=== PATIENT | male | born 1955 | race Caucasian/White ===

== ENCOUNTER 2016-11-26 12:30 | Emergency (ER) | payer OTHER ==
[~2016-11-26] VITALS: Ht 170.2 cm; Wt 91.0 kg
[~2016-11-26 12:30] MED LIST: DIAZ5 PO; ENOX40P SQ; METO50TA PO; NORC7.5T PO; TEMA15CA PO; WALKER ROLLING; Z.0.COMMODE-3:1; Z.0.CPM
[2016-11-26 12:33] VITALS: BP 134/96; PULSE 84; RESP 15; TEMP 98.2; O2SAT 98
--- NOTE | 2016-11-26 13:09 | PD ---
HPI . Pain and bleeding following EGD Chief Complaint: GI Complaint Time Seen by Provider: 12:51 Travel History International Travel<30 days: No Contact w/Intl Traveler<30days: No Traveled to known affect area: No History of Present Illness HPI Patient presents with a chief complaint of pain and bleeding each yesterday. Patient states that he was diagnosed with esophageal cancer yesterday. He states that he had blood in his mouth today on with the increased pain. He states that he call the GI doctor who instructed him to present here for treatment. He states that the bleeding is mild. He states that the pain is severe. He rates the pain 10/10. No modifying factors. PFSH Past Medical History Cancer: No Cardiovascular Problems: Yes Congestive Heart Failure: No Diminished Hearing: No Genitourinary: Yes Hypertension: Yes Musculoskeletal: Yes (left knee surgery) Neurologic: No Psychiatric: No Respiratory: Yes (SLEEP APNEA) Past Surgical History Abdominal Surgery: Yes (BILATERAL INGUINAL HERNIA REPAIR) Social History Alcohol Use: Yes ("OCCASIONALLY") Tobacco Use: No Substance Use: No Allergies-Medications (Allergen,Severity, Reaction): Coded Allergies: Scallop (Verified Allergy, Unknown, 11/26/16) Reported Meds & Prescriptions Reported Meds & Active Scripts Active Reported Prilosec (Omeprazole Magnesium) 20 Mg Tab Diazepam 10 Mg Tab 10 Mg PO HS PRN Metoprolol Tartrate 50 Mg Tab 50 Mg PO BID Review of Systems Except as stated in HPI: all other systems reviewed are Neg General / Constitutional: No: Fever, Chills Cardiovascular: No: Chest Pain or Discomfort Respiratory: No: Shortness of Breath Gastrointestinal: Positive: Abdominal Pain, Hematemesis, No: Nausea, Vomiting , Diarrhea Physical Exam Narrative GENERAL: The patient does not appear to be in any acute distress. SKIN: Warm and dry. He is pink. HEAD: Atraumatic. Normocephalic. EYES: Pupils equal and round. Extraocular movements are intact. ENT: No nasal bleeding or discharge. Mucous membranes pink and moist. NECK: Trachea midline. Neck is supple. CARDIOVASCULAR: Regular rate and rhythm. Heart sounds are normal. RESPIRATORY: No accessory muscle use. Lungs are clear. GASTROINTESTINAL: Abdomen soft. Diffuse upper abdominal tenderness. Nondistended. MUSCULOSKELETAL: No obvious deformities. No edema. NEUROLOGICAL: Awake and alert. No obvious cranial nerve deficits. Motor grossly within normal limits. Normal speech. PSYCHIATRIC: Appropriate mood and affect; insight and judgment normal. Data Data Last Documented VS Vital Signs Date Time Temp Pulse Resp B/P Pulse Ox O2 Delivery O2 Flow Rate FiO2 11/26/16 12:33 98.2 84 15 134/96 98 Orders Basic Metabolic Panel (Bmp) (11/26/16 13:02) Complete Blood Count With Diff (11/26/16 13:02) Ct Abd/Pel W Iv Contrast(Rout) (11/26/16 13:02) Iv Access Insert/Monitor (11/26/16 13:02) Morphine Inj (Morphine Inj) (11/26/16 13:15) Ondansetron Inj (Zofran Inj) (11/26/16 13:15) Sodium Chloride 0.9% Flush (Ns Flush) (11/26/16 13:15) Ct Thorax/ Chest W Iv Contrast (11/26/16 13:02) Iohexol 350 Inj (Omnipaque 350 Inj) (11/26/16 15:00) Labs Laboratory Tests Test 11/26/16 13:25 White Blood Count 8.7 TH/MM3 Red Blood Count 5.82 MIL/MM3 Hemoglobin 17.3 GM/DL Hematocrit 52.6 % Mean Corpuscular Volume 90.3 FL Mean Corpuscular Hemoglobin 29.7 PG Mean Corpuscular Hemoglobin 32.9 % Concent Red Cell Distribution Width 13.7 % Platelet Count 271 TH/MM3 Mean Platelet Volume 8.0 FL Neutrophils (%) (Auto) 63.8 % Lymphocytes (%) (Auto) 22.8 % Monocytes (%) (Auto) 10.9 % Eosinophils (%) (Auto) 1.9 % Basophils (%) (Auto) 0.6 % Neutrophils # (Auto) 5.6 TH/MM3 Lymphocytes # (Auto) 2.0 TH/MM3 Monocytes # (Auto) 0.9 TH/MM3 Eosinophils # (Auto) 0.2 TH/MM3 Basophils # (Auto) 0.1 TH/MM3 CBC Comment DIFF FINAL Differential Comment Sodium Level 136 MEQ/L Potassium Level 4.4 MEQ/L Chloride Level 103 MEQ/L Carbon Dioxide Level 23.4 MEQ/L Anion Gap 10 MEQ/L Blood Urea Nitrogen 7 MG/DL Creatinine 0.81 MG/DL Estimat Glomerular Filtration 98 ML/MIN Rate Random Glucose 82 MG/DL Calcium Level 9.4 MG/DL MDM Medical Decision Making Medical Screen Exam Complete: Yes Emergency Medical Condition: Yes Differential Diagnosis Differential diagnosis of abdominal pain includes but is not limited to gastritis, pancreatitis, hepatitis, gastroenteritis, gallbladder disease, constipation, urinary retention, UTI, peptic ulcer disease, diverticulitis or appendicitis Narrative Course This patient presents complaining with abdominal pain and hematemesis following an EGD yesterday. I have ordered a CT of the thorax, abdomen and pelvis to rule out complication related to this procedure. I have also ordered a CBC to check his blood count. His pain will be treated with morphine. He will be given Zofran for nausea associated with opiate treatment. CBC & BMP Diagram 11/26/16 13:25 CT chest: 1. Mildly distended and fluid-filled distal esophagus with soft tissue thickening at the GE junction. This may represent the patient's reported esophageal carcinoma. There are no findings to indicate metastatic disease. 2. There is an incidental 3 mm noncalcified nodule in the right middle lobe. Given the patient's history of malignancy, followup is suggested. CT abd/pelvis: 1. Extensive diverticulosis without diverticulitis. 2. No acute inflammatory process. 3. Small hiatal hernia. 4. Mild hepatic steatosis. We have not identified a catastrophe associated with his EGD done yesterday. He is hemodynamically stable. Diagnosis Primary Impression: Hematemesis Qualified Code: K92.0 - Hematemesis without nausea Additional Impression: Abdominal pain Qualified Code: R10.13 - Epigastric pain Disposition: 01 DISCHARGE HOME Condition: Stable Kayla Rehman MD Nov 26, 2016 13:09
[2016-11-26] MEDS ORDERED: METO50TA PO (13:10)
[2016-11-26] MEDS ORDERED: DIAZ10TA PO (13:13)
[2016-11-26] MEDS ORDERED: PRIL20TA2 (13:13)
[2016-11-26] MEDS ORDERED: ONDANSETRON HCL 4 MG/2 ML VIAL IVP ONE (13:15)
[2016-11-26] MEDS ORDERED: SODIUM CHLORIDE 0.9% FLUSH 10 ML FLUSH IV FLUSH PRN (13:15)
[2016-11-26] MEDS ORDERED: MORPHINE SULFATE 4 MG/ML INJ IV PUSH ONE (13:15)
[2016-11-26 13:57] LABS: AUTOMATED NEUTROPHIL # 5.6 TH/MM3 (1.8-7.7); BASOPHIL # 0.1 TH/MM3 (0-0.2); BASOPHIL % 0.6 % (0.0-2.0); EOSINOPHIL # 0.2 TH/MM3 (0-0.4); EOSINOPHIL % 1.9 % (0.0-4.0); HEMATOCRIT 52.6 % (39.0-51.0); HEMO FLAGS DIFF FINAL; LYMPH % 22.8 % (9.0-44.0); MEAN CELL VOLUME 90.3 FL (80.0-100.0); MEAN CORPUSCULAR HEMOGLOBIN 29.7 PG (27.0-34.0); MEAN CORPUSCULAR HGB CONC 32.9 % (32.0-36.0); MONO % 10.9 % (0.0-8.0); NEUT % 63.8 % (16.0-70.0); PLATELET COUNT 271 TH/MM3 (150-450); RED BLOOD COUNT 5.82 MIL/MM3 (4.50-5.90); RED CELL DISTRIBUTION WIDTH 13.7 % (11.6-17.2); WHITE BLOOD COUNT 8.7 TH/MM3 (4.0-11.0)
[2016-11-26 14:04] LABS: BICARBONATE 23.4 MEQ/L (21.0-32.0); POTASSIUM 4.4 MEQ/L (3.5-5.1)
[2016-11-26] MEDS ORDERED: IOHEXOL 350 MG/ML 10 ML VIAL (for RAD DIAG) IV ONE (15:00)
--- NOTE | 2016-11-26 15:27 | RADRPT ---
EXAM DATE/TIME: 11/26/2016 14:45 [facility] COMPARISON: No previous studies available for comparison. INDICATIONS : Abdomen pain with bleeding. IV CONTRAST: 87 cc Omnipaque 350 (iohexol) IV RADIATION DOSE: 6.14 CTDIvol (mGy) MEDICAL HISTORY : Carcinoma, esophageal. Hypertension. Cardiovascular disease SURGICAL HISTORY : Inguinal hernia repair. ENCOUNTER: Initial ACUITY: 1 day PAIN SCALE: 4/10 LOCATION: Bilateral lower chest TECHNIQUE: Volumetric scanning of the chest was performed. Using automated exposure control and adjustment of t he mA and/or kV according to patient size, radiation dose was kept as low as reasonably achievable to obtain optimal diagnostic quality images. DICOM format image data is available electronically for review and comparison. Follow-up recommendations for incidentally detected pulmonary nodules are based at a minimum on nodul e size and patient risk factors according to Fleischner Society Guidelines. FINDINGS: LUNGS: There is no consolidation or pneumothorax. There is a 3 mm noncalcified nodule in the right middle lo be. PLEURA: There is no pleural thickening or pleural effusion. MEDIASTINUM: The heart and great vessels demonstrate no acute abnormality. Ascending aorta measures 4 cm. There a re calcified lymph nodes in the left hilum and mediastinum. Moderate atherosclerotic disease of the a emily is present. There is no mediastinal or hilar lymphadenopathy. AXILLAE: Within normal limits. No lymphadenopathy. SKELETAL: There are degenerative changes of the thoracic spine. MISCELLANEOUS: Please refer to abdomen and pelvis CT report for description of the subdiaphragmatic findings. Distal esophagus is distended with fluid. There is mild soft tissue thickening of the GE junction. CONCLUSION: 1. Mildly distended and fluid-filled distal esophagus with soft tissue thickening at the GE junction. This may represent the patient's reported esophageal carcinoma. There are no findings to indicate me tastatic disease. 2. There is an incidental 3 mm noncalcified nodule in the right middle lobe. Given the patient's hist ory of malignancy, followup is suggested. Ren Hassan MD on November 26, 2016 at 15:18 Board Certified Radiologist. This report was verified electronically.
--- NOTE | 2016-11-26 15:28 | RADRPT ---
EXAM DATE/TIME: 11/26/2016 14:43 [facility] COMPARISON: No previous studies available for comparison. INDICATIONS : Abdominal pain with bleeding. IV CONTRAST: 87 cc Omnipaque 350 (iohexol) IV ORAL CONTRAST: Prescribed oral contrast ingested. RADIATION DOSE: 6.14 CTDIvol (mGy) MEDICAL HISTORY : Carcinoma, esophageal. Cardiovascular disease Hypertension. SURGICAL HISTORY : Inguinal hernia repair. ENCOUNTER: Initial ACUITY: 1 day PAIN SCALE: 3/10 LOCATION: Bilateral upper quadrant TECHNIQUE: Volumetric scanning of the abdomen and pelvis was performed. Using automated exposure control and ad justment of the mA and/or kV according to patient size, radiation dose was kept as low as reasonably achievable to obtain optimal diagnostic quality images. DICOM format image data is available electro nically for review and comparison. FINDINGS: LOWER LUNGS: The visualized lower lungs are clear. LIVER: Decreased attenuation without lesion. There is no dilation of the biliary tree. No calcified gallst ones. SPLEEN: Normal size without lesion. PANCREAS: Within normal limits. KIDNEYS: Normal in size and shape. There is no mass, stone or hydronephrosis. ADRENAL GLANDS: Within normal limits. VASCULAR: There is no aortic aneurysm. BOWEL/MESENTERY: Extensive diverticulosis without diverticulitis. Small hiatal hernia. There is no free intraperitone al air or fluid. ABDOMINAL WALL: Within normal limits. RETROPERITONEUM: There is no lymphadenopathy. BLADDER: No wall thickening or mass. REPRODUCTIVE: Within normal limits. INGUINAL: There is no lymphadenopathy or hernia on the left. A fat-containing right inguinal hernia. Bilateral inguinal hernia repairs. MUSCULOSKELETAL: Within normal limits for patient age. CONCLUSION: 1. Extensive diverticulosis without diverticulitis. 2. No acute inflammatory process. 3. Small hiatal hernia. 4. Mild hepatic steatosis. John Tyson MD on November 26, 2016 at 15:21 Board Certified Radiologist. This report was verified electronically.
[2016-11-26 15:40] VITALS: BP 144/92; PULSE 77; RESP 18; O2SAT 97
[2016-11-26] MEDS ORDERED: NORC5TAB PO (15:56)
[2016-11-26 16:14] VITALS: BP 144/94; TEMP 98.1
== END 2016-11-26 16:20 | disposition home or self-care (01) ==
LOC: NEPE 12:30
DX: K92.0 Hematemesis (principal); R10.13 Epigastric pain; I10 Essential (primary) hypertension; C15.9 Malignant neoplasm of esophagus, unspecified
CPT/HCPCS: 71260; 74177; 80048; 85025; 96374; 96375; 99285; J2270; J2405; Q9967

== ENCOUNTER 2016-12-24 08:07 | Day surgery (SDC) | payer OTHER ==
[~2016-12-24] VITALS: Ht 170.2 cm; Wt 90.9 kg
[~2016-12-24 08:07] MED LIST changes: +DIAZ10TA PO; -DIAZ5 PO; -ENOX40P SQ; +NORC5TAB PO; -NORC7.5T PO; +PRIL20TA2; +SODIUM CHLORIDE 0.9% 1000 ML IV SCH; -TEMA15CA PO; -WALKER ROLLING; -Z.0.COMMODE-3:1; -Z.0.CPM
[2016-12-24 08:23] VITALS: BP 130/101; PULSE 83; RESP 20; TEMP 98.3; O2SAT 94
[2016-12-24] MEDS ORDERED: HYDR-3583 PO (08:25)
[2016-12-24] MEDS ORDERED: VANCOMYCIN 1000 MG/NS 250 ML - implanted port/tunneled catheter IV SCH ×2 (08:30)
[2016-12-24] MEDS ORDERED: CHLORHEXIDINE GLUCONATE 2 % 1 PACK (2 CLOTHS) TOPICAL SCH (08:30)
[2016-12-24] MEDS ORDERED: POVIDONE IODINE 5% (ANTISEPSIS KIT) 4 APPLICATIONS EACH NARE SCH (08:30)
[2016-12-24] MEDS ORDERED: ceFAZolin 2 GM PREMIX 50 ML - implanted port/tunneled catheter insertion IV SCH (08:30)
[2016-12-24] MEDS ORDERED: fentaNYL CITRATE 250 MCG/5 ML AMP ONE (09:06)
[2016-12-24] MEDS ORDERED: MIDAZOLAM HCL 2 MG/2 ML VIAL ONE ×2 (09:06→09:41)
[2016-12-24] MEDS ORDERED: LIDOCAINE 1%/EPINEPHrine 1:100,000 SOLN 20 ML VIAL ONE (09:15)
[2016-12-24 10:15] VITALS: BP 126/81; PULSE 75; RESP 18; TEMP 97.5; O2SAT 94
--- NOTE | 2016-12-24 10:23 | PD.RAD ---
Post Procedure Progress Note Pre Procedure Diagnosis: (1) Esophageal cancer Post Procedure Diagnosis: (1) Esophageal cancer Procedure Date: Dec 24, 2016 Supervising Radiologist: Gilberto Pearson JR Proceduralist/Assist: Madonna Silveira, RT(R)(CV), Cortez David, RT(R) Anesthesia: Conscious Sedation Plan of Activity Patient to Unit: ROPU Patient Condition: Good See PACS Report for procedural detail/treatment Central Venous Access Device Procedure 1 Right Internal Jugular Infusaport Placement single lumen Bengali: 8 Findings: Port in good position and functions well. OK to use. Plan F/U with IR or a physician in 10-14 days for a site check. Jr. Michel,Gilberto Erwni MD Dec 24, 2016 10:23
[2016-12-24 10:30] VITALS: BP 121/78; PULSE 73; RESP 18; O2SAT 94
[2016-12-24] MEDS ORDERED: SODIUM CHLORIDE 0.9% FLUSH 10 ML FLUSH IVF PRN (10:30)
[2016-12-24 11:30] VITALS: BP 125/78; PULSE 69; RESP 17; O2SAT 95
--- NOTE | 2016-12-24 14:44 | RADRPT ---
EXAM DATE/TIME: 12/24/2016 09:06 [facility] COMPARISON: No previous studies available for comparison. INDICATIONS : Patient with abdomen pain. Cancer. MEDICAL HISTORY : 1. GERD 2. HTN 3. high cholesterol 4. kidney disease 5. BPH SURGICAL HISTORY : 1. hernia repair 2. Left knee surgery ENCOUNTER: Initial ACUITY: 4-6 months PAIN SCORE: 0/10 FLUORO TIME: 0.4 minutes IMAGE SERIES: 0 SEDATION TIME: 45 minutes ACCESS: Right internal jugular vein SEDATION: 1.) 4 mg midazolam (Versed) IV 2.) 350 mcg fentanyl (Sublimaze) IV Prophylactic antibiotics were administered with appropriate pre-procedure timing. Vancomycin within 2 hours of procedure, Ancef (or alternative) within 1 hour of procedure. DEVICE: 1. 8 [place] single lumen Smart Port PROCEDURE : 1. Continuous pulse oximetry and EKG monitoring. 2. Intravenous conscious sedation. 3. Ultrasound guidance for venous access. 4. Fluoroscopic guided implantable central venous port placement. The patient was placed supine. The neck was prepped in sterile fashion. Full sterile technique was u sed, including cap, mask, sterile gloves and gown, and a large sterile sheet. Hand hygiene and 2% ch lorhexidine Betadine was utilized per protocol for cutaneous antisepsis with appropriate dry time for site. The skin and subcutaneous tissues were infiltrated with local anesthetic solution. Under direct ultrasound guidance, central venous access was accomplished in the targeted vessel. The ultrasound images depicting access guidance were stored and saved to PACS for permanent record. A s ubcutaneous pocket was created using blunt dissection. The port was introduced to the pocket. The c atheter tubing was fed through a subcutaneous tunnel to the venotomy site. The catheter tubing was c ut to a suitable length and then was introduced through a valved Peel-Away sheath and positioned with catheter tubing tip at the cavo-atrial junction level. The pocket incision was closed with subcutic ular Vicryl suture. Steri-Strips were applied. The port was flushed and locked with heparin solutio n per protocol. Sterile dressing was applied to the site. The patient tolerated the procedure well. Conscious sedation was performed with the prescribed dosages and duration as above in the presence of an independent trained radiology nurse to assist in the monitoring of the patient. EKG and oximetry remained stable throughout the procedure. The patient tolerated the procedure well and there were no complications. The patient was sent to post anesthesia recovery in stable condition. CONCLUSION: Uncomplicated ultrasound and fluoroscopic guided implanted central venous port catheter placement as described in detail above. An 8 [place] Island[place] Power port was placed. Gilberto Pearson Jr., MD on December 24, 2016 at 14:24 Board Certified Radiologist. This report was verified electronically.
[2016-12-30] MEDS ORDERED: ONDA1TAB17 PO (11:33)
[2016-12-30] MEDS ORDERED: PROC10TA PO (11:33)
== END 2016-12-24 12:15 | disposition home or self-care (01) ==
LOC: HRIP 08:07 → HROP 08:07
PROVIDERS: ATTEND Internal Medicine Hematology & Oncology
DX: C15.9 Malignant neoplasm of esophagus, unspecified (principal); I10 Essential (primary) hypertension; K21.9 Gastro-esophageal reflux disease without esophagitis; E78.00 Pure hypercholesterolemia, unspecified; N40.0 Benign prostatic hyperplasia without lower urinary tract symptoms; N28.9 Disorder of kidney and ureter, unspecified
CPT/HCPCS: 36561; 76937; 77001; 99152; 99153; C1788; J0690; J1642; J2250; J3010; J3370; J7030; J7050

== ENCOUNTER 2017-02-07 16:46 | Inpatient (IN) | payer MEDICAID, OTHER ==
[~2017-02-07] VITALS: Ht 170.2 cm; Wt 83.2 kg
[2017-02-07] MEDS: SODIUM CHLORIDE 0.9% FLUSH 10 ML FLUSH IV FLUSH SCH (10:48)
[~2017-02-07 16:46] MED LIST changes: +HYDR-3583 PO; -NORC5TAB PO; +ONDA1TAB17 PO; +PROC10TA PO; -SODIUM CHLORIDE 0.9% 1000 ML IV SCH
[2017-02-07] MEDS ORDERED: IOHEXOL 350 MG/ML 10 ML VIAL (for RAD DIAG) IVCONTRAST ONE (16:47)
[2017-02-07 16:53] VITALS: BP 141/100; PULSE 115; RESP 15; TEMP 97.4; O2SAT 98
--- NOTE | 2017-02-07 17:02 | PD ---
Physical Exam Time Seen by Provider: 17:00 Narrative Pt with history of esophageal ca followed by Dr. Silver, recently finished chemo and radiation 02/04/2017. Having severe epigastric pain throughout the weekend. Pain medications seemed to help through the weekend, but today his pain is "the worse I've ever had." 02/15. Mild nausea without vomiting. Subjective fever and chills. Data Data Last Documented VS Vital Signs Date Time Temp Pulse Resp B/P (MAP) Pulse Ox O2 Delivery O2 Flow Rate FiO2 02/07/17 21:20 16 02/07/17 18:23 96 125/73 (90) 100 Room Air 02/07/17 16:53 97.4 Orders Orders Complete Blood Count With Diff (02/07/17 17:03) Comprehensive Metabolic Panel (02/07/17 17:03) Lipase (02/07/17 17:03) Prothrombin Time / Inr (Pt) (02/07/17 17:03) Act Partial Throm Time (Ptt) (02/07/17 17:03) Urinalysis - C+S If Indicated (02/07/17 17:03) Ct Abd/Pel W Iv Contrast(Rout) (02/07/17 17:03) Iv Access Insert/Monitor (02/07/17 17:03) Sodium Chloride 0.9% Flush (Ns Flush) (02/07/17 17:15) Electrocardiogram (02/07/17 17:03) Abdomen, Kub Only (02/07/17 17:03) Chest, Single Ap (02/07/17 17:03) Ct Pulmonary Angiogram (02/07/17 ) Hydromorphone Pf Inj (Dilaudid Pf Inj) (02/07/17 18:45) Ondansetron Inj (Zofran Inj) (02/07/17 18:45) Iohexol 350 Inj (Omnipaque 350 Inj) (02/07/17 16:47) Place In Observation (02/07/17 ) Vital Signs (Adult) Q4H (02/07/17 21:58) Activity Oob With Assistance (02/07/17 21:58) Loss Prevention Manager / Telemetry .CONTINUOUS (02/07/17 21:58) Diet Heart Healthy (02/08/17 Breakfast) Sodium Chloride 0.9% Flush (Ns Flush) (02/07/17 22:00) Sodium Chloride 0.9% Flush (Ns Flush) (02/08/17 09:00) Ondansetron Inj (Zofran Inj) (02/07/17 22:00) Basic Metabolic Panel (Bmp) (02/08/17 06:00) Complete Blood Count With Diff (02/08/17 06:00) Case Management Consult (02/07/17 21:58) Naloxone Inj (Narcan Inj) (02/07/17 22:00) Hydromorphone Pf Inj (Dilaudid Pf Inj) (02/07/17 22:00) Admit Order (Ed Use Only) (02/07/17 22:01) Consult Medical Oncology (02/07/17 ) Labs Laboratory Tests Test 02/07/17 17:27 White Blood Count 2.8 TH/MM3 Red Blood Count 3.93 MIL/MM3 Hemoglobin 11.7 GM/DL Hematocrit 33.6 % Mean Corpuscular Volume 85.5 FL Mean Corpuscular Hemoglobin 29.7 PG Mean Corpuscular Hemoglobin Concent 34.7 % Red Cell Distribution Width 15.3 % Platelet Count 165 TH/MM3 Mean Platelet Volume 8.3 FL Neutrophils (%) (Auto) 74.1 % Lymphocytes (%) (Auto) 9.5 % Monocytes (%) (Auto) 15.4 % Eosinophils (%) (Auto) 0.2 % Basophils (%) (Auto) 0.8 % Neutrophils # (Auto) 2.1 TH/MM3 Lymphocytes # (Auto) 0.3 TH/MM3 Monocytes # (Auto) 0.4 TH/MM3 Eosinophils # (Auto) 0.0 TH/MM3 Basophils # (Auto) 0.0 TH/MM3 CBC Comment DIFF FINAL Differential Comment Prothrombin Time 11.4 SEC Prothromb Time International Ratio 1.0 RATIO Activated Partial Thromboplast Time 27.1 SEC Blood Urea Nitrogen 11 MG/DL Creatinine 0.66 MG/DL Random Glucose 113 MG/DL Total Protein 7.1 GM/DL Albumin 2.9 GM/DL Calcium Level 8.8 MG/DL Alkaline Phosphatase 202 U/L Aspartate Amino Transf (AST/SGOT) 35 U/L Alanine Aminotransferase (ALT/SGPT) 29 U/L Total Bilirubin 1.2 MG/DL Sodium Level 130 MEQ/L Potassium Level 3.2 MEQ/L Chloride Level 91 MEQ/L Carbon Dioxide Level 28.2 MEQ/L Anion Gap 11 MEQ/L Estimat Glomerular Filtration Rate 124 ML/MIN Lipase 67 U/L MDM Medical Record Reviewed: Yes Supervised Visit with TANIYA: No Condition: Stable Katrina Avelar Feb 07, 2017 17:02
[2017-02-07] MEDS ORDERED: SODIUM CHLORIDE 0.9% FLUSH 10 ML FLUSH IV FLUSH PRN ×2 (17:15→22:00)
--- NOTE | 2017-02-07 17:46 | RADRPT ---
EXAM DATE/TIME: 02/07/2017 17:37 [facility] COMPARISON: No previous studies available for comparison. INDICATIONS : Chest pain. MEDICAL HISTORY : None. SURGICAL HISTORY : Infusaport. ENCOUNTER: Sequela ACUITY: 2 months PAIN SCORE: 10/10 LOCATION: middle chest. FINDINGS: A single view of the chest demonstrates the lungs to be symmetrically aerated without evidence of mas s, infiltrate or effusion. There is a right subclavian [id number]-[id number] with catheter tip in the proxima l SVC. cardiomediastinal contours are unremarkable. Osseous structures are intact. CONCLUSION: 1. No acute cardiopulmonary disease. Efrain Ivey MD on February 07, 2017 at 17:45 Board Certified Radiologist. This report was verified electronically.
--- NOTE | 2017-02-07 17:48 | RADRPT ---
EXAM DATE/TIME: 02/07/2017 17:40 [facility] COMPARISON: CT ABDOMEN & PELVIS W CONTRAST, November 26, 2016, 14:43. INDICATIONS : Abdominal pain. MEDICAL HISTORY : Carcinoma, esophageal. SURGICAL HISTORY : Inguinal hernia repair. ENCOUNTER: Subsequent ACUITY: 2 months PAIN SCORE: 10/10 LOCATION: upper quadrant abdomen. FINDINGS: Single supine view of the abdomen was performed. Air and stool are noted throughout the colon. There is A+ small bowel gas. No dilated loops of bowel are noted. No abnormal calcifications are noted. Rem ainder of the exam is unchanged. CONCLUSION: 1. Nonspecific bowel gas pattern with general paucity of small bowel gas. Efrain Ivey MD on February 07, 2017 at 17:45 Board Certified Radiologist. This report was verified electronically.
[2017-02-07 17:59] LABS: AUTOMATED NEUTROPHIL # 2.1 TH/MM3 (1.8-7.7); BASOPHIL % 0.8 % (0.0-2.0); EOSINOPHIL % 0.2 % (0.0-4.0); HEMATOCRIT 33.6 % (39.0-51.0); HEMO FLAGS DIFF FINAL; LYMPH % 9.5 % (9.0-44.0); LYMPHOCYTE # 0.3 TH/MM3 (1.0-4.8); MEAN CELL VOLUME 85.5 FL (80.0-100.0); MEAN CORPUSCULAR HEMOGLOBIN 29.7 PG (27.0-34.0); MEAN CORPUSCULAR HGB CONC 34.7 % (32.0-36.0); MONO % 15.4 % (0.0-8.0); NEUT % 74.1 % (16.0-70.0); PLATELET COUNT 165 TH/MM3 (150-450); RED BLOOD COUNT 3.93 MIL/MM3 (4.50-5.90); RED CELL DISTRIBUTION WIDTH 15.3 % (11.6-17.2); WHITE BLOOD COUNT 2.8 TH/MM3 (4.0-11.0)
[2017-02-07] MEDS ORDERED: MORP1TAB25 PO (18:22)
[2017-02-07 18:23] VITALS: BP 125/73; PULSE 96; RESP 17; O2SAT 100
[2017-02-07] MEDS ORDERED: POTA1TAB4 PO (18:23)
[2017-02-07 18:26] LABS: ANION GAP 11 MEQ/L (5-15); APTT (PATIENT) 27.1 SEC (24.3-30.1); AST (GOT) 35 U/L (15-37); BICARBONATE 28.2 MEQ/L (21.0-32.0); BLOOD UREA NITROGEN 11 MG/DL (7-18); CHLORIDE 91 MEQ/L (98-107); GLOMERULAR FILTRATION RATE 124 ML/MIN (>89); POTASSIUM 3.2 MEQ/L (3.5-5.1); PROTHROMBIN TIME - PATIENT 11.4 SEC (9.8-11.6); SODIUM (NA) 130 MEQ/L (136-145)
[2017-02-07 18:29] LABS: ALKALINE PHOSPHATASE 202 U/L (45-117); ALT (GPT) 29 U/L (12-78); TOTAL BILIRUBIN ADULT 1.2 MG/DL (0.2-1.0)
[2017-02-07] MEDS ORDERED: ONDANSETRON HCL 4 MG/2 ML VIAL IV PUSH ONE (18:45)
[2017-02-07] MEDS ORDERED: HYDROmorphone HCL PF 2 MG/ML VIAL IV PUSH ONE ×2 (18:45→23:00)
--- NOTE | 2017-02-07 20:54 | RADRPT ---
EXAM DATE/TIME: 02/07/2017 19:42 [facility] COMPARISON: CT THORAX W CONTRAST, November 26, 2016, 14:45. INDICATIONS : Substernal chest pain today. IV CONTRAST: 50 cc Omnipaque 350 (iohexol) IV ; Cumulative dose for multiple exams. RADIATION DOSE: 8.68 CTDIvol (mGy) MEDICAL HISTORY : Carcinoma, esophageal. Hypertension. Hernia, inguinal. SURGICAL HISTORY : Inguinal hernia repair. ENCOUNTER: Initial ACUITY: 1 day PAIN SCALE: 10/10 LOCATION: substernal chest TECHNIQUE: Volumetric scanning of the chest was performed using a pulmonary embolism protocol MIP images were re constructed. Using automated exposure control and adjustment of the mA and/or kV according to patien t size, radiation dose was kept as low as reasonably achievable to obtain optimal diagnostic quality images. DICOM format image data is available electronically for review and comparison. Follow-up recommendations for detected pulmonary nodules are based at a minimum on nodule size and pa tient risk factors according to Fleischner Society Guidelines. FINDINGS: PULMONARY ARTERIES: No filling defects are seen in the pulmonary arteries through the segmental level. LUNGS: There is minimal increased density at the right medial basal likely related to atelectasis or scarrin g. There is persistent minimal increased density at the anterior right midlung likely related to the fissure. There is a stable tiny 2 mm density at the posterior left upper lung abutting the fissure. A ll the findings in the lungs are stable. PLEURAE: There is no pleural thickening or pleural effusion. MEDIASTINUM: There is mild aneurysmal dilatation of the ascending aorta measuring 4.1 cm. There is dilatation of t he thoracic esophagus. There is some thickening of the distal esophagus. Hiatal hernia may also be pr esent. There is a calcified lymph node at the left tracheobronchial region. MUSCULOSKELETAL: Within normal limits for patient age. MISCELLANEOUS: The visualized upper abdominal organs demonstrate no acute abnormality. CONCLUSION: 1. No pulmonary embolus. 2. Dilatation of the thoracic esophagus with some thickening at the distal esophagus likely related t o the patient's reported esophageal carcinoma. Ren Mckeon MD on February 07, 2017 at 20:45 Board Certified Radiologist. This report was verified electronically.
--- NOTE | 2017-02-07 21:05 | RADRPT ---
EXAM DATE/TIME: 02/07/2017 19:36 [facility] COMPARISON: CT ABDOMEN & PELVIS W CONTRAST, November 26, 2016, 14:43. INDICATIONS : Epigastric pain today. IV CONTRAST: 50 cc Omnipaque 350 (iohexol) IV ; Cumulative dose for multiple exams. ORAL CONTRAST: No oral contrast ingested. RADIATION DOSE: 11.86 CTDIvol (mGy) MEDICAL HISTORY : Carcinoma, esophageal. Hypertension. Hernia, inguinal. SURGICAL HISTORY : Inguinal hernia repair. ENCOUNTER: Initial ACUITY: 1 day PAIN SCALE: 10/10 LOCATION: Epigastric abdomen TECHNIQUE: Volumetric scanning of the abdomen and pelvis was performed. Using automated exposure control and adjustment of the mA and/or kV according to patient size, radiation dose was kept as low as reasonably achievable to obtain optimal diagnostic quality images. DICOM format image data is av ailable electronically for review and comparison. FINDINGS: There is mild intrahepatic biliary ductal dilatation. The common bile duct appears mil dly prominent at 9 mm. The cause for this mild dilatation is not seen. The gallbladder is distended . Calcified stones are not seen. The spleen demonstrates calcified granulomas. The pancreas and adrenal glands are normal. Both kidn eys appear grossly normal. There is a mild hiatal hernia present. There is high density material see n in the distal stomach likely related to ingested material. There are scattered colonic diverticula seen throughout especially in the sigmoid region. There is a short segment of the sigmoid colon deep t appears nondistended and questionably thickened. This is nonspecific. The main pelvic structures appear grossly intact. The patient does have hernia mesh seen in the inguinal regions bilaterally. There is no evidence of a hernia. There is some mild suspected atelectasis at the right lung base. The bony structures are grossly int act. CONCLUSION: 1. An acute abnormality is not clearly seen. 2. Mild hiatal hernia. 3. Mild dilatation of the common bile duct and intrahepatic biliary ducts. The cause for this mild di latation is not seen. 4. Colonic diverticula without significant inflammatory change. There is a short segment of the dist al sigmoid colon that appears questionably thickened. This could be secondary to simple lack of ful l distension. An underlying abnormality cannot be excluded. This area could be further evaluated di rectly if the patient has not had recent colonoscopy. Ren Mckeon MD on February 07, 2017 at 20:40 Board Certified Radiologist. This report was verified electronically.
--- NOTE | 2017-02-07 21:50 | PD ---
HPI Chief Complaint: Pain: Acute or Chronic Time Seen by Provider: 18:17 Travel History International Travel<30 days: No Contact w/Intl Traveler<30days: No Traveled to known affect area: No History of Present Illness HPI 61-year-old male that presents to the ED for evaluation of cancer pain. Patient has a history of esophageal cancer. He gets chemotherapy and radiation in his had his last chemotherapy last Tuesday. Per patient ever since she's been developing more pain. He states that he is having difficulty swallowing solids but this is normal for him. Per patient he normally takes his morphine and hydrocodone with some relief but recently has not helped at all. Per patient's his pain is 10 out of 10. Denies any fevers chills or sweats. He follows with Dr. Ferguson and his office told to come here if his pain gets worse. He denies significant blood thinners. No urinary or bowel movement issues. Pain per patient is 10 out of 10. Does not radiate. PFSH Past Medical History Arthritis: Yes Anxiety: Yes Depression: Yes Cancer: Yes (ESOPHAGEAL CANCE) Cardiovascular Problems: Yes Chemotherapy: Yes Congestive Heart Failure: No Diabetes: No Diminished Hearing: No Endocrine: No GERD: Yes Genitourinary: Yes Hypertension: Yes Inguinal Hernia: Yes Musculoskeletal: Yes (left knee surgery) Neurologic: No Psychiatric: No Respiratory: Yes (SLEEP APNEA) Radiation Therapy: Yes Sleep Apnea: Yes Thyroid Disease: No Past Surgical History Abdominal Surgery: Yes (BILATERAL HERNIA REPAIR IN [place]) Social History Alcohol Use: Yes (occas) Tobacco Use: No Substance Use: No Allergies-Medications (Allergen,Severity, Reaction): Coded Allergies: scallops (Unverified Allergy, Unknown, 02/07/17) Reported Meds & Prescriptions Reported Meds & Active Scripts Active Reported K-Tab (Potassium Chloride) 20 Meq Tab 30 Meq PO DAILY Morphine ER (Morphine Sulfate) 30 Mg Tab 30 Mg PO Q8H PRN Prochlorperazine Maleate 10 Mg Tab 10 Mg PO Q6H PRN Ondansetron (Ondansetron HCl) 8 Mg Tab 8 Mg PO TID Hydrocodone-Acetaminophen 10-325 mg Tab 1 Tab PO Q4H PRN Prilosec (Omeprazole Magnesium) 20 Mg Tab Diazepam 10 Mg Tab 10 Mg PO BID PRN Metoprolol Tartrate 50 Mg Tab 50 Mg PO BID Review of Systems Except as stated in HPI: all other systems reviewed are Neg Physical Exam Narrative GENERAL: SKIN: Warm and dry. HEAD: Atraumatic. Normocephalic. EYES: Pupils equal and round. No scleral icterus. No injection or drainage. ENT: No nasal bleeding or discharge. Mucous membranes pink and moist. Tongue is midline. No uvula deviation. NECK: Trachea midline. No JVD. CARDIOVASCULAR: Regular rate and rhythm. No murmurs, S3, S4. RESPIRATORY: No accessory muscle use. Clear to auscultation. Breath sounds equal bilaterally. GASTROINTESTINAL: Abdomen soft, patient has reproducible epigastric pain with touch, nondistended. Hepatic and splenic margins not palpable. MUSCULOSKELETAL: Extremities without clubbing, cyanosis, or edema. No obvious deformities. Full range of motion of the upper and lower extremities bilaterally. 2+ pulses bilaterally. NEUROLOGICAL: Awake and alert. No obvious cranial nerve deficits. Motor grossly within normal limits. Five out of 5 muscle strength in the arms and legs. Normal speech. PSYCHIATRIC: Appropriate mood and affect; insight and judgment normal. Data Data Last Documented VS Vital Signs Date Time Temp Pulse Resp B/P (MAP) Pulse Ox O2 Delivery O2 Flow Rate FiO2 02/07/17 21:20 16 02/07/17 18:23 96 125/73 (90) 100 Room Air 02/07/17 16:53 97.4 Orders Orders Complete Blood Count With Diff (02/07/17 17:03) Comprehensive Metabolic Panel (02/07/17 17:03) Lipase (02/07/17 17:03) Prothrombin Time / Inr (Pt) (02/07/17 17:03) Act Partial Throm Time (Ptt) (02/07/17 17:03) Urinalysis - C+S If Indicated (02/07/17 17:03) Ct Abd/Pel W Iv Contrast(Rout) (02/07/17 17:03) Iv Access Insert/Monitor (02/07/17 17:03) Sodium Chloride 0.9% Flush (Ns Flush) (02/07/17 17:15) Electrocardiogram (02/07/17 17:03) Abdomen, Kub Only (02/07/17 17:03) Chest, Single Ap (02/07/17 17:03) Ct Pulmonary Angiogram (02/07/17 ) Hydromorphone Pf Inj (Dilaudid Pf Inj) (02/07/17 18:45) Ondansetron Inj (Zofran Inj) (02/07/17 18:45) Iohexol 350 Inj (Omnipaque 350 Inj) (02/07/17 16:47) Place In Observation (02/07/17 ) Vital Signs (Adult) Q4H (02/07/17 21:58) Activity Oob With Assistance (02/07/17 21:58) Qa Architect / Telemetry .CONTINUOUS (02/07/17 21:58) Diet Heart Healthy (02/08/17 Breakfast) Sodium Chloride 0.9% Flush (Ns Flush) (02/07/17 22:00) Sodium Chloride 0.9% Flush (Ns Flush) (02/08/17 09:00) Ondansetron Inj (Zofran Inj) (02/07/17 22:00) Basic Metabolic Panel (Bmp) (02/08/17 06:00) Complete Blood Count With Diff (02/08/17 06:00) Case Management Consult (02/07/17 21:58) Naloxone Inj (Narcan Inj) (02/07/17 22:00) Hydromorphone Pf Inj (Dilaudid Pf Inj) (02/07/17 22:00) Admit Order (Ed Use Only) (02/07/17 22:01) Consult Medical Oncology (02/07/17 ) Labs Laboratory Tests Test 02/07/17 17:27 White Blood Count 2.8 TH/MM3 Red Blood Count 3.93 MIL/MM3 Hemoglobin 11.7 GM/DL Hematocrit 33.6 % Mean Corpuscular Volume 85.5 FL Mean Corpuscular Hemoglobin 29.7 PG Mean Corpuscular Hemoglobin Concent 34.7 % Red Cell Distribution Width 15.3 % Platelet Count 165 TH/MM3 Mean Platelet Volume 8.3 FL Neutrophils (%) (Auto) 74.1 % Lymphocytes (%) (Auto) 9.5 % Monocytes (%) (Auto) 15.4 % Eosinophils (%) (Auto) 0.2 % Basophils (%) (Auto) 0.8 % Neutrophils # (Auto) 2.1 TH/MM3 Lymphocytes # (Auto) 0.3 TH/MM3 Monocytes # (Auto) 0.4 TH/MM3 Eosinophils # (Auto) 0.0 TH/MM3 Basophils # (Auto) 0.0 TH/MM3 CBC Comment DIFF FINAL Differential Comment Prothrombin Time 11.4 SEC Prothromb Time International Ratio 1.0 RATIO Activated Partial Thromboplast Time 27.1 SEC Blood Urea Nitrogen 11 MG/DL Creatinine 0.66 MG/DL Random Glucose 113 MG/DL Total Protein 7.1 GM/DL Albumin 2.9 GM/DL Calcium Level 8.8 MG/DL Alkaline Phosphatase 202 U/L Aspartate Amino Transf (AST/SGOT) 35 U/L Alanine Aminotransferase (ALT/SGPT) 29 U/L Total Bilirubin 1.2 MG/DL Sodium Level 130 MEQ/L Potassium Level 3.2 MEQ/L Chloride Level 91 MEQ/L Carbon Dioxide Level 28.2 MEQ/L Anion Gap 11 MEQ/L Estimat Glomerular Filtration Rate 124 ML/MIN Lipase 67 U/L MDM Medical Decision Making Medical Screen Exam Complete: Yes Emergency Medical Condition: Yes Medical Record Reviewed: Yes Interpretation(s) CBC & BMP Diagram 02/07/17 17:27 Total Protein 7.1, Albumin 2.9 L, Calcium Level 8.8, Alkaline Phosphatase 202 H , Aspartate Amino Transf (AST/SGOT) 35, Alanine Aminotransferase (ALT/SGPT) 29, Total Bilirubin 1.2 H Last Impressions Chest X-Ray 02/07/171702 Signed Impressions: Service Date/Time: Tuesday, February 07, 2017 17:37 - CONCLUSION: 1. No acute cardiopulmonary disease. Efrain Ivey MD Abdomen X-Ray 02/07/171702 Signed Impressions: Service Date/Time: Tuesday, February 07, 2017 17:40 - CONCLUSION: 1. Nonspecific bowel gas pattern with general paucity of small bowel gas. Efrain Ivey MD CT of the chest did not show any sign of PE. Esophageal mass. CT of the abdomen did not show any sign of acute disease. Possible inflammatory disease but per radiologist he couldn't be conclusively. Differential Diagnosis Acute on chronic pain versus esophageal cancer versus intractable pain Narrative Course 61-year-old male that presents to the ED for evaluation of cancer pain. Patient was properly examined and was found to have signs and symptoms consistent with appears to be intractable abdominal pain. Labs and imaging were done. Labs and imaging were essentially unremarkable. Patient was given Dilaudid with minimal results. Patient still complains of a lot of pain. He does appear to be somewhat dehydrated. Because of patient's symptoms I do recommend admission for intractable pain. A call was placed to Dr. 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 ADITHYA was paged and Dr Saavedra agrees with admission. Diagnosis Primary Impression: Intractable abdominal pain Admitting Information Admitting Physician Requests: Observation Condition: Stable Jaime Swenson Feb 07, 2017 21:50
[2017-02-07] MEDS ORDERED: NALOXONE HCL 0.4 MG/ML AMP IV PUSH PRN (22:00)
[2017-02-07] MEDS: HYDROmorphone HCL PF 1 MG/ML VIAL IV PUSH PRN ×2 (22:48→22:49)
[2017-02-07 23:24] VITALS: BP 114/65; PULSE 99; RESP 19; TEMP 97.8; O2SAT 96
[2017-02-08] VITALS (10 sets, daily range): BP systolic 93–153; BP diastolic 58–91; PULSE 75–94; RESP 14–20; TEMP 96.2–98.7; O2SAT 94–98
[2017-02-08] MEDS: ONDANSETRON HCL 4 MG/2 ML VIAL IVP PRN (06:30)
[2017-02-08] MEDS: HYDROmorphone HCL PF 1 MG/ML VIAL IV PUSH PRN (06:30)
[2017-02-08] MEDS ORDERED: ACETAMINOPHEN/HYDROcodone 325 MG/10 MG TAB PO PRN (07:45)
[2017-02-08 07:49] LABS: AUTOMATED NEUTROPHIL # 1.9 TH/MM3 (1.8-7.7); EOSINOPHIL % 0.8 % (0.0-4.0); HEMATOCRIT 29.9 % (39.0-51.0); HEMO FLAGS DIFF FINAL; LYMPH % 10.1 % (9.0-44.0); LYMPHOCYTE # 0.3 TH/MM3 (1.0-4.8); MEAN CELL VOLUME 85.7 FL (80.0-100.0); NEUT % 71.1 % (16.0-70.0); PLATELET COUNT 138 TH/MM3 (150-450); RED BLOOD COUNT 3.49 MIL/MM3 (4.50-5.90); RED CELL DISTRIBUTION WIDTH 15.9 % (11.6-17.2); WHITE BLOOD COUNT 2.7 TH/MM3 (4.0-11.0)
[2017-02-08] MEDS ORDERED: POTASSIUM CHLORIDE 20 MEQ PWD PACKET PO ONE (08:00)
[2017-02-08] MEDS ORDERED: HYDROmorphone HCL PF 1 MG/ML VIAL IV PUSH PRN (08:00)
[2017-02-08 08:08] LABS: BICARBONATE 27.6 MEQ/L (21.0-32.0); POTASSIUM 3.3 MEQ/L (3.5-5.1)
--- NOTE | 2017-02-08 08:14 | EKG ---
Date Performed: 02/07/2017 Time Performed: 18:54:21 PTAGE: 61 years EKG: Sinus rhythm POSSIBLE LEFT ATRIAL ENLARGEMENT BORDERLINE LEFT AXIS DEVIATION LOW QRS VOLTAGE IN EXTREMITY LEADS N ONSPECIFIC T-WAVE ABNORMALITY BORDERLINE ECG Compared to prior tracing no significant change PREVIOUS TRACING : 11/23/2013 09.35 DOCTOR: Natty Coleman Interpretating Date/Time 02/08/2017 08:11:31
--- NOTE | 2017-02-08 08:27 | MB ---
cc: MILLIE CROWLEY M.D. DATE OF CONSULTATION 02/08/[address] Loyola REASON FOR CONSULTATION Oncology consult to render opinion regarding patient with esophageal cancer admitted with intractable abdominal pain. HISTORY OF PRESENT ILLNESS The patient is a very pleasant 61-year-old male with esophageal cancer who just completed concurrent radiation with chemotherapy presented to the hospital with a complaint of increased mid epigastric pain. He has had pain in the mid epigastric area since his diagnosis and treatment. He has been taking morphine, as well as Hydrocodone. He completed the last dose of chemotherapy on February 02. He completed radiation February 04. Over the weekend, he has increased pain not controlled with the morphine or Hydrocodone. He was not able to eat or drink. He has mild nausea without emesis. He became very weak. He has dyspnea on exertion. He has decreased urine output. He has not had a bowel movement for the last three days. He denies any headache. Denies visual changes. Denies focal numbness or weakness. He also had low grade temperature of 100.4. PAST MEDICAL HISTORY 1. Esophageal cancer 2. Arthritis 3. Diverticulitis 4. Gastroesophageal reflux disease 5. Hyperlipidemia 6. Hypertension 7. Chronic kidney disease 8. Benign prostatic hypertrophy PAST SURGICAL HISTORY 1. Colonoscopy 2. Hernia repair 3. Knee surgery 4. Port placement ALLERGIES No known drug allergy. FAMILY HISTORY Noncontributory SOCIAL HISTORY He has a 30 pack-year smoking history, but quit 20 years ago. He drinks occasionally but none recently. ALLERGIES No known drug allergy. MEDICATIONS Outpatient medication: 1. MS-Contin 30 mg q8h 2. Hydrocodone q.6 h p.r.n. 3. Metoprolol 4. Magic mouthwash 5. Valium REVIEW OF SYSTEMS CONSTITUTIONAL: He has lost a few more pounds. EYES: He denies any blurry vision or double vision. ENT: As above. CARDIOVASCULAR: As above. RESPIRATORY: As above. GI: As above. : Decreased urine output. No dysuria. MUSCULOSKELETAL: Negative. HEMATOLOGY: Negative. ENDOCRINE: Negative. DERMATOLOGY: Negative. PSYCHIATRIC: He is a little anxious. NEUROLOGIC: Negative. PHYSICAL EXAMINATION VITALS: Temperature 98.3, blood pressure 93/69, O2 saturation 95% on room air. GENERAL: He is alert and x3 in no acute distress. HEENT: Atraumatic, normocephalic. Pupils equal round reactive to light. Extraocular muscles intact. Sclerae icterus. Oropharynx, dry mucosa. No lesion. No thrush. NECK: No thyromegaly. No palpable masses. LYMPHATICS: No palpable cervical, clavicular, axillary or inguinal lymph nodes. CARDIOVASCULAR: Regular S1-S2. No murmur. LUNGS: Clear to auscultation anteriorly. ABDOMEN: Soft, tender in the upper abdomen to deep palpation. No rebound or rigidity. EXTREMITIES: No cyanosis, clubbing or edema. BACK: No paravertebral 10. SKIN: No rash or petechiae. NEUROLOGIC: Exam nonfocal. LABORATORY DATA Reviewed. ASSESSMENT 1. Midepigastric pain due to radiation and chemotherapy. CT of the abdomen and pelvis did not show any acute process. There is no evidence of bowel perforation. There are short segments in the distal sigmoid colon that appears possibly thickened but clinically the patient has no diarrhea or symptom of colitis. He has been taking morphine 30 mg q.8 h with hydrocodone for breakthrough pain which is not controlling his pain. We will start him back on the MS-Contin and uses Dilaudid IV for the breakthrough pain. If he has problems swallowing the morphine, then will consider switching him over to a fentanyl patch. 2. Esophageal cancer in the distal esophagus. 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 Upper endoscopy showed a 3 cm ulcerated mass involving the lower esophageal sphincter at the GE junction and in the cardia. The mass was partially obstructing. Since treatment, he was able to swallow better. CT of the Chest again showed a thickened distal esophagus likely due to the treatment effect. He is supposed to have a PET scan done next week prior to seeing Dr. Espinal for definitive resection. There is no clear progression of disease noted at this time. He just completed radiation and chemotherapy last week. Anticipate his abdominal pain to slowly improve over the next week. 3. Dehydration due to decreased oral intake. He was started on IV fluid. 4. Constipation due to opiates as well as dehydration. We will start him on a stool softener and laxative. 5. Nutrition. He was still able to tolerate a soft mechanical diet prior to presentation. Continue IV fluid hydration for now. Hopefully he is able to start eating soon. If not, may have to consider TPN or Doff-Vladimir tube Placement. 6. Nonspecific middle lobe lung nodule. He has no pulmonary symptoms. This can be evaluated with PET scan. 7. Hypertension, stable 8. Benign prostatic hypertrophy. PLAN 1. Continue IV fluid hydration. 2. Start a bowel regimen. 3. Continue to titrate pain medication. Thank you Dr. Loyola for asking me to see this patient. MD HAYDEN Wong/PALOMO /7:57 AM /8:13 AM MTDOsmany
[2017-02-08] MEDS: PANTOPRAZOLE SOD 40 MG DELAYED RELEASE TAB PO SCH (08:28)
[2017-02-08] MEDS: DOCUSATE SODIUM 100 MG CAP PO SCH ×2 (08:28→20:43)
[2017-02-08] MEDS: POLYETHYLENE GLYCOL 17 GM PKG PO SCH (08:29)
[2017-02-08] MEDS: NS + KCL 20 MEQ INJ 1,000 ML IV SCH ×2 (08:30→18:00)
[2017-02-08] MEDS: METOPROLOL TARTRATE 50 MG TAB PO SCH ×3 (08:34→20:43)
[2017-02-08] MEDS ORDERED: POTASSIUM CHLORIDE 20 MEQ CONTROLLED RELEASE TAB PO ONE (09:00)
--- NOTE | 2017-02-08 09:48 | HHI.HP ---
HPI Service [facility] Primary Care Physician Laurel Viera MD Admission Diagnosis intractable abdominal pain, esophageal cancer Diagnoses: Chief Complaint: Epigastric pain Travel History International Travel<30 Days: No Contact w/Intl Traveler <30 Da: No Traveled to Known Affected Are: No History of Present Illness Written by Anthony Truong, acting as scribe for Dr. Loyola on 02/08/17 at 09:47. 61-year-old male with a past medical history of esophageal cancer, GERD, anxiety , HTN who presented with worsening of his epigastric cancer pain. The patient finished chemotherapy and radiation on Tuesday. Patient has felt poorly since that time. The patient complains of sharp, burning, intermittent pain in his epigastrium around the area of his tumor. He gets occasional nausea, but denies any vomiting. He has had problems swallowing since he was diagnosed with this a few months ago and reports a 60 pound weight loss. He reports decreased urine output and dark urine. He has had a dull headache for the past 3 months. He has been coughing up a lot of clear phlegm especially in the mornings with some mild shortness of breath and this is been going on for the past few months, denies any acute worsening. He had a low-grade fever over the weekend of 100.3. He states that yesterday he was feeling generally weak, dizzy and stumbled almost fell into the emergency room. He has a planned resection of the tumor on March [address] Espinal. Review of Systems Except as stated in HPI: all other systems reviewed are Neg Past Family Social History Past Medical History Esophageal cancer with intractable pain Hypertension GERD Anxiety Past Surgical History Endoscopy Bilateral hernia repair Left knee arthroscopies and replacement Port placement Reported Medications Reported Meds & Active Scripts Active Reported K-Tab (Potassium Chloride) 20 Meq Tab 30 Meq PO DAILY Morphine ER (Morphine Sulfate) 30 Mg Tab 30 Mg PO Q8H PRN Prochlorperazine Maleate 10 Mg Tab 10 Mg PO Q6H PRN Ondansetron (Ondansetron HCl) 8 Mg Tab 8 Mg PO TID Hydrocodone-Acetaminophen 10-325 mg Tab 1 Tab PO Q4H PRN Prilosec (Omeprazole Magnesium) 20 Mg Tab Diazepam 10 Mg Tab 10 Mg PO BID PRN Metoprolol Tartrate 50 Mg Tab 50 Mg PO BID Allergies: Coded Allergies: scallops (Unverified Allergy, Unknown, 02/07/17) Active Ordered Medications Current Medications Medications (Trade) Dose Ordered Sig/[place] Route Start Time Stop Time Status Last Admin (NS Flush) 2 ml UNSCH PRN IV FLUSH 02/07/17 22:00 02/08/17 06:30 (NS Flush) 2 ml BID IV FLUSH 02/08/17 09:00 02/07/17 10:48 (Zofran Inj) 4 mg Q6H PRN IVP 02/07/17 22:00 02/08/17 06:30 (Narcan Inj) 0.4 mg UNSCH PRN IV PUSH 02/07/17 22:00 (Dilaudid Pf Inj) 1 mg Q3H PRN IV PUSH 02/08/17 08:00 (Protonix) 40 mg DAILY PO 02/08/17 09:00 02/08/17 08:28 (Oramorph Sr) 30 mg Q8HR PO 02/08/17 14:00 ([place] 10-325 Mg) 1 tab Q4H PRN PO 02/08/17 07:45 02/08/17 08:29 (Lopressor) 50 mg Q12HR PO 02/08/17 09:00 Potassium Chloride/Sodium Chloride 1,000 ml @ 100 mls/hr Q10H IV 02/08/17 08:00 02/08/17 08:30 (Valium) 10 mg BID PRN PO 02/08/17 07:45 (Miralax) 17 gm DAILY PO 02/08/17 09:00 02/08/17 08:29 (Colace) 100 mg BID PO 02/08/17 09:00 02/08/17 08:28 Family History Father of a MRSA infection after back surgery Mother is alive at age 83 and healthy Social History Former tobacco use Occasional alcohol use, but none recently No drug use Physical Exam Vital Signs Vital Signs Date Time Temp Pulse Resp B/P (MAP) Pulse Ox O2 Delivery O2 Flow Rate FiO2 02/08/17 08:15 101/68 (79) 02/08/17 07:37 98.3 90 18 93/69 (77) 95 02/08/17 07:10 94 02/08/17 03:23 98.7 92 18 95/58 (70) 97 02/07/17 23:24 97.8 99 19 114/65 (81) 96 02/07/17 23:18 16 02/07/17 23:17 16 02/07/17 21:20 16 02/07/17 18:23 96 17 125/73 (90) 100 Room Air 02/07/17 16:53 97.4 115 15 141/100 (114) 98 Physical Exam GENERAL: Well-developed fair-nourished chronically ill-appearing middle-age male. In no acute distress. SKIN: Warm and dry. No lesions noted. HEENT: Normocephalic. Pupils equal and round. Mucous membranes pink and moist. CARDIOVASCULAR: Regular rate and rhythm. No murmur appreciated. RESPIRATORY: No accessory muscle use. Clear to auscultation. Breath sounds equal bilaterally. GASTROINTESTINAL: Abdomen soft, nondistended. Epigastric TTP. Bowel sounds x4. MUSCULOSKELETAL: No obvious deformities. No clubbing or cyanosis. No edema. NEUROLOGICAL: Awake and alert. No focal neurological deficits. Moves upper and lower extremities spontaneously. Normal speech. PSYCHIATRIC: Appropriate mood and affect; insight and judgment normal. Laboratory Laboratory Tests Test 02/07/17 17:27 02/08/17 06:10 White Blood Count 2.8 2.7 Red Blood Count 3.93 3.49 Hemoglobin 11.7 10.5 Hematocrit 33.6 29.9 Mean Corpuscular Volume 85.5 85.7 Mean Corpuscular Hemoglobin 29.7 30.0 Mean Corpuscular Hemoglobin Concent 34.7 35.0 Red Cell Distribution Width 15.3 15.9 Platelet Count 165 138 Mean Platelet Volume 8.3 8.0 Neutrophils (%) (Auto) 74.1 71.1 Lymphocytes (%) (Auto) 9.5 10.1 Monocytes (%) (Auto) 15.4 17.0 Eosinophils (%) (Auto) 0.2 0.8 Basophils (%) (Auto) 0.8 1.0 Neutrophils # (Auto) 2.1 1.9 Lymphocytes # (Auto) 0.3 0.3 Monocytes # (Auto) 0.4 0.5 Eosinophils # (Auto) 0.0 0.0 Basophils # (Auto) 0.0 0.0 CBC Comment DIFF FINAL DIFF FINAL Differential Comment Prothrombin Time 11.4 Prothromb Time International Ratio 1.0 Activated Partial Thromboplast Time 27.1 Blood Urea Nitrogen 11 9 Creatinine 0.66 0.51 Random Glucose 113 90 Total Protein 7.1 Albumin 2.9 Calcium Level 8.8 8.4 Alkaline Phosphatase 202 Aspartate Amino Transf (AST/SGOT) 35 Alanine Aminotransferase (ALT/SGPT) 29 Total Bilirubin 1.2 Sodium Level 130 131 Potassium Level 3.2 3.3 Chloride Level 91 93 Carbon Dioxide Level 28.2 27.6 Anion Gap 11 10 Estimat Glomerular Filtration Rate 124 166 Lipase 67 Result Diagram: 02/08/1760902/08/17609 Imaging Last Impressions Chest X-Ray 02/07/171702 Signed Impressions: Service Date/Time: Tuesday, February 07, 2017 17:37 - CONCLUSION: 1. No acute cardiopulmonary disease. Efrain Ivey MD Abdomen/Pelvis CT 02/07/171702 Signed Impressions: Service Date/Time: Tuesday, February 07, 2017 19:36 - CONCLUSION: 1. An acute abnormality is not clearly seen. 2. Mild hiatal hernia. 3. Mild dilatation of the common bile duct and intrahepatic biliary ducts. The cause for this mild dilatation is not seen. 4. Colonic diverticula without significant inflammatory change. There is a short segment of the distal sigmoid colon that appears questionably thickened. This could be secondary to simple lack of full distension. An underlying abnormality cannot be excluded. This area could be further evaluated directly if the patient has not had recent colonoscopy. Ren Mckeon MD Abdomen X-Ray 02/07/171702 Signed Impressions: Service Date/Time: Tuesday, February 07, 2017 17:40 - CONCLUSION: 1. Nonspecific bowel gas pattern with general paucity of small bowel gas. Efrain Ivey MD CT Angiography 02/07/17 0000 Signed Impressions: Service Date/Time: Tuesday, February 07, 2017 19:42 - CONCLUSION: 1. No pulmonary embolus. 2. Dilatation of the thoracic esophagus with some thickening at the distal esophagus likely related to the patient's reported esophageal carcinoma. Ren Mckeon MD Caprini VTE Risk Assessment Caprini VTE Risk Assessment: Mod/High Risk (score >= 2) Caprini Risk Assessment Model Point Value = 1 Point Value = 2 Point Value = 3 Point Value = 5 Age 41-60 Minor surgery BMI > 25 kg/m2 Swollen legs Varicose veins or History of unexplained or recurrent spontaneous Oral contraceptives or hormone replacement Sepsis (< 1 month) Serious lung disease, including pneumonia (< 1 month) Abnormal pulmonary function Acute myocardial infarction Congestive heart failure (< 1 month) History of inflammatory bowel disease Medical patient at bed rest Age 61-74 Arthroscopic surgery Major open surgery (> 45 min) Laparoscopic surgery (> 45 min) Malignancy Confined to bed (> 72 hours) Immobilizing plaster cast Central venous access Age >= 75 History of VTE Family history of VTE Factor V Leiden Prothrombin [id number] Lupus anticoagulant Anticardiolipin antibodies Elevated serum homocysteine Heparin-induced thrombocytopenia Other congenital or acquired thrombophilia Stroke (< 1 month) Elective arthroplasty Hip, pelvis, or leg fracture Acute spinal cord injury (< 1 month) Prophylaxis Regimen Total Risk Factor Score Risk Level Prophylaxis Regimen 0-1 Low Early ambulation 2 Moderate Order ONE of the following: *Sequential Compression Device (SCD) *Heparin 5000 units SQ BID 3-4 Higher Order ONE of the following medications: *Heparin 5000 units SQ TID *Enoxaparin/Lovenox 40 mg SQ daily (WT < 150 kg, CrCl > 30 mL/min) *Enoxaparin/Lovenox 30 mg SQ daily (WT < 150 kg, CrCl > 10-29 mL/min) *Enoxaparin/Lovenox 30 mg SQ BID (WT < 150 kg, CrCl > 30 mL/min) AND/OR *Sequential Compression Device (SCD) 5 or more Highest Order ONE of the following medications: *Heparin 5000 units SQ TID (Preferred with Epidurals) *Enoxaparin/Lovenox 40 mg SQ daily (WT < 150 kg, CrCl > 30 mL/min) *Enoxaparin/Lovenox 30 mg SQ daily (WT < 150 kg, CrCl > 10-29 mL/min) *Enoxaparin/Lovenox 30 mg SQ BID (WT < 150 kg, CrCl > 30 mL/min) AND *Sequential Compression Device (SCD) Assessment and Plan Assessment and Plan 61-year-old male with a past medical history of esophageal cancer, GERD, anxiety , HTN who presented with worsening of his epigastric cancer pain Esophageal cancer with intractable pain: Reviewed: Abdominal CT with no clear acute abnormalities. Thickening of the distal esophagus on chest CT thought to be related to known esophageal carcinoma. Abdominal x-ray showed nonspecific bowel gas pattern. Lipase within normal limits. Labs for signs of dehydration. -Schedule home extended release morphine 30 mg 3 times a day -Continue [place] 10/325 as needed -Add IV Dilaudid for breakthrough pain -Patient's oncologist consulted, recommended IVF, bowel regimen, and pain medication titration -Continue supportive care -Continue PPI Protein calorie malnutrition: Secondary to the above. -Consider supplemental feeding methods, Dobbhoff vs J-tube? -Consult patient's surgeon Dr. Espinal Hypokalemia: -Replace orally and check magnesium level Hypertension: BP is currently soft. Resume home metoprolol with hold parameters. DVT prophylaxis: SCDs Discussed Condition With Patient, RN Attending Statement This note was transcribed by tamia [Anthony Truong]. I, Dr. Toro Loyola personally performed the history, physical exam, and medical decision making; and confirmed the accuracy of the information in the transcribed note. Authenticated by Dr. Toro Loyola on 02/08/17 at 23:09. Anthony Truong Feb 08, 2017 09:47 Toro Loyola MD Feb 08, 2017 23:09
[2017-02-08 13:50] LABS: BACTERIA, URINE RARE /hpf; BLOOD, URINE TRACE (NEG); COMMENT (UR) CULT NOT INDICATED; CULTURE IF INDICATED CULT NOT INDICATED; GLUCOSE,URINE NEG (NEG); KETONE, URINE 80 mg/dL (NEG); MUCUS URINE FEW /lpf (OCC); NITRITE,URINE NEG (NEG); URINE COLOR YELLOW (YELLW/STRAW)
[2017-02-08] MEDS: MORPHINE SULFATE 30 MG CONTROLLED RELEASE TAB PO SCH ×2 (13:53→22:00)
[2017-02-08] MEDS ORDERED: MAGNESIUM SULFATE 1 GM PREMIX 100 ML IV ONE (14:00)
[2017-02-08] MEDS: HYDROmorphone HCL PF 2 MG/ML VIAL IV PUSH PRN ×2 (14:43→18:21)
[2017-02-08] MEDS: oxyCODONE/ACETAMINOPHEN 7.5 MG/325 MG TAB PO PRN ×2 (16:40→20:44)
[2017-02-08] MEDS: SUCRALFATE 1 GM/10 ML CUP PO SCH (20:43)
[2017-02-08] MEDS: SODIUM CHLORIDE 0.9% FLUSH 10 ML FLUSH IV FLUSH SCH (20:46)
--- NOTE | 2017-02-08 20:55 | MB ---
cc: WASHINGTON BAKER MD DATE OF CONSULTATION 02/08/2017 REASON FOR CONSULTATION Esophageal adenocarcinoma. REFERRING PHYSICIAN Dr. Anthony Truong. HISTORY OF PRESENT ILLNESS The patient is a 61-year-old male known to me with a history of esophageal adenocarcinoma. The patient just completed his chemo radiation for neoadjuvant therapy. The patient did develop increasing severe pain with oral intake over the last several days during which he cannot tolerate anything by mouth. He decided to go to the emergency department for fear if dehydration and weakness and nutritional concerns. Upon presentation, he was found to be stable and imaging showed no acute process. General surgery was consulted for assistance in management. REVIEW OF SYSTEMS 12 point of systems discussed with the patient, negative except pertinent positives mentioned above in history of present illness. PAST MEDICAL HISTORY 1. Esophageal cancer, 2. Arthritis, 3. Diverticulitis, 4. Gastroesophageal reflux disease, 5. Hyperlipidemia, 6. Hypertension, 7. Chronic kidney disease, 8. BPH. PAST SURGICAL HISTORY 1. Colonoscopy 2. Hernia repair 3. Knee surgery 4. Port placement. ALLERGIES NO KNOWN DRUG ALLERGIES. MEDICATIONS 1. MS Contin. 2. Hydrocodone 3. Metoprolol 4. Magic mouth wash. 5. Valium. SOCIAL HISTORY Patient has history of tobacco, quit 20 years ago. Denies alcohol or illicit drug use. FAMILY HISTORY Noncontributory. PHYSICAL EXAMINATION VITAL SIGNS: Temperature 98.2 degrees, blood pressure 135/84, heart rate 76. GENERAL: The patient is a well-developed, well-nourished male in no acute distress. Does not appear acute or chronically ill. HEENT: Head is normocephalic, atraumatic. Pupils round, react and accommodate to light. Sclerae anicteric. Oral cavity is clear. Airway is patent. NECK: Supple. No JVD present. LUNGS: Breath sounds present bilaterally, nonlabored breathing pattern. HEART: Regular rate and rhythm. ABDOMEN: Soft, some tenderness to palpation in the epigastric area rebound tenderness or peritonitis, normal bowel sounds. BACK: No CVA tenderness. EXTREMITIES: No clubbing, cyanosis or edema. NEUROLOGIC: Alert and oriented times three ASSESSMENT/PLAN The patient is a 61-year-old male status post neoadjuvant chemoradiation for esophageal adenocarcinoma. The patient's imaging shows no evidence of metastatic disease. The patient technically is a potential candidate for surgery for [place] esophagectomy. I do feel the patient does need symptomatic control and palliation as well nutritional support at this time. I discussed with the patient multiple options including Dobhoff tube, medical therapies as well as gastrostomy and jejunostomy tube placement. At this point in time, he would like to undergo a Dobhoff tube placement and tube feeds as well as medical assistance with palliation. If the patient has significant improvement with a Dobhoff tube, he could be weaned down back to oral diet over the next week or so, then he could avoid feeding tube placement and continue towards surgery. However, if the patient does have persistent severe symptoms or fail Dobhoff tube treatment one could consider laparoscopic jejunostomy tube placement ahead of planned esophagectomy for nutritional support for planned operation. He is in agreement with this plan. I will follow along with the patient and would recommend again Dobhoff tube placement and dietitian consultation for tube feeds. Also recommend which prescription of Carafate to help supported palliation for the patient's radiation esophagitis. Thank you very much for this consultation. MD SLICK Steiner/ /7:08 PM /8:30 PM
[2017-02-09 00:15] VITALS: BP 101/68; PULSE 70; RESP 17; TEMP 97; O2SAT 97
[2017-02-09 04:15] VITALS: BP 102/63; PULSE 75; RESP 18; TEMP 98.9; O2SAT 97
[2017-02-09] MEDS: oxyCODONE/ACETAMINOPHEN 7.5 MG/325 MG TAB PO PRN ×4 (05:21→22:57)
[2017-02-09] MEDS: MORPHINE SULFATE 30 MG CONTROLLED RELEASE TAB PO SCH ×3 (05:24→21:50)
[2017-02-09 06:06] LABS: ALKALINE PHOSPHATASE 132 U/L (45-117); ALT (GPT) 17 U/L (12-78); ANION GAP 10 MEQ/L (5-15); AST (GOT) 20 U/L (15-37); BICARBONATE 25.5 MEQ/L (21.0-32.0); BLOOD UREA NITROGEN 9 MG/DL (7-18); CHLORIDE 99 MEQ/L (98-107); GLOMERULAR FILTRATION RATE 214 ML/MIN (>89); MAGNESIUM 1.6 MG/DL (1.5-2.5); POTASSIUM 3.3 MEQ/L (3.5-5.1); SODIUM (NA) 134 MEQ/L (136-145); TOTAL BILIRUBIN ADULT 0.7 MG/DL (0.2-1.0)
[2017-02-09] MEDS: NS + KCL 20 MEQ INJ 1,000 ML IV SCH ×3 (06:26→23:59)
[2017-02-09 08:00] VITALS: BP 104/70; PULSE 65; RESP 16; TEMP 96.2; O2SAT 98
[2017-02-09] MEDS: SODIUM CHLORIDE 0.9% FLUSH 10 ML FLUSH IV FLUSH SCH ×2 (09:00→21:51)
[2017-02-09] MEDS: SUCRALFATE 1 GM/10 ML CUP PO SCH ×4 (09:26→21:51)
[2017-02-09] MEDS: POLYETHYLENE GLYCOL 17 GM PKG PO SCH (09:27)
[2017-02-09] MEDS: DOCUSATE SODIUM 100 MG CAP PO SCH ×2 (09:28→21:51)
[2017-02-09] MEDS: METOPROLOL TARTRATE 50 MG TAB PO SCH ×2 (09:28→21:51)
[2017-02-09] MEDS: PANTOPRAZOLE SOD 40 MG DELAYED RELEASE TAB PO SCH (09:39)
[2017-02-09] MEDS ORDERED: METHYLNALTREXONE BROMIDE 12 MG/0.6 ML VIAL SQ ONE (11:15)
--- NOTE | 2017-02-09 11:41 | PD.ONC.PN ---
Subjective Subjective Remarks Afebrile overnight. Patient resting in room. Still with pain in esophagus. Does not feel pain is being adequately controlled. Objective Data Date Time Temp Pulse Resp B/P (MAP) Pulse Ox O2 Delivery O2 Flow Rate FiO2 02/09/17 08:00 96.2 65 16 104/70 (81) 98 02/09/17 04:15 98.9 75 18 102/63 (76) 97 02/09/17 00:15 97.0 70 17 101/68 (79) 97 02/08/17 20:00 96.2 80 18 129/87 (101) 98 02/08/17 16:00 98.2 75 14 153/91 (111) 98 02/08/17 15:24 98.2 76 20 135/84 (101) 98 02/08/17 14:53 18 02/08/17 12:04 98.0 88 18 130/80 (97) 94 02/08/17 12:00 84 02/09/17 02/09/17 02/09/17 07:00 15:00 23:00 Intake Total 150 ml Output Total 425 ml Balance -275 ml Result Diagram: 02/08/17 0610 02/09/17 0500 Laboratory Results Laboratory Tests Test 02/08/17 13:15 02/09/17 05:00 Urine Color YELLOW Urine Turbidity CLEAR Urine pH 7.0 Urine Specific [place] GREATER THAN 1.050 Urine Protein 30 mg/dL Urine Glucose (UA) NEG mg/dL Urine Ketones 80 mg/dL Urine Occult Blood TRACE Urine Nitrite NEG Urine Bilirubin NEG Urine Urobilinogen 2.0 MG/DL Urine Leukocyte Esterase NEG Urine RBC 10 /hpf Urine WBC 6 /hpf Urine Bacteria RARE /hpf Urine Mucus FEW /lpf Microscopic Urinalysis Comment CULT NOT INDICATED Blood Urea Nitrogen 9 MG/DL Creatinine 0.41 MG/DL Random Glucose 78 MG/DL Total Protein 5.2 GM/DL Albumin 2.1 GM/DL Calcium Level 7.9 MG/DL Magnesium Level 1.6 MG/DL Alkaline Phosphatase 132 U/L Aspartate Amino Transf (AST/SGOT) 20 U/L Alanine Aminotransferase (ALT/SGPT) 17 U/L Total Bilirubin 0.7 MG/DL Sodium Level 134 MEQ/L Potassium Level 3.3 MEQ/L Chloride Level 99 MEQ/L Carbon Dioxide Level 25.5 MEQ/L Anion Gap 10 MEQ/L Estimat Glomerular Filtration Rate 214 ML/MIN Administered Medications Medications (Trade) Dose Ordered Sig/[place] Route PRN Reason Start Time Stop Time Status Last Admin Dose Admin Sodium Chloride (NS Flush) 2 ml UNSCH PRN IV FLUSH FLUSH AFTER USING IV ACCESS 02/07/17 22:00 02/08/17 06:30 Sodium Chloride (NS Flush) 2 ml BID IV FLUSH 02/08/17 09:00 02/07/17 10:48 Ondansetron HCl (Zofran Inj) 4 mg Q6H PRN IVP NAUSEA OR VOMITING 02/07/17 22:00 02/08/17 06:30 Pantoprazole Sodium (Protonix) 40 mg DAILY PO 02/08/17 09:00 02/09/17 09:39 Morphine Sulfate (Oramorph Sr) 30 mg Q8HR PO 02/08/17 14:00 02/08/17 13:53 Metoprolol Tartrate (Lopressor) 50 mg Q12HR PO 02/08/17 09:00 02/09/17 09:28 Potassium Chloride/Sodium Chloride 1,000 ml @ 100 mls/hr Q10H IV 02/08/17 08:00 02/09/17 06:26 Polyethylene Glycol (Miralax) 17 gm DAILY PO 02/08/17 09:00 02/09/17 09:27 Docusate Sodium (Colace) 100 mg BID PO 02/08/17 09:00 02/09/17 09:28 Oxycodone/ Acetaminophen (Percocet 7.5-325 Mg) 1 tab Q4H PRN PO PAIN1-8 02/08/17 13:30 02/09/17 09:32 Sucralfate (Carafate Liq) 1 gm QID PO 02/08/17 21:00 02/09/17 09:26 Objective Remarks GENERAL: Middle aged male upright in bed in [facility]. SKIN: Warm and dry. HEAD: Normocephalic. EYES: No injection or drainage. NECK: Supple, trachea midline. CARDIOVASCULAR: Regular rate and rhythm RESPIRATORY: Breath sounds equal bilaterally. No accessory muscle use. GASTROINTESTINAL: Abdomen soft, non-tender, nondistended. EXTREMITIES: No cyanosis NEUROLOGICAL: awake and alert, normal speech. Assessment/Plan Problem List: (1) Esophageal cancer ICD Codes: C15.9 - Malignant neoplasm of esophagus, unspecified Status: Acute Plan: --Esophageal cancer in the distal esophagus. 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 --Upper endoscopy showed a 3 cm ulcerated mass involving the lower esophageal sphincter at the GE junction and in the cardia. --mass was partially obstructing. --Since treatment, he was able to swallow better. --CT Chest again showed a thickened distal esophagus likely due to the treatment effect. --is supposed to have a PET scan done next week prior to seeing Dr. Espinal for definitive resection. --There is no clear progression of disease noted at this time. --just completed radiation and chemotherapy last week. --Anticipate his abdominal pain to slowly improve over the next week. (2) Intractable abdominal pain ICD Codes: R10.9 - Unspecified abdominal pain Status: Acute Plan: Currently on Oramorph 30mg PO q 8 + Dilaudid IV or Percocet PO for breakthrough pain. --Midepigastric pain due to radiation and chemotherapy. --CT of the abdomen and pelvis did not show any acute process. --no evidence of bowel perforation. (3) Constipation ICD Codes: K59.00 - Constipation, unspecified Plan: --Constipation due to opiates as well as dehydration. --on a stool softener and laxative. (4) Malnutrition ICD Codes: E46 - Unspecified protein-calorie malnutrition Plan: --was still able to tolerate a soft mechanical diet prior to presentation. --on IV fluid hydration for now. --Doff-Vladimir tube Placement. (5) Dehydration ICD Codes: E86.0 - Dehydration Plan: --on IVF Assessment 61y/o male with esophageal cancer admitted with intractable abdominal pain. h/o Esophageal cancer. Arthritis. Diverticulitis Gastroesophageal reflux disease. Hyperlipidemia. Hypertension. Chronic kidney disease. Benign prostatic hypertrophy Plan 1. discussed with patient rationale behind long-acting and short acting pain medications. 2. continue with colace/MoM. give one dose Relistor 3. continue supportive care with IVF 4. d/w surgery, will consult invasive radiology for guided dobhoff tube placement for feeding. spent approximately 20 minutes at the bedside teaching and answering questions/ discussing pain management, bowel regimen and plan of care. Attending Statement The exam, history, and the medical decision-making described in the above note were completed with the assistance of the mid-level provider. I reviewed and agree with the findings presented. I attest that I had a [id number] encounter with the patient on the same day, and personally performed and documented my assessment and findings in the medical record. Pain slightly better this am. Very anxious and has many questions. Continue IVF. Will need DHT for tube feeding. Continue to titrate pain meds. Bowel regimen for constipation. Glendy Malcolm Feb 09, 2017 11:41 Sylvester Silver MD Feb 09, 2017 16:04
[2017-02-09 12:00] VITALS: BP 138/86; PULSE 69; RESP 16; TEMP 97; O2SAT 96
--- NOTE | 2017-02-09 12:40 | HHI.PR ---
Subjective Remarks Patient states he took some solid food down just okay, but juiced really caused significant pain. Nursing denies any acute deterioration since last night otherwise. Objective Vital Signs Date Time Temp Pulse Resp B/P (MAP) Pulse Ox O2 Delivery O2 Flow Rate FiO2 02/09/17 08:00 96.2 65 16 104/70 (81) 98 02/09/17 04:15 98.9 75 18 102/63 (76) 97 02/09/17 00:15 97.0 70 17 101/68 (79) 97 02/08/17 20:00 96.2 80 18 129/87 (101) 98 02/08/17 16:00 98.2 75 14 153/91 (111) 98 02/08/17 15:24 98.2 76 20 135/84 (101) 98 02/08/17 14:53 18 I/O 02/08/17 02/08/17 02/08/17 02/09/17 02/09/17 02/09/17 07:00 15:00 23:00 07:00 15:00 23:00 Intake Total 150 ml Output Total 425 ml Balance -275 ml Intake Oral 150 ml Output Urine Total 425 ml # Voids 3 1 # Bowel Movements 0 Result Diagram: 02/08/17 0610 02/09/17 0500 Objective Remarks Sitting up in bed, no acute distress Abdomen soft, nontender, nondistended Unlabored breathing, no conversive dyspnea A/P Assessment and Plan 61-year-old male with a past medical history of esophageal cancer, GERD, anxiety , HTN who presented with worsening of his epigastric cancer pain Esophageal cancer with intractable pain: Abdominal CT with no clear acute abnormalities. Thickening of the distal esophagus on chest CT thought to be related to known esophageal carcinoma. Abdominal x-ray showed nonspecific bowel gas pattern. Lipase within normal limits. Labs for signs of dehydration. -Schedule home extended release morphine 30 mg 3 times a day -Continue [place] 10/325 as needed -IV Dilaudid for breakthrough pain -Patient's oncologist consulted, recommended IVF, bowel regimen, and pain medication titration -Continue supportive care -Continue PPI Protein calorie malnutrition: Secondary to the above. -Per surgery, proceeding with Dobbhoff tube w/ subsequent tube feeds, to proceed with by mouth diet as tolerated -Appreciate surgeon's recommendations Hypokalemia: -Replace orally and check magnesium level Hypertension: BP is currently soft. Resume home metoprolol with hold parameters. Peewee Cerna MD Feb 09, 2017 12:40
[2017-02-09] MEDS: HYDROmorphone HCL PF 2 MG/ML VIAL IV PUSH PRN ×2 (12:43→19:23)
--- NOTE | 2017-02-09 16:07 | HHI.PR ---
Subjective Subjective Notes Resting in bed Asked questions about insertion of Dobhoff Objective Vitals/I&O Vital Signs Date Time Temp Pulse Resp B/P (MAP) Pulse Ox O2 Delivery O2 Flow Rate FiO2 02/09/17 12:00 97.0 69 16 138/86 (103) 96 02/07/17 18:23 Room Air Labs Laboratory Tests Test 02/09/17 05:00 Blood Urea Nitrogen 9 Creatinine 0.41 Random Glucose 78 Total Protein 5.2 Albumin 2.1 Calcium Level 7.9 Magnesium Level 1.6 Alkaline Phosphatase 132 Aspartate Amino Transf (AST/SGOT) 20 Alanine Aminotransferase (ALT/SGPT) 17 Total Bilirubin 0.7 Sodium Level 134 Potassium Level 3.3 Chloride Level 99 Carbon Dioxide Level 25.5 Anion Gap 10 Estimat Glomerular Filtration Rate 214 Cardiovascular: Regular Lungs: Clear Abdomen: Non-distended, Non-tender Extremities: No edema A/P Assessment and Plan 61 year old male with esophagus cancer; not able to tolerate PO diet at this time -Plan for IR consult of Dobhoff tube -Start TF -Okay for PO diet as tolerated Attending Statement The exam, history, and the medical decision-making described in the above note were completed with the assistance of the mid-level provider. I reviewed and agree with the findings presented. I attest that I had a [id number] encounter with the patient on the same day, and personally performed and documented my assessment and findings in the medical record. Physical Exam: Abdomen soft, non-tender, no rebound tenderness or guarding will need enteric nutrition via feeding tube of Jennifer Torres Feb 09, 2017 16:07 Goldy Espinal MD Feb 25, 2017 16:16
[2017-02-09] MEDS ORDERED: IOHEXOL 350 MG/ML 50 ML BTL (for RAD DIAG) NG ONE (16:20)
--- NOTE | 2017-02-09 16:27 | PD.RAD ---
Post Procedure Progress Note Pre Procedure Diagnosis: (1) Esophageal cancer (2) Malnutrition (3) Dehydration Post Procedure Diagnosis: (1) Dehydration (2) Malnutrition (3) Esophageal cancer Procedure Date: Feb 09, 2017 Supervising Radiologist: Farhan Logan Proceduralist/Assist: Ac Nicholas, RT(R), Cortez David, RT(R) Anesthesia: Local ((Lidocaine jelly in right nares)) Plan of Activity Patient to Unit: Nursing Unit Patient Condition: Good See PACS Report for procedural detail/treatment Feeding Tube Dobhoff Placement Jordanian: 8 Findings: Unable to pass weighted tip of Dobhoff through GE junction/esophageal cancer. 4fr hockey stick catheter and glide wire manipulated into gastric fundus. Stomach insufflated with air and catheter/wire manipulated into gastric antrum. Weighted tip of Dobhoff excised and the modified catheter advanced over the wire and into the gastric antrum. Position confirmed fluoroscopically with positive contrast. Farhan Logan MD Feb 09, 2017 16:27
[2017-02-09 20:00] VITALS: BP 109/69; PULSE 89; RESP 19; TEMP 96.9; O2SAT 98
[2017-02-10] VITALS: BP 109/65; PULSE 70; RESP 16; TEMP 97.5; O2SAT 98
[2017-02-10] MEDS: oxyCODONE/ACETAMINOPHEN 7.5 MG/325 MG TAB PO PRN ×5 (03:51→21:41)
[2017-02-10 04:00] VITALS: BP 110/73; PULSE 72; RESP 17; TEMP 98.7; O2SAT 96
[2017-02-10] MEDS: MORPHINE SULFATE 30 MG CONTROLLED RELEASE TAB PO SCH ×3 (05:06→21:41)
[2017-02-10] MEDS: NS + KCL 20 MEQ INJ 1,000 ML IV SCH ×2 (08:09→17:41)
[2017-02-10] MEDS: DOCUSATE SODIUM 100 MG CAP PO SCH ×2 (08:09→21:00)
[2017-02-10] MEDS: SUCRALFATE 1 GM/10 ML CUP PO SCH ×4 (08:09→21:41)
[2017-02-10] MEDS: POLYETHYLENE GLYCOL 17 GM PKG PO SCH (08:09)
[2017-02-10] MEDS: METOPROLOL TARTRATE 50 MG TAB PO SCH ×2 (08:09→21:41)
[2017-02-10] MEDS: PANTOPRAZOLE SOD 40 MG DELAYED RELEASE TAB PO SCH (08:09)
[2017-02-10] MEDS: SODIUM CHLORIDE 0.9% FLUSH 10 ML FLUSH IV FLUSH SCH ×2 (08:11→21:00)
[2017-02-10] MEDS ORDERED: LACTULOSE SYRUP 20 GM/30 ML CUP PO ONE (08:30)
[2017-02-10 08:39] VITALS: BP 122/85; PULSE 66; RESP 19; TEMP 97.8; O2SAT 96
--- NOTE | 2017-02-10 09:14 | PD.ONC.PN ---
Subjective Subjective Remarks Afebrile overnight. Patient reporting improved pain control today. still has not had bowel movement. tolerated dobhoff tube placement yesterday. Objective Data Date Time Temp Pulse Resp B/P (MAP) Pulse Ox O2 Delivery O2 Flow Rate FiO2 02/10/17 08:39 97.8 66 19 122/85 (97) 96 02/10/17 04:00 98.7 72 17 110/73 (85) 96 02/10/17 00:00 97.5 70 16 109/65 (80) 98 02/09/17 20:00 96.9 89 19 109/69 (82) 98 02/09/17 12:00 97.0 69 16 138/86 (103) 96 02/10/17 02/10/17 02/10/17 07:00 15:00 23:00 Intake Total 100 ml Output Total 300 ml Balance -200 ml Result Diagram: 02/08/17 0610 02/09/17 0500 Administered Medications Medications (Trade) Dose Ordered Sig/[place] Route PRN Reason Start Time Stop Time Status Last Admin Dose Admin Sodium Chloride (NS Flush) 2 ml UNSCH PRN IV FLUSH FLUSH AFTER USING IV ACCESS 02/07/17 22:00 02/08/17 06:30 Sodium Chloride (NS Flush) 2 ml BID IV FLUSH 02/08/17 09:00 02/10/17 08:11 Ondansetron HCl (Zofran Inj) 4 mg Q6H PRN IVP NAUSEA OR VOMITING 02/07/17 22:00 02/08/17 06:30 Pantoprazole Sodium (Protonix) 40 mg DAILY PO 02/08/17 09:00 02/10/17 08:09 Morphine Sulfate (Oramorph Sr) 30 mg Q8HR PO 02/08/17 14:00 02/10/17 05:06 Metoprolol Tartrate (Lopressor) 50 mg Q12HR PO 02/08/17 09:00 02/10/17 08:09 Potassium Chloride/Sodium Chloride 1,000 ml @ 100 mls/hr Q10H IV 02/08/17 08:00 02/10/17 08:09 Polyethylene Glycol (Miralax) 17 gm DAILY PO 02/08/17 09:00 02/10/17 08:09 Docusate Sodium (Colace) 100 mg BID PO 02/08/17 09:00 02/10/17 08:09 Oxycodone/ Acetaminophen (Percocet 7.5-325 Mg) 1 tab Q4H PRN PO PAIN1-8 02/08/17 13:30 02/10/17 08:10 Sucralfate (Carafate Liq) 1 gm QID PO 02/08/17 21:00 02/10/17 08:09 Hydromorphone HCl (Dilaudid Pf Inj) 1.5 mg Q4HR PRN IV PUSH PAIN SCALE 9 TO 10 02/09/17 11:15 02/09/17 19:23 Objective Remarks GENERAL: Middle aged male sitting up in bed in [facility]. SKIN: Warm and dry. HEAD: Normocephalic. EYES: No injection or drainage. NECK: Supple, trachea midline. CARDIOVASCULAR: Regular rate and rhythm RESPIRATORY: Breath sounds equal bilaterally. No accessory muscle use. GASTROINTESTINAL: Abdomen soft, non-tender, nondistended. EXTREMITIES: No cyanosis NEUROLOGICAL: awake and alert, normal speech. Assessment/Plan Problem List: (1) Esophageal cancer ICD Codes: C15.9 - Malignant neoplasm of esophagus, unspecified Status: Acute Plan: --Esophageal cancer in the distal esophagus. 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 --Upper endoscopy showed a 3 cm ulcerated mass involving the lower esophageal sphincter at the GE junction and in the cardia. --mass was partially obstructing. --Since treatment, he was able to swallow better. --CT Chest again showed a thickened distal esophagus likely due to the treatment effect. --is supposed to have a PET scan done next week prior to seeing Dr. Espinal for definitive resection. --There is no clear progression of disease noted at this time. --just completed radiation and chemotherapy last week. --Anticipate his abdominal pain to slowly improve over the next week. (2) Intractable abdominal pain ICD Codes: R10.9 - Unspecified abdominal pain Status: Acute Plan: Currently on Oramorph 30mg PO q 8 + Dilaudid IV or Percocet PO for breakthrough pain. --Midepigastric pain due to radiation and chemotherapy. --CT of the abdomen and pelvis did not show any acute process. --no evidence of bowel perforation. (3) Constipation ICD Codes: K59.00 - Constipation, unspecified Plan: --Constipation due to opiates as well as dehydration. --on a stool softener and laxative. (4) Malnutrition ICD Codes: E46 - Unspecified protein-calorie malnutrition Plan: --was still able to tolerate a soft mechanical diet prior to presentation. --on IV fluid hydration for now. --Doff-Vladimir tube Placement. (5) Dehydration ICD Codes: E86.0 - Dehydration Plan: --on IVF Assessment 61y/o male with esophageal cancer admitted with intractable abdominal pain. h/o Esophageal cancer. Arthritis. Diverticulitis Gastroesophageal reflux disease. Hyperlipidemia. Hypertension. Chronic kidney disease. Benign prostatic hypertrophy Plan 1. continue oramorph + Percocet/dilaudid for breakthrough 2. start tube feeds via Dobhoff today per scrap metal collector recommendations 3. give Lactulose for continued constipation. Attending Statement The exam, history, and the medical decision-making described in the above note were completed with the assistance of the mid-level provider. I reviewed and agree with the findings presented. I attest that I had a [id number] encounter with the patient on the same day, and personally performed and documented my assessment and findings in the medical record. Pain better controlled. Titrate pain meds. Had DHT placed. Start TF. Add lactulose for constipation. Glendy Malcolm Feb 10, 2017 09:14 Sylvester Silver MD Feb 10, 2017 16:13
[2017-02-10 12:00] VITALS: BP 124/77; PULSE 66; RESP 19; TEMP 96.8; O2SAT 97
--- NOTE | 2017-02-10 12:16 | RADRPT ---
EXAM DATE/TIME: 02/09/2017 15:09 [place] COMPARISON: CT ABDOMEN & PELVIS W CONTRAST, February 07, 2017, 19:36. INDICATIONS : Patient presents with esophageal cancer in need of dobhoff placement. MEDICAL HISTORY : Esophogeal cancer Hypertension GERD Anxiety SURGICAL HISTORY : Endoscopy Bilateral hernia repair Left knee arthroscopy and replacement Port placement ENCOUNTER: Initial ACUITY: 3 months PAIN SCORE: 8/10 LOCATION: RUQ FLUORO TIME: 10.3 minutes IMAGE SERIES: 3 minutes CONTRAST: 10 cc Omnipaque (iohexol) 350 DEVICE(S): 1.) 8 FR. Dobbhoff PROCEDURE : 1. Fluoroscopically guided enteric feeding tube placement. The risks, benefits and alternatives to the procedure were explained and verbal and written consent w as obtained. With fluoroscopic guidance a weighted enteric feeding tube was passed through the nasal cavity down the esophagus to the region of the GE junction. Attempting to push the weighted tip of t he Dobbhoff through the GE junction was very uncomfortable for the patient. Contrast injection throug h the tube showed a weighted tip to be in inferior to the tract of the GE junction, possibly in an ul ceration of the known gastric mass. As such, a second a 4 Grenadian Berenstein catheter and glide wire w as advanced through the same right nares and fluoroscopically guided down into the distal esophagus. A wire was passed through the GE junction into the gastric lumen. I initially used this as a guide to try to bounce the Dobbhoff through the junction of the gastric lumen but this too was unsuccessful. The Dobbhoff was then modified as the weighted tip was excised. The modified catheter was then advanc ed over the wire and easily passed into the gastric lumen. Air was insufflated into the gastric lumen to facilitate repositioning of the catheter tip to the gastric antrum CONCLUSION: 1. Unable to pass the weighted tip of the Dobbhoff feeding tube through the GE junction. 2. Therefore, access to the stomach was obtained with a 4 Grenadian Berenstein catheter and wire. A dean fied Dobbhoff with the weighted tip excised was then passed over the wire and into the gastric lumen with the tip in the region of the gastric antrum. Tube is in adequate position and can be used immedi ately. Farhan Logan MD on February 10, 2017 at 12:09 Board Certified Radiologist. This report was verified electronically.
[2017-02-10] MEDS: HYDROmorphone HCL PF 2 MG/ML VIAL IV PUSH PRN (15:10)
[2017-02-10] MEDS ORDERED: HYDROmorphone HCL PF 2 MG/ML VIAL IV ONE (15:15)
--- NOTE | 2017-02-10 15:38 | HHI.PR ---
Subjective Subjective Notes Resting in bed Mother at bedside Dobhoff placed yesterday Objective Vitals/I&O Vital Signs Date Time Temp Pulse Resp B/P (MAP) Pulse Ox O2 Delivery O2 Flow Rate FiO2 02/10/17 12:00 96.8 66 19 124/77 (93) 97 02/07/17 18:23 Room Air Cardiovascular: Regular Lungs: Clear Abdomen: Non-distended, Non-tender Extremities: No edema Narrative Exam Dobhoff in place A/P Assessment and Plan 61 year old male with esophagus cancer; not able to tolerate PO diet at this time -Dobhoff placed yesterday in IR -Start TF today -Dietary consult -Okay for PO diet as tolerated Jennifer Barreto Feb 10, 2017 15:38
--- NOTE | 2017-02-10 16:04 | HHI.PR ---
Subjective Remarks Reports that he is still having burning epigastric pain and not wanting to try any food. He wants to continue with the dihoff tube feeds. He wants to have more pain medication for breakthrough pain. He reports no bowel movements. Reports some mild nausea no vomiting Objective Vitals Vital Signs Date Time Temp Pulse Resp B/P (MAP) Pulse Ox O2 Delivery O2 Flow Rate FiO2 02/10/17 12:00 96.8 66 19 124/77 (93) 97 02/10/17 08:39 97.8 66 19 122/85 (97) 96 02/10/17 04:00 98.7 72 17 110/73 (85) 96 02/10/17 00:00 97.5 70 16 109/65 (80) 98 02/09/17 20:00 96.9 89 19 109/69 (82) 98 I/O 02/09/17 02/09/17 02/09/17 02/10/17 02/10/17 02/10/17 07:00 15:00 23:00 07:00 15:00 23:00 Intake Total 150 ml 460 ml 100 ml Output Total 425 ml 300 ml 500 ml Balance -275 ml 460 ml -200 ml -500 ml Intake Oral 150 ml 460 ml 100 ml Output Urine Total 425 ml 300 ml 500 ml # Voids 1 4 Result Diagram: 02/08/17 0610 02/09/17 0500 Objective Remarks GENERAL: This is a well-nourished, well-developed patient, in no apparent distress with dibhoff tube. CARDIOVASCULAR: Regular rate and rhythm RESPIRATORY: Clear to auscultation. Breath sounds equal bilaterally. No wheezes , rales, or rhonchi. GASTROINTESTINAL: Abdomen soft, mild epigastric tenderness nondistended, nondistended. Normal active bowel sounds MUSCULOSKELETAL: Extremities without clubbing, cyanosis, or edema. NEURO: Alert & Oriented x4 to person, place, time, situation. Moves all ext x4 A/P Assessment and Plan 61-year-old male with a past medical history of esophageal cancer, GERD, anxiety , HTN who presented with worsening of his epigastric cancer pain Esophageal cancer likely etiology of intractable pain: IV fluid hydration along with starting tube feeds; due to the pain he is not willing to try any other oral intake at this time -Schedule home extended release morphine 30 mg 3 times a day -Continue [place] 10/325 as needed -Increase IV Dilaudid for breakthrough pain -Patient's oncologist consulted, recommended IVF, bowel regimen, and pain medication titration -Continue supportive care -Continue PPI Gen. surgery reports if pain intake does not improve may need a J-tube placed with surgical intervention. Protein calorie malnutrition, severe: Secondary to the above. -Per surgery, continue tube feeds with Dobbhoff tube , to proceed with by mouth diet as tolerated, at this time patient is unwilling to try oral intake Hypokalemia: Replete Hypertension, essential continue Lopressor DVT prophylaxis- bilateral SCDs Jenn Leiva MD Feb 10, 2017 16:04
[2017-02-10 16:38] VITALS: BP 107/72; PULSE 65; RESP 19; TEMP 97.5; O2SAT 96
[2017-02-10] MEDS: ENOXAPARIN SODIUM 40 MG/0.4 ML SYRINGE SQ SCH (17:41)
[2017-02-10 20:00] VITALS: BP 123/80; PULSE 72; RESP 18; TEMP 99.4; O2SAT 94
[2017-02-11] VITALS: BP 100/68; PULSE 77; RESP 20; TEMP 97.6; O2SAT 96
[2017-02-11] MEDS: HYDROmorphone HCL PF 2 MG/ML VIAL IV PUSH PRN ×5 (01:29→22:32)
[2017-02-11] MEDS: NS + KCL 20 MEQ INJ 1,000 ML IV SCH ×2 (03:30→17:57)
[2017-02-11 04:00] VITALS: BP 118/75; PULSE 76; RESP 20; TEMP 98.9; O2SAT 97
[2017-02-11] MEDS: oxyCODONE/ACETAMINOPHEN 7.5 MG/325 MG TAB PO PRN ×4 (05:36→23:53)
[2017-02-11] MEDS: MORPHINE SULFATE 30 MG CONTROLLED RELEASE TAB PO SCH ×3 (05:36→22:32)
[2017-02-11] MEDS: METOPROLOL TARTRATE 50 MG TAB PO SCH ×2 (08:15→22:33)
[2017-02-11] MEDS: SUCRALFATE 1 GM/10 ML CUP PO SCH ×4 (08:15→22:32)
[2017-02-11] MEDS: PANTOPRAZOLE SOD 40 MG DELAYED RELEASE TAB PO SCH (08:15)
[2017-02-11] MEDS: POLYETHYLENE GLYCOL 17 GM PKG PO SCH (08:16)
[2017-02-11] MEDS: DOCUSATE SODIUM 100 MG CAP PO SCH ×2 (08:16→22:33)
[2017-02-11] MEDS: SODIUM CHLORIDE 0.9% FLUSH 10 ML FLUSH IV FLUSH SCH ×2 (08:16→22:32)
[2017-02-11 08:45] VITALS: BP 121/75; PULSE 91; RESP 19; TEMP 98.6; O2SAT 96
--- NOTE | 2017-02-11 09:45 | PD.ONC.PN ---
Subjective Subjective Remarks Afebrile overnight. Patient resting in bed. Reports continued breakthrough pain requiring IV dilaudid. tolerating tube feeds. Objective Data Date Time Temp Pulse Resp B/P (MAP) Pulse Ox O2 Delivery O2 Flow Rate FiO2 02/11/17 08:45 98.6 91 19 121/75 (90) 96 02/11/17 04:00 98.9 76 20 118/75 (89) 97 02/11/17 00:00 97.6 77 20 100/68 (79) 96 02/10/17 20:00 99.4 72 18 123/80 (94) 94 02/10/17 16:38 97.5 65 19 107/72 (84) 96 02/10/17 12:00 96.8 66 19 124/77 (93) 97 02/11/17 02/11/17 02/11/17 07:00 15:00 23:00 Intake Total 240 ml Balance 240 ml Result Diagram: 02/08/17 0610 02/09/17 0500 Administered Medications Medications (Trade) Dose Ordered Sig/[place] Route PRN Reason Start Time Stop Time Status Last Admin Dose Admin Sodium Chloride (NS Flush) 2 ml UNSCH PRN IV FLUSH FLUSH AFTER USING IV ACCESS 02/07/17 22:00 02/08/17 06:30 Sodium Chloride (NS Flush) 2 ml BID IV FLUSH 02/08/17 09:00 02/11/17 08:16 Ondansetron HCl (Zofran Inj) 4 mg Q6H PRN IVP NAUSEA OR VOMITING 02/07/17 22:00 02/08/17 06:30 Pantoprazole Sodium (Protonix) 40 mg DAILY PO 02/08/17 09:00 02/11/17 08:15 Morphine Sulfate (Oramorph Sr) 30 mg Q8HR PO 02/08/17 14:00 02/11/17 05:36 Metoprolol Tartrate (Lopressor) 50 mg Q12HR PO 02/08/17 09:00 02/11/17 08:15 Potassium Chloride/Sodium Chloride 1,000 ml @ 100 mls/hr Q10H IV 02/08/17 08:00 02/11/17 03:30 Polyethylene Glycol (Miralax) 17 gm DAILY PO 02/08/17 09:00 02/11/17 08:16 Docusate Sodium (Colace) 100 mg BID PO 02/08/17 09:00 02/11/17 08:16 Oxycodone/ Acetaminophen (Percocet 7.5-325 Mg) 1 tab Q4H PRN PO PAIN1-8 02/08/17 13:30 02/11/17 05:36 Sucralfate (Carafate Liq) 1 gm QID PO 02/08/17 21:00 02/11/17 08:15 Hydromorphone HCl (Dilaudid Pf Inj) 1.5 mg Q4HR PRN IV PUSH PAIN SCALE 9 TO 10 02/09/17 11:15 02/11/17 08:17 Enoxaparin Sodium (Lovenox Inj) 40 mg Q24H SQ 02/10/17 17:00 02/10/17 17:41 Objective Remarks GENERAL: Middle aged male upright in bed in [facility]. SKIN: Warm and dry. HEAD: Normocephalic. Dobhoff tube in place, receiving tube feeds EYES: No injection or drainage. NECK: Supple, trachea midline. CARDIOVASCULAR: Regular rate and rhythm RESPIRATORY: Breath sounds equal bilaterally. No accessory muscle use. GASTROINTESTINAL: Abdomen soft, non-tender, nondistended. EXTREMITIES: No cyanosis NEUROLOGICAL: awake and alert, normal speech. moving all extremities. Assessment/Plan Problem List: (1) Esophageal cancer ICD Codes: C15.9 - Malignant neoplasm of esophagus, unspecified Status: Acute Plan: --Esophageal cancer in the distal esophagus. 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 --Upper endoscopy showed a 3 cm ulcerated mass involving the lower esophageal sphincter at the GE junction and in the cardia. --mass was partially obstructing. --Since treatment, he was able to swallow better. --CT Chest again showed a thickened distal esophagus likely due to the treatment effect. --is supposed to have a PET scan done next week prior to seeing Dr. Espinal for definitive resection. --There is no clear progression of disease noted at this time. --just completed radiation and chemotherapy last week. --Anticipate his abdominal pain to slowly improve over the next week. (2) Intractable abdominal pain ICD Codes: R10.9 - Unspecified abdominal pain Status: Acute Plan: Currently on Oramorph 30mg PO q 8 + Dilaudid IV or Percocet PO for breakthrough pain. --Midepigastric pain due to radiation and chemotherapy. --CT of the abdomen and pelvis did not show any acute process. --no evidence of bowel perforation. (3) Constipation ICD Codes: K59.00 - Constipation, unspecified Plan: --Constipation due to opiates as well as dehydration. --on a stool softener and laxative. (4) Malnutrition ICD Codes: E46 - Unspecified protein-calorie malnutrition Plan: --was still able to tolerate a soft mechanical diet prior to presentation. --on IV fluid hydration for now. --Doff-Vladimir tube Placement. (5) Dehydration ICD Codes: E86.0 - Dehydration Plan: --on IVF Assessment 61y/o male with esophageal cancer admitted with intractable abdominal pain. h/o Esophageal cancer. Arthritis. Diverticulitis Gastroesophageal reflux disease. Hyperlipidemia. Hypertension. Chronic kidney disease. Benign prostatic hypertrophy Plan 1. continue oramorph + Percocet/dilaudid for breakthrough 2. continue tube feeds Discharge Disposition: patient still requiring IV dilaudid for breakthrough pain. anticipate discharge in the next 2-4 days when pain is properly controlled with PO pain meds and patient able to tolerate some food PO. Pain should continue to improve the further out we get from completion of XRT/Chemotherapy (was completed last week) Attending Statement The exam, history, and the medical decision-making described in the above note were completed with the assistance of the mid-level provider. I reviewed and agree with the findings presented. I attest that I had a [id number] encounter with the patient on the same day, and personally performed and documented my assessment and findings in the medical record. Still require IV pain meds but pain better controlled. +BM. Tolerating tube feeding. Continue supportive care. Anticipate his pain to continue to improve over the next few days. Glendy Malcolm Feb 11, 2017 09:45 Sylvester Silver MD Feb 11, 2017 15:23
[2017-02-11 12:43] VITALS: BP 106/69; PULSE 75; RESP 19; TEMP 97.8; O2SAT 97
[2017-02-11 15:00] LABS: HEMATOCRIT 29.3 % (39.0-51.0); MEAN CELL VOLUME 87.2 FL (80.0-100.0); MEAN CORPUSCULAR HEMOGLOBIN 29.4 PG (27.0-34.0); MEAN CORPUSCULAR HGB CONC 33.7 % (32.0-36.0); PLATELET COUNT 126 TH/MM3 (150-450); RED BLOOD COUNT 3.36 MIL/MM3 (4.50-5.90); RED CELL DISTRIBUTION WIDTH 16.4 % (11.6-17.2); WHITE BLOOD COUNT 2.3 TH/MM3 (4.0-11.0)
[2017-02-11 15:10] LABS: HEMO FLAGS AUTO DIFF
--- NOTE | 2017-02-11 15:38 | HHI.PR ---
Subjective Subjective Notes Resting in bed Tolerating TF Objective Vitals/I&O Vital Signs Date Time Temp Pulse Resp B/P (MAP) Pulse Ox O2 Delivery O2 Flow Rate FiO2 02/11/17 12:43 97.8 75 19 106/69 (81) 97 02/07/17 18:23 Room Air Labs Laboratory Tests Test 02/11/17 14:00 White Blood Count 2.3 Red Blood Count 3.36 Hemoglobin 9.9 Hematocrit 29.3 Mean Corpuscular Volume 87.2 Mean Corpuscular Hemoglobin 29.4 Mean Corpuscular Hemoglobin Concent 33.7 Red Cell Distribution Width 16.4 Platelet Count 126 Mean Platelet Volume 7.9 CBC Comment AUTO DIFF Cardiovascular: Regular Lungs: Clear Abdomen: Non-distended, Non-tender Extremities: No edema Narrative Exam Dobhoff in place A/P Assessment and Plan 61 year old male with esophagus cancer; not able to tolerate PO diet at this time -Dobhoff in place -Tolerating TF at goal -Okay for sips as tolerated -Pain control -Will continue TF and make sure he is able to tolerate that -General Surgery will see peripherally over the weekend Jennifer Barreto Feb 11, 2017 15:38
[2017-02-11 15:46] LABS: BANDS 5 % (0-6); NEUTROPHIL # MANUAL DIFF 1.4 TH/MM3 (1.8-7.7); POLYS (SEG NEUTROPHILS) 57 % (16-70); WBC DIFF SAMPLE 100
[2017-02-11 15:47] LABS: PLATELET ESTIMATE SMEAR LOW (NORMAL); PLATELET MORPHOLOGY NORMAL (NORMAL); SCAN/DIFF FINAL DIFF MANUAL
[2017-02-11] MEDS: ENOXAPARIN SODIUM 40 MG/0.4 ML SYRINGE SQ SCH (15:49)
--- NOTE | 2017-02-11 15:56 | HHI.PR ---
Subjective Remarks Still with a lot of pain. Still does not want to try any oral solid or liquid. Objective Vitals Vital Signs Date Time Temp Pulse Resp B/P (MAP) Pulse Ox O2 Delivery O2 Flow Rate FiO2 02/11/17 12:43 97.8 75 19 106/69 (81) 97 02/11/17 08:45 98.6 91 19 121/75 (90) 96 02/11/17 04:00 98.9 76 20 118/75 (89) 97 02/11/17 00:00 97.6 77 20 100/68 (79) 96 02/10/17 20:00 99.4 72 18 123/80 (94) 94 02/10/17 16:38 97.5 65 19 107/72 (84) 96 I/O 02/10/17 02/10/17 02/10/17 02/11/17 02/11/17 02/11/17 07:00 15:00 23:00 07:00 15:00 23:00 Intake Total 100 ml 1000 ml 2241 ml 240 ml Output Total 300 ml 500 ml Balance -200 ml 500 ml 2241 ml 240 ml Intake Oral 100 ml 1200 ml 240 ml IV Total 1000 ml 1000 ml Tube Feeding 41 ml Output Urine Total 300 ml 500 ml # Voids 2 1 # Bowel Movements 3 Result Diagram: 02/11/17 1400 02/09/17 0500 Objective Remarks GENERAL: This is a well-nourished, well-developed patient, in no apparent distress with dibhoff tube. CARDIOVASCULAR: Regular rate and rhythm RESPIRATORY: Clear to auscultation. Breath sounds equal bilaterally. No wheezes , rales, or rhonchi. GASTROINTESTINAL: Abdomen soft, mild epigastric tenderness nondistended, nondistended. Normal active bowel sounds MUSCULOSKELETAL: Extremities without clubbing, cyanosis, or edema. NEURO: Alert & Oriented x4 to person, place, time, situation. Moves all ext x4 A/P Assessment and Plan 61-year-old male with a past medical history of esophageal cancer, GERD, anxiety , HTN who presented with worsening of his epigastric cancer pain Esophageal cancer likely etiology of intractable pain: IV fluid hydration along with starting tube feeds; due to the pain he is not willing to try any other oral intake at this time -Schedule home extended release morphine 30 mg 3 times a day -Continue [place] 10/325 as needed -Continue IV Dilaudid for breakthrough pain -Patient's oncologist consulted, recommended IVF, bowel regimen, and pain medication titration -Continue supportive care -Continue PPI Gen. surgery reports if pain intake does not improve may need a J-tube placed with surgical intervention, will defer to Dr. Espinal. Protein calorie malnutrition, severe: Secondary to the above. -Per surgery, continue tube feeds with Dobbhoff tube, to proceed with by mouth diet as tolerated, at this time patient is unwilling to try oral intake. Hypokalemia: Replete Hypertension, essential continue Lopressor DVT prophylaxis- bilateral SCDs Lovenox Discharge Planning Home when able to tolerate by mouth and cleared by surgery Jenn Macario MD Feb 11, 2017 15:55
[2017-02-11 16:24] VITALS: BP 98/64; PULSE 83; RESP 19; TEMP 97.7; O2SAT 97
[2017-02-11 20:00] VITALS: BP 105/65; PULSE 93; RESP 17; TEMP 100.9; O2SAT 96
[2017-02-11] MEDS: DIAZEPAM 10 MG TAB PO PRN (22:32)
[2017-02-12] VITALS: BP 102/69; PULSE 88; RESP 16; TEMP 100.8; O2SAT 95
[2017-02-12] MEDS: NS + KCL 20 MEQ INJ 1,000 ML IV SCH ×3 (02:00→20:19)
[2017-02-12] MEDS: HYDROmorphone HCL PF 2 MG/ML VIAL IV PUSH PRN (03:45)
[2017-02-12 04:00] VITALS: BP 92/57; PULSE 95; RESP 20; TEMP 100.1; O2SAT 94
[2017-02-12] MEDS: MORPHINE SULFATE 30 MG CONTROLLED RELEASE TAB PO SCH ×3 (05:38→21:16)
[2017-02-12 05:55] LABS: HEMATOCRIT 28.1 % (39.0-51.0); MEAN CELL VOLUME 86.8 FL (80.0-100.0); MEAN CORPUSCULAR HEMOGLOBIN 29.7 PG (27.0-34.0); MEAN CORPUSCULAR HGB CONC 34.2 % (32.0-36.0); PLATELET COUNT 117 TH/MM3 (150-450); RED BLOOD COUNT 3.23 MIL/MM3 (4.50-5.90); RED CELL DISTRIBUTION WIDTH 16.7 % (11.6-17.2); WHITE BLOOD COUNT 3.1 TH/MM3 (4.0-11.0)
[2017-02-12 06:09] LABS: BICARBONATE 25.3 MEQ/L (21.0-32.0); CALCIUM-PROTEIN CORRECTED 8.4 MG/DL (8.5-10.1); POTASSIUM 3.7 MEQ/L (3.5-5.1); TOTAL BILIRUBIN ADULT 0.4 MG/DL (0.2-1.0)
[2017-02-12 06:34] LABS: HEMO FLAGS AUTO DIFF
[2017-02-12 08:00] VITALS: BP 116/72; PULSE 85; RESP 20; TEMP 98.3; O2SAT 95
--- NOTE | 2017-02-12 08:52 | PD.ONC.PN ---
Subjective Subjective Remarks Tmax 100.9 overnight Coughing up sputum Reports he had a hard time last night in terms of his pain control Objective Data Date Time Temp Pulse Resp B/P (MAP) Pulse Ox O2 Delivery O2 Flow Rate FiO2 02/12/17 06:50 16 02/12/17 05:24 16 02/12/17 04:00 100.1 95 20 92/57 (69) 94 02/12/17 00:53 16 02/12/17 00:00 100.8 88 16 102/69 (80) 95 02/11/17 20:00 100.9 93 17 105/65 (78) 96 02/11/17 16:24 97.7 83 19 98/64 (75) 97 02/11/17 12:43 97.8 75 19 106/69 (81) 97 Result Diagram: 02/12/17 0345 02/12/17 0345 Laboratory Results Laboratory Tests Test 02/11/17 14:00 02/12/17 03:45 White Blood Count 2.3 TH/MM3 3.1 TH/MM3 Red Blood Count 3.36 MIL/MM3 3.23 MIL/MM3 Hemoglobin 9.9 GM/DL 9.6 GM/DL Hematocrit 29.3 % 28.1 % Mean Corpuscular Volume 87.2 FL 86.8 FL Mean Corpuscular Hemoglobin 29.4 PG 29.7 PG Mean Corpuscular Hemoglobin Concent 33.7 % 34.2 % Red Cell Distribution Width 16.4 % 16.7 % Platelet Count 126 TH/MM3 117 TH/MM3 Mean Platelet Volume 7.9 FL 8.5 FL CBC Comment AUTO DIFF AUTO DIFF Differential Total Cells Counted 100 Neutrophils % (Manual) 57 % Band Neutrophils % 5 % Lymphocytes % 23 % Monocytes % 15 % Neutrophils # (Manual) 1.4 TH/MM3 Differential Comment FINAL DIFF MANUAL Platelet Estimate LOW Platelet Morphology Comment NORMAL Blood Urea Nitrogen 4 MG/DL Creatinine 0.43 MG/DL Random Glucose 103 MG/DL Total Protein 5.3 GM/DL Albumin 2.2 GM/DL Calcium Level 7.4 MG/DL Alkaline Phosphatase 318 U/L Aspartate Amino Transf (AST/SGOT) 35 U/L Alanine Aminotransferase (ALT/SGPT) 29 U/L Total Bilirubin 0.4 MG/DL Sodium Level 134 MEQ/L Potassium Level 3.7 MEQ/L Chloride Level 101 MEQ/L Carbon Dioxide Level 25.3 MEQ/L Anion Gap 8 MEQ/L Estimat Glomerular Filtration Rate 203 ML/MIN Protein Corrected Calcium 8.4 MG/DL Administered Medications Medications (Trade) Dose Ordered Sig/[place] Route PRN Reason Start Time Stop Time Status Last Admin Dose Admin Sodium Chloride (NS Flush) 2 ml UNSCH PRN IV FLUSH FLUSH AFTER USING IV ACCESS 02/07/17 22:00 02/08/17 06:30 Sodium Chloride (NS Flush) 2 ml BID IV FLUSH 02/08/17 09:00 02/11/17 22:32 Ondansetron HCl (Zofran Inj) 4 mg Q6H PRN IVP NAUSEA OR VOMITING 02/07/17 22:00 02/08/17 06:30 Pantoprazole Sodium (Protonix) 40 mg DAILY PO 02/08/17 09:00 02/11/17 08:15 Morphine Sulfate (Oramorph Sr) 30 mg Q8HR PO 02/08/17 14:00 02/12/17 05:38 Metoprolol Tartrate (Lopressor) 50 mg Q12HR PO 02/08/17 09:00 02/11/17 22:33 Potassium Chloride/Sodium Chloride 1,000 ml @ 100 mls/hr Q10H IV 02/08/17 08:00 02/12/17 02:00 Diazepam (Valium) 10 mg BID PRN PO ANXIETY 02/08/17 07:45 02/11/17 22:32 Polyethylene Glycol (Miralax) 17 gm DAILY PO 02/08/17 09:00 02/11/17 08:16 Docusate Sodium (Colace) 100 mg BID PO 02/08/17 09:00 02/11/17 22:33 Oxycodone/ Acetaminophen (Percocet 7.5-325 Mg) 1 tab Q4H PRN PO PAIN1-8 02/08/17 13:30 02/11/17 23:53 Sucralfate (Carafate Liq) 1 gm QID PO 02/08/17 21:00 02/11/17 22:32 Hydromorphone HCl (Dilaudid Pf Inj) 1.5 mg Q4HR PRN IV PUSH PAIN SCALE 9 TO 10 02/09/17 11:15 02/12/17 03:45 Enoxaparin Sodium (Lovenox Inj) 40 mg Q24H SQ 02/10/17 17:00 02/11/17 15:49 Objective Remarks GENERAL: Middle aged male upright in bed in nad. SKIN: Warm and dry. HEAD: Normocephalic. Dobhoff tube in place, receiving tube feeds EYES: No injection or drainage. NECK: Supple, trachea midline. CARDIOVASCULAR: Regular rate and rhythm RESPIRATORY: Crackles heard bilaterally at lung bases but more pronounced on the right. GASTROINTESTINAL: Abdomen soft, non-tender, nondistended. EXTREMITIES: No cyanosis NEUROLOGICAL: Awake and alert, normal speech. moving all extremities. Assessment/Plan Problem List: (1) Esophageal cancer ICD Codes: C15.9 - Malignant neoplasm of esophagus, unspecified Status: Acute Plan: --Esophageal cancer in the distal esophagus. 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 --Upper endoscopy showed a 3 cm ulcerated mass involving the lower esophageal sphincter at the GE junction and in the cardia. --mass was partially obstructing. --Since treatment, he was able to swallow better. --CT Chest again showed a thickened distal esophagus likely due to the treatment effect. --is supposed to have a PET scan done next week prior to seeing Dr. Espinal for definitive resection. --There is no clear progression of disease noted at this time. --just completed radiation and chemotherapy last week. --Anticipate his abdominal pain to slowly improve over the next week. (2) Intractable abdominal pain ICD Codes: R10.9 - Unspecified abdominal pain Status: Acute Plan: Currently on Oramorph 30mg PO q 8 + Dilaudid IV or Percocet PO for breakthrough pain. --Midepigastric pain due to radiation and chemotherapy. --CT of the abdomen and pelvis did not show any acute process. --no evidence of bowel perforation. (3) Constipation ICD Codes: K59.00 - Constipation, unspecified Plan: --Constipation due to opiates as well as dehydration. --on a stool softener and laxative. (4) Malnutrition ICD Codes: E46 - Unspecified protein-calorie malnutrition Plan: --was still able to tolerate a soft mechanical diet prior to presentation. --on IV fluid hydration for now. --Doff-Vladimir tube Placement. (5) Dehydration ICD Codes: E86.0 - Dehydration Plan: --on IVF Assessment 61y/o male with esophageal cancer admitted with intractable abdominal pain. h/o Esophageal cancer. Arthritis. Diverticulitis Gastroesophageal reflux disease. Hyperlipidemia. Hypertension. Chronic kidney disease. Benign prostatic hypertrophy Plan 1. Will get blood cultures and chest x-ray as the patient has been running fevers overnight. 2. Start cefepime. 3. Continue current pain regimen. Discharge Disposition: patient still requiring IV dilaudid for breakthrough pain. anticipate discharge in the next 2-4 days when pain is properly controlled with PO pain meds and patient able to tolerate some food PO. Pain should continue to improve the further out we get from completion of XRT/Chemotherapy (was completed last week) Attending Statement The exam, history, and the medical decision-making described in the above note were completed with the assistance of the mid-level provider. I reviewed and agree with the findings presented. I attest that I had a [id number] encounter with the patient on the same day, and personally performed and documented my assessment and findings in the medical record. Pt seen and examined, VS, labs and medications reviewed. The patient reports being in close to "unbearable" pain which is focused in he epigastric area and upper ABD. He has had low grade temps of up to 100.9F over the course of the past 24hrs. He is on tube feeds via a Dobbhoff tube. He remains on ATC pain medications, he is requesting his pain meds exactly when they are due. S/p completion of concurrent chemoRT (Carbo/taxol) for his underlying diagnosis of distal esophageal adenocarcinoma. Plan: Continue pain control with combination of IV and oral opioids. He is on both long acting and immediate release formulations. Continue TFs for nutrition. Started on empiric cefepime for low grade temps. Araceli Martins Feb 12, 2017 08:52 Mj Montero MD Feb 12, 2017 20:07
[2017-02-12] MEDS: METOPROLOL TARTRATE 50 MG TAB PO SCH ×2 (09:00→20:18)
[2017-02-12] MEDS: SODIUM CHLORIDE 0.9% FLUSH 10 ML FLUSH IV FLUSH SCH ×2 (09:00→20:18)
[2017-02-12] MEDS: DOCUSATE SODIUM 100 MG CAP PO SCH ×2 (09:03→20:18)
[2017-02-12] MEDS: SUCRALFATE 1 GM/10 ML CUP PO SCH ×4 (09:03→20:18)
[2017-02-12] MEDS: oxyCODONE/ACETAMINOPHEN 7.5 MG/325 MG TAB PO PRN ×4 (09:03→21:17)
[2017-02-12] MEDS: PANTOPRAZOLE SOD 40 MG DELAYED RELEASE TAB PO SCH (09:03)
[2017-02-12] MEDS: POLYETHYLENE GLYCOL 17 GM PKG PO SCH (09:03)
[2017-02-12 09:30] LABS: BANDS 25 % (0-6); PLATELET ESTIMATE SMEAR LOW (NORMAL); PLATELET MORPHOLOGY NORMAL (NORMAL); POLYS (SEG NEUTROPHILS) 41 % (16-70); SCAN/DIFF FINAL DIFF MANUAL; WBC DIFF SAMPLE 100
[2017-02-12] MEDS ORDERED: CEFEPIME INJ 2,000 MG in SODIUM CHLORIDE 0.9% INJ 100 ML IV SCH (10:00)
--- NOTE | 2017-02-12 10:11 | RADRPT ---
EXAM DATE/TIME: 02/12/2017 09:29 [facility] COMPARISON: ABDOMEN KUB ONLY, February 07, 2017, 17:40. INDICATIONS : Fever. Cough. Short of breath. MEDICAL HISTORY : Former smoker. SURGICAL HISTORY : Infusaport. ENCOUNTER: Subsequent ACUITY: 3 days PAIN SCORE: 0/10 LOCATION: Bilateral chest FINDINGS: The [id number] in excellent position. The lungs are clear. The cardiac and mediastinal contours are within normal limits. The bony structures are intact. There is a feeding tube which traverses the esophagus the distal tip is not visualized. CONCLUSION: 1. No acute cardiopulmonary findings. 2. [id number] in good position. Teto Hardy MD on February 12, 2017 at 10:09 Board Certified Radiologist. This report was verified electronically.
[2017-02-12 12:00] VITALS: BP 103/67; PULSE 90; RESP 20; TEMP 100.5; O2SAT 95
[2017-02-12] MEDS: CEFEPIME INJ 2,000 MG in SODIUM CHLORIDE 0.9% INJ 100 ML IV SCH ×2 (13:21→20:18)
--- NOTE | 2017-02-12 14:30 | HHI.PR ---
Subjective Remarks She reported feeling feverish with some chills, he had a bowel movement today which was solid, no abdominal pain no chest pain or short of breath Objective Vitals Vital Signs Date Time Temp Pulse Resp B/P (MAP) Pulse Ox O2 Delivery O2 Flow Rate FiO2 02/12/17 12:00 100.5 90 20 103/67 (79) 95 02/12/17 08:00 98.3 85 20 116/72 (87) 95 02/12/17 06:50 16 02/12/17 05:24 16 02/12/17 04:00 100.1 95 20 92/57 (69) 94 02/12/17 00:53 16 02/12/17 00:00 100.8 88 16 102/69 (80) 95 02/11/17 20:00 100.9 93 17 105/65 (78) 96 02/11/17 16:24 97.7 83 19 98/64 (75) 97 I/O 02/11/17 02/11/17 02/11/17 02/12/17 02/12/17 02/12/17 06:59 14:59 22:59 06:59 14:59 22:59 Intake Total 240 ml 2150 ml 1000 ml Output Total 450 ml 700 ml Balance 240 ml 1700 ml 300 ml Intake Oral 240 ml 730 ml IV Total 700 ml 1000 ml Other 720 ml Output Urine Total 450 ml 700 ml # Voids 1 3 # Bowel Movements 1 Result Diagram: 02/12/17 0345 02/12/17 0345 Objective Remarks GENERAL: This is a well-nourished, well-developed patient, in no apparent distress. SKIN: No rashes, warm and dry HEAD: Atraumatic. Normocephalic. EYES: Pupils equal round and reactive. Extraocular motions intact. No scleral icterus. ENT: Nose without bleeding, or drainage, Airway patent. NECK: Trachea midline. Supple CARDIOVASCULAR: Regular rate and rhythm without murmurs, gallops, or rubs. RESPIRATORY: Fair air entry bilaterally. No wheezes, rales, or rhonchi. GASTROINTESTINAL: Abdomen soft, non-tender, nondistended. Positive bowel sounds MUSCULOSKELETAL: Extremities without clubbing, cyanosis, or edema. Pedal pulses appreciated NEUROLOGICAL: Awake and alert. Moves all extremity. Normal speech.no focal neurological deficit A/P Assessment and Plan 02/12: Temperature of 100.9 last night with decreased blood pressure need to repeat any of patient started on cefepime, chest x-ray normal, blood culture pending, will recheck urinalysis and consult ID a/p: 61-year-old male with a past medical history of esophageal cancer, GERD, anxiety , HTN who presented with worsening of his epigastric cancer pain Esophageal cancer likely etiology of intractable pain: IV fluid hydration along with starting tube feeds; due to the pain he is not willing to try any other oral intake at this time -Schedule home extended release morphine 30 mg 3 times a day -Continue Galliano 10/325 as needed -Continue IV Dilaudid for breakthrough pain -Patient's oncologist consulted, recommended IVF, bowel regimen, and pain medication titration -Continue supportive care -Continue PPI Gen. surgery reports if pain intake does not improve may need a J-tube placed with surgical intervention, will defer to Dr. Espinal. Protein calorie malnutrition, severe: Secondary to the above. -Per surgery, continue tube feeds with Dobbhoff tube, to proceed with by mouth diet as tolerated, at this time patient is unwilling to try oral intake. Hypokalemia: Replete Hypertension, essential continue Lopressor DVT prophylaxis- bilateral SCDs Tiffany Adams MD Feb 12, 2017 14:30
[2017-02-12 16:00] VITALS: BP 112/68; PULSE 92; RESP 20; TEMP 100.1; O2SAT 95
[2017-02-12] MEDS: ENOXAPARIN SODIUM 40 MG/0.4 ML SYRINGE SQ SCH (17:13)
[2017-02-12 17:14] LABS: BLOOD, URINE NEG (NEG); COMMENT (UR) CULT NOT INDICATED; CULTURE IF INDICATED CULT NOT INDICATED; GLUCOSE,URINE NEG (NEG); KETONE, URINE NEG (NEG); MUCUS URINE FEW /lpf (OCC); NITRITE,URINE NEG (NEG); PH, URINE 7.5 (5.0-8.5); URINE COLOR YELLOW (YELLW/STRAW)
[2017-02-12 20:00] VITALS: BP 120/80; PULSE 89; RESP 18; TEMP 97.7; O2SAT 94
[2017-02-13] VITALS: BP 103/68; PULSE 84; RESP 18; TEMP 99; O2SAT 96
[2017-02-13] MEDS: HYDROmorphone HCL PF 2 MG/ML VIAL IV PUSH PRN (02:05)
[2017-02-13] MEDS: oxyCODONE/ACETAMINOPHEN 7.5 MG/325 MG TAB PO PRN ×6 (03:10→23:42)
[2017-02-13 04:00] VITALS: BP 107/67; PULSE 84; RESP 18; TEMP 99.3; O2SAT 95
[2017-02-13] MEDS: CEFEPIME INJ 2,000 MG in SODIUM CHLORIDE 0.9% INJ 100 ML IV SCH ×3 (05:09→19:32)
[2017-02-13] MEDS: MORPHINE SULFATE 30 MG CONTROLLED RELEASE TAB PO SCH ×3 (05:21→22:02)
[2017-02-13 08:00] VITALS: BP 105/71; PULSE 85; RESP 18; TEMP 98.7; O2SAT 96
[2017-02-13] MEDS: METOPROLOL TARTRATE 50 MG TAB PO SCH ×2 (09:00→19:32)
[2017-02-13] MEDS: SODIUM CHLORIDE 0.9% FLUSH 10 ML FLUSH IV FLUSH SCH ×2 (09:00→19:35)
--- NOTE | 2017-02-13 09:20 | PD.ONC.PN ---
Subjective Subjective Remarks Tmax 99.3 overnight "I cautiously say that my pain is definitely improving" His pain remains focused on the upper epigastric area He reports he is no longer coughing up sputum today. Objective Data Date Time Temp Pulse Resp B/P (MAP) Pulse Ox O2 Delivery O2 Flow Rate FiO2 02/13/17 08:00 98.7 85 18 105/71 (82) 96 02/13/17 04:00 99.3 84 18 107/67 (80) 95 02/13/17 00:00 99.0 84 18 103/68 (80) 96 02/12/17 20:00 97.7 89 18 120/80 (93) 94 02/12/17 16:00 100.1 92 20 112/68 (83) 95 02/12/17 12:00 100.5 90 20 103/67 (79) 95 02/13/17 02/13/17 02/13/17 07:00 15:00 23:00 Intake Total 960 ml Balance 960 ml Result Diagram: 02/12/17 0345 02/12/17 0345 Laboratory Results Laboratory Tests Test 02/12/17 16:30 Urine Color YELLOW Urine Turbidity CLEAR Urine pH 7.5 Urine Specific [place] 1.019 Urine Protein TRACE mg/dL Urine Glucose (UA) NEG mg/dL Urine Ketones NEG mg/dL Urine Occult Blood NEG Urine Nitrite NEG Urine Bilirubin NEG Urine Urobilinogen 2.0 MG/DL Urine Leukocyte Esterase NEG Urine RBC 1 /hpf Urine WBC 1 /hpf Urine Mucus FEW /lpf Microscopic Urinalysis Comment CULT NOT INDICATED Culture Results Microbiology Date/Time Source Procedure Growth Status 02/12/17 10:15 Blood Other Aerobic Blood Culture Pending Received 02/12/17 10:15 Blood Other Anaerobic Blood Culture Pending Received 02/12/17 09:30 Blood Other Aerobic Blood Culture Pending Received 02/12/17 09:30 Blood Other Anaerobic Blood Culture Pending Received Administered Medications Medications (Trade) Dose Ordered Sig/[place] Route PRN Reason Start Time Stop Time Status Last Admin Dose Admin Sodium Chloride (NS Flush) 2 ml UNSCH PRN IV FLUSH FLUSH AFTER USING IV ACCESS 02/07/17 22:00 02/08/17 06:30 Sodium Chloride (NS Flush) 2 ml BID IV FLUSH 02/08/17 09:00 02/12/17 09:00 Ondansetron HCl (Zofran Inj) 4 mg Q6H PRN IVP NAUSEA OR VOMITING 02/07/17 22:00 02/08/17 06:30 Pantoprazole Sodium (Protonix) 40 mg DAILY PO 02/08/17 09:00 02/12/17 09:03 Morphine Sulfate (Oramorph Sr) 30 mg Q8HR PO 02/08/17 14:00 02/13/17 05:21 Metoprolol Tartrate (Lopressor) 50 mg Q12HR PO 02/08/17 09:00 02/12/17 20:18 Potassium Chloride/Sodium Chloride 1,000 ml @ 100 mls/hr Q10H IV 02/08/17 08:00 02/12/17 20:19 Diazepam (Valium) 10 mg BID PRN PO ANXIETY 02/08/17 07:45 02/11/17 22:32 Polyethylene Glycol (Miralax) 17 gm DAILY PO 02/08/17 09:00 02/12/17 09:03 Docusate Sodium (Colace) 100 mg BID PO 02/08/17 09:00 02/12/17 20:18 Oxycodone/ Acetaminophen (Percocet 7.5-325 Mg) 1 tab Q4H PRN PO PAIN1-8 02/08/17 13:30 02/13/17 07:00 Sucralfate (Carafate Liq) 1 gm QID PO 02/08/17 21:00 02/12/17 20:18 Hydromorphone HCl (Dilaudid Pf Inj) 1.5 mg Q4HR PRN IV PUSH PAIN SCALE 9 TO 10 02/09/17 11:15 02/13/17 02:05 Enoxaparin Sodium (Lovenox Inj) 40 mg Q24H SQ 02/10/17 17:00 02/12/17 17:13 Cefepime HCl 2000 mg/Sodium Chloride 100 ml @ 200 mls/hr Q8H IV 02/12/17 13:00 02/13/17 05:09 Objective Remarks GENERAL: Middle aged male sitting up in bed in no acute distress SKIN: Warm and dry. HEAD: Normocephalic. Dobhoff tube in place, receiving tube feeds. Beginning to have some alopecia EYES: No injection or drainage. NECK: Supple, trachea midline. CARDIOVASCULAR: Regular rate and rhythm RESPIRATORY: Clear posteriorly. Diminished at bases bilaterally. GASTROINTESTINAL: Abdomen soft, tender to upper epigastric area mostly to the left side. Nondistended EXTREMITIES: No cyanosis NEUROLOGICAL: Awake and alert, normal speech. moving all extremities. Assessment/Plan Problem List: (1) Esophageal cancer ICD Codes: C15.9 - Malignant neoplasm of esophagus, unspecified Status: Acute Plan: --Esophageal cancer in the distal esophagus. 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 --Upper endoscopy showed a 3 cm ulcerated mass involving the lower esophageal sphincter at the GE junction and in the cardia. --mass was partially obstructing. --Since treatment, he was able to swallow better. --CT Chest again showed a thickened distal esophagus likely due to the treatment effect. --is supposed to have a PET scan done next week prior to seeing Dr. Espinal for definitive resection. --There is no clear progression of disease noted at this time. --just completed radiation and chemotherapy last week. --Anticipate his abdominal pain to slowly improve over the next week. (2) Intractable abdominal pain ICD Codes: R10.9 - Unspecified abdominal pain Status: Acute Plan: Currently on Oramorph 30mg PO q 8 + Dilaudid IV or Percocet PO for breakthrough pain. --Midepigastric pain due to radiation and chemotherapy. --CT of the abdomen and pelvis did not show any acute process. --no evidence of bowel perforation. (3) Constipation ICD Codes: K59.00 - Constipation, unspecified Plan: --Constipation due to opiates as well as dehydration. --on a stool softener and laxative. (4) Malnutrition ICD Codes: E46 - Unspecified protein-calorie malnutrition Plan: --was still able to tolerate a soft mechanical diet prior to presentation. --on IV fluid hydration for now. --Doff-Vladimir tube Placement. (5) Dehydration ICD Codes: E86.0 - Dehydration Plan: --on IVF Assessment 61y/o male with esophageal cancer admitted with intractable abdominal pain. h/o Esophageal cancer. Arthritis. Diverticulitis Gastroesophageal reflux disease. Hyperlipidemia. Hypertension. Chronic kidney disease. Benign prostatic hypertrophy Plan 1. Continue cefepime 2. Await blood culture results 3. The patient reports his pain is beginning to be more controlled. We will wait another day before decreasing the IV Dilaudid. If his pain worsens we may ask GI to do another endoscopy. 4. Supportive care Araceli Martins Feb 13, 2017 09:20
[2017-02-13] MEDS: PANTOPRAZOLE SOD 40 MG DELAYED RELEASE TAB PO SCH (09:50)
[2017-02-13] MEDS: DOCUSATE SODIUM 100 MG CAP PO SCH ×2 (09:50→19:32)
[2017-02-13] MEDS: SUCRALFATE 1 GM/10 ML CUP PO SCH ×4 (09:50→19:32)
[2017-02-13] MEDS: POLYETHYLENE GLYCOL 17 GM PKG PO SCH (09:50)
[2017-02-13] MEDS: NS + KCL 20 MEQ INJ 1,000 ML IV SCH ×2 (09:51→19:35)
[2017-02-13] MEDS: DIAZEPAM 10 MG TAB PO PRN ×2 (10:00→23:41)
[2017-02-13 12:00] VITALS: BP 111/71; PULSE 80; RESP 18; TEMP 98.4; O2SAT 96
--- NOTE | 2017-02-13 12:05 | PD.ID.CON ---
History of Present Illness Service ID Consult Requested By Reason for Consult Evaluation and Mment of fever in pt with Esophageal cancer. Primary Care Physician Laurel Viera MD Diagnoses: History of Present Illness is a 61 y/o CM with medical history significant for esophageal cancer , GERD, anxiety, HTN who presented with worsening of his epigastric cancer pain. 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 Patient has felt poorly since that time. The patient complains of sharp, burning, intermittent pain in his epigastrium around the area of his tumor. He gets occasional nausea, but denies any vomiting. He has had problems swallowing since he was diagnosed with this a few months ago and reports a 60 pound weight loss. He reports decreased urine output and dark urine. He has been coughing up a lot of clear phlegm especially in the mornings with some mild shortness of breath and this is been going on for the past few months, denies any acute worsening. He had a low-grade fever over the weekend of 100.3. He states that he was feeling generally weak, dizzy and stumbled almost fell into the emergency room. He has a planned resection of the tumor on March [address] Espinal. He continues to have abdominal pain and discomfort related to his cancer. He had fevers workup was initiated and Cefepime IV started. ID consulted for evaluation and Mment of fever in patient with esophageal cancer. Review of Systems Constitutional: COMPLAINS OF: Fever, Chills, DENIES: Diaphoretic episodes, Fatigue, Weight gain, Weight loss, Dizziness, Change in appetite, Night Sweats Endocrine: DENIES: Heat/cold intolerance, Polydipsia, Polyuria, Polyphagia Eyes: DENIES: Blurred vision, Diplopia, Eye inflammation, Eye pain, Vision loss , Photosensitivity, Double Vision Ears, nose, mouth, throat: DENIES: Tinnitus, Hearing loss, Vertigo, Nasal discharge, Oral lesions, Throat pain, Hoarseness, Ear Pain, Running Nose, Epistaxis, Sinus Pain, Toothache, Odynophagia Respiratory: DENIES: Apneas, Cough, Snoring, Wheezing, Hemoptysis, Sputum production, Shortness of breath Cardiovascular: DENIES: Chest pain, Palpitations, Syncope, Dyspnea on Exertion , PND, Lower Extremity Edema, Orthopnea, Claudication Gastrointestinal: COMPLAINS OF: Abdominal pain, Nausea, Difficulty Swallowing, DENIES: Black stools, Bloody stools, Constipation, Diarrhea, Vomiting, Anorexia Genitourinary: DENIES: Sexual dysfunction, Urinary frequency, Urinary incontinence, Urgency, Hematuria, Dysuria, Nocturia, Penile Discharge, Testicular Pain, Testicular Swelling Musculoskeletal: DENIES: Joint pain, Muscle aches, Stiffness, Joint Swelling, Back pain, Neck pain Integumentary: DENIES: Abnormal pigmentation, Nail changes, Pruritus, Rash Hematologic/lymphatic: DENIES: Bruising, Lymphadenopathy Immunologic/allergic: DENIES: Eczema, Urticaria Neurologic: DENIES: Abnormal gait, Headache, Localized weakness, Paresthesias, Seizures, Speech Problems, Tremor, Poor Balance Psychiatric: DENIES: Anxiety, Confusion, Mood changes, Depression, Hallucinations, Agitation, Suicidal Ideation, Homicidal Ideation, Delusions Except as stated in HPI: all other systems reviewed are Neg Past Family Social History Allergies: Coded Allergies: scallops (Unverified Allergy, Unknown, 02/07/17) Past Medical History Esophageal cancer with intractable pain Hypertension GERD Anxiety Past Surgical History Endoscopy Bilateral hernia repair Left knee arthroscopies and replacement Port placement Reported Medications I attest I obtained, reviewed or updated the home meds and current meds (name, dose, freq, route of administration of meds). Reported Meds & Active Scripts Active Reported K-Tab (Potassium Chloride) 20 Meq Tab 30 Meq PO DAILY Morphine ER (Morphine Sulfate) 30 Mg Tab 30 Mg PO Q8H PRN Prochlorperazine Maleate 10 Mg Tab 10 Mg PO Q6H PRN Ondansetron (Ondansetron HCl) 8 Mg Tab 8 Mg PO TID Hydrocodone-Acetaminophen 10-325 mg Tab 1 Tab PO Q4H PRN Prilosec (Omeprazole Magnesium) 20 Mg Tab Diazepam 10 Mg Tab 10 Mg PO BID PRN Metoprolol Tartrate 50 Mg Tab 50 Mg PO BID Active Ordered Medications Current Medications Medications (Trade) Dose Ordered Sig/[place] Route Start Time Stop Time Status Last Admin (NS Flush) 2 ml UNSCH PRN IV FLUSH 02/07/17 22:00 02/08/17 06:30 (NS Flush) 2 ml BID IV FLUSH 02/08/17 09:00 02/12/17 09:00 (Zofran Inj) 4 mg Q6H PRN IVP 02/07/17 22:00 10/3/17 06:30 (Narcan Inj) 0.4 mg UNSCH PRN IV PUSH 02/07/17 22:00 (Protonix) 40 mg DAILY PO 02/08/17 09:00 02/13/17 09:50 (Oramorph Sr) 30 mg Q8HR PO 02/08/17 14:00 02/13/17 14:01 (Lopressor) 50 mg Q12HR PO 02/08/17 09:00 02/12/17 20:18 Potassium Chloride/Sodium Chloride 1,000 ml @ 100 mls/hr Q10H IV 02/08/17 08:00 02/13/17 09:51 (Valium) 10 mg BID PRN PO 02/08/17 07:45 02/13/17 10:00 (Miralax) 17 gm DAILY PO 02/08/17 09:00 02/13/17 09:50 (Colace) 100 mg BID PO 02/08/17 09:00 02/13/17 09:50 (Percocet 7.5-325 Mg) 1 tab Q4H PRN PO 02/08/17 13:30 02/13/17 14:55 (Carafate Liq) 1 gm QID PO 02/08/17 21:00 02/13/17 13:03 (Dilaudid Pf Inj) 1.5 mg Q4HR PRN IV PUSH 02/09/17 11:15 02/13/17 02:05 (Lovenox Inj) 40 mg Q24H SQ 02/10/17 17:00 02/12/17 17:13 Cefepime HCl 2000 mg/Sodium Chloride 100 ml @ 200 mls/hr Q8H IV 02/12/17 13:00 02/13/17 13:04 (Magic Mouthwash Adult Liq) 10 ml QID SWISH-SWAL 02/13/17 13:00 02/13/17 13:03 Family History Father of a MRSA infection after back surgery Mother is alive at age 83 and healthy Social History Former tobacco use Occasional alcohol use, but none recently No drug use Physical Exam Vital Signs Vital Signs Date Time Temp Pulse Resp B/P (MAP) Pulse Ox O2 Delivery O2 Flow Rate FiO2 02/13/17 08:00 98.7 85 18 105/71 (82) 96 02/13/17 04:00 99.3 84 18 107/67 (80) 95 02/13/17 00:00 99.0 84 18 103/68 (80) 96 02/12/17 20:00 97.7 89 18 120/80 (93) 94 02/12/17 16:00 100.1 92 20 112/68 (83) 95 Physical Exam GENERAL: This is a well-nourished, well-developed patient, in no apparent distress. SKIN: No rashes, ecchymoses or lesions. Cool and dry. HEAD: Atraumatic. Normocephalic. No temporal or scalp tenderness. EYES: Pupils equal round and reactive. Extraocular motions intact. No scleral icterus. No injection or drainage. ENT: Nose without bleeding, purulent drainage or septal hematoma. Throat without erythema, tonsillar hypertrophy or exudate. Uvula midline. Airway patent. NECK: Trachea midline. Supple, nontender, no meningeal signs. CARDIOVASCULAR: Regular rate and rhythm without murmurs, gallops, or rubs. RESPIRATORY: Clear to auscultation. Breath sounds equal bilaterally. No wheezes , rales, or rhonchi. GASTROINTESTINAL: Abdomen soft, tender, distended. No guarding or rigidity. MUSCULOSKELETAL: Extremities without clubbing, cyanosis, or edema. NEUROLOGICAL: Awake and alert. Non focal exam Psych cooperative, pleasant IV line sites with no e.o infection. Laboratory Laboratory Tests Test 02/12/17 16:30 Urine Color YELLOW Urine Turbidity CLEAR Urine pH 7.5 Urine Specific [place] 1.019 Urine Protein TRACE Urine Glucose (UA) NEG Urine Ketones NEG Urine Occult Blood NEG Urine Nitrite NEG Urine Bilirubin NEG Urine Urobilinogen 2.0 Urine Leukocyte Esterase NEG Urine RBC 1 Urine WBC 1 Urine Mucus FEW Microscopic Urinalysis Comment CULT NOT INDICATED Date/Time Source Procedure Growth Status 02/12/17 10:15 Blood Other Aerobic Blood Culture - Preliminary NO GROWTH IN 1 DAY Resulted 02/12/17 10:15 Blood Other Anaerobic Blood Culture - Preliminary NO GROWTH IN 1 DAY Resulted Result Diagram: 02/12/17 0345 02/12/17 0345 Imaging Last Impressions Chest X-Ray 02/12/17 0000 Signed Impressions: Service Date/Time: Sunday, February 12, 2017 09:29 - CONCLUSION: 1. No acute cardiopulmonary findings. 2. [id number] in good position. Teto Hardy MD Abdomen Fluoroscopy 02/09/17 Signed Impressions: Service Date/Time: Thursday, February 09, 2017 15:09 - CONCLUSION: 1. Unable to pass the weighted tip of the Dobbhoff feeding tube through the GE junction. 2. Therefore, access to the stomach was obtained with a 4 [place] Berenstein catheter and wire. A modified Dobbhoff with the weighted tip excised was then passed over the wire and into the gastric lumen with the tip in the region of the gastric antrum. Tube is in adequate position and can be used immediately. Farhan Logan MD Abdomen/Pelvis CT 02/07/171702 Signed Impressions: Service Date/Time: Tuesday, February 07, 2017 19:36 - CONCLUSION: 1. An acute abnormality is not clearly seen. 2. Mild hiatal hernia. 3. Mild dilatation of the common bile duct and intrahepatic biliary ducts. The cause for this mild dilatation is not seen. 4. Colonic diverticula without significant inflammatory change. There is a short segment of the distal sigmoid colon that appears questionably thickened. This could be secondary to simple lack of full distension. An underlying abnormality cannot be excluded. This area could be further evaluated directly if the patient has not had recent colonoscopy. Ren Mckeon MD Abdomen X-Ray 02/07/171702 Signed Impressions: Service Date/Time: Tuesday, February 07, 2017 17:40 - CONCLUSION: 1. Nonspecific bowel gas pattern with general paucity of small bowel gas. Efrain Ivey MD CT Angiography 02/07/17 Signed Impressions: Service Date/Time: Tuesday, February 07, 2017 19:42 - CONCLUSION: 1. No pulmonary embolus. 2. Dilatation of the thoracic esophagus with some thickening at the distal esophagus likely related to the patient's reported esophageal carcinoma. Ren Mckeon MD Assessment and Plan Assessment and Plan Fever likely related to Mucositis post chemotherapy Possible radiation esophagitis related mucositis. Possible microaspiration Esophageal cancer with distorted anatomy Portacath in place. s/p Chemo and radiation surgery Definite surgery tentative planned for Mar 09 per patient. Recs Continue Cefepime IV Follow cultures Follow clinically. sheila RN, pt. Sofia Maria MD Feb 13, 2017 12:05
[2017-02-13] MEDS: NYSTAT/DIPHENHY/LIDO MOUTHWASH (Adult) 120ML SWISH-SWAL SCH ×3 (13:03→19:35)
--- NOTE | 2017-02-13 13:08 | HHI.PR ---
Subjective Remarks Patient resting in bed comfortably, family at the bedside, On-and-off epigastric pain, still on tube feed No nausea vomiting, passing stool and flatus Objective Vitals Vital Signs Date Time Temp Pulse Resp B/P (MAP) Pulse Ox O2 Delivery O2 Flow Rate FiO2 02/13/17 08:00 98.7 85 18 105/71 (82) 96 02/13/17 04:00 99.3 84 18 107/67 (80) 95 02/13/17 00:00 99.0 84 18 103/68 (80) 96 02/12/17 20:00 97.7 89 18 120/80 (93) 94 02/12/17 16:00 100.1 92 20 112/68 (83) 95 I/O 02/12/17 02/12/17 02/12/17 02/13/17 02/13/17 02/13/17 07:00 15:00 23:00 07:00 15:00 23:00 Intake Total 1100 ml 750 ml 960 ml 1000 ml Output Total 700 ml 0 ml Balance 400 ml 750 ml 960 ml 1000 ml Intake Oral 120 ml 240 ml IV Total 1100 ml 1000 ml Tube Feeding 630 ml 720 ml Output Urine Total 700 ml 0 ml # Voids 1 # Bowel Movements 1 1 Result Diagram: 02/12/17 0345 02/12/17 0345 Objective Remarks GENERAL: This is a well-nourished, well-developed patient, in no apparent distress. SKIN: No rashes, warm and dry HEAD: Atraumatic. Normocephalic. EYES: Pupils equal round and reactive. Extraocular motions intact. No scleral icterus. ENT: Nose without bleeding, or drainage, Airway patent. NECK: Trachea midline. Supple CARDIOVASCULAR: Regular rate and rhythm without murmurs, gallops, or rubs. RESPIRATORY: Fair air entry bilaterally. No wheezes, rales, or rhonchi. GASTROINTESTINAL: Abdomen soft, non-tender, nondistended. Positive bowel sounds MUSCULOSKELETAL: Extremities without clubbing, cyanosis, or edema. Pedal pulses appreciated NEUROLOGICAL: Awake and alert. Moves all extremity. Normal speech.no focal neurological deficit A/P Assessment and Plan 02/12: Temperature of 100.9 last night with decreased blood pressure need to repeat any of patient started on cefepime, chest x-ray normal, blood culture pending, will recheck urinalysis and consult ID 02/13: Continue current care, cefepime continue following with ID and oncology and surgery a/p: 61-year-old male with a past medical history of esophageal cancer, GERD, anxiety , HTN who presented with worsening of his epigastric cancer pain Esophageal cancer likely etiology of intractable pain: IV fluid hydration along with starting tube feeds; due to the pain he is not willing to try any other oral intake at this time -Schedule home extended release morphine 30 mg 3 times a day -Continue [place] 10/325 as needed -Continue IV Dilaudid for breakthrough pain -Patient's oncologist consulted, recommended IVF, bowel regimen, and pain medication titration -Continue supportive care -Continue PPI Gen. surgery reports if pain intake does not improve may need a J-tube placed with surgical intervention, will defer to Dr. Espinal. Protein calorie malnutrition, severe: Secondary to the above. -Per surgery, continue tube feeds with Dobbhoff tube, to proceed with by mouth diet as tolerated, at this time patient is unwilling to try oral intake. Hypokalemia: Replete Hypertension, essential continue Lopressor DVT prophylaxis- bilateral SCDs Tiffany Adams MD Feb 13, 2017 13:08
[2017-02-13 16:00] VITALS: BP 110/73; PULSE 88; RESP 16; TEMP 97.9; O2SAT 96
[2017-02-13] MEDS: ENOXAPARIN SODIUM 40 MG/0.4 ML SYRINGE SQ SCH (17:54)
[2017-02-13] MEDS: ONDANSETRON HCL 4 MG/2 ML VIAL IVP PRN (19:42)
[2017-02-13 20:00] VITALS: BP 118/72; PULSE 93; RESP 19; TEMP 98.9; O2SAT 98
[2017-02-14] VITALS (7 sets, daily range): BP systolic 101–127; BP diastolic 61–79; PULSE 80–88; RESP 18–19; TEMP 96.8–101.5; O2SAT 95–98
[2017-02-14] MEDS: CEFEPIME INJ 2,000 MG in SODIUM CHLORIDE 0.9% INJ 100 ML IV SCH ×3 (04:26→20:51)
[2017-02-14] MEDS: oxyCODONE/ACETAMINOPHEN 7.5 MG/325 MG TAB PO PRN ×2 (04:26→08:44)
[2017-02-14] MEDS: NS + KCL 20 MEQ INJ 1,000 ML IV SCH (04:27)
[2017-02-14] MEDS: MORPHINE SULFATE 30 MG CONTROLLED RELEASE TAB PO SCH ×3 (05:50→20:50)
[2017-02-14] MEDS: SODIUM CHLORIDE 0.9% FLUSH 10 ML FLUSH IV FLUSH SCH ×2 (07:31→20:51)
[2017-02-14] MEDS: SUCRALFATE 1 GM/10 ML CUP PO SCH ×4 (07:44→20:50)
[2017-02-14] MEDS: NYSTAT/DIPHENHY/LIDO MOUTHWASH (Adult) 120ML SWISH-SWAL SCH (08:43)
[2017-02-14] MEDS: POLYETHYLENE GLYCOL 17 GM PKG PO SCH (08:43)
[2017-02-14] MEDS: METOPROLOL TARTRATE 50 MG TAB PO SCH ×2 (08:43→20:50)
[2017-02-14] MEDS: PANTOPRAZOLE SOD 40 MG DELAYED RELEASE TAB PO SCH (08:43)
[2017-02-14] MEDS: DOCUSATE SODIUM 100 MG CAP PO SCH ×2 (08:43→20:50)
[2017-02-14] MEDS ORDERED: oxyCODONE/ACETAMINOPHEN 10 MG/325 MG TAB PO PRN (10:30)
[2017-02-14] MEDS ORDERED: MORPHINE SULFATE 30 MG TAB PO PRN (10:30)
[2017-02-14] MEDS: CALCIUM CARBONATE 1.25 GM (CA 500 MG) TAB PO SCH (11:24)
--- NOTE | 2017-02-14 11:52 | PD.ONC.PN ---
Subjective Subjective Remarks Tmax 101.5 this AM. Patient still unable to eat. States pain in throat/chest improves with percocet but sometimes only to a pain level of 6 or 8. When he receives the dilaudid, his pain improves, but the effect only lasts about an hour. Objective Data Date Time Temp Pulse Resp B/P (MAP) Pulse Ox O2 Delivery O2 Flow Rate FiO2 02/14/17 08:00 99.3 83 19 113/67 (82) 97 02/14/17 04:00 101.5 84 19 127/79 (95) 96 02/14/17 00:00 99.4 88 18 112/62 (79) 96 02/13/17 20:00 98.9 93 19 118/72 (87) 98 02/13/17 16:00 97.9 88 16 110/73 (85) 96 02/13/17 12:00 98.4 80 18 111/71 (84) 96 02/14/17 02/14/17 02/14/17 07:00 15:00 23:00 Intake Total 960 ml Output Total 600 ml Balance 960 ml -600 ml Result Diagram: 02/12/17 0345 02/12/17 0345 Culture Results Microbiology Date/Time Source Procedure Growth Status 02/12/17 10:15 Blood Other Aerobic Blood Culture - Preliminary NO GROWTH IN 2 DAYS Resulted 02/12/17 10:15 Blood Other Anaerobic Blood Culture - Preliminary NO GROWTH IN 2 DAYS Resulted 02/12/17 09:30 Blood Other Aerobic Blood Culture - Preliminary NO GROWTH IN 2 DAYS Resulted 02/12/17 09:30 Blood Other Anaerobic Blood Culture - Preliminary NO GROWTH IN 2 DAYS Resulted Administered Medications Medications (Trade) Dose Ordered Sig/[place] Route PRN Reason Start Time Stop Time Status Last Admin Dose Admin Sodium Chloride (NS Flush) 2 ml UNSCH PRN IV FLUSH FLUSH AFTER USING IV ACCESS 02/07/17 22:00 02/08/17 06:30 Sodium Chloride (NS Flush) 2 ml BID IV FLUSH 02/08/17 09:00 02/12/17 09:00 Ondansetron HCl (Zofran Inj) 4 mg Q6H PRN IVP NAUSEA OR VOMITING 02/07/17 22:00 02/13/17 19:42 Pantoprazole Sodium (Protonix) 40 mg DAILY PO 02/08/17 09:00 02/14/17 08:43 Morphine Sulfate (Oramorph Sr) 30 mg Q8HR PO 02/08/17 14:00 02/14/17 05:50 Metoprolol Tartrate (Lopressor) 50 mg Q12HR PO 02/08/17 09:00 02/14/17 08:43 Potassium Chloride/Sodium Chloride 1,000 ml @ 100 mls/hr Q10H IV 02/08/17 08:00 02/14/17 04:27 Diazepam (Valium) 10 mg BID PRN PO ANXIETY 02/08/17 07:45 02/13/17 23:41 Polyethylene Glycol (Miralax) 17 gm DAILY PO 02/08/17 09:00 02/14/17 08:43 Docusate Sodium (Colace) 100 mg BID PO 02/08/17 09:00 02/14/17 08:43 Sucralfate (Carafate Liq) 1 gm QID PO 02/08/17 21:00 02/14/17 07:44 Hydromorphone HCl (Dilaudid Pf Inj) 1.5 mg Q4HR PRN IV PUSH PAIN SCALE 9 TO 10 02/09/17 11:15 02/13/17 02:05 Enoxaparin Sodium (Lovenox Inj) 40 mg Q24H SQ 02/10/17 17:00 02/13/17 17:54 Cefepime HCl 2000 mg/Sodium Chloride 100 ml @ 200 mls/hr Q8H IV 02/12/17 13:00 02/14/17 04:26 Multi-Ingredient Mouthwash/Gargle (Magic Mouthwash Adult Liq) 10 ml QID SWISH-SWAL 02/13/17 13:00 02/14/17 08:43 Calcium Carbonate (Oscal) 500 mg DAILY PO 02/14/17 11:00 02/14/17 11:24 Objective Remarks GENERAL: Middle aged male sitting up in bed in [facility]. SKIN: Warm and dry. HEAD: Normocephalic. NGT in place, receiving tube feeds EYES: No injection or drainage. NECK: Supple, trachea midline. CARDIOVASCULAR: Regular rate and rhythm RESPIRATORY: Breath sounds equal bilaterally. No accessory muscle use. GASTROINTESTINAL: Abdomen soft, non-tender, nondistended. EXTREMITIES: No cyanosis NEUROLOGICAL: awake and alert, normal speech. moving all extremities. Assessment/Plan Problem List: (1) Esophageal cancer ICD Codes: C15.9 - Malignant neoplasm of esophagus, unspecified Status: Acute Plan: --Esophageal cancer in the distal esophagus. 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 --CT Chest again showed a thickened distal esophagus likely due to the treatment effect. --is supposed to have a PET scan done next week prior to seeing Dr. Espinal for definitive resection. --There is no clear progression of disease noted at this time. --just completed radiation and chemotherapy last week. --Anticipate his abdominal pain to slowly improve over the next week. (2) Intractable abdominal pain ICD Codes: R10.9 - Unspecified abdominal pain Status: Acute Plan: Currently on Oramorph 30mg PO q 8 + Dilaudid IV or Percocet for breakthrough pain. --Midepigastric pain due to radiation and chemotherapy. --CT of the abdomen and pelvis did not show any acute process. --no evidence of bowel perforation. (3) Constipation ICD Codes: K59.00 - Constipation, unspecified Plan: --Constipation due to opiates as well as dehydration. --on a stool softener and laxative. (4) Malnutrition ICD Codes: E46 - Unspecified protein-calorie malnutrition Plan: --was still able to tolerate a soft mechanical diet prior to presentation. --on tube feeds --Doff-Vladimir tube Placement. Assessment 61y/o male with esophageal cancer admitted with intractable abdominal pain. h/o Esophageal cancer. Arthritis. Diverticulitis Gastroesophageal reflux disease. Hyperlipidemia. Hypertension. Chronic kidney disease. Benign prostatic hypertrophy Plan 1. continue Oramorph 2. change Percocet to MSIR, UPDATE: at 2:15PM I checked on patient again after receiving trial 30mg PO MSIR. He states the Percocet is much more effective. will switch back to Percocet at increased dose of 10/325 q 4 hours. 3. continue IV dilaudid for severe pain only. 4. d/c IVF. continue TF via Dobhoff Attending Statement The exam, history, and the medical decision-making described in the above note were completed with the assistance of the mid-level provider. I reviewed and agree with the findings presented. I attest that I had a [id number] encounter with the patient on the same day, and personally performed and documented my assessment and findings in the medical record. NICK pain about 7/ 10 but better. Tolerating tube feeding. Had fever but no new symptoms. ID following. Continue supportive care. Glendy Malcolm Feb 14, 2017 11:51 Sylvester Silver MD Feb 14, 2017 14:36
[2017-02-14] MEDS ORDERED: NYSTAT/DIPHENHY/LIDO MOUTHWASH (Adult) 120ML SWISH-SWAL PRN (12:00)
--- NOTE | 2017-02-14 12:21 | HHI.PR ---
Subjective Remarks Patient denied nausea or vomiting or abdominal pain Still having the vorr hub tube Objective Vitals Vital Signs Date Time Temp Pulse Resp B/P (MAP) Pulse Ox O2 Delivery O2 Flow Rate FiO2 02/14/17 08:00 99.3 83 19 113/67 (82) 97 02/14/17 04:00 101.5 84 19 127/79 (95) 96 02/14/17 00:00 99.4 88 18 112/62 (79) 96 02/13/17 20:00 98.9 93 19 118/72 (87) 98 02/13/17 16:00 97.9 88 16 110/73 (85) 96 I/O 02/13/17 02/13/17 02/13/17 02/14/17 02/14/17 02/14/17 07:00 15:00 23:00 07:00 15:00 23:00 Intake Total 960 ml 1100 ml 1200 ml 960 ml Output Total 450 ml 600 ml Balance 960 ml 1100 ml 750 ml 960 ml -600 ml Intake Oral 240 ml 1200 ml 240 ml IV Total 1100 ml Tube Feeding 720 ml 720 ml Output Urine Total 450 ml 600 ml # Voids 5 # Bowel Movements 1 Result Diagram: 02/12/17 0345 02/12/17 0345 Objective Remarks GENERAL: This is a well-nourished, well-developed patient, in no apparent distress. SKIN: No rashes, warm and dry HEAD: Atraumatic. Normocephalic. EYES: Pupils equal round and reactive. Extraocular motions intact. No scleral icterus. ENT: Nose without bleeding, or drainage, Airway patent. NECK: Trachea midline. Supple CARDIOVASCULAR: Regular rate and rhythm without murmurs, gallops, or rubs. RESPIRATORY: Fair air entry bilaterally. No wheezes, rales, or rhonchi. GASTROINTESTINAL: Abdomen soft, non-tender, nondistended. Positive bowel sounds MUSCULOSKELETAL: Extremities without clubbing, cyanosis, or edema. Pedal pulses appreciated NEUROLOGICAL: Awake and alert. Moves all extremity. Normal speech.no focal neurological deficit A/P Assessment and Plan 02/12: Temperature of 100.9 last night with decreased blood pressure need to repeat any of patient started on cefepime, chest x-ray normal, blood culture pending, will recheck urinalysis and consult ID 10/8: Continue current care, cefepime continue following with ID and oncology and surgery 02/14: Hypocalcemia, replace with calcium carbonate, continue current care continue cefepime follow surgery a/p: 61-year-old male with a past medical history of esophageal cancer, GERD, anxiety , HTN who presented with worsening of his epigastric cancer pain Esophageal cancer likely etiology of intractable pain: IV fluid hydration along with starting tube feeds; due to the pain he is not willing to try any other oral intake at this time -Schedule home extended release morphine 30 mg 3 times a day -Continue [place] 10/325 as needed -Continue IV Dilaudid for breakthrough pain -Patient's oncologist consulted, recommended IVF, bowel regimen, and pain medication titration -Continue supportive care -Continue PPI Gen. surgery reports if pain intake does not improve may need a J-tube placed with surgical intervention, will defer to Dr. Espinal. Protein calorie malnutrition, severe: Secondary to the above. -Per surgery, continue tube feeds with Dobbhoff tube, to proceed with by mouth diet as tolerated, at this time patient is unwilling to try oral intake. Hypokalemia: Replete Hypertension, essential continue Lopressor DVT prophylaxis- bilateral SCDs Tiffany Adams MD Feb 14, 2017 12:20
[2017-02-14] MEDS: MORPHINE SULFATE 15 MG TAB PO PRN ×2 (12:25→13:31)
[2017-02-14 14:30] LABS: HEMATOCRIT 25.1 % (39.0-51.0); MEAN CELL VOLUME 87.1 FL (80.0-100.0); MEAN CORPUSCULAR HEMOGLOBIN 29.5 PG (27.0-34.0); MEAN CORPUSCULAR HGB CONC 33.8 % (32.0-36.0); PLATELET COUNT 103 TH/MM3 (150-450); RED BLOOD COUNT 2.88 MIL/MM3 (4.50-5.90); RED CELL DISTRIBUTION WIDTH 17.5 % (11.6-17.2); WHITE BLOOD COUNT 3.4 TH/MM3 (4.0-11.0)
[2017-02-14 14:35] LABS: HEMO FLAGS AUTO DIFF
[2017-02-14 15:03] LABS: BICARBONATE 26.3 MEQ/L (21.0-32.0); POTASSIUM 4.1 MEQ/L (3.5-5.1)
[2017-02-14 15:19] LABS: CALCIUM-PROTEIN CORRECTED 8.3 MG/DL (8.5-10.1)
[2017-02-14 15:46] LABS: BANDS 7 % (0-6); BASOPHILS 1 % (0-2); EOSINOPHILS 1 % (0-4); NEUTROPHIL # MANUAL DIFF 2.4 TH/MM3 (1.8-7.7); PLASMA CELLS 1 % (0-0); POLYS (SEG NEUTROPHILS) 63 % (16-70); WBC DIFF SAMPLE 100
[2017-02-14 15:48] LABS: PLATELET ESTIMATE SMEAR LOW (NORMAL); PLATELET MORPHOLOGY NORMAL (NORMAL); SCAN/DIFF FINAL DIFF MANUAL
[2017-02-14] MEDS: oxyCODONE/ACETAMINOPHEN 10 MG/325 MG TAB PO PRN ×2 (17:23→23:00)
[2017-02-14] MEDS: ENOXAPARIN SODIUM 40 MG/0.4 ML SYRINGE SQ SCH (17:23)
--- NOTE | 2017-02-14 18:04 | RADRPT ---
EXAM DATE/TIME: 02/14/2017 17:43 [place] COMPARISON: CHEST SINGLE AP, February 12, 2017, 9:29. INDICATIONS : Dobhoff placement. MEDICAL HISTORY : None. SURGICAL HISTORY : Infusaport. ENCOUNTER: Subsequent ACUITY: 1 day PAIN SCORE: 0/10 LOCATION: abdomen FINDINGS: Nasoenteric catheter tip appears to be just within the proximal stomach. Visualized portions of the a bdomen is grossly unremarkable minimal left basilar airspace disease likely atelectasis. CONCLUSION: 1. Nasoenteric catheter tip appears to be just within the proximal stomach. Efrain Ivey MD on February 14, 2017 at 18:01 Board Certified Radiologist. This report was verified electronically.
[2017-02-15] VITALS: BP 129/77; PULSE 84; RESP 17; TEMP 98.6; O2SAT 96
[2017-02-15] MEDS: oxyCODONE/ACETAMINOPHEN 10 MG/325 MG TAB PO PRN ×5 (03:03→20:58)
[2017-02-15 04:00] VITALS: BP 115/73; PULSE 76; RESP 17; TEMP 97.1; O2SAT 95
[2017-02-15] MEDS: CEFEPIME INJ 2,000 MG in SODIUM CHLORIDE 0.9% INJ 100 ML IV SCH (05:04)
[2017-02-15] MEDS: MORPHINE SULFATE 30 MG CONTROLLED RELEASE TAB PO SCH ×3 (05:07→20:59)
[2017-02-15 07:26] VITALS: BP 129/78; PULSE 78; RESP 18; TEMP 97.1; O2SAT 97
[2017-02-15] MEDS: CALCIUM CARBONATE 1.25 GM (CA 500 MG) TAB PO SCH (07:31)
[2017-02-15] MEDS: POLYETHYLENE GLYCOL 17 GM PKG PO SCH (07:31)
[2017-02-15] MEDS: SUCRALFATE 1 GM/10 ML CUP PO SCH ×4 (07:31→20:58)
[2017-02-15] MEDS: PANTOPRAZOLE SOD 40 MG DELAYED RELEASE TAB PO SCH (07:31)
[2017-02-15] MEDS: SODIUM CHLORIDE 0.9% FLUSH 10 ML FLUSH IV FLUSH SCH ×2 (07:31→20:59)
[2017-02-15] MEDS: METOPROLOL TARTRATE 50 MG TAB PO SCH ×2 (07:31→20:58)
[2017-02-15] MEDS: DOCUSATE SODIUM 100 MG CAP PO SCH ×2 (07:31→20:58)
--- NOTE | 2017-02-15 07:43 | PD.ONC.PN ---
Subjective Subjective Remarks Afebrile overnight. Continues to have pain in esophagus/chest. controlled on current pain regimen. Dobhoff tube became dislodged yesterday. going down to specials for repositioning today. Objective Data Date Time Temp Pulse Resp B/P (MAP) Pulse Ox O2 Delivery O2 Flow Rate FiO2 02/15/17 07:26 97.1 78 18 129/78 (95) 97 02/15/17 04:00 97.1 76 17 115/73 (87) 95 02/15/17 00:00 98.6 84 17 129/77 (94) 96 02/14/17 21:01 85 19 120/77 (91) 98 02/14/17 20:00 96.8 02/14/17 16:00 98.5 80 19 119/76 (90) 95 02/14/17 12:00 98.1 81 19 101/61 (74) 97 02/14/17 08:00 99.3 83 19 113/67 (82) 97 02/15/17 02/15/17 02/15/17 07:00 15:00 23:00 Intake Total 250 ml Balance 250 ml Result Diagram: 02/14/17 1310 02/14/17 1310 Laboratory Results Laboratory Tests Test 02/14/17 13:10 White Blood Count 3.4 TH/MM3 Red Blood Count 2.88 MIL/MM3 Hemoglobin 8.5 GM/DL Hematocrit 25.1 % Mean Corpuscular Volume 87.1 FL Mean Corpuscular Hemoglobin 29.5 PG Mean Corpuscular Hemoglobin Concent 33.8 % Red Cell Distribution Width 17.5 % Platelet Count 103 TH/MM3 Mean Platelet Volume 8.0 FL CBC Comment AUTO DIFF Differential Total Cells Counted 100 Neutrophils % (Manual) 63 % Band Neutrophils % 7 % Lymphocytes % 18 % Monocytes % 9 % Eosinophils % 1 % Basophils % 1 % Neutrophils # (Manual) 2.4 TH/MM3 Differential Comment FINAL DIFF MANUAL Atypical Lymphocytes % Plasma Cells 1 % Platelet Estimate LOW Platelet Morphology Comment NORMAL Blood Urea Nitrogen 8 MG/DL Creatinine 0.39 MG/DL Random Glucose 99 MG/DL Total Protein 5.0 GM/DL Calcium Level 7.2 MG/DL Sodium Level 134 MEQ/L Potassium Level 4.1 MEQ/L Chloride Level 101 MEQ/L Carbon Dioxide Level 26.3 MEQ/L Anion Gap 7 MEQ/L Estimat Glomerular Filtration Rate 227 ML/MIN Protein Corrected Calcium 8.3 MG/DL Culture Results Microbiology Date/Time Source Procedure Growth Status 02/12/17 10:15 Blood Other Aerobic Blood Culture - Preliminary NO GROWTH IN 2 DAYS Resulted 02/12/17 10:15 Blood Other Anaerobic Blood Culture - Preliminary NO GROWTH IN 2 DAYS Resulted 02/12/17 09:30 Blood Other Aerobic Blood Culture - Preliminary NO GROWTH IN 2 DAYS Resulted 02/12/17 09:30 Blood Other Anaerobic Blood Culture - Preliminary NO GROWTH IN 2 DAYS Resulted Administered Medications Medications (Trade) Dose Ordered Sig/[place] Route PRN Reason Start Time Stop Time Status Last Admin Dose Admin Sodium Chloride (NS Flush) 2 ml UNSCH PRN IV FLUSH FLUSH AFTER USING IV ACCESS 02/07/17 22:00 02/08/17 06:30 Sodium Chloride (NS Flush) 2 ml BID IV FLUSH 02/08/17 09:00 02/15/17 07:31 Ondansetron HCl (Zofran Inj) 4 mg Q6H PRN IVP NAUSEA OR VOMITING 02/07/17 22:00 02/13/17 19:42 Pantoprazole Sodium (Protonix) 40 mg DAILY PO 02/08/17 09:00 02/15/17 07:31 Morphine Sulfate (Oramorph Sr) 30 mg Q8HR PO 02/08/17 14:00 02/15/17 05:07 Metoprolol Tartrate (Lopressor) 50 mg Q12HR PO 02/08/17 09:00 02/15/17 07:31 Polyethylene Glycol (Miralax) 17 gm DAILY PO 02/08/17 09:00 02/14/17 08:43 Docusate Sodium (Colace) 100 mg BID PO 02/08/17 09:00 02/15/17 07:31 Sucralfate (Carafate Liq) 1 gm QID PO 02/08/17 21:00 02/15/17 07:31 Hydromorphone HCl (Dilaudid Pf Inj) 1.5 mg Q4HR PRN IV PUSH PAIN SCALE 9 TO 10 02/09/17 11:15 02/13/17 02:05 Enoxaparin Sodium (Lovenox Inj) 40 mg Q24H SQ 02/10/17 17:00 02/14/17 17:23 Cefepime HCl 2000 mg/Sodium Chloride 100 ml @ 200 mls/hr Q8H IV 02/12/17 13:00 02/15/17 05:04 Calcium Carbonate (Oscal) 500 mg DAILY PO 02/14/17 11:00 02/15/17 07:31 Oxycodone/ Acetaminophen (Percocet 10-325 Mg) 1 tab Q4H PRN PO PAIN SCALE 1-8 02/14/17 14:15 02/15/17 07:31 Objective Remarks GENERAL: Middle aged male upright in bed SKIN: Warm and dry. HEAD: Normocephalic. Dobhoff tube, clamped. EYES: No injection or drainage. NECK: Supple, trachea midline. CARDIOVASCULAR: Regular rate and rhythm RESPIRATORY: Breath sounds equal bilaterally. No accessory muscle use. GASTROINTESTINAL: Abdomen soft, non-tender, nondistended. EXTREMITIES: No cyanosis NEUROLOGICAL: awake and alert, normal speech. moving all extremities. Assessment/Plan Problem List: (1) Esophageal cancer ICD Codes: C15.9 - Malignant neoplasm of esophagus, unspecified Status: Acute Plan: --Esophageal cancer in the distal esophagus. 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 --CT Chest again showed a thickened distal esophagus likely due to the treatment effect. --is supposed to have a PET scan done next week prior to seeing Dr. Espinal for definitive resection. --There is no clear progression of disease noted at this time. --just completed radiation and chemotherapy last week. --Anticipate his abdominal pain to slowly improve over the next week. (2) Intractable abdominal pain ICD Codes: R10.9 - Unspecified abdominal pain Status: Acute Plan: Currently on Oramorph 30mg PO q 8 + Dilaudid IV or Percocet for breakthrough pain. --Midepigastric pain due to radiation and chemotherapy. --CT of the abdomen and pelvis did not show any acute process. --no evidence of bowel perforation. (3) Constipation ICD Codes: K59.00 - Constipation, unspecified Plan: --Constipation due to opiates as well as dehydration. --on a stool softener and laxative. (4) Malnutrition ICD Codes: E46 - Unspecified protein-calorie malnutrition Plan: --was still able to tolerate a soft mechanical diet prior to presentation. --on tube feeds --Doff-Vladimir tube Placement. Assessment 61y/o male with esophageal cancer admitted with intractable abdominal pain. h/o Esophageal cancer. Arthritis. Diverticulitis Gastroesophageal reflux disease. Hyperlipidemia. Hypertension. Chronic kidney disease. Benign prostatic hypertrophy Plan 1. continue Oramorph with Percocet for breakthrough. 2. resume IVF until tube feeds resumed. 3. patient can be discharged from oncology perspective once Dobhoff tube is repositioned (going to specials today), tolerating Tube feeds, and ID has cleared patient for discharge. will consult CM to set up home tube feeds via Dobhoff tube. Attending Statement The exam, history, and the medical decision-making described in the above note were completed with the assistance of the mid-level provider. I reviewed and agree with the findings presented. I attest that I had a [id number] encounter with the patient on the same day, and personally performed and documented my assessment and findings in the medical record. Pain is better controlled. Not on IV pain meds anymore. Still require tube feeding. Await reposition of DHT. Can be d/c from oncology standpoint once clear by ID. He can f/u with for resection of esophageal cancer. Glendy Malcolm Feb 15, 2017 07:43 Sylvester Silver MD Feb 15, 2017 13:23
[2017-02-15] MEDS ORDERED: SODIUM CHLOR 0.9% 1000 ML INJ 1,000 ML IV SCH (07:45)
[2017-02-15 07:53] LABS: AUTOMATED NEUTROPHIL # 2.2 TH/MM3 (1.8-7.7); BASOPHIL % 0.6 % (0.0-2.0); EOSINOPHIL % 0.4 % (0.0-4.0); HEMATOCRIT 26.6 % (39.0-51.0); LYMPH % 28.1 % (9.0-44.0); LYMPHOCYTE # 1.2 TH/MM3 (1.0-4.8); MEAN CELL VOLUME 86.6 FL (80.0-100.0); MEAN CORPUSCULAR HEMOGLOBIN 29.8 PG (27.0-34.0); MEAN CORPUSCULAR HGB CONC 34.3 % (32.0-36.0); MONO % 19.4 % (0.0-8.0); NEUT % 51.5 % (16.0-70.0); PLATELET COUNT 123 TH/MM3 (150-450); RED BLOOD COUNT 3.07 MIL/MM3 (4.50-5.90); RED CELL DISTRIBUTION WIDTH 17.5 % (11.6-17.2); WHITE BLOOD COUNT 4.2 TH/MM3 (4.0-11.0)
[2017-02-15 07:57] LABS: HEMO FLAGS AUTO DIFF
[2017-02-15 08:19] LABS: ALT (GPT) 17 U/L (12-78); ANION GAP 7 MEQ/L (5-15); AST (GOT) 21 U/L (15-37); BICARBONATE 27.5 MEQ/L (21.0-32.0); BLOOD UREA NITROGEN 7 MG/DL (7-18); CHLORIDE 98 MEQ/L (98-107); GLOMERULAR FILTRATION RATE 192 ML/MIN (>89); POTASSIUM 4.1 MEQ/L (3.5-5.1); SODIUM (NA) 132 MEQ/L (136-145)
[2017-02-15 08:37] LABS: BANDS 15 % (0-6); EOSINOPHILS 1 % (0-4); NEUTROPHIL # MANUAL DIFF 3.4 TH/MM3 (1.8-7.7); OVALOCYTES 1+ (NORMAL); PLATELET ESTIMATE SMEAR LOW (NORMAL); PLATELET MORPHOLOGY NORMAL (NORMAL); POLYS (SEG NEUTROPHILS) 65 % (16-70); WBC DIFF SAMPLE 100
[2017-02-15 08:38] LABS: ALKALINE PHOSPHATASE 174 U/L (45-117); SCAN/DIFF FINAL DIFF MANUAL; TOTAL BILIRUBIN ADULT 0.4 MG/DL (0.2-1.0)
--- NOTE | 2017-02-15 10:04 | HHI.IDPN ---
Subjective Subjective Remarks is a 61 y/o CM with medical history significant for esophageal cancer , GERD, anxiety, HTN who presented with worsening of his epigastric cancer pain. The patient finished chemotherapy and radiation approx 10 days [employer]. Patient has felt poorly since that time. The patient complains of sharp, burning, intermittent pain in his epigastrium around the area of his tumor. He gets occasional nausea, but denies any vomiting. He has had problems swallowing since he was diagnosed with this a few months ago and reports a 60 pound weight loss. He reports decreased urine output and dark urine. He has been coughing up a lot of clear phlegm especially in the mornings with some mild shortness of breath and this is been going on for the past few months, denies any acute worsening. He had a low-grade fever over the weekend of 100.3. He states that he was feeling generally weak, dizzy and stumbled almost fell into the emergency room. He has a planned resection of the tumor on March [address] Espinal. He continues to have abdominal pain and discomfort related to his cancer. He had fevers workup was initiated and Cefepime IV started. ID consulted for evaluation and Mment of fever in patient with esophageal cancer. Overnight events reviewed. No fevers No rash No diarrhea Antibiotics I attest I obtained, reviewed or updated home meds and current meds(name, dose, freq and route of meds) Cefepime IV Lines Line sites with no e.o infection Past Medical History reviewed Allergies: Coded Allergies: scallops (Unverified Allergy, Unknown, 02/07/17) Objective . Vital Signs Date Time Temp Pulse Resp B/P (MAP) Pulse Ox O2 Delivery O2 Flow Rate FiO2 02/15/17 07:26 97.1 78 18 129/78 (95) 97 02/15/17 04:00 97.1 76 17 115/73 (87) 95 02/15/17 00:00 98.6 84 17 129/77 (94) 96 02/14/17 21:01 85 19 120/77 (91) 98 02/14/17 20:00 96.8 02/14/17 16:00 98.5 80 19 119/76 (90) 95 02/14/17 12:00 98.1 81 19 101/61 (74) 97 . Laboratory Tests Test 02/14/17 13:10 02/15/17 07:35 White Blood Count 3.4 TH/MM3 4.2 TH/MM3 Red Blood Count 2.88 MIL/MM3 3.07 MIL/MM3 Hemoglobin 8.5 GM/DL 9.1 GM/DL Hematocrit 25.1 % 26.6 % Mean Corpuscular Volume 87.1 FL 86.6 FL Mean Corpuscular Hemoglobin 29.5 PG 29.8 PG Mean Corpuscular Hemoglobin Concent 33.8 % 34.3 % Red Cell Distribution Width 17.5 % 17.5 % Platelet Count 103 TH/MM3 123 TH/MM3 Mean Platelet Volume 8.0 FL 7.8 FL CBC Comment AUTO DIFF AUTO DIFF Differential Total Cells Counted 100 100 Neutrophils % (Manual) 63 % 65 % Band Neutrophils % 7 % 15 % Lymphocytes % 18 % 11 % Monocytes % 9 % 8 % Eosinophils % 1 % 1 % Basophils % 1 % Neutrophils # (Manual) 2.4 TH/MM3 3.4 TH/MM3 Differential Comment FINAL DIFF MANUAL FINAL DIFF MANUAL Atypical Lymphocytes % Plasma Cells 1 % Platelet Estimate LOW LOW Platelet Morphology Comment NORMAL NORMAL Neutrophils (%) (Auto) 51.5 % Lymphocytes (%) (Auto) 28.1 % Monocytes (%) (Auto) 19.4 % Eosinophils (%) (Auto) 0.4 % Basophils (%) (Auto) 0.6 % Neutrophils # (Auto) 2.2 TH/MM3 Lymphocytes # (Auto) 1.2 TH/MM3 Monocytes # (Auto) 0.8 TH/MM3 Eosinophils # (Auto) 0.0 TH/MM3 Basophils # (Auto) 0.0 TH/MM3 Ovalocytes 1+ Laboratory Tests Test 02/14/17 13:10 02/15/17 07:35 Blood Urea Nitrogen 8 MG/DL 7 MG/DL Creatinine 0.39 MG/DL 0.45 MG/DL Random Glucose 99 MG/DL 94 MG/DL Total Protein 5.0 GM/DL 5.5 GM/DL Calcium Level 7.2 MG/DL 8.2 MG/DL Sodium Level 134 MEQ/L 132 MEQ/L Potassium Level 4.1 MEQ/L 4.1 MEQ/L Chloride Level 101 MEQ/L 98 MEQ/L Carbon Dioxide Level 26.3 MEQ/L 27.5 MEQ/L Anion Gap 7 MEQ/L 7 MEQ/L Estimat Glomerular Filtration Rate 227 ML/MIN 192 ML/MIN Protein Corrected Calcium 8.3 MG/DL Albumin 2.2 GM/DL Alkaline Phosphatase 174 U/L Aspartate Amino Transf (AST/SGOT) 21 U/L Alanine Aminotransferase (ALT/SGPT) 17 U/L Total Bilirubin 0.4 MG/DL Microbiology Date/Time Source Procedure Growth Status 02/12/17 10:15 Blood Other Aerobic Blood Culture - Preliminary NO GROWTH IN 2 DAYS Resulted 02/12/17 10:15 Blood Other Anaerobic Blood Culture - Preliminary NO GROWTH IN 2 DAYS Resulted Imaging Last Impressions Abdomen X-Ray 02/14/17 0000 Signed Impressions: Service Date/Time: Tuesday, February 14, 2017 17:43 - CONCLUSION: 1. Nasoenteric catheter tip appears to be just within the proximal stomach. Efrain Ivey MD Chest X-Ray 02/12/17 0000 Signed Impressions: Service Date/Time: Sunday, February 12, 2017 09:29 - CONCLUSION: 1. No acute cardiopulmonary findings. 2. [id number] in good position. Teto Hardy MD Abdomen Fluoroscopy 02/09/17 0000 Signed Impressions: Service Date/Time: Thursday, February 09, 2017 15:09 - CONCLUSION: 1. Unable to pass the weighted tip of the Dobbhoff feeding tube through the GE junction. 2. Therefore, access to the stomach was obtained with a 4 [place] Berenstein catheter and wire. A modified Dobbhoff with the weighted tip excised was then passed over the wire and into the gastric lumen with the tip in the region of the gastric antrum. Tube is in adequate position and can be used immediately. Farhan Logan MD Abdomen/Pelvis CT 02/07/17 1703 Signed Impressions: Service Date/Time: Tuesday, February 07, 2017 19:36 - CONCLUSION: 1. An acute abnormality is not clearly seen. 2. Mild hiatal hernia. 3. Mild dilatation of the common bile duct and intrahepatic biliary ducts. The cause for this mild dilatation is not seen. 4. Colonic diverticula without significant inflammatory change. There is a short segment of the distal sigmoid colon that appears questionably thickened. This could be secondary to simple lack of full distension. An underlying abnormality cannot be excluded. This area could be further evaluated directly if the patient has not had recent colonoscopy. Ren Mckeon MD CT Angiography 02/07/17 0000 Signed Impressions: Service Date/Time: Tuesday, February 07, 2017 19:42 - CONCLUSION: 1. No pulmonary embolus. 2. Dilatation of the thoracic esophagus with some thickening at the distal esophagus likely related to the patient's reported esophageal carcinoma. Ren Mckeon MD Physical Exam GENERAL: This is a well-nourished, well-developed patient, in no apparent distress. SKIN: No rashes, ecchymoses or lesions. Cool and dry. HEAD: Atraumatic. Normocephalic. No temporal or scalp tenderness. EYES: Pupils equal round and reactive. Extraocular motions intact. No scleral icterus. No injection or drainage. ENT: Nose without bleeding, purulent drainage or septal hematoma. Throat without erythema, tonsillar hypertrophy or exudate. Uvula midline. Airway patent. NECK: Trachea midline. Supple, nontender, no meningeal signs. CARDIOVASCULAR: Regular rate and rhythm without murmurs, gallops, or rubs. RESPIRATORY: Clear to auscultation. Breath sounds equal bilaterally. No wheezes , rales, or rhonchi. GASTROINTESTINAL: Abdomen soft, tender, distended. No guarding or rigidity. MUSCULOSKELETAL: Extremities without clubbing, cyanosis, or edema. NEUROLOGICAL: Awake and alert. Non focal exam Psych cooperative, pleasant IV line sites with no e.o infection. Assessment & Plan Remarks Fever likely related to Mucositis post chemotherapy Possible radiation esophagitis related mucositis. Possible microaspiration Esophageal cancer with distorted anatomy Portacath in place. s/p Chemo and radiation surgery Definite surgery tentative planned for Mar 09 per patient. Recs DC Cefepime IV Start oral levaquin for 4 more days. Follow cultures Follow clinically. Ok to discharge from ID standpoint. sheila RN, pt, ANA Raygoza. Will sign off please call back if any change in clinical condition or questions. Sofia Maria MD Feb 15, 2017 10:04
[2017-02-15] MEDS ORDERED: MORP1TAB25 PO (10:55)
[2017-02-15] MEDS ORDERED: SUCR1S PO (10:55)
[2017-02-15] MEDS ORDERED: LEVA500T20 PO (10:55)
[2017-02-15] MEDS ORDERED: OXYC1TAB36 PO (10:55)
[2017-02-15] MEDS ORDERED: LORazepam 2 MG/ML VIAL ONE (11:31)
[2017-02-15 12:00] VITALS: BP 113/74; PULSE 75; RESP 18; TEMP 95.8; O2SAT 97
[2017-02-15] MEDS: LEVOFLOXACIN 500 MG TAB PO SCH (12:44)
[2017-02-15] MEDS ORDERED: IOHEXOL 350 MG/ML 50 ML BTL (for RAD DIAG) NG ONE (13:18)
--- NOTE | 2017-02-15 13:28 | HHI.PR ---
Subjective Subjective Notes Resting in bed TF restarted Objective Vitals/I&O Vital Signs Date Time Temp Pulse Resp B/P (MAP) Pulse Ox O2 Delivery O2 Flow Rate FiO2 02/15/17 12:00 95.8 75 18 113/74 (87) 97 Labs Laboratory Tests Test 02/15/17 07:35 White Blood Count 4.2 Red Blood Count 3.07 Hemoglobin 9.1 Hematocrit 26.6 Mean Corpuscular Volume 86.6 Mean Corpuscular Hemoglobin 29.8 Mean Corpuscular Hemoglobin Concent 34.3 Red Cell Distribution Width 17.5 Platelet Count 123 Mean Platelet Volume 7.8 Neutrophils (%) (Auto) 51.5 Lymphocytes (%) (Auto) 28.1 Monocytes (%) (Auto) 19.4 Eosinophils (%) (Auto) 0.4 Basophils (%) (Auto) 0.6 Neutrophils # (Auto) 2.2 Lymphocytes # (Auto) 1.2 Monocytes # (Auto) 0.8 Eosinophils # (Auto) 0.0 Basophils # (Auto) 0.0 CBC Comment AUTO DIFF Differential Total Cells Counted 100 Neutrophils % (Manual) 65 Band Neutrophils % 15 Lymphocytes % 11 Monocytes % 8 Eosinophils % 1 Neutrophils # (Manual) 3.4 Differential Comment FINAL DIFF MANUAL Platelet Estimate LOW Platelet Morphology Comment NORMAL Ovalocytes 1+ Blood Urea Nitrogen 7 Creatinine 0.45 Random Glucose 94 Total Protein 5.5 Albumin 2.2 Calcium Level 8.2 Alkaline Phosphatase 174 Aspartate Amino Transf (AST/SGOT) 21 Alanine Aminotransferase (ALT/SGPT) 17 Total Bilirubin 0.4 Sodium Level 132 Potassium Level 4.1 Chloride Level 98 Carbon Dioxide Level 27.5 Anion Gap 7 Estimat Glomerular Filtration Rate 192 Date/Time Source Procedure Growth Status 02/12/17 10:15 Blood Other Aerobic Blood Culture - Preliminary NO GROWTH IN 3 DAYS Resulted 02/12/17 10:15 Blood Other Anaerobic Blood Culture - Preliminary NO GROWTH IN 3 DAYS Resulted Cardiovascular: Regular Lungs: Clear Abdomen: Non-distended, Non-tender Extremities: No edema Narrative Exam Dobhoff in place A/P Assessment and Plan 61 year old male with esophagus cancer; not able to tolerate PO diet at this time -Dobhoff repositioned ---TF restarted and tolerated ---advance to a goal of 60 cc/hr -Okay for sips as tolerated -Pain control -DC IVF -CM consult for TF at home -General Surgery recommends DC tomorrow so we can make sure patient tolerates TF now that Dobhoff is repositioned Jennifer Barreto Feb 15, 2017 13:28
[2017-02-15] MEDS ORDERED: DIAZEPAM 2 MG TAB PO ONE (14:00)
--- NOTE | 2017-02-15 14:23 | HHI.PR ---
Subjective Remarks pt doesn't feel he is ready to go h ome today going for feeding tube repositioning today Objective Vitals Vital Signs Date Time Temp Pulse Resp B/P (MAP) Pulse Ox O2 Delivery O2 Flow Rate FiO2 02/15/17 12:00 95.8 75 18 113/74 (87) 97 02/15/17 07:26 97.1 78 18 129/78 (95) 97 02/15/17 04:00 97.1 76 17 115/73 (87) 95 02/15/17 00:00 98.6 84 17 129/77 (94) 96 02/14/17 21:01 85 19 120/77 (91) 98 02/14/17 20:00 96.8 02/14/17 16:00 98.5 80 19 119/76 (90) 95 I/O 02/14/17 02/14/17 02/14/17 02/15/17 02/15/17 02/15/17 07:00 15:00 23:00 07:00 15:00 23:00 Intake Total 960 ml 859 ml 720 ml 250 ml Output Total 600 ml 420 ml Balance 960 ml 259 ml 300 ml 250 ml Intake Oral 240 ml 720 ml 250 ml IV Total 859 ml Tube Feeding 720 ml Output Urine Total 600 ml 420 ml # Voids 3 1 # Bowel Movements 3 1 Result Diagram: 02/15/1773402/15/17734 Objective Remarks GENERAL: This is a well-nourished, well-developed patient, in no apparent distress. SKIN: No rashes, warm and dry HEAD: Atraumatic. Normocephalic. EYES: Pupils equal round and reactive. Extraocular motions intact. No scleral icterus. ENT: Nose without bleeding, or drainage, Airway patent. NECK: Trachea midline. Supple CARDIOVASCULAR: Regular rate and rhythm without murmurs, gallops, or rubs. RESPIRATORY: Fair air entry bilaterally. No wheezes, rales, or rhonchi. GASTROINTESTINAL: Abdomen soft, non-tender, nondistended. Positive bowel sounds MUSCULOSKELETAL: Extremities without clubbing, cyanosis, or edema. Pedal pulses appreciated NEUROLOGICAL: Awake and alert. Moves all extremity. Normal speech.no focal neurological deficit A/P Assessment and Plan 02/12: Temperature of 100.9 last night with decreased blood pressure need to repeat any of patient started on cefepime, chest x-ray normal, blood culture pending, will recheck urinalysis and consult ID 02/13: Continue current care, cefepime continue following with ID and oncology and surgery 02/14: Hypocalcemia, replace with calcium carbonate, continue current care continue cefepime follow surgery 02/15: cleared by oncology and sx for dc today after repositioning the feeding tube a/p: 61-year-old male with a past medical history of esophageal cancer, GERD, anxiety , HTN who presented with worsening of his epigastric cancer pain Esophageal cancer likely etiology of intractable pain: IV fluid hydration along with starting tube feeds; due to the pain he is not willing to try any other oral intake at this time -Schedule home extended release morphine 30 mg 3 times a day -Continue [place] 10/325 as needed -Continue IV Dilaudid for breakthrough pain -Patient's oncologist consulted, recommended IVF, bowel regimen, and pain medication titration -Continue supportive care -Continue PPI Gen. surgery reports if pain intake does not improve may need a J-tube placed with surgical intervention, will defer to Dr. Espinal. Protein calorie malnutrition, severe: Secondary to the above. -Per surgery, continue tube feeds with Dobbhoff tube, to proceed with by mouth diet as tolerated, at this time patient is unwilling to try oral intake. Hypokalemia: Replete Hypertension, essential continue Lopressor DVT prophylaxis- bilateral SCDs Tiffany Adams MD Feb 15, 2017 14:23
--- NOTE | 2017-02-15 14:34 | RADRPT ---
EXAM DATE/TIME: 02/15/2017 11:36 [facility] COMPARISON: FLUORO GUIDED NG TUBE PLACEMENT, February 09, 2017, 15:09. INDICATIONS : Patient presents with esophageal cancer in need of dobhoff tube evaluation with possible exchange. MEDICAL HISTORY : Esophageal cancer with intractable pain Hypertension GERD Anxiety SURGICAL HISTORY : Endoscopy Bilateral hernia repair Left knee arthroscopies and replacement Port placement ENCOUNTER: Subsequent ACUITY: 1 week PAIN SCORE: 0/10 LOCATION: N/A FLUORO TIME: 10.7 minutes IMAGE SERIES: 0 CONTRAST: 18 cc Omnipaque (iohexol) 350 MEDICATION(S): 1.) 2 mg lorazepam (Ativan) IV DEVICE(S): 1.) 8FR 106CM DOBHOFF PROCEDURE : 1. Fluoroscopically guided enteric feeding tube placement. The risks, benefits and alternatives to the procedure were explained and verbal and written consent w as obtained. With fluoroscopic guidance a weighted enteric feeding tube was passed through the nasal cavity into the stomach. The stomach was partially insufflated with air and the tube was navigated through the pyloric channel into the duodenum. Injection of positive contrast demonstrates good posi tion of catheter at the level of the pyloric channel. This could not be advanced into the duodenum. CONCLUSION: Uncomplicated Dobbhoff tube placement as above. Sarwat Pascal MD on February 15, 2017 at 14:32 Board Certified Radiologist. This report was verified electronically.
[2017-02-15 16:00] VITALS: BP 114/70; PULSE 79; RESP 18; TEMP 97; O2SAT 94
[2017-02-15] MEDS: ENOXAPARIN SODIUM 40 MG/0.4 ML SYRINGE SQ SCH (16:35)
--- NOTE | 2017-02-15 17:31 | ECHRPT ---
Indication: surgical clearance CONCLUSIONS The left ventricular systolic function is normal with an estimated ejection fraction in the range of 60-65%. Trace mitral valve regurgitation. BP: 113 / 74 HR: 75 Rhythm: Sinus MEASUREMENTS (Male / Female) Normal Values Technical Quality: 2D ECHO LV Diastolic Diameter PLAX 5.1 cm 4.2 - 5.9 / 3.9 - 5.3 cm LV Systolic Diameter PLAX 2.9 cm IVS Diastolic Thickness 1.1 cm 0.6 - 1.0 / 0.6 - 0.9 cm LVPW Diastolic Thickness 1.1 cm 0.6 - 1.0 / 0.6 - 0.9 cm LV Relative Wall Thickness 0.4 RV Internal Dim ED PLAX 2.5 cm LVOT Diameter 2.0 cm LA Systolic Diameter LX 3.0 cm 3.0 - 4.0 / 2.7 - 3.8 cm LV Ejection Fraction MOD 4C 70.2 % LV Cardiac Index MOD 4C 3447.0 cm/minm LV Ejection Fraction 4C AL 71.9 % LV Cardiac Index 4C AL 3544.9 cm/minm M-MODE Aortic Root Diameter MM 3.0 cm AV Cusp Separation MM 2.3 cm DOPPLER AV Peak Velocity 182.0 cm/s AV Peak Gradient 13.2 mmHg AI Peak Velocity 163.0 cm/s AI Peak Gradient 10.6 mmHg AI Pressure Half Time 124.0 ms LVOT Peak Velocity 136.0 cm/s LVOT Peak Gradient 7.4 mmHg AV Area Cont Eq pk 2.3 cm MV Area PHT 3.7 cm Mitral E Point Velocity 96.7 cm/s Mitral A Point Velocity 99.2 cm/s Mitral E to A Ratio 1.0 LV E' Lateral Velocity 11.2 cm/s Mitral E to LV E' Lateral Ratio 8.6 LV E' Septal Velocity 6.9 cm/s Mitral E to LV E' Septal Ratio 14.0 FINDINGS LEFT VENTRICLE Normal left ventricular size. Wall thickness is measured at the upper limits of normal. The left ventricular systolic function is normal with an estimated ejection fraction in the range of 60-65%. No regional wall motion abnormalities are present. RIGHT VENTRICLE Normal right ventricular size and systolic function. LEFT ATRIUM The left atrial size is normal. RIGHT ATRIUM The right atrial size is normal. ATRIAL SEPTUM The interatrial septum not well visualized. AORTA The aortic root and proximal ascending aorta are normal in size on limited imaging. MITRAL VALVE Structurally normal mitral valve. No mitral valve stenosis. Trace mitral valve regurgitation. AORTIC VALVE Trileaflet aortic valve. No aortic valve stenosis or regurgitation. TRICUSPID VALVE Structurally normal tricuspid valve. No tricuspid valve stenosis or regurgitation. PULMONARY VALVE The pulmonary valve is not well visualized. VESSELS The inferior vena cava is normal in size. PERICARDIUM No pericardial effusion. Terrell Gonzalez DO (Electronically Signed) Final Date:15 February 2017 17:30
--- NOTE | 2017-02-15 18:54 | HHI.DS ---
Discharge Summary Admission Date Feb 09, 2017 at 12:39 Discharge Date: Feb 17, 2017 Admitting Diagnosis intractable abdominal pain, esophageal cancer (1) Abdominal pain ICD Code: R10.9 - Unspecified abdominal pain Status: Acute (2) Hematemesis ICD Code: K92.0 - Hematemesis Status: Acute (3) HTN (hypertension) ICD Code: I10 - HTN (hypertension) Status: Acute (4) Intractable abdominal pain ICD Code: R10.9 - Unspecified abdominal pain Status: Acute (5) Constipation ICD Code: K59.00 - Constipation, unspecified (6) Malnutrition ICD Code: E46 - Unspecified protein-calorie malnutrition (7) Esophageal cancer ICD Code: C15.9 - Malignant neoplasm of esophagus, unspecified Status: Acute Procedures see below Brief History - From Admission Written by Anthony Truong, acting as scribe for Dr. Loyola on 02/08/17 at 09:47. 61-year-old male with a past medical history of esophageal cancer, GERD, anxiety , HTN who presented with worsening of his epigastric cancer pain. The patient finished chemotherapy and radiation on Tuesday. Patient has felt poorly since that time. The patient complains of sharp, burning, intermittent pain in his epigastrium around the area of his tumor. He gets occasional nausea, but denies any vomiting. He has had problems swallowing since he was diagnosed with this a few months ago and reports a 60 pound weight loss. He reports decreased urine output and dark urine. He has had a dull headache for the past 3 months. He has been coughing up a lot of clear phlegm especially in the mornings with some mild shortness of breath and this is been going on for the past few months, denies any acute worsening. He had a low-grade fever over the weekend of 100.3. He states that yesterday he was feeling generally weak, dizzy and stumbled almost fell into the emergency room. He has a planned resection of the tumor on March [address] Espinal. CBC/BMP: 02/15/17 0735 02/15/17 0735 Significant Findings Laboratory Tests Test 02/14/17 13:10 02/15/17 07:35 White Blood Count 3.4 TH/MM3 (4.0-11.0) Red Blood Count 2.88 MIL/MM3 (4.50-5.90) 3.07 MIL/MM3 (4.50-5.90) Hemoglobin 8.5 GM/DL (13.0-17.0) 9.1 GM/DL (13.0-17.0) Hematocrit 25.1 % (39.0-51.0) 26.6 % (39.0-51.0) Red Cell Distribution Width 17.5 % (11.6-17.2) 17.5 % (11.6-17.2) Platelet Count 103 TH/MM3 (150-450) 123 TH/MM3 (150-450) Band Neutrophils % 7 % (0-6) 15 % (0-6) Monocytes % 9 % (0-8) Plasma Cells 1 % (0-0) Platelet Estimate LOW (NORMAL) LOW (NORMAL) Creatinine 0.39 MG/DL (0.60-1.30) 0.45 MG/DL (0.60-1.30) Total Protein 5.0 GM/DL (6.4-8.2) 5.5 GM/DL (6.4-8.2) Calcium Level 7.2 MG/DL (8.5-10.1) 8.2 MG/DL (8.5-10.1) Sodium Level 134 MEQ/L (136-145) 132 MEQ/L (136-145) Protein Corrected Calcium 8.3 MG/DL (8.5-10.1) Monocytes (%) (Auto) 19.4 % (0.0-8.0) Ovalocytes 1+ (NORMAL) Albumin 2.2 GM/DL (3.4-5.0) Alkaline Phosphatase 174 U/L (45-117) PE at Discharge GENERAL: This is a well-nourished, well-developed patient, in no apparent distress. SKIN: No rashes, warm and dry HEAD: Atraumatic. Normocephalic. EYES: Pupils equal round and reactive. Extraocular motions intact. No scleral icterus. ENT: Nose without bleeding, or drainage, Airway patent. NECK: Trachea midline. Supple CARDIOVASCULAR: Regular rate and rhythm without murmurs, gallops, or rubs. RESPIRATORY: Fair air entry bilaterally. No wheezes, rales, or rhonchi. GASTROINTESTINAL: Abdomen soft, non-tender, nondistended. Positive bowel sounds MUSCULOSKELETAL: Extremities without clubbing, cyanosis, or edema. Pedal pulses appreciated NEUROLOGICAL: Awake and alert. Moves all extremity. Normal speech.no focal neurological deficit Hospital Course 61-year-old male with a past medical history of esophageal cancer, GERD, anxiety , HTN who presented with worsening of his epigastric cancer pain Esophageal cancer likely etiology of intractable pain: IV fluid hydration along with starting tube feeds; due to the pain he is not willing to try any other oral intake at this time -Schedule home extended release morphine 30 mg 3 times a day -Continue [place] 10/325 as needed -Continue IV Dilaudid for breakthrough pain -Patient's oncologist consulted, recommended IVF, bowel regimen, and pain medication titration -Continue supportive care -Continue PPI Gen. surgery Dr. Espinal and dr whyte followed , cleared for dc to continue ff as outpt g=for further mangmnt Protein calorie malnutrition, severe: Secondary to the above. -Per surgery, continue tube feeds with Dobbhoff tube, to proceed with by mouth diet as tolerated, at this time patient is unwilling to try oral intake. on 02/12: Temperature of 100.9 last night with decreased blood pressure need to repeat any of patient started on cefepime, chest x-ray normal, blood culture pending, will recheck urinalysis and consult ID on 02/17 : HHC set up and feeding tube set up has been done , had lengthy d/w pt , nurse , CM Pt Condition on Discharge: Stable Discharge Disposition: Disch w/ Home Health Serv Discharge Time: > 30 minutes Discharge Instructions DIET: Follow Instructions for: On Tube Feeding Activities you can perform: Weight Bearing as Kd Follow up Referrals: Surgical - 02/24/17 with Goldy Espinal MD New Medications: Levofloxacin (Levaquin) 500 Mg Tablet 500 MG PO Q24H for infx, #4 TAB Morphine ER (Morphine ER) 30 Mg Tab 30 MG PO Q8HR for Pain Management, #60 TAB Oxycodone-Acetaminophen (Oxycodone-Acetaminophen) 10-325 mg Tab 1 TAB PO Q4H PRN for PAIN SCALE 1-8, #25 TAB Sucralfate Liq (Sucralfate Liq) 1 Gram/10 Ml Karla 1 GM PO QID for gi, #90 TAB Continued Medications: Diazepam (Diazepam) 10 Mg Tab 10 MG PO BID PRN for ANXIETY, TAB 0 Refills Hydrocodone-Acetaminophen (Hydrocodone-Acetaminophen) 10-325 mg Tab 1 TAB PO Q4H PRN for PAIN, TAB 0 Refills Metoprolol Tartrate (Metoprolol Tartrate) 50 Mg Tab 50 MG PO BID, #60 TAB 0 Refills Omeprazole Magnesium (Prilosec) 20 Mg Tab Ondansetron (Ondansetron) 8 Mg Tab 8 MG PO TID for Nausea/Vomiting, TAB 0 Refills Tiffany Erickson MD Feb 15, 2017 18:54
[2017-02-15 20:00] VITALS: BP 122/66; PULSE 92; RESP 17; TEMP 97.5; O2SAT 99
[2017-02-16] VITALS: BP 125/72; PULSE 90; RESP 18; TEMP 97.1; O2SAT 99
[2017-02-16] MEDS: oxyCODONE/ACETAMINOPHEN 10 MG/325 MG TAB PO PRN ×5 (01:43→20:19)
[2017-02-16] MEDS: MORPHINE SULFATE 30 MG CONTROLLED RELEASE TAB PO SCH ×3 (05:54→21:02)
[2017-02-16 05:58] VITALS: BP 95/58; PULSE 85; RESP 16; TEMP 97.5; O2SAT 97
[2017-02-16 07:50] VITALS: BP 108/71; PULSE 80; RESP 20; TEMP 99.5; O2SAT 97
[2017-02-16] MEDS: DOCUSATE SODIUM 100 MG CAP PO SCH ×2 (08:39→20:18)
[2017-02-16] MEDS: CALCIUM CARBONATE 1.25 GM (CA 500 MG) TAB PO SCH (08:39)
[2017-02-16] MEDS: SUCRALFATE 1 GM/10 ML CUP PO SCH ×4 (08:39→20:19)
[2017-02-16] MEDS: PANTOPRAZOLE SOD 40 MG DELAYED RELEASE TAB PO SCH (08:40)
[2017-02-16] MEDS: POLYETHYLENE GLYCOL 17 GM PKG PO SCH (08:41)
[2017-02-16] MEDS: SODIUM CHLORIDE 0.9% FLUSH 10 ML FLUSH IV FLUSH SCH ×2 (08:44→20:19)
[2017-02-16] MEDS: METOPROLOL TARTRATE 50 MG TAB PO SCH ×2 (09:00→20:18)
[2017-02-16] MEDS: LEVOFLOXACIN 500 MG TAB PO SCH (10:03)
[2017-02-16 11:50] VITALS: BP 99/69; PULSE 75; RESP 20; TEMP 97.8; O2SAT 97
--- NOTE | 2017-02-16 11:51 | HHI.PR ---
Subjective Remarks Feeding tube dislodged will go for repositioning probably discharge when this is done otherwise no acute event Objective Vitals Vital Signs Date Time Temp Pulse Resp B/P (MAP) Pulse Ox O2 Delivery O2 Flow Rate FiO2 02/16/17 08:46 16 02/16/17 08:46 16 02/16/17 07:50 99.5 80 20 108/71 (83) 97 02/16/17 05:58 97.5 85 16 95/58 (70) 97 02/16/17 00:00 97.1 90 18 125/72 (89) 99 02/15/17 20:00 97.5 92 17 122/66 (84) 99 02/15/17 16:00 97.0 79 18 114/70 (85) 94 02/15/17 12:00 95.8 75 18 113/74 (87) 97 I/O 02/15/17 02/15/17 02/15/17 02/16/17 02/16/17 02/16/17 07:00 15:00 23:00 07:00 15:00 23:00 Intake Total 250 ml 480 ml Balance 250 ml 480 ml Intake Oral 250 ml 480 ml # Voids 1 3 # Bowel Movements 1 3 Result Diagram: 02/15/1735 02/15/17734 Objective Remarks GENERAL: This is a well-nourished, well-developed patient, in no apparent distress. SKIN: No rashes, warm and dry HEAD: Atraumatic. Normocephalic. EYES: Pupils equal round and reactive. Extraocular motions intact. No scleral icterus. ENT: Nose without bleeding, or drainage, Airway patent. NECK: Trachea midline. Supple CARDIOVASCULAR: Regular rate and rhythm without murmurs, gallops, or rubs. RESPIRATORY: Fair air entry bilaterally. No wheezes, rales, or rhonchi. GASTROINTESTINAL: Abdomen soft, non-tender, nondistended. Positive bowel sounds MUSCULOSKELETAL: Extremities without clubbing, cyanosis, or edema. Pedal pulses appreciated NEUROLOGICAL: Awake and alert. Moves all extremity. Normal speech.no focal neurological deficit A/P Problem List: (1) Abdominal pain ICD Code: R10.9 - Unspecified abdominal pain Status: Acute (2) Hematemesis ICD Code: K92.0 - Hematemesis Status: Acute (3) HTN (hypertension) ICD Code: I10 - HTN (hypertension) Status: Acute (4) Intractable abdominal pain ICD Code: R10.9 - Unspecified abdominal pain Status: Acute (5) Constipation ICD Code: K59.00 - Constipation, unspecified (6) Malnutrition ICD Code: E46 - Unspecified protein-calorie malnutrition (7) Esophageal cancer ICD Code: C15.9 - Malignant neoplasm of esophagus, unspecified Status: Acute Assessment and Plan 02/12: Temperature of 100.9 last night with decreased blood pressure need to repeat any of patient started on cefepime, chest x-ray normal, blood culture pending, will recheck urinalysis and consult ID 02/13: Continue current care, cefepime continue following with ID and oncology and surgery 02/14: Hypocalcemia, replace with calcium carbonate, continue current care continue cefepime follow surgery 02/15: cleared by oncology and sx for dc today after repositioning the feeding tube 02/16: Repositioned feeding tube, discharge when arrangement is done a/p: 61-year-old male with a past medical history of esophageal cancer, GERD, anxiety , HTN who presented with worsening of his epigastric cancer pain Esophageal cancer likely etiology of intractable pain: IV fluid hydration along with starting tube feeds; due to the pain he is not willing to try any other oral intake at this time -Schedule home extended release morphine 30 mg 3 times a day -Continue [place] 10/325 as needed -Continue IV Dilaudid for breakthrough pain -Patient's oncologist consulted, recommended IVF, bowel regimen, and pain medication titration -Continue supportive care -Continue PPI Gen. surgery reports if pain intake does not improve may need a J-tube placed with surgical intervention, will defer to Dr. Espinal. Protein calorie malnutrition, severe: Secondary to the above. -Per surgery, continue tube feeds with Dobbhoff tube, to proceed with by mouth diet as tolerated, at this time patient is unwilling to try oral intake. Hypokalemia: Replete Hypertension, essential continue Lopressor DVT prophylaxis- bilateral SCDs Tiffany Adams MD Feb 16, 2017 11:51
[2017-02-16] MEDS: LORazepam 1 MG TAB PO PRN ×2 (13:03→21:02)
[2017-02-16] MEDS ORDERED: METOCLOPRAMIDE HCL 10 MG/2 ML VIAL ONE (14:04)
--- NOTE | 2017-02-16 14:21 | PD.ONC.PN ---
Subjective Subjective Remarks Afebrile Pt going downstairs to have dobhoff replaced Pain overall improved Objective Data Date Time Temp Pulse Resp B/P (MAP) Pulse Ox O2 Delivery O2 Flow Rate FiO2 02/16/17 11:50 97.8 75 20 99/69 (79) 97 02/16/17 08:46 16 02/16/17 08:46 16 02/16/17 07:50 99.5 80 20 108/71 (83) 97 02/16/17 05:58 97.5 85 16 95/58 (70) 97 02/16/17 00:00 97.1 90 18 125/72 (89) 99 02/15/17 20:00 97.5 92 17 122/66 (84) 99 02/15/17 16:00 97.0 79 18 114/70 (85) 94 Result Diagram: 02/15/1735 02/15/17734 Administered Medications Medications (Trade) Dose Ordered Sig/[place] Route PRN Reason Start Time Stop Time Status Last Admin Dose Admin Sodium Chloride (NS Flush) 2 ml UNSCH PRN IV FLUSH FLUSH AFTER USING IV ACCESS 02/07/17 22:00 02/08/17 06:30 Sodium Chloride (NS Flush) 2 ml BID IV FLUSH 02/08/17 09:00 02/15/17 20:59 Ondansetron HCl (Zofran Inj) 4 mg Q6H PRN IVP NAUSEA OR VOMITING 02/07/17 22:00 02/13/17 19:42 Pantoprazole Sodium (Protonix) 40 mg DAILY PO 02/08/17 09:00 02/16/17 08:40 Morphine Sulfate (Oramorph Sr) 30 mg Q8HR PO 02/08/17 14:00 02/16/17 05:54 Metoprolol Tartrate (Lopressor) 50 mg Q12HR PO 02/08/17 09:00 02/15/17 20:58 Polyethylene Glycol (Miralax) 17 gm DAILY PO 02/08/17 09:00 02/14/17 08:43 Docusate Sodium (Colace) 100 mg BID PO 02/08/17 09:00 02/16/17 08:39 Sucralfate (Carafate Liq) 1 gm QID PO 02/08/17 21:00 02/16/17 08:39 Hydromorphone HCl (Dilaudid Pf Inj) 1.5 mg Q4HR PRN IV PUSH PAIN SCALE 9 TO 10 02/09/17 11:15 02/13/17 02:05 Enoxaparin Sodium (Lovenox Inj) 40 mg Q24H SQ 02/10/17 17:00 02/15/17 16:35 Calcium Carbonate (Oscal) 500 mg DAILY PO 02/14/17 11:00 02/16/17 08:39 Oxycodone/ Acetaminophen (Percocet 10-325 Mg) 1 tab Q4H PRN PO PAIN SCALE 1-8 02/14/17 14:15 02/16/17 10:03 Levofloxacin (Levaquin) 500 mg Q24H PO 02/15/17 11:00 02/16/17 10:03 Lorazepam (Ativan) 1 mg Q8H PRN PO ANXIETY 02/16/17 13:00 02/16/17 13:03 Objective Remarks GENERAL: Middle aged male sitting up in bed in no acute distress SKIN: Warm and dry. HEAD: Normocephalic. EYES: No injection or drainage. NECK: Supple, trachea midline. CARDIOVASCULAR: Regular rate and rhythm RESPIRATORY: Breath sounds equal bilaterally. No accessory muscle use. GASTROINTESTINAL: Abdomen soft, non-tender, nondistended. EXTREMITIES: No cyanosis NEUROLOGICAL: Awake and alert, normal speech. Moving all extremities. Assessment/Plan Problem List: (1) Esophageal cancer ICD Codes: C15.9 - Malignant neoplasm of esophagus, unspecified Status: Acute Plan: --Esophageal cancer in the distal esophagus. 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 --CT Chest again showed a thickened distal esophagus likely due to the treatment effect. --is supposed to have a PET scan done next week prior to seeing Dr. Espinal for definitive resection. --There is no clear progression of disease noted at this time. --just completed radiation and chemotherapy last week. --Anticipate his abdominal pain to slowly improve over the next week. (2) Intractable abdominal pain ICD Codes: R10.9 - Unspecified abdominal pain Status: Acute Plan: Currently on Oramorph 30mg PO q 8 + Dilaudid IV or Percocet for breakthrough pain. --Midepigastric pain due to radiation and chemotherapy. --CT of the abdomen and pelvis did not show any acute process. --no evidence of bowel perforation. (3) Constipation ICD Codes: K59.00 - Constipation, unspecified Plan: --Constipation due to opiates as well as dehydration. --on a stool softener and laxative. (4) Malnutrition ICD Codes: E46 - Unspecified protein-calorie malnutrition Plan: --was still able to tolerate a soft mechanical diet prior to presentation. --on tube feeds --Doff-Vladimir tube Placement. Assessment 61y/o male with esophageal cancer admitted with intractable abdominal pain. h/o Esophageal cancer. Arthritis. Diverticulitis Gastroesophageal reflux disease. Hyperlipidemia. Hypertension. Chronic kidney disease. Benign prostatic hypertrophy Plan 1. Patient is going downstairs for Dobbhoff tube replacement again today. 2. Okay for discharge from oncology standpoint once Dobbhoff tube replaced and tube feeds are set up for discharge case management working on this. 3. Continue Oramorph with Percocet for breakthrough pain. Attending Statement The exam, history, and the medical decision-making described in the above note were completed with the assistance of the mid-level provider. I reviewed and agree with the findings presented. I attest that I had a [id number] encounter with the patient on the same day, and personally performed and documented my assessment and findings in the medical record. DHT fell out last night. Still not able to PO. Will have radiology replace the DHT. Can be d/c after that and f/u with surgery. Araceli Martins Feb 16, 2017 14:21 Sylvester Silver MD Feb 16, 2017 16:04
[2017-02-16] MEDS ORDERED: HYDROmorphone HCL PF 2 MG/ML VIAL ONE (14:32)
--- NOTE | 2017-02-16 14:56 | HHI.PR ---
Subjective Subjective Notes Resting in bed Getting ready to go down to IR for replacement of Dobhoff Objective Vitals/I&O Vital Signs Date Time Temp Pulse Resp B/P (MAP) Pulse Ox O2 Delivery O2 Flow Rate FiO2 02/16/17 11:50 97.8 75 20 99/69 (79) 97 Labs Date/Time Source Procedure Growth Status 02/12/17 10:15 Blood Other Aerobic Blood Culture - Preliminary NO GROWTH IN 4 DAYS Resulted 02/12/17 10:15 Blood Other Anaerobic Blood Culture - Preliminary NO GROWTH IN 4 DAYS Resulted Cardiovascular: Regular Lungs: Clear Abdomen: Non-distended, Non-tender Extremities: No edema Narrative Exam Dobhoff out A/P Assessment and Plan 61 year old male with esophagus cancer; not able to tolerate PO diet at this time -Replace Dobhoff in IR this Am -Restart TF once replaced -Okay for sips as tolerated -Pain control -CM consult for TF at home Jennifer Barreto Feb 16, 2017 14:56
[2017-02-16] MEDS ORDERED: IODIXANOL 320 MG/ML 50 ML VIAL (for RAD SPEC) NG ONE (15:02)
[2017-02-16 15:50] VITALS: BP 111/74; PULSE 94; RESP 20; TEMP 97.1; O2SAT 95
[2017-02-16] MEDS: ENOXAPARIN SODIUM 40 MG/0.4 ML SYRINGE SQ SCH (16:01)
--- NOTE | 2017-02-16 16:41 | RADRPT ---
EXAM DATE/TIME: 02/16/2017 14:22 [facility] COMPARISON: FLUORO GUIDED NG TUBE PLACEMENT, February 15, 2017, 11:36. INDICATIONS : Patient presents with esophageal cancer in need of dobhoff tube. MEDICAL HISTORY : Esophageal cancer with intractable pain Hypertension GERD Anxiety SURGICAL HISTORY : Endoscopy Bilateral hernia repair Left knee arthroscopies and replacement Port placement ENCOUNTER: Initial ACUITY: 1 week PAIN SCORE: 7/10 LOCATION: Abdomen FLUORO TIME: 9.04 minutes IMAGE SERIES: 0 CONTRAST: 20 cc Visipaque (iodixanol) MEDICATION(S): 1.) 2 mg hydromorphone (Dilaudid) IV 2.) 10 mg Reglan IV DEVICE(S): 1.) 18 Fr NG tube PROCEDURE : 1. Fluoroscopically guided enteric feeding tube placement. The risks, benefits and alternatives to the procedure were explained and verbal and written consent w as obtained. With fluoroscopic guidance a weighted enteric feeding tube was passed through the nasal cavity into the stomach. 4 [place] angiographic catheter and Glidewire were advanced beyond the mass at the GE junction and subsequently into the duodenum. Position was confirmed with contrast. Catheter was exchanged over Glidewire for an 8 [place] Dobbhoff catheter with the weights removed. Injection o f positive contrast demonstrates good position of catheter within the duodenum. CONCLUSION: 1. Technically challenging but uncomplicated Dobbhoff tube placement as above. Efrain Ivey MD on February 16, 2017 at 16:37 Board Certified Radiologist. This report was verified electronically.
[2017-02-16 20:00] VITALS: BP 116/75; PULSE 91; RESP 17; TEMP 97.2; O2SAT 96
[2017-02-17] VITALS: BP 102/62; PULSE 83; RESP 17; TEMP 98.1; O2SAT 92
[2017-02-17] MEDS: oxyCODONE/ACETAMINOPHEN 10 MG/325 MG TAB PO PRN ×5 (00:12→17:48)
[2017-02-17 04:00] VITALS: BP 102/65; PULSE 79; RESP 16; TEMP 98; O2SAT 95
[2017-02-17] MEDS: MORPHINE SULFATE 30 MG CONTROLLED RELEASE TAB PO SCH ×2 (05:02→13:22)
[2017-02-17 08:19] VITALS: BP 102/68; PULSE 76; RESP 18; TEMP 96.4; O2SAT 96
[2017-02-17] MEDS: POLYETHYLENE GLYCOL 17 GM PKG PO SCH (09:00)
[2017-02-17] MEDS: METOPROLOL TARTRATE 50 MG TAB PO SCH (09:00)
[2017-02-17] MEDS: DOCUSATE SODIUM 100 MG CAP PO SCH (10:03)
[2017-02-17] MEDS: PANTOPRAZOLE SOD 40 MG DELAYED RELEASE TAB PO SCH (10:03)
[2017-02-17] MEDS: LEVOFLOXACIN 500 MG TAB PO SCH (10:04)
[2017-02-17] MEDS: CALCIUM CARBONATE 1.25 GM (CA 500 MG) TAB PO SCH (10:04)
[2017-02-17] MEDS: SUCRALFATE 1 GM/10 ML CUP PO SCH ×3 (10:05→17:48)
[2017-02-17] MEDS: SODIUM CHLORIDE 0.9% FLUSH 10 ML FLUSH IV FLUSH SCH (10:06)
--- NOTE | 2017-02-17 12:01 | HHI.PR ---
Subjective Remarks pt slightly anxious about getting discharged d/w CM, nurse and pt in length working on securing HHC tube pump at home prior to dc Objective Vitals Vital Signs Date Time Temp Pulse Resp B/P (MAP) Pulse Ox O2 Delivery O2 Flow Rate FiO2 02/17/17 08:19 96.4 76 18 102/68 (79) 96 02/17/17 04:00 98.0 79 16 102/65 (77) 95 02/17/17 00:00 98.1 83 17 102/62 (75) 92 02/16/17 20:00 97.2 91 17 116/75 (89) 96 02/16/17 15:50 97.1 94 20 111/74 (86) 95 I/O 02/16/17 02/16/17 02/16/17 02/17/17 02/17/17 02/17/17 07:00 15:00 23:00 07:00 15:00 23:00 Intake Total 0 ml Output Total 400 ml Balance 0 ml -400 ml Intake Oral 0 ml Output Urine Total 400 ml # Voids 3 # Bowel Movements 2 Result Diagram: 02/15/1735 02/15/1735 Objective Remarks GENERAL: This is a well-nourished, well-developed patient, in no apparent distress. SKIN: No rashes, warm and dry HEAD: Atraumatic. Normocephalic. EYES: Pupils equal round and reactive. Extraocular motions intact. No scleral icterus. ENT: Nose without bleeding, or drainage, Airway patent. NECK: Trachea midline. Supple CARDIOVASCULAR: Regular rate and rhythm without murmurs, gallops, or rubs. RESPIRATORY: Fair air entry bilaterally. No wheezes, rales, or rhonchi. GASTROINTESTINAL: Abdomen soft, non-tender, nondistended. Positive bowel sounds MUSCULOSKELETAL: Extremities without clubbing, cyanosis, or edema. Pedal pulses appreciated NEUROLOGICAL: Awake and alert. Moves all extremity. Normal speech.no focal neurological deficit A/P Problem List: (1) Abdominal pain ICD Code: R10.9 - Unspecified abdominal pain Status: Acute (2) Hematemesis ICD Code: K92.0 - Hematemesis Status: Acute (3) HTN (hypertension) ICD Code: I10 - HTN (hypertension) Status: Acute (4) Intractable abdominal pain ICD Code: R10.9 - Unspecified abdominal pain Status: Acute (5) Constipation ICD Code: K59.00 - Constipation, unspecified (6) Malnutrition ICD Code: E46 - Unspecified protein-calorie malnutrition (7) Esophageal cancer ICD Code: C15.9 - Malignant neoplasm of esophagus, unspecified Status: Acute Assessment and Plan 02/17: plan for dc home with [facility] today a/p: 61-year-old male with a past medical history of esophageal cancer, GERD, anxiety , HTN who presented with worsening of his epigastric cancer pain Esophageal cancer likely etiology of intractable pain: IV fluid hydration along with starting tube feeds; due to the pain he is not willing to try any other oral intake at this time -Schedule home extended release morphine 30 mg 3 times a day -Continue [place] 10/325 as needed -Continue IV Dilaudid for breakthrough pain -Patient's oncologist consulted, recommended IVF, bowel regimen, and pain medication titration -Continue supportive care -Continue PPI Gen. surgery reports if pain intake does not improve may need a J-tube placed with surgical intervention, will defer to Dr. Espinal. Protein calorie malnutrition, severe: Secondary to the above. -Per surgery, continue tube feeds with Dobbhoff tube, to proceed with by mouth diet as tolerated, at this time patient is unwilling to try oral intake. Hypokalemia: Replete Hypertension, essential continue Lopressor DVT prophylaxis- bilateral SCDs Tiffany Adams MD Feb 17, 2017 12:01
[2017-02-17 13:37] VITALS: BP 159/71; PULSE 84; RESP 16; TEMP 96.9; O2SAT 99
--- NOTE | 2017-02-17 13:48 | HHI.PR ---
Subjective Subjective Notes Tolerated TF Going home today Objective Vitals/I&O Vital Signs Date Time Temp Pulse Resp B/P (MAP) Pulse Ox O2 Delivery O2 Flow Rate FiO2 02/17/17 13:37 96.9 84 16 159/71 (100) 99 Labs Date/Time Source Procedure Growth Status 02/12/17 10:15 Blood Other Aerobic Blood Culture - Final NO GROWTH IN 5 DAYS Complete 02/12/17 10:15 Blood Other Anaerobic Blood Culture - Final NO GROWTH IN 5 DAYS Complete Cardiovascular: Regular Lungs: Clear Abdomen: Non-distended, Non-tender Extremities: No edema Narrative Exam Dobhoff clamped to get ready to go home A/P Assessment and Plan 61 year old male with esophagus cancer; not able to tolerate PO diet at this time -Tolerating TF via Dobhoff -Okay for sips as tolerated -Pain control -TF + pump arranged for amanda -DC today; Follow up in the office next Jennifer Barreto Feb 17, 2017 13:48
[2017-02-17] MEDS: LORazepam 1 MG TAB PO PRN (14:53)
[2017-02-17 16:00] VITALS: BP 107/67; PULSE 87; RESP 18; TEMP 98.6; O2SAT 98
[2017-02-17] MEDS: ENOXAPARIN SODIUM 40 MG/0.4 ML SYRINGE SQ SCH (17:00)
--- NOTE | 2017-02-17 17:11 | HHI.FF ---
Face to Face Verification Diagnosis: (1) Intractable abdominal pain (2) Malnutrition (3) Esophageal cancer (4) Hematemesis Home Health Nursing Order: Medical education Nursing assessment with vital signs Instructions: VP [employer] Crate Tier Order: To Evaluate: Support services I have seen patient Teto Bingham on 02/17/17. My clinical findings support the need for the requested home health care services because: Deconditioned w/ increased weakness I certify that my clinical findings support that this patient is homebound because: Unsafe to leave home unassisted Tiffany Erickson MD Feb 17, 2017 17:11
--- NOTE | 2017-02-17 17:33 | PD.ONC.PN ---
Subjective Subjective Remarks DHT was replaced. Abdominal pain improved. Ready to go home. Objective Data Date Time Temp Pulse Resp B/P (MAP) Pulse Ox O2 Delivery O2 Flow Rate FiO2 02/17/17 13:37 96.9 84 16 159/71 (100) 99 02/17/17 08:19 96.4 76 18 102/68 (79) 96 02/17/17 04:00 98.0 79 16 102/65 (77) 95 02/17/17 00:00 98.1 83 17 102/62 (75) 92 02/16/17 20:00 97.2 91 17 116/75 (89) 96 02/17/17 02/17/17 02/17/17 07:00 15:00 23:00 Intake Total 240 ml Output Total 400 ml Balance -400 ml 240 ml Result Diagram: 02/15/1735 02/15/1735 Administered Medications Medications (Trade) Dose Ordered Sig/[place] Route PRN Reason Start Time Stop Time Status Last Admin Dose Admin Sodium Chloride (NS Flush) 2 ml UNSCH PRN IV FLUSH FLUSH AFTER USING IV ACCESS 02/07/17 22:00 02/08/17 06:30 Sodium Chloride (NS Flush) 2 ml BID IV FLUSH 02/08/17 09:00 02/17/17 10:06 Ondansetron HCl (Zofran Inj) 4 mg Q6H PRN IVP NAUSEA OR VOMITING 02/07/17 22:00 02/13/17 19:42 Pantoprazole Sodium (Protonix) 40 mg DAILY PO 02/08/17 09:00 02/17/17 10:03 Morphine Sulfate (Oramorph Sr) 30 mg Q8HR PO 02/08/17 14:00 02/17/17 13:22 Metoprolol Tartrate (Lopressor) 50 mg Q12HR PO 02/08/17 09:00 02/16/17 20:18 Polyethylene Glycol (Miralax) 17 gm DAILY PO 02/08/17 09:00 02/14/17 08:43 Docusate Sodium (Colace) 100 mg BID PO 02/08/17 09:00 02/17/17 10:03 Sucralfate (Carafate Liq) 1 gm QID PO 02/08/17 21:00 02/17/17 13:00 Hydromorphone HCl (Dilaudid Pf Inj) 1.5 mg Q4HR PRN IV PUSH PAIN SCALE 9 TO 10 02/09/17 11:15 02/13/17 02:05 Enoxaparin Sodium (Lovenox Inj) 40 mg Q24H SQ 02/10/17 17:00 02/15/17 16:35 Calcium Carbonate (Oscal) 500 mg DAILY PO 02/14/17 11:00 02/17/17 10:04 Oxycodone/ Acetaminophen (Percocet 10-325 Mg) 1 tab Q4H PRN PO PAIN SCALE 1-8 02/14/17 14:15 02/17/17 13:22 Levofloxacin (Levaquin) 500 mg Q24H PO 02/15/17 11:00 02/17/17 10:04 Lorazepam (Ativan) 1 mg Q8H PRN PO ANXIETY 02/16/17 13:00 02/17/17 14:53 Objective Remarks GENERAL: Well-nourished, well-developed patient. SKIN: Warm and dry. HEAD: Normocephalic. DHT noted. EYES: No scleral icterus. No injection or drainage. NECK: Supple, trachea midline. No JVD or lymphadenopathy. LYMPHATIC: No adenopathy. CARDIOVASCULAR: Regular rate and rhythm without murmurs. RESPIRATORY: Breath sounds equal bilaterally. No accessory muscle use. GASTROINTESTINAL: Abdomen soft, less-tender, nondistended. +BS EXTREMITIES: No cyanosis, or edema. MUSCULOSKELETAL: Adequate muscle tone. NEUROLOGICAL: No obvious focal deficit. Awake, alert, and oriented x3. PSYCHIATRIC: Appropriate mood and affect; insight and judgment normal. Assessment/Plan Problem List: (1) Esophageal cancer ICD Codes: C15.9 - Malignant neoplasm of esophagus, unspecified Status: Acute Plan: --Esophageal cancer in the distal esophagus. 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 --CT Chest again showed a thickened distal esophagus likely due to the treatment effect. --is supposed to have a PET scan done next week prior to seeing Dr. Espinal for definitive resection. --There is no clear progression of disease noted at this time. --just completed radiation and chemotherapy last week. --Anticipate his abdominal pain to slowly improve (2) Intractable abdominal pain ICD Codes: R10.9 - Unspecified abdominal pain Status: Acute Plan: Currently on Oramorph 30mg PO q 8 + Dilaudid IV or Percocet for breakthrough pain. Pain slowly improving. --Midepigastric pain due to radiation and chemotherapy. --CT of the abdomen and pelvis did not show any acute process. --no evidence of bowel perforation. (3) Constipation ICD Codes: K59.00 - Constipation, unspecified Plan: --Constipation due to opiates as well as dehydration. --on a stool softener and laxative. (4) Malnutrition ICD Codes: E46 - Unspecified protein-calorie malnutrition Plan: --was still able to tolerate a soft mechanical diet prior to presentation. --now on tube feeds --Doff-Vladimir tube replaced. Tube feeding restarted and tolerating well. Assessment 61y/o male with esophageal cancer admitted with intractable abdominal pain. h/o Esophageal cancer. Arthritis. Diverticulitis Gastroesophageal reflux disease. Hyperlipidemia. Hypertension. Chronic kidney disease. Benign prostatic hypertrophy Plan 1. Can be discharge from oncology standpoint with DHT feeding. 2. Followup with surgery. 3. Continue Oramorph with Percocet for breakthrough pain. Sylvester Silver MD Feb 17, 2017 17:33
== END 2017-02-17 18:17 | disposition home health service (06) | DRG 947 ==
LOC: NEPE 16:46 → NEDA 22:03 → NEPGCP 22:41 → HOCB 02-08 17:22 → OBSVTOIN 02-09 12:39 → HOCA 02-17 14:36
PROVIDERS: ADMIT Family Medicine; ATTEND Family Medicine
PROC: 0DH67UZ Insertion of Feeding Device into Stomach, Via Natural or Artificial Opening (ICD-10-PCS; principal; 2017-02-09)
DX: G89.3 Neoplasm related pain (acute) (chronic) (principal); E43 Unspecified severe protein-calorie malnutrition; C15.5 Malignant neoplasm of lower third of esophagus; K57.32 Diverticulitis of large intestine without perforation or abscess without bleeding; I12.9 Hypertensive chronic kidney disease with stage 1 through stage 4 chronic kidney disease, or unspecified chronic kidney disease; K92.81 Gastrointestinal mucositis (ulcerative); E86.0 Dehydration; F32.9 Major depressive disorder, single episode, unspecified; R13.10 Dysphagia, unspecified; K21.0 Gastro-esophageal reflux disease with esophagitis; F41.9 Anxiety disorder, unspecified; M19.90 Unspecified osteoarthritis, unspecified site; G47.30 Sleep apnea, unspecified; N18.9 Chronic kidney disease, unspecified; K40.90 Unilateral inguinal hernia, without obstruction or gangrene, not specified as recurrent; K44.9 Diaphragmatic hernia without obstruction or gangrene; Z87.891 Personal history of nicotine dependence; E87.6 Hypokalemia; E78.5 Hyperlipidemia, unspecified; N40.0 Benign prostatic hyperplasia without lower urinary tract symptoms; K59.03 Drug induced constipation; T40.605A Adverse effect of unspecified narcotics, initial encounter; R91.1 Solitary pulmonary nodule; Y84.2 Radiological procedure and radiotherapy as the cause of abnormal reaction of the patient, or of later complication, without mention of misadventure at the time of the procedure; K20.8 Other esophagitis
CPT/HCPCS: 43752; 44500; 71010; 71275; 74000; 74177; 80048; 80053; 81001; 83690; 83735; 84155; 85007; 85025; 85027; 85610; 85730; 87040; 93005; 93306; 96365; 96375; 96376; C1769; C1887; G0378; J0692; J1170; J1650; J2060; J2212; J2405; J2765; J3475; J3480; J7030; Q9967

== ENCOUNTER 2017-03-08 17:20 | Inpatient (IN) | payer MEDICAID, OTHER ==
[~2017-03-08] VITALS: Ht 170.2 cm; Wt 72.8 kg
[~2017-03-08 17:20] MED LIST changes: +FLEE10EN RECTAL; +LEVA500T33 PO; +MORP1TAB25 PO; -ONDA1TAB17 PO; +ONDA8TAB7 PO; +OXYC1TAB36 PO; +POTA1TAB4 PO; -PRIL20TA2; +PRIL20TA2 PO; +SUCR1S PO
[2017-03-08 17:21] VITALS: BP 135/86; PULSE 109; RESP 20; TEMP 98.2; O2SAT 96
--- NOTE | 2017-03-08 17:48 | PD ---
Physical Exam Date Seen by Provider: Mar 08, 2017 Time Seen by Provider: 17:44 Narrative 61-year-old white male with a history of esophageal cancer who is scheduled for surgery by Dr. Ramos tomorrow presents for evaluation of abdominal pain. He states that his surgeon advised him to come to the ER today and that Dr. Mcneil is carton stapler for him. He would like him to be notified when the patient is here. Patient states the pain is normally a 6/10 but is now at 10/10. He is taking his routine medications at home without relief. No fever or chills. No nausea vomiting. No diarrhea. Vital signs reviewed. Pt waiting for bed placement. Data Data Last Documented VS Vital Signs Date Time Temp Pulse Resp B/P (MAP) Pulse Ox O2 Delivery O2 Flow Rate FiO2 03/08/17 17:21 98.2 109 20 135/86 (102) 96 Room Air [facility] Medical Record Reviewed: No Supervised Visit with TANIYA: Isaiah Chung Mar 08, 2017 17:48
[2017-03-08] MEDS ORDERED: HYDROmorphone HCL PF 1 MG/ML VIAL IV PUSH ONE (19:00)
[2017-03-08] MEDS ORDERED: SODIUM CHLOR 0.9% 1000 ML INJ 1,000 ML IV SCH (19:00)
[2017-03-08] MEDS ORDERED: ONDANSETRON HCL 4 MG/2 ML VIAL IV PUSH ONE (19:00)
--- NOTE | 2017-03-08 19:00 | PD ---
HPI Chief Complaint: Pain: Acute or Chronic Time Seen by Provider: 18:37 Travel History International Travel<30 days: No Contact w/Intl Traveler<30days: No Traveled to known affect area: No History of Present Illness HPI 61-year-old male complains of epigastric abdominal pain. Patient has history of early differentiated adenocarcinoma of the distal esophagus. Patient completed chemotherapy and radiation therapy. Patient was scheduled to have a mass removal tomorrow morning. Patient has been taking morphine and Percocet at home without much relief of the pain. Patient was advised to come in [facility] to be admitted for surgery tomorrow. Patient denies any fever chills. Patient denies any nausea vomiting diarrhea. PFSH Past Medical History Arthritis: Yes Asthma: No Blood Disorders: No Anxiety: Yes Depression: Yes Heart Rhythm Problems: No Cancer: Yes (ESOPHAGEAL CA) Cardiovascular Problems: Yes High Cholesterol: No Chemotherapy: Yes (HX) Chest Pain: Yes Congestive Heart Failure: No COPD: No Diabetes: No Diminished Hearing: No Endocrine: No GERD: Yes Genitourinary: Yes Hypertension: Yes Inguinal Hernia: Yes Musculoskeletal: Yes (left knee surgery) Neurologic: No Psychiatric: Yes Reproductive: No Respiratory: Yes (SLEEP APNEA) Radiation Therapy: Yes (HX) Sleep Apnea: Yes Thyroid Disease: No Past Surgical History Abdominal Surgery: Yes (BILATERAL HERNIA REPAIR IN GROIN, G TUBE PRIOR) Joint Replacement: Yes (L TOTAL KNEE) Social History Alcohol Use: Yes (occas) Tobacco Use: No Substance Use: No Allergies-Medications (Allergen,Severity, Reaction): Coded Allergies: scallops (Unverified Allergy, Unknown, 03/08/17) Reported Meds & Prescriptions Reported Meds & Active Scripts Active Sucralfate Liq (Sucralfate) 1 Gram/10 Ml Karla 1 Gm PO QID Oxycodone-Acetaminophen 10-325 mg Tab 1 Tab PO Q4H PRN Reported Morphine ER (Morphine Sulfate) 30 Mg Tab 30 Mg PO Q8H PRN Prilosec (Omeprazole Magnesium) 20 Mg Tab 20 Mg PO DAILY Diazepam 10 Mg Tab 10 Mg PO BID PRN Review of Systems General / Constitutional: No: Fever Eyes: No: Visual changes HENT: No: Headaches Cardiovascular: No: Chest Pain or Discomfort Respiratory: No: Shortness of Breath Gastrointestinal: Positive: Abdominal Pain Genitourinary: No: Dysuria Musculoskeletal: No: Pain Skin: No Rash Neurologic: No: Weakness Psychiatric: No: Depression Endocrine: No: Polydipsia Hematologic/Lymphatic: No: Easy Bruising Physical Exam Narrative GENERAL: Well-nourished, well-developed patient. SKIN: Focused skin assessment warm/dry. HEAD: Normocephalic. EYES: No scleral icterus. No injection or drainage. NECK: Supple, trachea midline. No JVD or lymphadenopathy. CARDIOVASCULAR: Regular rate and rhythm without murmurs, gallops, or rubs. RESPIRATORY: Breath sounds equal bilaterally. No accessory muscle use. GASTROINTESTINAL: Abdomen soft, nondistended. Mild to moderate tenderness on palpation epigastric area. No rebound tenderness. No mass. MUSCULOSKELETAL: No cyanosis, or edema. BACK: Nontender without obvious deformity. No CVA tenderness. Neurologic exam normal. Data Data Last Documented VS Vital Signs Date Time Temp Pulse Resp B/P (MAP) Pulse Ox O2 Delivery O2 Flow Rate FiO2 03/08/17 17:21 98.2 109 20 135/86 (102) 96 Room Air Orders Orders Electrocardiogram (03/08/17 18:51) Complete Blood Count With Diff (03/08/17 18:51) Comprehensive Metabolic Panel (03/08/17 18:51) Prothrombin Time / Inr (Pt) (03/08/17 18:51) Act Partial Throm Time (Ptt) (03/08/17 18:51) Lipase (03/08/17 18:51) Urinalysis - C+S If Indicated (03/08/17 18:51) Chest, Single Ap (03/08/17 18:51) Iv Access Insert/Monitor (03/08/17 18:51) Ecg Monitoring (03/08/17 18:51) Oximetry (03/08/17 18:51) Sodium Chlor 0.9% 1000 Ml Inj (Ns 1000 M (03/08/17 19:00) Hydromorphone Pf Inj (Dilaudid Pf Inj) (03/08/17 19:00) Ondansetron Inj (Zofran Inj) (03/08/17 19:00) MDM Medical Decision Making Medical Screen Exam Complete: Yes Emergency Medical Condition: Yes Medical Record Reviewed: Yes Differential Diagnosis Differential diagnosis including injectable pain, history esophageal cancer. Narrative Course 61-year-old male with intractable recanted abdominal pain. History esophageal cancer. Patient's pending surgery tomorrow morning. Patient was advised to come the ED to be admitted for tomorrow surgery and pain management. Diagnosis Primary Impression: Intractable abdominal pain Additional Impression: History of esophageal cancer Admitting Information Admitting Physician Requests: Admit Ramakrishna Melara MD Mar 08, 2017 19:00
[2017-03-08 19:10] VITALS: BP 108/76; PULSE 84; RESP 16; O2SAT 98
[2017-03-08] MEDS ORDERED: SENNOSIDES 8.6 MG TAB PO PRN (19:15)
[2017-03-08] MEDS ORDERED: NALOXONE HCL 0.4 MG/ML AMP IV PUSH PRN ×2 (19:15)
[2017-03-08] MEDS ORDERED: MORPHINE SULFATE 4 MG/ML INJ IV PUSH PRN (19:15)
[2017-03-08] MEDS ORDERED: MAGNESIUM HYDROXIDE SUSP 30 ML CUP PO PRN (19:15)
[2017-03-08] MEDS ORDERED: BISACODYL 10 MG SUPP RECTAL PRN (19:15)
[2017-03-08] MEDS ORDERED: ONDANSETRON HCL 4 MG/2 ML VIAL IVP PRN (19:15)
[2017-03-08] MEDS ORDERED: LACTULOSE SYRUP 20 GM/30 ML CUP PO PRN (19:15)
[2017-03-08] MEDS ORDERED: SODIUM CHLORIDE 0.9% FLUSH 10 ML FLUSH IV FLUSH PRN (19:15)
--- NOTE | 2017-03-08 19:15 | RADRPT ---
EXAM DATE/TIME: 03/08/2017 19:10 [facility] COMPARISON: CHEST SINGLE AP, February 12, 2017, 9:29. INDICATIONS : Short of breath. MEDICAL HISTORY : None. SURGICAL HISTORY : Infusaport. ENCOUNTER: Initial ACUITY: 1 day PAIN SCORE: 0/10 LOCATION: Bilateral chest FINDINGS: A single view of the chest demonstrates the lungs to be symmetrically aerated without evidence of mas s, infiltrate or effusion. The cardiomediastinal contours are unremarkable. Osseous structures are intact. Right-sided implantable port catheter remains in place. There is mild atelectasis or scarring again noted at the lung bases. CONCLUSION: Mild scarring and/or atelectasis lung bases with no acute cardiopulmonary disease. Gregory Martin MD on March 08, 2017 at 19:13 Board Certified Radiologist. This report was verified electronically.
[2017-03-08 19:16] LABS: AUTOMATED NEUTROPHIL # 2.1 TH/MM3 (1.8-7.7); BASOPHIL % 0.7 % (0.0-2.0); EOSINOPHIL # 0.1 TH/MM3 (0-0.4); EOSINOPHIL % 1.7 % (0.0-4.0); HEMATOCRIT 33.3 % (39.0-51.0); HEMO FLAGS DIFF FINAL; LYMPH % 32.6 % (9.0-44.0); LYMPHOCYTE # 1.6 TH/MM3 (1.0-4.8); MEAN CELL VOLUME 88.7 FL (80.0-100.0); MEAN CORPUSCULAR HEMOGLOBIN 29.9 PG (27.0-34.0); MEAN CORPUSCULAR HGB CONC 33.7 % (32.0-36.0); MONO % 22.3 % (0.0-8.0); NEUT % 42.7 % (16.0-70.0); PLATELET COUNT 246 TH/MM3 (150-450); RED BLOOD COUNT 3.75 MIL/MM3 (4.50-5.90); RED CELL DISTRIBUTION WIDTH 17.8 % (11.6-17.2)
[2017-03-08 19:23] LABS: ALT (GPT) 21 U/L (12-78); ANION GAP 8 MEQ/L (5-15); AST (GOT) 29 U/L (15-37); BICARBONATE 27.1 MEQ/L (21.0-32.0); BLOOD UREA NITROGEN 4 MG/DL (7-18); CHLORIDE 100 MEQ/L (98-107); GLOMERULAR FILTRATION RATE 170 ML/MIN (>89); SODIUM (NA) 135 MEQ/L (136-145)
[2017-03-08 19:26] LABS: ALKALINE PHOSPHATASE 127 U/L (45-117); TOTAL BILIRUBIN ADULT 0.5 MG/DL (0.2-1.0)
[2017-03-08 19:28] LABS: APTT (PATIENT) 29.1 SEC (24.3-30.1); PROTHROMBIN TIME - PATIENT 11.4 SEC (9.8-11.6)
[2017-03-08] MEDS: LIDOCAINE VISCOUS 2% SOLN 15 ML UDC SWISH-SWAL PRN (19:54)
[2017-03-08] MEDS ORDERED: D5-1/2 NS + KCL 20 MEQ INJ 1,000 ML IV SCH (20:00)
--- NOTE | 2017-03-08 20:19 | HHI.HP ---
HPI Service [facility] Primary Care Physician Laurel Viera MD Admission Diagnosis intract pain, esophageal cancer requiring operative intervention Diagnoses: Travel History International Travel<30 Days: No Contact w/Intl Traveler <30 Da: No Traveled to Known Affected Are: No History of Present Illness 61-year-old male with GERD, anxiety, HTN, distal esophageal cancer having completed chemotherapy 3 weeks ago, with recent admission earlier this month for dysphasia, who presents with a one-day history of worsening intractable epigastric abdominal pain, which he describes as sharp, constant, nonradiating typical of his esophageal cancer pain but worsened. He denies any fevers or chills. Denies any nausea or vomiting. He reports poor appetite continues, generalized fatigue continues. Patient was planned for esophagectomy this week by Dr. Espinal. Review of Systems Except as stated in HPI: all other systems reviewed are Neg Past Family Social History Past Medical History Arthritis Cancer with distal esophageal poorly differentiated adenocarcinoma. Diverticulitis GERD Hyperlipidemia Hypertension BPH Anxiety Past Surgical History Hernia repair Left knee arthroplasty. Endoscopies biopsy. Reported Medications Reported Meds & Active Scripts Active Sucralfate Liq (Sucralfate) 1 Gram/10 Ml Karla 1 Gm PO QID Oxycodone-Acetaminophen 10-325 mg Tab 1 Tab PO Q4H PRN Reported Morphine ER (Morphine Sulfate) 30 Mg Tab 30 Mg PO Q8H PRN Prilosec (Omeprazole Magnesium) 20 Mg Tab 20 Mg PO DAILY Diazepam 10 Mg Tab 10 Mg PO BID PRN Allergies: Coded Allergies: scallops (Unverified Allergy, Unknown, 03/08/17) Family History Family history reviewed with the patient and found to be currently noncontributory Social History Patient quit smoking many years ago. No alcohol. Denies illicit drugs. Physical Exam Vital Signs Vital Signs Date Time Temp Pulse Resp B/P (MAP) Pulse Ox O2 Delivery O2 Flow Rate FiO2 03/08/17 19:10 84 16 108/76 (87) 98 Room Air 03/08/17 17:21 98.2 109 20 135/86 (102) 96 Room Air Physical Exam GENERAL: This is a well-nourished, well-developed patient, appears in pain alert and oriented 3. SKIN: No rashes, ecchymoses or lesions. Cool and dry. HEAD: Atraumatic. Normocephalic. No temporal or scalp tenderness. EYES: Pupils equal round and reactive. Extraocular motions intact. No scleral icterus. No injection or drainage. ENT: Nose without bleeding, purulent drainage or septal hematoma. Throat without erythema, tonsillar hypertrophy or exudate. Uvula midline. Airway patent. NECK: Trachea midline. No JVD or lymphadenopathy. Supple, nontender, no meningeal signs. CARDIOVASCULAR: Regular rate and rhythm without murmurs, gallops, or rubs. RESPIRATORY: Clear to auscultation. Breath sounds equal bilaterally. No wheezes , rales, or rhonchi. GASTROINTESTINAL: Abdomen soft, non-tender, nondistended. No hepato-splenomegaly , or palpable masses. No guarding. MUSCULOSKELETAL: Extremities without clubbing, cyanosis, or edema. No joint tenderness, effusion, or edema noted. No calf tenderness. Negative Homans sign bilaterally. NEUROLOGICAL: Awake and alert. Cranial nerves II through XII intact. Motor and sensory grossly within normal limits. Five out of 5 muscle strength in all muscle groups. Normal speech. Laboratory Laboratory Tests Test 03/08/17 18:30 White Blood Count 5.0 Red Blood Count 3.75 Hemoglobin 11.2 Hematocrit 33.3 Mean Corpuscular Volume 88.7 Mean Corpuscular Hemoglobin 29.9 Mean Corpuscular Hemoglobin Concent 33.7 Red Cell Distribution Width 17.8 Platelet Count 246 Mean Platelet Volume 7.8 Neutrophils (%) (Auto) 42.7 Lymphocytes (%) (Auto) 32.6 Monocytes (%) (Auto) 22.3 Eosinophils (%) (Auto) 1.7 Basophils (%) (Auto) 0.7 Neutrophils # (Auto) 2.1 Lymphocytes # (Auto) 1.6 Monocytes # (Auto) 1.1 Eosinophils # (Auto) 0.1 Basophils # (Auto) 0.0 CBC Comment DIFF FINAL Differential Comment Prothrombin Time 11.4 Prothromb Time International Ratio 1.0 Activated Partial Thromboplast Time 29.1 Blood Urea Nitrogen 4 Creatinine 0.50 Random Glucose 88 Total Protein 6.9 Albumin 3.2 Calcium Level 8.8 Alkaline Phosphatase 127 Aspartate Amino Transf (AST/SGOT) 29 Alanine Aminotransferase (ALT/SGPT) 21 Total Bilirubin 0.5 Sodium Level 135 Potassium Level 3.0 Chloride Level 100 Carbon Dioxide Level 27.1 Anion Gap 8 Estimat Glomerular Filtration Rate 170 Lipase 57 Result Diagram: 03/08/17182903/08/171829 Caprini VTE Risk Assessment Caprini VTE Risk Assessment: Mod/High Risk (score >= 2) Caprini Risk Assessment Model Point Value = 1 Point Value = 2 Point Value = 3 Point Value = 5 Age 41-60 Minor surgery BMI > 25 kg/m2 Swollen legs Varicose veins or History of unexplained or recurrent spontaneous Oral contraceptives or hormone replacement Sepsis (< 1 month) Serious lung disease, including pneumonia (< 1 month) Abnormal pulmonary function Acute myocardial infarction Congestive heart failure (< 1 month) History of inflammatory bowel disease Medical patient at bed rest Age 61-74 Arthroscopic surgery Major open surgery (> 45 min) Laparoscopic surgery (> 45 min) Malignancy Confined to bed (> 72 hours) Immobilizing plaster cast Central venous access Age >= 75 History of VTE Family history of VTE Factor V Leiden Prothrombin [id number] Lupus anticoagulant Anticardiolipin antibodies Elevated serum homocysteine Heparin-induced thrombocytopenia Other congenital or acquired thrombophilia Stroke (< 1 month) Elective arthroplasty Hip, pelvis, or leg fracture Acute spinal cord injury (< 1 month) Prophylaxis Regimen Total Risk Factor Score Risk Level Prophylaxis Regimen 0-1 Low Early ambulation 2 Moderate Order ONE of the following: *Sequential Compression Device (SCD) *Heparin 5000 units SQ BID 3-4 Higher Order ONE of the following medications: *Heparin 5000 units SQ TID *Enoxaparin/Lovenox 40 mg SQ daily (WT < 150 kg, CrCl > 30 mL/min) *Enoxaparin/Lovenox 30 mg SQ daily (WT < 150 kg, CrCl > 10-29 mL/min) *Enoxaparin/Lovenox 30 mg SQ BID (WT < 150 kg, CrCl > 30 mL/min) AND/OR *Sequential Compression Device (SCD) 5 or more Highest Order ONE of the following medications: *Heparin 5000 units SQ TID (Preferred with Epidurals) *Enoxaparin/Lovenox 40 mg SQ daily (WT < 150 kg, CrCl > 30 mL/min) *Enoxaparin/Lovenox 30 mg SQ daily (WT < 150 kg, CrCl > 10-29 mL/min) *Enoxaparin/Lovenox 30 mg SQ BID (WT < 150 kg, CrCl > 30 mL/min) AND *Sequential Compression Device (SCD) Assessment and Plan Assessment and Plan //Intractable pain secondary to esophageal cancer -Uncontrolled on home morphine and Percocet. -We'll schedule morphine here, oxycodone when necessary, and lidocaine every 4 hours swish and swallow. Came to monitor //Esophageal cancer -Completed chemotherapy 3 weeks ago -Consult general surgery for resection/esophagectomy. //Hypokalemia. Potassium 3.0. Replaced. Check magnesium //Protein calorie malnutrition. Patient was previously managed with off off tube which fell out. Plan per general surgery. Appreciate assistance. Patient will be placed on D5 fluids. /Chronic hyponatremia. Sodium 135. Stable. Continue to monitor./ //GERD. Chronic. Continue PPI //Hypertension. Patient was previously on metoprolol which was discontinued. Blood pressure acceptable. Continue to monitor. Prophylaxis. SCDs. Anticoagulation as per surgical service Discussed Condition With Patient, nurse, ED physician. Physician Certification 2 Midnight Certification Type: Admission for Inpatient Services Order for Inpatient Services The services are ordered in accordance with Medicare regulations or non- Medicare payer requirements, as applicable. In the case of services not specified as inpatient-only, they are appropriately provided as inpatient services in accordance with the 2-midnight benchmark. Estimated LOS (days): 4 days is the estimated time the patient will need to remain in the hospital, assuming treatment plan goals are met and no additional complications. Post-Hospital Plan: Not yet determined Toro Loyola MD Mar 08, 2017 20:19
[2017-03-08 20:51] VITALS: BP 115/75; PULSE 82; RESP 20; TEMP 98.7; O2SAT 96
[2017-03-08] MEDS ORDERED: SODIUM CHLORIDE 0.9% FLUSH 10 ML FLUSH IV FLUSH SCH (21:00)
[2017-03-08] MEDS ORDERED: D5-NS + KCL 40 MEQ INJ 1,000 ML IV SCH (21:00)
[2017-03-08 21:13] LABS: MAGNESIUM 1.5 MG/DL (1.5-2.5)
[2017-03-08] MEDS: MORPHINE SULFATE 4 MG/ML INJ IV PUSH PRN (22:00)
[2017-03-09] VITALS: BP 92/61; PULSE 61; RESP 20; TEMP 98; O2SAT 83
[2017-03-09] MEDS: MORPHINE SULFATE 4 MG/ML INJ IV PUSH PRN ×2 (01:37→05:12)
[2017-03-09] MEDS: POTASSIUM CHLOR 10 MEQ PREMIX 100 ML IV SCH ×2 (01:38→03:10)
[2017-03-09] MEDS: LIDOCAINE VISCOUS 2% SOLN 15 ML UDC SWISH-SWAL PRN (01:38)
[2017-03-09 04:00] VITALS: BP 112/61; PULSE 80; RESP 20; TEMP 97.9; O2SAT 95
[2017-03-09 05:38] LABS: AUTOMATED NEUTROPHIL # 1.6 TH/MM3 (1.8-7.7); BASOPHIL % 0.7 % (0.0-2.0); EOSINOPHIL # 0.1 TH/MM3 (0-0.4); EOSINOPHIL % 1.6 % (0.0-4.0); HEMATOCRIT 28.4 % (39.0-51.0); HEMO FLAGS DIFF FINAL; LYMPH % 27.2 % (9.0-44.0); LYMPHOCYTE # 0.9 TH/MM3 (1.0-4.8); MEAN CELL VOLUME 87.9 FL (80.0-100.0); MEAN CORPUSCULAR HGB CONC 34.1 % (32.0-36.0); MONO % 24.4 % (0.0-8.0); NEUT % 46.1 % (16.0-70.0); PLATELET COUNT 185 TH/MM3 (150-450); RED BLOOD COUNT 3.23 MIL/MM3 (4.50-5.90); RED CELL DISTRIBUTION WIDTH 17.3 % (11.6-17.2); WHITE BLOOD COUNT 3.5 TH/MM3 (4.0-11.0)
[2017-03-09 06:17] LABS: ALKALINE PHOSPHATASE 107 U/L (45-117); ALT (GPT) 18 U/L (12-78); ANION GAP 8 MEQ/L (5-15); AST (GOT) 22 U/L (15-37); BICARBONATE 28.2 MEQ/L (21.0-32.0); BLOOD UREA NITROGEN 4 MG/DL (7-18); CHLORIDE 103 MEQ/L (98-107); GLOMERULAR FILTRATION RATE 187 ML/MIN (>89); POTASSIUM 3.2 MEQ/L (3.5-5.1); SODIUM (NA) 139 MEQ/L (136-145); TOTAL BILIRUBIN ADULT 0.4 MG/DL (0.2-1.0)
[2017-03-09] MEDS ORDERED: BUPIVACAINE/EPINEPHRINE 0.5% 50 ML VIAL ONE (06:26)
[2017-03-09] MEDS ORDERED: INSULIN HUMAN REGULAR 1,000 UNITS/10 ML VIAL SQ PRN (07:15)
[2017-03-09] MEDS ORDERED: LACTATED RINGER'S 1000 ML IV PRN (07:15)
[2017-03-09] MEDS ORDERED: METOPROLOL TARTRATE 25 MG TAB PO PRN (07:15)
[2017-03-09] MEDS ORDERED: SODIUM CHLORID 0.9% 500 ML IV PRN (07:15)
[2017-03-09] MEDS ORDERED: POVIDONE IODINE 5% (ANTISEPSIS KIT) 4 APPLICATIONS EACH NARE PRN (07:15)
[2017-03-09] MEDS ORDERED: CHLORHEXIDINE GLUCONATE 2 % 1 PACK (2 CLOTHS) TOPICAL PRN (07:15)
[2017-03-09] MEDS ORDERED: ACETAMINOPHEN 1000 MG/100 ML 100 ML IV ONE (07:20)
[2017-03-09] MEDS ORDERED: RESP: ALBUTEROL 2.5 MG/3 ML NEB (PRN) ONE (07:34)
[2017-03-09] MEDS ORDERED: BUPIVACAINE HCL PF 0.5% 30 ML VIAL ONE (07:50)
[2017-03-09] MEDS: ceFAZolin 2 GM PREMIX 50 ML IV SCH ×2 (08:23→12:10)
[2017-03-09] MEDS ORDERED: ONABOTULINUMTOXINA INJ 100 UNITS/VIAL ONE ×2 (08:45→12:00)
--- NOTE | 2017-03-09 09:42 | HHI.PR ---
Subjective Remarks Went for surgery , the patient was seen in PACU. He appears in some distress says she has pain. No n/v/d/c. Feels very tired. No fever or chills. Some sob, sating well. Objective Vitals Vital Signs Date Time Temp Pulse Resp B/P (MAP) Pulse Ox O2 Delivery O2 Flow Rate FiO2 03/09/17 04:00 97.9 80 20 112/61 (78) 95 03/09/17 00:00 98.0 61 20 92/61 (71) 83 03/08/17 20:51 98.7 82 20 115/75 (88) 96 03/08/17 19:10 84 16 108/76 (87) 98 Room Air 03/08/17 17:21 98.2 109 20 135/86 (102) 96 Room Air I/O 03/08/17 03/08/17 03/08/17 03/09/17 03/09/17 03/09/17 07:00 15:00 23:00 07:00 15:00 23:00 Intake Total 800 ml Output Total 300 ml 625 ml Balance 500 ml -625 ml Intake IV Total 800 ml Output Urine Total 300 ml 625 ml Result Diagram: 03/09/17 0510 03/09/17 0510 Imaging Last Impressions Chest X-Ray 03/08/17 185 Signed Impressions: Service Date/Time: Wednesday, March 08, 2017 19:10 - CONCLUSION: Mild scarring and/or atelectasis lung bases with no acute cardiopulmonary disease. Gregory Martin MD Objective Remarks GENERAL: This is a well-nourished, well-developed patient, appears in pain, alert and oriented 3. SKIN: No rashes, ecchymoses or lesions. Cool and dry. CARDIOVASCULAR: Regular rate and rhythm without murmurs, gallops, or rubs. RESPIRATORY: Right chest tube in place with some drainage, dressing c/d/i. Decreased breath sounds equal bilaterally. No wheezes, rales, or rhonchi. GASTROINTESTINAL: Abdomen soft, tender at the surgical sites, nondistended. Midabdomen with dressing c/d/i. J tube in place dressing C/D/I. Right chest tube in place with some drainage, dressing c/d/i. MUSCULOSKELETAL: Extremities without clubbing, cyanosis, or edema. No joint tenderness, effusion, or edema noted. No calf tenderness. Negative Homans sign bilaterally. NEUROLOGICAL: Awake and alert. Cranial nerves II through XII intact. Motor and sensory grossly within normal limits. Normal speech. A/P Assessment and Plan Intractable pain secondary to esophageal cancer Uncontrolled on home morphine and Percocet. Schedule morphine here, oxycodone when necessary, and lidocaine every 4 hours swish and swallow. Continue to monitor Esophageal cancer Completed chemotherapy 3 weeks ago Consult general surgery, patient has surgery by Dr Espinal 03/09/17 . Patient with J tube in place , also has right chest tube in place with some drainage, dressing c/d/i. Transfer patient to surgical ICU per surgeon discussed with rn care transition Dr Mcclure, will evaluate patient Hypokalemia. Potassium 3.0 on admission. Replaced. Check magnesium. Monitor and replace as need. Severe Protein calorie malnutrition. Patient was previously managed with off off tube which fell out. Plan per general surgery. Appreciate assistance. Patient placed on D5 fluids. Chronic hyponatremia. Sodium 135. Stable. Continue to monitor. GERD. Chronic. Continue PPI Hypertension. Patient was previously on metoprolol which was discontinued. Blood pressure acceptable. Continue to monitor. Prophylaxis. SCDs. Anticoagulation as per surgical service CM consulted for DC plan. Discussed Condition With Patient, nurse, Dr Mcclure Transfer to surgical ICU for close monitoring Raisa Reyes MD Mar 09, 2017 09:42
[2017-03-09] MEDS ORDERED: ONDANSETRON HCL 4 MG/2 ML VIAL IV PUSH ONE (12:00)
[2017-03-09] MEDS ORDERED: ePHEDrine/NS 25 MG/5 ML SYR IV ONE (12:00)
[2017-03-09] MEDS ORDERED: LIDOCAINE HCL 1% PF 5 ML AMPULE OTHER ONE (12:00)
[2017-03-09] MEDS ORDERED: ceFAZolin INJ 1,000 MG VIAL IV ONE (12:00)
[2017-03-09] MEDS ORDERED: DEXAMETHASONE SOD PHOS 4 MG/ML VIAL IV ONE (12:00)
[2017-03-09] MEDS ORDERED: ROCURONIUM INJ 50 MG/5 ML SYRINGE IV PUSH ONE (12:00)
[2017-03-09] MEDS ORDERED: PHENYLEPH/NS 1000 MCG/10 ML SYR IV ONE (12:00)
[2017-03-09] MEDS ORDERED: METOPROLOL TARTRATE 5 MG/5 ML VIAL IV PUSH ONE (12:00)
[2017-03-09] MEDS ORDERED: LACTATED RINGER'S 1000 ML INJ 1,000 ML IV ONE (12:00)
[2017-03-09] MEDS ORDERED: NORMOSOL R INJ 2,000 ML IV ONE (12:00)
[2017-03-09] MEDS ORDERED: ESMOLOL HCL 100 MG/10 ML VIAL IV ONE (12:00)
[2017-03-09] MEDS ORDERED: MIDAZOLAM HCL 2 MG/2 ML VIAL IV ONE (12:00)
[2017-03-09] MEDS ORDERED: GLYCOPYRROLATE 1 MG/5 ML SYRINGE IV PUSH ONE (12:00)
[2017-03-09] MEDS ORDERED: PHENYLEPHRINE HCL 10 MG/ML VIAL IV ONE (12:00)
[2017-03-09] MEDS ORDERED: VECURONIUM BROMIDE 20 MG VIAL IV ONE (12:00)
[2017-03-09] MEDS ORDERED: NEOSTIGMINE 3 MG/3 ML SYR IV ONE (12:00)
[2017-03-09] MEDS ORDERED: PROPOFOL 200 MG/20 ML AMP IV ONE (12:00)
[2017-03-09] MEDS ORDERED: FLUCONAZOLE 400 MG PREMIX BAG 200 ML ONE (12:03)
[2017-03-09] MEDS ORDERED: POTASSIUM CHLORIDE 10 MEQ CONTROLLED RELEASE TAB PO ONE (14:15)
[2017-03-09] MEDS ORDERED: SODIUM CHLORIDE 0.9% FLUSH 10 ML FLUSH IV FLUSH PRN (14:30)
[2017-03-09] MEDS ORDERED: BENZOCAINE 20% ORAL SPR 60 ML CAN MT PRN (14:30)
[2017-03-09] MEDS: PCA - TOTAL MG MORPHINE DELIVERED PER SHIFT SCH ×2 (14:30→22:00)
[2017-03-09] MEDS ORDERED: Post-op Orders (for Pharmacy) MISC XX ONE (14:30)
[2017-03-09] MEDS ORDERED: ONDANSETRON HCL 4 MG/2 ML VIAL IV PUSH PRN (14:30)
[2017-03-09] MEDS ORDERED: diphenhydrAMINE HCL 50 MG/ML VIAL IV PUSH PRN (14:30)
[2017-03-09] MEDS ORDERED: NALOXONE HCL 0.4 MG/ML AMP IV PUSH PRN ×2 (14:30)
[2017-03-09] MEDS ORDERED: DO NOT ADM ANY ANTICOAGULANT DRUGS PRN (14:45)
[2017-03-09] MEDS: D5-NS + KCL 20 MEQ INJ 1,000 ML IV SCH ×2 (14:48→21:51)
[2017-03-09] MEDS ORDERED: *MEPERIDINE 25 MG INJ VIAL PERIprocedural Use ONLY ONE (15:17)
[2017-03-09 15:24] LABS: HEMATOCRIT 35.2 % (39.0-51.0); MEAN CELL VOLUME 88.1 FL (80.0-100.0); MEAN CORPUSCULAR HEMOGLOBIN 29.9 PG (27.0-34.0); PLATELET COUNT 218 TH/MM3 (150-450); RED BLOOD COUNT 3.99 MIL/MM3 (4.50-5.90); RED CELL DISTRIBUTION WIDTH 17.9 % (11.6-17.2); REVIEW FLAG FINAL; WHITE BLOOD COUNT 10.5 TH/MM3 (4.0-11.0)
--- NOTE | 2017-03-09 15:43 | EKG ---
Date Performed: 03/08/2017 Time Performed: 19:25:51 PTAGE: 61 years EKG: Sinus rhythm MARKED LEFT AXIS DEVIATION ABNORMAL ECG PREVIOUS TRACING : 02/07/2017 18.54 Compared to prior tracing no significant change DOCTOR: Lucero Ramos Interpretating Date/Time 03/09/2017 15:41:13
--- NOTE | 2017-03-09 15:43 | RADRPT ---
EXAM DATE/TIME: 03/09/2017 14:49 [facility] COMPARISON: CHEST SINGLE AP, March 08, 2017, 19:10. INDICATIONS : Post esophagectomy. MEDICAL HISTORY : None. SURGICAL HISTORY : [id number]. ENCOUNTER: Initial ACUITY: 1 day PAIN SCORE: 10/10 LOCATION: Bilateral chest FINDINGS: A nasogastric tube has its tip below the diaphragm. There is free intraperitoneal air beneath the hem idiaphragm. A right-sided chest tube is noted with its tip in the apex. Right internal jugular Infu se-a-Port has its tip in the superior vena cava. The heart is stable. Minimal left basilar atelecta sis is noted. CONCLUSION: 1. Free intraperitoneal air beneath the hemidiaphragm. 2. Minimal left basilar atelectasis. 3. Multiple tubes and lines appear to be in good positions. Luisito Norris MD on March 09, 2017 at 15:35 Board Certified Radiologist. This report was verified electronically.
[2017-03-09 15:44] LABS: MAGNESIUM 1.3 MG/DL (1.5-2.5); POTASSIUM 3.4 MEQ/L (3.5-5.1)
[2017-03-09] MEDS: ACETAMINOPHEN 1000 MG/100 ML 100 ML IV SCH ×2 (16:00→21:49)
--- NOTE | 2017-03-09 16:07 | PD.CONS ---
[facility] Service Critical Care Medicine Consult Requested By General Surgery Reason for Consult Critical Care Management Primary Care Physician Laurel Viera MD History of Present Illness 61 y/o man s/p distal esophagectomy for adenocarcinoma, [place]-Sharad approach. 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 Diverticulitis GERD Hyperlipidemia Hypertension BPH Anxiety Past Surgical History Hernia repair Left knee arthroplasty. Endoscopies biopsy. Reported Medications Reported Meds & Active Scripts Active Sucralfate Liq (Sucralfate) 1 Gram/10 Ml Karla 1 Gm PO QID Oxycodone-Acetaminophen 10-325 mg Tab 1 Tab PO Q4H PRN Reported Morphine ER (Morphine Sulfate) 30 Mg Tab 30 Mg PO Q8H PRN Prilosec (Omeprazole Magnesium) 20 Mg Tab 20 Mg PO DAILY Diazepam 10 Mg Tab 10 Mg PO BID PRN Allergies: Coded Allergies: scallops (Unverified Allergy, Unknown, 03/08/17) Family History Family history reviewed with the patient and found to be currently noncontributory Social History Patient quit smoking many years ago. No alcohol. Denies illicit drugs. Physical Exam Vital Signs Vital Signs Date Time Temp Pulse Resp B/P (MAP) Pulse Ox O2 Delivery O2 Flow Rate FiO2 03/09/17 14:45 97.6 109 20 146/93 (110) 96 Nasal Cannula 2 03/09/17 04:00 97.9 80 20 112/61 (78) 95 03/09/17 00:00 98.0 61 20 92/61 (71) 83 03/08/17 20:51 98.7 82 20 115/75 (88) 96 03/08/17 19:10 84 16 108/76 (87) 98 Room Air 03/08/17 17:21 98.2 109 20 135/86 (102) 96 Room Air Physical Exam Gen: Lightly sedated. Head: Normal. Neck: Supple, airway widely patent. Lungs: Clear, no adventitious sounds. Heart: NL S1S2, RRR, No JVD. Abdomen: Soft, nondistended. Dressing midline and right chest wall. Extremities: Warm, well perfused. Neuro: Lethargic s/p anesthetic. Moves 4 limbs to stimulation. Laboratory Laboratory Tests Test 03/08/17 18:30 03/09/17 05:10 03/09/17 15:17 White Blood Count 5.0 3.5 10.5 Red Blood Count 3.75 3.23 3.99 Hemoglobin 11.2 9.7 12.0 Hematocrit 33.3 28.4 35.2 Mean Corpuscular Volume 88.7 87.9 88.1 Mean Corpuscular Hemoglobin 29.9 30.0 29.9 Mean Corpuscular Hemoglobin Concent 33.7 34.1 34.0 Red Cell Distribution Width 17.8 17.3 17.9 Platelet Count 246 185 218 Mean Platelet Volume 7.8 7.3 6.9 Neutrophils (%) (Auto) 42.7 46.1 Lymphocytes (%) (Auto) 32.6 27.2 Monocytes (%) (Auto) 22.3 24.4 Eosinophils (%) (Auto) 1.7 1.6 Basophils (%) (Auto) 0.7 0.7 Neutrophils # (Auto) 2.1 1.6 Lymphocytes # (Auto) 1.6 0.9 Monocytes # (Auto) 1.1 0.8 Eosinophils # (Auto) 0.1 0.1 Basophils # (Auto) 0.0 0.0 CBC Comment DIFF FINAL DIFF FINAL Differential Comment Prothrombin Time 11.4 Prothromb Time International Ratio 1.0 Activated Partial Thromboplast Time 29.1 Blood Urea Nitrogen 4 4 4 Creatinine 0.50 0.46 0.46 Random Glucose 88 95 210 Total Protein 6.9 5.6 Albumin 3.2 2.5 Calcium Level 8.8 8.3 7.6 Magnesium Level 1.5 1.3 Alkaline Phosphatase 127 107 Aspartate Amino Transf (AST/SGOT) 29 22 Alanine Aminotransferase (ALT/SGPT) 21 18 Total Bilirubin 0.5 0.4 Sodium Level 135 139 139 Potassium Level 3.0 3.2 3.4 Chloride Level 100 103 105 Carbon Dioxide Level 27.1 28.2 21.0 Anion Gap 8 8 13 Estimat Glomerular Filtration Rate 170 187 187 Lipase 57 Phosphorus Level 3.2 Result Diagram: 03/09/17 1517 03/09/17 1517 Assessment and Plan Assessment and Plan Assessment: 1. S/P distal esophagectomy. 2. 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 3. Diverticulitis 4. GERD 5. Hyperlipidemia 6. Hypertension 7. BPH 8. Anxiety Plan: 1. IS q2h. 2. Maintenance iv. 3. Pepcid. 4. Lovenox DVT px when OK with Surgery. 5. CUSTOMER SERVICE REPRESENTATIVE for analgesia. 6. Bronchodilators. Overall impression: Stable respiratory and hemodynamic function s/p distal esophagectomy. Kayden Sinclair MD Mar 09, 2017 16:07
[2017-03-09] MEDS: MORPHINE SULFATE 30 MG/30 ML PCA IV SCH (16:13)
[2017-03-09 16:45] VITALS: BP 154/85; PULSE 120; RESP 21; RESP 23; TEMP 97.3; O2SAT 92
[2017-03-09] MEDS: PANTOPRAZOLE SODIUM 40 MG VIAL IV PUSH SCH (18:45)
[2017-03-09 20:00] VITALS: BP 113/87; PULSE 109; RESP 14; TEMP 98.7; O2SAT 98
[2017-03-09] MEDS: SODIUM CHLORIDE 0.9% FLUSH 10 ML FLUSH IV FLUSH SCH (21:00)
[2017-03-09] MEDS: CLINDAMYCIN INJ 600 MG in SODIUM CHLORIDE 0.9% INJ 50 ML IV SCH (21:49)
[2017-03-09 22:00] VITALS: PULSE 101
[2017-03-09 23:04] LABS: BLOOD GAS BASE EXCESS 1.7 mmol/L (-2-2); BLOOD GAS CARBOXYHEMOGLOBIN 1.5 % (0-4); BLOOD GAS HCO3 25 mmol/L (22-26); BLOOD GAS METHEMOGLOBIN 0.8 % (0-2); BLOOD GAS O2 HGB SATURATION 95 % (90-100); BLOOD GAS OXYGEN CONTENT 15.7 Vol % (12.0-20.0); BLOOD GAS PCO2 35 mmHg (38-42); BLOOD GAS PO2 78 mmHg (61-120); BLOOD GAS TOTAL HGB 11.8 G/DL (12.0-16.0); CRITICAL VALUE NO; LITER FLOW 2 L/M; OXYGEN DEVICE NASAL CANNULA; TEMP CORR TO 98.6
[2017-03-09 23:05] LABS: DRAW SITE RT RADIAL; NUMBER OF ARTERIAL PUNCTURES 1; STAT NO; ULNAR PULSE PRESENT
[2017-03-10] VITALS (15 sets, daily range): BP systolic 87–134; BP diastolic 61–88; PULSE 84–112; RESP 10–29; TEMP 97.7–99; O2SAT 90–98
[2017-03-10] MEDS: RESP: ALBUTEROL 2.5 MG/IPRATROPIUM 0.5 MG NEB (SCH) NEB ×4 (04:04→20:42)
[2017-03-10] MEDS: ACETAMINOPHEN 1000 MG/100 ML 100 ML IV SCH ×4 (04:23→21:16)
[2017-03-10] MEDS: CLINDAMYCIN INJ 600 MG in SODIUM CHLORIDE 0.9% INJ 50 ML IV SCH ×2 (04:24→11:46)
[2017-03-10 04:57] LABS: AUTOMATED NEUTROPHIL # 12.7 TH/MM3 (1.8-7.7); BASOPHIL % 0.3 % (0.0-2.0); HEMO FLAGS DIFF FINAL; LYMPHOCYTE # 1.1 TH/MM3 (1.0-4.8); MEAN CORPUSCULAR HEMOGLOBIN 30.1 PG (27.0-34.0); MEAN CORPUSCULAR HGB CONC 33.8 % (32.0-36.0); MONO % 10.6 % (0.0-8.0); NEUT % 82.1 % (16.0-70.0); PLATELET COUNT 230 TH/MM3 (150-450); RED BLOOD COUNT 3.93 MIL/MM3 (4.50-5.90); RED CELL DISTRIBUTION WIDTH 17.8 % (11.6-17.2); WHITE BLOOD COUNT 15.4 TH/MM3 (4.0-11.0)
[2017-03-10 05:20] LABS: BICARBONATE 26.4 MEQ/L (21.0-32.0); POTASSIUM 3.8 MEQ/L (3.5-5.1)
[2017-03-10] MEDS: MORPHINE SULFATE 30 MG/30 ML PCA IV SCH ×2 (05:22→11:38)
[2017-03-10] MEDS: PCA - TOTAL MG MORPHINE DELIVERED PER SHIFT SCH ×3 (06:00→22:00)
[2017-03-10] MEDS: D5-NS + KCL 20 MEQ INJ 1,000 ML IV SCH ×2 (06:44→13:24)
--- NOTE | 2017-03-10 07:20 | MB ---
cc: MILLIE CROWLEY M.D. DATE OF CONSULTATION 03/09/[address] Loyola REASON FOR CONSULTATION Oncology consulted to render opinion regarding patient with esophageal cancer admitted with abdominal pain. HISTORY OF PRESENT ILLNESS The patient is a 61-year-old male recently diagnosed with esophageal cancer. He was treated with neoadjuvant concurrent radiation chemotherapy. He presented with a complaint of increased mid epigastric pain. He describes a sharp constant pain. He has seen Dr. Espinal and was scheduled to have esophagectomy this week. He was brought to the operating room and underwent esophagectomy this morning. When I saw the patient, he is still drowsy. He is not able to provide a detailed history. He is complaining of pain at the surgical site. History was obtained from his medical chart. PAST MEDICAL HISTORY 1. Esophageal cancer 2. Osteoarthritis 3. Diverticulitis 4. Gastroesophageal reflux disease 5. Hypertension 6. Hyperlipidemia 7. Chronic kidney disease 8. Benign prostatic hypertrophy PAST SURGICAL HISTORY 1. Colonoscopy 2. Hernia repair 3. Knee surgery 4. Port placement FAMILY HISTORY Noncontributory SOCIAL HISTORY 30 pack year smoking history, quit 20 years ago. He had has quit drinking alcohol. ALLERGIES NO KNOWN DRUG ALLERGIES. CURRENT MEDICATIONS 1. Lovenox 2. Clindamycin 3. Protonix 4. DuoNebs 5. Acetaminophen 6. Morphine PC pump REVIEW OF SYSTEMS CONSTITUTIONAL: He has lost some weight recently. EYES: Negative. ENT: Negative. CARDIOVASCULAR: Denies any chest pressure or palpitations. RESPIRATORY: Denies shortness of breath or cough. GI: As above. : Negative. PHYSICAL EXAMINATION VITAL SIGNS: Temperature 97.3, blood pressure 154/85, O2 saturation 92% on room air. GENERAL: He is drowsy and arousable. HEENT: Alopecia, NG tube in place. Oropharynx, dry mucosa. NECK: No thyromegaly. LYMPHATICS: No palpable clavicular, axillary or inguinal lymph nodes. CARDIOVASCULAR: Regular S1-S2. No murmur. LUNGS: Clear to auscultation anteriorly. ABDOMEN: Decreased bowel sounds. Dressing dry. EXTREMITIES: No lower extremity edema or calf tenderness. SCD's in place. CHEST: Exam showed a chest tube in the right chest. LABORATORY DATA Reviewed ASSESSMENT 1. Esophageal cancer. 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 Upper endoscopy showed a 3 cm ulcerated mass involving the lower esophageal sphincter at the GE junction and in the cardia. The mass was partially obstructing when he first presented. He was treated with radiation with concurrent chemotherapy which he completed several weeks ago. He just underwent esophagectomy with a J-tube placement this afternoon. Final pathology is still pending. 2. Mid epigastric pain due to his esophageal cancer. He is now status post surgery as above. 3. Nonspecific lung nodule, will need to be monitored. 4. Hypertension, stable. 5. Benign prostatic hypertrophy PLAN 1. Continue supportive care. 2. Await final pathology and may need adjuvant therapy depending on the final pathology. 3. DVT prophylaxis with Lovenox. Thank you, Dr. Loyola, for asking me to see this patient. MD HAYDEN Wong/PALOMO /7:18 PM /7:15 AM CAREY
[2017-03-10] MEDS: SODIUM CHLORIDE 0.9% FLUSH 10 ML FLUSH IV FLUSH SCH ×2 (09:00→21:00)
--- NOTE | 2017-03-10 12:38 | MP ---
cc: WASHINGTON BAKER DATE OF SURGERY 03/09/2017 PREOPERATIVE DIAGNOSIS Distal esophageal adenocarcinoma. POSTOPERATIVE DIAGNOSIS Distal esophageal adenocarcinoma. PROCEDURE 1. Robotic-assisted [place] Sharad esophagectomy. 2. Injection of Botox to pylorus (chemical pyloroplasty) 3. Jejunostomy tube placement. 4. Omental pedicle flap for a gastric conduit. ATTENDING SURGEON Washington Baker MD BERRY PICKER MACHINE OPERATOR Chino Callaway MD ANESTHESIA General BLOOD LOSS 300 cc COMPLICATIONS None FINDINGS Intraoperative evaluation with negative proximal and distal margin on [place] Sharad esophagogastrectomy specimen. INDICATIONS FOR PROCEDURE The patient is a 61-year-old male who was recently diagnosed with a distal esophageal adenocarcinoma. Staging scans revealed that this was a stage II-III without any evidence of distant metastasis. The patient was recommended to undergo neoadjuvant chemoradiation per NCCN guidelines. The patient did a complicated course including malnutrition and esophagitis (radiation esophagitis requiring multiple additions, nutrition support and pain management. The patient was admitted to [facility] with recurrent pain and esophagitis. Staging CT PET scan did reveal no evidence of metastatic disease and the patient was medically fit for esophagectomy. The risks, benefits, alternatives were discussed with the patient and his daughter at a previous appointment and they agreed to undergo the procedure. PROCEDURE After informed consent was obtained, the patient was an inpatient at [facility], was brought to the operating room and placed in the supine position and placed under general anesthesia. The patient had a double lumen tube placed. The patient had a regional tap block performed on the abdomen. At this point in time, a time-out was performed. The patient's abdomen was shaved, prepped and draped in a sterile fashion. We entered the abdomen with an upper midline incision from his xiphoid area to the umbilicus with a 10 blade scalpel. Bovie electrocautery dissected into the subcutaneous tissue and opened the fascia through the entire length of the incision. We placed an [place] extra-large wound retractor followed by a Bookwalter retractor to gain better exposure. At this point in time, there was no evidence of metastatic disease. We continued with the dissection. We opened the lesser sac of the gastrocolic ligament. We took down the short gastrics all way to the left bonny using the Enseal device taking great care to preserve the blood flow through our right gastroepiploic artery. He had an excellent pulse and good perfusion through this artery throughout the case. We then extended this proximally and mobilized the hepatic flexure of the colon and kocherized the duodenum. We did perform omentectomy due to the patient's large omentum and due to patient's blood supply for the omentum. This was again done with the Bovie electrocautery, as well as the Enseal, and this was taken from the splenic flexure and passed off for permanent processing. At this point in time, we identify the left gastric artery at its origin. We dissected around this with a right-angle retractor. We placed the vascular load on the echelon GI stapler across this vessel and there was continued pulse and perfusion of our liver and our hepatic artery. We divided this white load on the [place] stapler. We then continued our dissection further past the bonny and into the mediastinum. We dissected all the way approximately between 6 and 8 cm up into the mediastinum and opened the right chest by dividing the parietal pleura. We also injected 100 units of Botox into the pylorus creating effectively a chemical pyloroplasty. At this point in time, we place a Kevin drain at a ring type loop around the esophagus and we went past the specimen up into the right chest. We did take our stomach and create somewhat of a conduit by dividing the incisura up to the fundus creating a wide floppy conduit approximately [address] to the fundus. This was done with a green load on the [place] stapler. The lip at the very tip of the conduit attached to our specimen to facilitate migration into the chest. At this point in time, we then turned our attention towards jejunostomy tube placement. We identified the ligament of Treitz and approximately 40 cm distal to this, we found a loop of jejunum. We placed a 14-Cypriot jejunostomy tube through a separate incision in the left lateral side of the patient and placed this into the antimesenteric portion of the jejunum. We placed a pursestring 3-0 silk suture around the J tube as it entered the bowel wall and also placed four 3-0 silk Jose sutures up against the abdominal wall. We inserted 2 cc of fluid in the balloon to allow for any occlusion. This was placed as this tube was capped. This was sutured in place to the skin in an anatomic position and we ensured this went distal to the distal jejunum. At this point in time, we turned our attention to closure. We irrigated out the abdomen with one liter of sterile saline. All suctioning was clear. We did have a very tiny capsular tear approximately 3 or 4 mm on the spleen and we did place FloSeal and Surgicel on this for complete hemostasis. There was approximately 20 cc lost from this area and this was easily secured. We closed the midline with a single stitch which was a #1 looped PDS suture. We closed the skin with skin yung. A sterile dressing was applied. At this point in time, the patient was turned to the left decubitus position after we had taken down the sterile drapes. We placed Ioban over the right chest and broke the bed to gain better exposure. After prepping the patient, we then placed sterile drapes. We then placed the patient on single lung ventilation through the left lung only trapping right lung. This gave us excellent oxygenation at 99% of lung ventilation. We entered the chest proximally at the sixth rib at the posterior axillary line with a scalpel and a hemostat spreading down above the inferior rib. We directly placed a robot 10/12 port into the patients under direct visualization. We insufflated the chest to low pressure and had good collapse of our lung and good visualization. We placed a 10/12 robot port in approximately the third space in the right chest near the axillary posterior line. We placed 2 x 8 ports in the seventh to eighth and ninth and tenth rib spaces approximately one-fifth length apart to facilitate robot arm movement. As these were all placed under direct visualization, local anesthetic was used at all these sites. We then docked the [employer] SI robot system without difficulty. We were able to continued our dissection. We used a suction jewel stripper device in arm three to facilitate lung retraction and to suction and irrigate as needed. We used the fenestrated Bipolar, as well as Bovie electrocautery in the vessel sealer to continue our dissection. I dissected the mediastinum and was able to grasp our Kevin and use this to facilitate an ablation of the esophagus. We clearly got above the area of radiation into normal esophagus well below the azygos vein. We dissected all the way to the thoracic inlet and dividing the azygos vein was unnecessary as this was a very distal tumor and we had several centimeters of normal-appearing esophagus below this. We divided the esophagus with a green load on the robotic stapler and then we were able to pass an Rasta 25 mm anvil transorally into this proximal esophageal blind pouch through a separate esophagotomy incision right at the middle of the staple line. We then cut this suture and again secured the anvil in a normal position in the proximal esophagus. The specimen was removed and electrocautery was used to remove the specimen from our conduit. This left us with a gastrotomy in our conduit which was used for the 25 EEA stapler. We did, of note, de-dock the arm two at the seventh and eighth rib space and make this into a small backs type thoracotomy proximally 5 cm along with a small Finochietto retractor. I did not traumatize or cut any ribs to do this. We were able to bring our specimen and our conduit out through this incision and our margins were negative on intraoperative consultation by pathology. We did place the EEA stapler, did this gastrotomy back into the chest under visualization with the robotic camera and performed an EEA end esophagus to side gastric conduit anastomosis. We had two good doughnuts and the proximal esophageal was sent to have a permanent margin and specimen performed. This laid tension-free without twisting in the chest. We placed an NG tube through this anastomosis into the conduit, placed this to suction. We closed the gastrotomy with the two green loads on the robotic stapler. We did irrigate out the chest and had excellent hemostasis. There were no signs of any complications. There was no electro Bovie injury and again no signs of any leak or ischemia in our conduit or the proximal esophagus. The anastomosis laid just approximately 1 cm below the azygous vein. We turned out attention towards closure. We ensured the lung was not entrapped and slowly reinsufflated this and watched the upper and lower and middle lobes expands well. We did placed a 28 size Cypriot chest tube through the third port space at the 10-11 rib space and sutured this in place with a silk suture. This was in a posterolateral position. We then thoroughly de-docked the robot and closed all our port sites with 0-PDS and 0 Vicryl sutures followed by 4-0 Monocryl and Steri-Strips at the skin. The NG tube with a bridle was in position. At this point in time, the patient was turned back into a supine position, discontinued from the anesthesia, taken to the PACU in a stable condition. The patient tolerated the procedure well. No apparent complications. The sponge, instrument and needle counts were correct. I was present and scrubbed for the entire procedure or at the robotic console for all portions of this procedure. Dr. Callaway was present and scrubbed for all critical portions of this procedure and his expertise was needed as a second surgeon at the bedside in assisting me as well as assisting me at the bedside while I was on the consult. MD SLICK Steiner/PALOMO /3:59 PM /12:33 PM MTDD
[2017-03-10] MEDS: ENOXAPARIN SODIUM 40 MG/0.4 ML SYRINGE SQ SCH (13:24)
[2017-03-10] MEDS ORDERED: KETOROLAC TROMETHAMINE 30 MG/ML (IVP) VIAL IV PUSH ONE (14:30)
--- NOTE | 2017-03-10 15:12 | HHI.PR ---
Subjective Subjective Notes Up to chair Family at bedside Only complaint is some moderate back pain Objective Vitals/I&O Vital Signs Date Time Temp Pulse Resp B/P (MAP) Pulse Ox O2 Delivery O2 Flow Rate FiO2 03/10/17 14:00 101 03/10/17 14:00 13 03/10/17 12:00 98.3 119/86 (97) 96 03/10/17 10:03 Nasal Cannula 2.00 Labs Laboratory Tests Test 03/09/17 15:17 03/09/17 22:53 03/10/17 04:35 White Blood Count 10.5 15.4 Red Blood Count 3.99 3.93 Hemoglobin 12.0 11.8 Hematocrit 35.2 35.0 Mean Corpuscular Volume 88.1 89.0 Mean Corpuscular Hemoglobin 29.9 30.1 Mean Corpuscular Hemoglobin Concent 34.0 33.8 Red Cell Distribution Width 17.9 17.8 Platelet Count 218 230 Mean Platelet Volume 6.9 7.7 Blood Urea Nitrogen 4 5 Creatinine 0.46 0.59 Random Glucose 210 174 Calcium Level 7.6 7.9 Phosphorus Level 3.2 Magnesium Level 1.3 Sodium Level 139 137 Potassium Level 3.4 3.8 Chloride Level 105 103 Carbon Dioxide Level 21.0 26.4 Anion Gap 13 8 Estimat Glomerular Filtration Rate 187 141 Blood Gas Puncture Site RT RADIAL Blood Gas Patient Temperature 98.6 Blood Gas HCO3 25 Blood Gas Base Excess 1.7 Blood Gas Oxygen Saturation 95 Arterial Blood pH 7.47 Arterial Blood Partial Pressure CO2 35 Arterial Blood Partial Pressure O2 78 Arterial Blood Oxygen Content 15.7 Arterial Blood Carboxyhemoglobin 1.5 Arterial Blood Methemoglobin 0.8 Blood Gas Hemoglobin 11.8 Oxygen Delivery Device NASAL CANNULA Blood Gas Liter Flow 2 Neutrophils (%) (Auto) 82.1 Lymphocytes (%) (Auto) 7.0 Monocytes (%) (Auto) 10.6 Eosinophils (%) (Auto) 0.0 Basophils (%) (Auto) 0.3 Neutrophils # (Auto) 12.7 Lymphocytes # (Auto) 1.1 Monocytes # (Auto) 1.6 Eosinophils # (Auto) 0.0 Basophils # (Auto) 0.0 CBC Comment DIFF FINAL Differential Comment Cardiovascular: Regular Lungs: Clear Abdomen: Other (midline incision c/d/i; J tube in place without complications; post op tenderness; non distended ) Extremities: No edema Narrative Exam RIGHT CT in place to suction A/P Assessment and Plan 61 year old male POD1 robot assisted lap [place] Sharad esophagectomy -NPO; okay for a ice chips sparingly -IVF -CT to wall suction -Pain control; will give one time dose of Toradol -Labs reviewed---stable -PT/OT -Maintain [place] Attending Statement The exam, history, and the medical decision-making described in the above note were completed with the assistance of the mid-level provider. I reviewed and agree with the findings presented. I attest that I had a [id number] encounter with the patient on the same day, and personally performed and documented my assessment and findings in the medical record. chest and abdominal exam stable OOB pain controlled overall doing well Jennifer Barreto Mar 10, 2017 15:12 Goldy Espinal MD Mar 11, 2017 10:49
[2017-03-10] MEDS: PANTOPRAZOLE SODIUM 40 MG VIAL IV PUSH SCH (16:06)
--- NOTE | 2017-03-10 16:48 | PD.ONC.PN ---
Subjective Subjective Remarks POD #1. +abdominal pain at surgical site. Drowsy. No CP/SOB. Objective Data Date Time Temp Pulse Resp B/P (MAP) Pulse Ox O2 Delivery O2 Flow Rate FiO2 03/10/17 14:00 101 03/10/17 14:00 13 03/10/17 12:00 98.3 109 18 119/86 (97) 96 03/10/17 12:00 109 03/10/17 11:47 23 03/10/17 11:38 15 03/10/17 10:57 22 03/10/17 10:03 96 Nasal Cannula 2.00 03/10/17 10:00 93 03/10/17 08:00 90 03/10/17 08:00 97.8 89 20 134/88 (103) 98 03/10/17 07:00 96 Nasal Cannula 2.00 03/10/17 06:00 96 03/10/17 06:00 15 03/10/17 05:22 26 03/10/17 04:00 92 03/10/17 04:00 99.0 95 29 129/82 (98) 96 03/10/17 02:00 84 03/10/17 00:26 98 03/10/17 00:00 92 03/10/17 00:00 97.8 92 25 115/79 (91) 98 03/09/17 22:00 101 03/09/17 22:00 22 03/09/17 20:00 109 03/09/17 20:00 98.7 109 14 113/87 (96) 98 03/09/17 19:00 97 Nasal Cannula 2.00 03/09/17 16:45 97.3 120 23 154/85 (108) 92 03/09/17 16:45 97.3 120 21 154/85 (108) 92 03/10/17 03/10/17 03/10/17 07:00 15:00 23:00 Intake Total 0 ml Output Total 1375 ml 725 ml Balance -1375 ml -725 ml Result Diagram: 03/10/17 0435 03/10/17 0435 Laboratory Results Laboratory Tests Test 03/09/17 22:53 03/10/17 04:35 Blood Gas Puncture Site RT RADIAL Blood Gas Patient Temperature 98.6 Blood Gas HCO3 25 mmol/L Blood Gas Base Excess 1.7 mmol/L Blood Gas Oxygen Saturation 95 % Arterial Blood pH 7.47 Arterial Blood Partial Pressure CO2 35 mmHg Arterial Blood Partial Pressure O2 78 mmHg Arterial Blood Oxygen Content 15.7 Vol % Arterial Blood Carboxyhemoglobin 1.5 % Arterial Blood Methemoglobin 0.8 % Blood Gas Hemoglobin 11.8 G/DL Oxygen Delivery Device NASAL CANNULA Blood Gas Liter Flow 2 L/M White Blood Count 15.4 TH/MM3 Red Blood Count 3.93 MIL/MM3 Hemoglobin 11.8 GM/DL Hematocrit 35.0 % Mean Corpuscular Volume 89.0 FL Mean Corpuscular Hemoglobin 30.1 PG Mean Corpuscular Hemoglobin Concent 33.8 % Red Cell Distribution Width 17.8 % Platelet Count 230 TH/MM3 Mean Platelet Volume 7.7 FL Neutrophils (%) (Auto) 82.1 % Lymphocytes (%) (Auto) 7.0 % Monocytes (%) (Auto) 10.6 % Eosinophils (%) (Auto) 0.0 % Basophils (%) (Auto) 0.3 % Neutrophils # (Auto) 12.7 TH/MM3 Lymphocytes # (Auto) 1.1 TH/MM3 Monocytes # (Auto) 1.6 TH/MM3 Eosinophils # (Auto) 0.0 TH/MM3 Basophils # (Auto) 0.0 TH/MM3 CBC Comment DIFF FINAL Differential Comment Blood Urea Nitrogen 5 MG/DL Creatinine 0.59 MG/DL Random Glucose 174 MG/DL Calcium Level 7.9 MG/DL Sodium Level 137 MEQ/L Potassium Level 3.8 MEQ/L Chloride Level 103 MEQ/L Carbon Dioxide Level 26.4 MEQ/L Anion Gap 8 MEQ/L Estimat Glomerular Filtration Rate 141 ML/MIN Administered Medications Medications (Trade) Dose Ordered Sig/[place] Route PRN Reason Start Time Stop Time Status Last Admin Dose Admin Oxycodone HCl (Roxicodone) 10 mg Q4H PRN PO PAIN SCALE 6 TO 10 03/08/17 19:15 03/09/17 03:10 Morphine Sulfate (Morphine Inj) 4 mg Q3H PRN IV PUSH Pain 6-10;if unable to take PO 03/08/17 19:15 03/09/17 05:12 Lidocaine HCl (Xylocaine 2% Viscous) 15 ml Q4H PRN SWISH-SWAL SORE THROAT 03/08/17 19:30 03/09/17 01:38 Cefazolin Sodium/ Dextrose 50 ml @ 100 mls/hr HEAD HOLDER IV 11/1/17 07:15 03/12/17 07:14 03/09/17 12:10 Potassium Chloride/Dextrose/ Sod Cl 1,000 ml @ 125 mls/hr Q8H IV 03/09/17 14:20 03/10/17 13:24 Pantoprazole Sodium (Protonix Inj) 40 mg Q24H IV PUSH 03/09/17 17:00 03/10/17 16:06 Acetaminophen 100 ml @ 400 mls/hr Q6H IV 03/09/17 16:00 03/11/17 10:14 03/10/17 16:06 Enoxaparin Sodium (Lovenox Inj) 40 mg Q24H SQ 03/10/17 14:00 03/10/17 13:24 Morphine Sulfate (Morphine 1 Mg/ ml CHIEF MINISTER) 30 mg UNSCH IV 03/09/17 14:30 03/10/17 11:38 CHIEF MINISTER Dosage Infused (Pha) 1 Q8HR .XX 03/09/17 14:30 03/10/17 14:00 Albuterol/ Ipratropium (Duoneb Neb) 1 ampule Q6HR NEB NEB 03/09/17 17:00 03/10/17 10:02 Objective Remarks GENERAL: Well-nourished, well-developed patient. Lethargic. SKIN: Warm and dry. HEAD: Normocephalic. Alopecia. NGT noted. EYES: No scleral icterus. No injection or drainage. NECK: Supple, trachea midline. No JVD or lymphadenopathy. LYMPHATIC: No adenopathy. CARDIOVASCULAR: Regular rate and rhythm without murmurs. RESPIRATORY: Breath sounds equal bilaterally. No accessory muscle use. GASTROINTESTINAL: Abdomen soft, tender, nondistended. Decreased BS. EXTREMITIES: No cyanosis, or edema. SCD MUSCULOSKELETAL: Adequate muscle tone. NEUROLOGICAL: No obvious focal deficit. Awake, alert, and oriented x3. PSYCHIATRIC: Appropriate mood and affect; insight and judgment normal. Assessment/Plan Assessment 1. Esophageal cancer. 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 Upper endoscopy showed a 3 cm ulcerated mass involving the lower esophageal sphincter at the GE junction and in the cardia. The mass was partially obstructing when he first presented. He was treated with radiation with concurrent chemotherapy which he completed several weeks ago. PET/CT showed no distant metastasis. He just underwent esophagectomy with a J-tube placement 03/09/2017. Final pathology is still pending. 2. Mid epigastric pain due to his esophageal cancer. He is now status post surgery as above. 3. Nonspecific lung nodule, will need to be monitored. 4. Hypertension, stable. 5. Benign prostatic hypertrophy Plan PLAN 1. Continue supportive care. 2. Await final pathology and may need adjuvant therapy depending on the final pathology. 3. DVT prophylaxis with Lovenox. Sylvester Silver MD Mar 10, 2017 16:48
--- NOTE | 2017-03-10 17:14 | HHI.CCPN ---
Subjective Remarks/Hospital Course 61 y/o man s/p distal esophagectomy for adenocarcinoma, Leroy-Sharad approach. 03/10: Well hydrated, well perfused. Pain control acceptable but patient appears to be confused on analgesics. Objective Vital Signs Date Time Temp Pulse Resp B/P (MAP) Pulse Ox O2 Delivery O2 Flow Rate FiO2 03/10/17 14:00 101 03/10/17 14:00 13 03/10/17 12:00 98.3 119/86 (97) 96 03/10/17 10:03 Nasal Cannula 2.00 Intake and Output 03/10/17 03/10/17 03/11/17 08:00 16:00 00:00 Intake Total 0 ml Output Total 1375 ml 725 ml Balance -1375 ml -725 ml Result Diagram: 03/10/17 0435 03/10/17 0435 Other Results Laboratory Tests Test 03/09/17 22:53 Blood Gas Puncture Site RT RADIAL Blood Gas Patient Temperature 98.6 Blood Gas HCO3 25 mmol/L (22-26) Blood Gas Base Excess 1.7 mmol/L (-2-2) Blood Gas Oxygen Saturation 95 % (90-100) Arterial Blood pH 7.47 (7.380-7.420) Arterial Blood Partial Pressure CO2 35 mmHg (38-42) Arterial Blood Partial Pressure O2 78 mmHg (61-120) Arterial Blood Oxygen Content 15.7 Vol % (12.0-20.0) Arterial Blood Carboxyhemoglobin 1.5 % (0-4) Arterial Blood Methemoglobin 0.8 % (0-2) Blood Gas Hemoglobin 11.8 G/DL (12.0-16.0) Oxygen Delivery Device NASAL CANNULA Blood Gas Liter Flow 2 L/M Objective Remarks Gen: Lightly sedated. Head: Normal. Neck: Supple, airway widely patent. Lungs: Clear, no adventitious sounds. Heart: NL S1S2, RRR, No JVD. Abdomen: Soft, nondistended. Dressing midline and right chest wall. Extremities: Warm, well perfused. Neuro: Lethargic s/p anesthetic. Moves 4 limbs to stimulation. A/P Assessment and Plan Assessment: 1. S/P distal esophagectomy. 2. 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 3. Diverticulitis 4. GERD 5. Hyperlipidemia 6. Hypertension 7. BPH 8. Anxiety Plan: 1. IS q2h. 2. Maintenance iv. 3. Pepcid. 4. Lovenox DVT px when OK with Surgery. 5. DRYING RACK CHANGER for analgesia. 6. Bronchodilators. Overall impression: Stable respiratory and hemodynamic function s/p distal esophagectomy. Kayden Sinclair MD Mar 10, 2017 17:14
[2017-03-11] VITALS (11 sets, daily range): BP systolic 92–141; BP diastolic 62–98; PULSE 86–125; RESP 11–28; TEMP 97.5–99.3; O2SAT 93–100
[2017-03-11] MEDS: D5-NS + KCL 20 MEQ INJ 1,000 ML IV SCH ×4 (00:20→20:02)
[2017-03-11] MEDS: ACETAMINOPHEN 1000 MG/100 ML 100 ML IV SCH ×2 (04:04→09:36)
[2017-03-11] MEDS: RESP: ALBUTEROL 2.5 MG/IPRATROPIUM 0.5 MG NEB (SCH) NEB ×3 (04:21→16:20)
[2017-03-11 04:37] LABS: AUTOMATED NEUTROPHIL # 8.2 TH/MM3 (1.8-7.7); BASOPHIL % 0.4 % (0.0-2.0); EOSINOPHIL % 0.1 % (0.0-4.0); HEMATOCRIT 29.3 % (39.0-51.0); HEMO FLAGS DIFF FINAL; LYMPH % 6.5 % (9.0-44.0); LYMPHOCYTE # 0.7 TH/MM3 (1.0-4.8); MEAN CELL VOLUME 89.1 FL (80.0-100.0); MEAN CORPUSCULAR HEMOGLOBIN 29.5 PG (27.0-34.0); MONO % 13.6 % (0.0-8.0); NEUT % 79.4 % (16.0-70.0); PLATELET COUNT 188 TH/MM3 (150-450); RED BLOOD COUNT 3.29 MIL/MM3 (4.50-5.90); RED CELL DISTRIBUTION WIDTH 18.5 % (11.6-17.2); WHITE BLOOD COUNT 10.3 TH/MM3 (4.0-11.0)
[2017-03-11 04:56] LABS: BICARBONATE 26.1 MEQ/L (21.0-32.0); POTASSIUM 3.8 MEQ/L (3.5-5.1)
[2017-03-11] MEDS: PCA - TOTAL MG MORPHINE DELIVERED PER SHIFT SCH ×3 (06:00→22:00)
--- NOTE | 2017-03-11 07:19 | HHI.CCPN ---
Subjective Remarks/Hospital Course 61 y/o man s/p distal esophagectomy for adenocarcinoma, Leroy-Sharad approach. 03/10: Well hydrated, well perfused. Pain control acceptable but patient appears to be confused on analgesics. 03/11: Warm, well perfused. Less confusion today. Objective Vital Signs Date Time Temp Pulse Resp B/P (MAP) Pulse Ox O2 Delivery O2 Flow Rate FiO2 03/11/17 06:00 113 03/11/17 06:00 17 03/11/17 04:00 97.5 113/79 (90) 100 03/10/17 20:44 Nasal Cannula 2.00 Intake and Output 03/11/17 03/11/17 03/12/17 08:00 16:00 00:00 Intake Total 1519 ml Output Total 745 ml Balance 774 ml Result Diagram: 03/11/1741303/11/17413 Objective Remarks Gen: DRIVING SCHOOL INSTRUCTOR pump. Sleepy at times. Head: Normal. Neck: Supple, airway widely patent. Lungs: Clear, no adventitious sounds. Excursions limited by pain. Heart: NL S1S2, RRR, No JVD. Abdomen: Soft, nondistended. Dressing midline and right lateral chest wall. Extremities: Warm, well perfused. Neuro: Lethargic, cooperative. Moves 4 limbs to stimulation. VALORIE. Tracks. A/P Assessment and Plan Assessment: 1. S/P distal esophagectomy. 2. 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 3. Diverticulitis 4. GERD 5. Hyperlipidemia 6. Hypertension 7. BPH 8. Anxiety Plan: 1. IS q2h. 2. Maintenance iv. 3. Pepcid. 4. Lovenox DVT px when OK with Surgery. 5. DRIVING SCHOOL INSTRUCTOR for analgesia. 6. Bronchodilators. 7. NG to LIS. Overall impression: Stable respiratory and hemodynamic function s/p distal esophagectomy. Mobilize. Kayden Sinclair MD Mar 11, 2017 07:19
--- NOTE | 2017-03-11 07:45 | PD.ONC.PN ---
Subjective Subjective Remarks Feeling better. Pain controlled. No CP/SOB. No bleeding reported. Objective Data Date Time Temp Pulse Resp B/P (MAP) Pulse Ox O2 Delivery O2 Flow Rate FiO2 03/11/17 06:00 113 03/11/17 06:00 17 03/11/17 04:00 97.5 86 13 113/79 (90) 100 03/11/17 04:00 86 03/11/17 02:00 88 03/11/17 00:00 97.9 99 11 92/62 (72) 93 03/11/17 00:00 99 03/10/17 22:00 112 03/10/17 20:44 90 Nasal Cannula 2.00 03/10/17 20:00 97.7 94 10 105/70 (82) 97 03/10/17 20:00 94 03/10/17 20:00 97 Nasal Cannula 2.00 03/10/17 18:00 98.2 101 28 87/61 (70) 96 03/10/17 18:00 98 03/10/17 17:49 18 03/10/17 17:49 18 03/10/17 16:00 101 03/10/17 14:00 101 03/10/17 14:00 13 03/10/17 12:00 98.3 109 18 119/86 (97) 96 03/10/17 12:00 109 03/10/17 11:47 23 03/10/17 11:38 15 03/10/17 10:03 96 Nasal Cannula 2.00 03/10/17 10:00 93 03/10/17 08:00 90 03/10/17 08:00 97.8 89 20 134/88 (103) 98 03/11/17 03/11/17 03/11/17 07:00 15:00 23:00 Intake Total 1519 ml Output Total 745 ml Balance 774 ml Result Diagram: 03/11/17 0414 03/11/17413 Laboratory Results Laboratory Tests Test 03/11/17 04:14 White Blood Count 10.3 TH/MM3 Red Blood Count 3.29 MIL/MM3 Hemoglobin 9.7 GM/DL Hematocrit 29.3 % Mean Corpuscular Volume 89.1 FL Mean Corpuscular Hemoglobin 29.5 PG Mean Corpuscular Hemoglobin Concent 33.0 % Red Cell Distribution Width 18.5 % Platelet Count 188 TH/MM3 Mean Platelet Volume 7.7 FL Neutrophils (%) (Auto) 79.4 % Lymphocytes (%) (Auto) 6.5 % Monocytes (%) (Auto) 13.6 % Eosinophils (%) (Auto) 0.1 % Basophils (%) (Auto) 0.4 % Neutrophils # (Auto) 8.2 TH/MM3 Lymphocytes # (Auto) 0.7 TH/MM3 Monocytes # (Auto) 1.4 TH/MM3 Eosinophils # (Auto) 0.0 TH/MM3 Basophils # (Auto) 0.0 TH/MM3 CBC Comment DIFF FINAL Differential Comment Blood Urea Nitrogen 6 MG/DL Creatinine 0.40 MG/DL Random Glucose 111 MG/DL Calcium Level 7.7 MG/DL Sodium Level 141 MEQ/L Potassium Level 3.8 MEQ/L Chloride Level 107 MEQ/L Carbon Dioxide Level 26.1 MEQ/L Anion Gap 8 MEQ/L Estimat Glomerular Filtration Rate 220 ML/MIN Administered Medications Medications (Trade) Dose Ordered Sig/[place] Route PRN Reason Start Time Stop Time Status Last Admin Dose Admin Oxycodone HCl (Roxicodone) 10 mg Q4H PRN PO PAIN SCALE 6 TO 10 03/08/17 19:15 03/09/17 03:10 Morphine Sulfate (Morphine Inj) 4 mg Q3H PRN IV PUSH Pain 6-10;if unable to take PO 03/08/17 19:15 03/09/17 05:12 Lidocaine HCl (Xylocaine 2% Viscous) 15 ml Q4H PRN SWISH-SWAL SORE THROAT 03/08/17 19:30 03/09/17 01:38 Cefazolin Sodium/ Dextrose 50 ml @ 100 mls/hr DATA ENTRY ASSOCIATE IV 03/09/17 07:15 03/12/17 07:14 03/09/17 12:10 Potassium Chloride/Dextrose/ Sod Cl 1,000 ml @ 125 mls/hr Q8H IV 03/09/17 14:20 03/11/17 00:20 Pantoprazole Sodium (Protonix Inj) 40 mg Q24H IV PUSH 03/09/17 17:00 03/10/17 16:06 Acetaminophen 100 ml @ 400 mls/hr Q6H IV 03/09/17 16:00 03/11/17 10:14 03/11/17 04:04 Enoxaparin Sodium (Lovenox Inj) 40 mg Q24H SQ 03/10/17 14:00 03/10/17 13:24 Morphine Sulfate (Morphine 1 Mg/ ml FINANCIAL CONTROLLER) 30 mg UNSCH IV 03/09/17 14:30 03/10/17 11:38 FINANCIAL CONTROLLER Dosage Infused (Pha) 1 Q8HR .XX 03/09/17 14:30 03/11/17 06:00 Albuterol/ Ipratropium (Duoneb Neb) 1 ampule Q6HR NEB NEB 03/09/17 17:00 03/11/17 04:21 Objective Remarks GENERAL: Well--developed patient. Weak. SKIN: Warm and dry. HEAD: Normocephalic. NGT. EYES: No scleral icterus. No injection or drainage. NECK: Supple, trachea midline. No JVD or lymphadenopathy. LYMPHATIC: No adenopathy. CARDIOVASCULAR: Regular rate and rhythm without murmurs. CT in place RESPIRATORY: Breath sounds equal bilaterally anteriorly. No accessory muscle use. GASTROINTESTINAL: Abdomen soft, tender, nondistended. Decreased BS, dressing dry EXTREMITIES: No cyanosis, or edema. SCD MUSCULOSKELETAL: Adequate muscle tone. NEUROLOGICAL: No obvious focal deficit. Awake, alert, and oriented x3. Assessment/Plan Assessment 1. Esophageal cancer. 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 Upper endoscopy showed a 3 cm ulcerated mass involving the lower esophageal sphincter at the GE junction and in the cardia. The mass was partially obstructing when he first presented. He was treated with radiation with concurrent chemotherapy which he completed several weeks ago. PET/CT showed no distant metastasis. He just underwent esophagectomy with a J-tube placement 03/09/2017. Final pathology is still pending. 2. Mid epigastric pain due to his esophageal cancer. He is now status post surgery as above. 3. Nonspecific lung nodule, will need to be monitored. 4. Anemia due to operative blood loss. Hgb stable. Plan PLAN 1. Continue supportive care. 2. Await final pathology. 3. DVT prophylaxis with Lovenox. Sylvester Silver MD Mar 11, 2017 07:45
[2017-03-11] MEDS: MORPHINE SULFATE 30 MG/30 ML PCA IV SCH (08:28)
[2017-03-11] MEDS: SODIUM CHLORIDE 0.9% FLUSH 10 ML FLUSH IV FLUSH SCH ×2 (09:00→20:02)
--- NOTE | 2017-03-11 13:29 | HHI.PR ---
Subjective Subjective Notes Up to chair Mother at bedside No acute events overnight Objective Vitals/I&O Vital Signs Date Time Temp Pulse Resp B/P (MAP) Pulse Ox O2 Delivery O2 Flow Rate FiO2 03/11/17 12:00 100 03/11/17 12:00 98.1 28 121/84 (96) 99 03/11/17 09:23 Nasal Cannula 2.00 Labs Laboratory Tests Test 03/11/17 04:14 White Blood Count 10.3 Red Blood Count 3.29 Hemoglobin 9.7 Hematocrit 29.3 Mean Corpuscular Volume 89.1 Mean Corpuscular Hemoglobin 29.5 Mean Corpuscular Hemoglobin Concent 33.0 Red Cell Distribution Width 18.5 Platelet Count 188 Mean Platelet Volume 7.7 Neutrophils (%) (Auto) 79.4 Lymphocytes (%) (Auto) 6.5 Monocytes (%) (Auto) 13.6 Eosinophils (%) (Auto) 0.1 Basophils (%) (Auto) 0.4 Neutrophils # (Auto) 8.2 Lymphocytes # (Auto) 0.7 Monocytes # (Auto) 1.4 Eosinophils # (Auto) 0.0 Basophils # (Auto) 0.0 CBC Comment DIFF FINAL Differential Comment Blood Urea Nitrogen 6 Creatinine 0.40 Random Glucose 111 Calcium Level 7.7 Sodium Level 141 Potassium Level 3.8 Chloride Level 107 Carbon Dioxide Level 26.1 Anion Gap 8 Estimat Glomerular Filtration Rate 220 Cardiovascular: Regular Lungs: Clear Abdomen: Other (midline incision c/d/i; J tube in place) Extremities: Other (mild generalized edema in BLE ) Narrative Exam RIGHT CT in place to suction A/P Assessment and Plan 61 year old male POD2 robot assisted lap Leroy Sharad esophagectomy -NPO; okay for a ice chips sparingly -Continue IVF -CT to wall suction -Pain control---seems better controlled today -Labs reviewed---stable; will repeat tomorrow -PT/OT -Maintain Morfin -Transfer to 7N today Attending Statement The exam, history, and the medical decision-making described in the above note were completed with the assistance of the mid-level provider. I reviewed and agree with the findings presented. I attest that I had a [id number] encounter with the patient on the same day, and personally performed and documented my assessment and findings in the medical record. OOB, pain better today ok to transfer to floor POONAM morfin tomorrow start TF at 10cc/h Tuesday, go up 10cc/day check upper GI esophagram on Tuesday Jennifer Barreto Mar 11, 2017 13:29 Goldy Espinal MD Mar 11, 2017 14:59
[2017-03-11] MEDS: ENOXAPARIN SODIUM 40 MG/0.4 ML SYRINGE SQ SCH (13:56)
[2017-03-11] MEDS ORDERED: ACETAMINOPHEN 325MG/HYDROcodone 7.5MG/15ML UDC PO PRN (15:45)
[2017-03-11] MEDS: PANTOPRAZOLE SODIUM 40 MG VIAL IV PUSH SCH (19:16)
[2017-03-11] MEDS: HYDROmorphone HCL PF 1 MG/ML VIAL IV PUSH PRN (20:02)
[2017-03-11] MEDS: MORPHINE SULFATE 4 MG/ML INJ IV PUSH PRN (21:20)
[2017-03-12] VITALS (8 sets, daily range): BP systolic 111–151; BP diastolic 73–93; PULSE 101–120; RESP 17–20; TEMP 96.6–98.6; O2SAT 92–98
[2017-03-12] MEDS: HYDROmorphone HCL PF 1 MG/ML VIAL IV PUSH PRN ×5 (00:31→20:15)
[2017-03-12] MEDS: MORPHINE SULFATE 4 MG/ML INJ IV PUSH PRN ×6 (03:49→21:41)
[2017-03-12] MEDS: PCA - TOTAL MG MORPHINE DELIVERED PER SHIFT SCH ×3 (05:16→22:00)
[2017-03-12] MEDS: RESP: ALBUTEROL 2.5 MG/IPRATROPIUM 0.5 MG NEB (SCH) NEB ×4 (05:36→21:41)
[2017-03-12 07:32] LABS: AUTOMATED NEUTROPHIL # 4.4 TH/MM3 (1.8-7.7); BASOPHIL % 0.1 % (0.0-2.0); HEMATOCRIT 24.3 % (39.0-51.0); LYMPH % 6.5 % (9.0-44.0); LYMPHOCYTE # 0.3 TH/MM3 (1.0-4.8); MEAN CELL VOLUME 87.6 FL (80.0-100.0); MEAN CORPUSCULAR HGB CONC 34.2 % (32.0-36.0); MONO % 4.8 % (0.0-8.0); NEUT % 88.6 % (16.0-70.0); PLATELET COUNT 128 TH/MM3 (150-450); RED BLOOD COUNT 2.77 MIL/MM3 (4.50-5.90); RED CELL DISTRIBUTION WIDTH 15.6 % (11.6-17.2)
[2017-03-12 07:42] LABS: BICARBONATE 23.8 MEQ/L (21.0-32.0); POTASSIUM 4.2 MEQ/L (3.5-5.1)
[2017-03-12 07:45] LABS: HEMO FLAGS AUTO DIFF
[2017-03-12] MEDS: SODIUM CHLORIDE 0.9% FLUSH 10 ML FLUSH IV FLUSH SCH ×2 (08:20→20:18)
[2017-03-12] MEDS: D5-NS + KCL 20 MEQ INJ 1,000 ML IV SCH ×2 (08:29→20:14)
[2017-03-12 09:43] LABS: BANDS 18 % (0-6); MYELOCYTES 1 % (0-0); NEUTROPHIL # MANUAL DIFF 4.7 TH/MM3 (1.8-7.7); OVALOCYTES 1+ (NORMAL); PLATELET ESTIMATE SMEAR LOW (NORMAL); PLATELET MORPHOLOGY NORMAL (NORMAL); POLYS (SEG NEUTROPHILS) 75 % (16-70); SCAN/DIFF FINAL DIFF MANUAL; WBC DIFF SAMPLE 100
[2017-03-12] MEDS ORDERED: INFLUENZA VIRUS VACCINE (QUADRIVALENT) 0.5 ML SYR IM ONE (10:00)
[2017-03-12] MEDS ORDERED: PNEUMOCOCCAL POLYVALENT INJ 25 MCG/0.5 ML SYR IM ONE (10:00)
--- NOTE | 2017-03-12 12:07 | HHI.PR ---
Subjective Remarks Patient reports is feeling okay today. Still having pain but pain medication is helping. Objective Vitals Vital Signs Date Time Temp Pulse Resp B/P (MAP) Pulse Ox O2 Delivery O2 Flow Rate FiO2 03/12/17 10:09 93 21 03/12/17 08:00 96.6 102 18 137/87 (104) 98 03/12/17 06:35 20 03/12/17 05:39 98 Nasal Cannula 4.00 03/12/17 04:00 96.6 119 20 151/93 (112) 98 03/12/17 03:59 20 03/12/17 00:00 98.6 107 17 138/91 (107) 96 03/11/17 20:00 99.3 125 18 137/93 (108) 99 03/11/17 16:00 98.2 111 19 141/86 (104) 97 03/11/17 16:00 113 03/11/17 14:00 86 03/11/17 14:00 19 I/O 03/11/17 03/11/17 03/11/17 03/12/17 03/12/17 03/12/17 07:00 15:00 23:00 07:00 15:00 23:00 Intake Total 1519 ml 0 ml 82 ml Output Total 745 ml 400 ml 1475 ml 310 ml Balance 774 ml -400 ml -1393 ml -310 ml Intake Oral 0 ml 0 ml IV Total 1519 ml Tube Feeding 82 ml Output Urine Total 675 ml 400 ml 1475 ml Stool Total 0 ml Gastric Drainage Total 50 ml 200 ml Chest Tube Drainage Total 20 ml 110 ml # Bowel Movements 0 0 Result Diagram: 03/12/17 0603/12/17 0600 Objective Remarks GENERAL: Chronically ill-appearing male CARDIOVASCULAR: Normal rate and regular rhythm without murmurs, gallops, or rubs. RESPIRATORY: Good respiratory efforts. Breath sounds equal and clear to auscultation bilaterally. GASTROINTESTINAL: Abdomen soft, midline dressing intact. Chest tube in place. MUSCULOSKELETAL: Extremities without cyanosis, or edema. NEURO: Alert & Oriented x4 to person, place, time, situation. Moves all ext x4 PSYCH: Appropriate mood and affect. A/P Assessment and Plan 61-year-old male with esophageal poorly differentiated adenocarcinoma admitted with intractable pain. Patient underwent robot-assisted esophagectomy by general surgery. Esophageal cancer, status post esophagectomy. Completed chemotherapy 3 weeks ago - General surgery following. - Chest tube to wall suction. - Continue pain control - Okay for ice chips per general surgery. Intractable pain secondary to esophageal cancer Pain is better controlled. Continue Hycet and Dilaudid as needed. Continue to monitor Severe Protein calorie malnutrition. Continue feeding tube. Plan per general surgery. Appreciate assistance. GERD. Chronic. Continue PPI Hypertension. Patient was previously on metoprolol which was discontinued. Blood pressure acceptable. Continue to monitor. Prophylaxis. SCDs. Anticoagulation when okay by surgery Tasha Jacobs MD Mar 12, 2017 12:07
--- NOTE | 2017-03-12 14:21 | HHI.PR ---
Subjective Subjective Notes DAILY PROGRESS NOTE FOR SURGICAL ATTENDING, DR. ISAIAH NAPOLES at bedside Patient still having some pain but better No other complaints Objective Vitals/I&O Vital Signs Date Time Temp Pulse Resp B/P (MAP) Pulse Ox O2 Delivery O2 Flow Rate FiO2 03/12/17 12:00 97.4 101 18 111/73 (86) 92 03/12/17 10:09 21 Labs Laboratory Tests Test 03/12/17 06:00 White Blood Count 5.0 Red Blood Count 2.77 Hemoglobin 8.3 Hematocrit 24.3 Mean Corpuscular Volume 87.6 Mean Corpuscular Hemoglobin 30.0 Mean Corpuscular Hemoglobin Concent 34.2 Red Cell Distribution Width 15.6 Platelet Count 128 Mean Platelet Volume 7.4 Neutrophils (%) (Auto) 88.6 Lymphocytes (%) (Auto) 6.5 Monocytes (%) (Auto) 4.8 Eosinophils (%) (Auto) 0.0 Basophils (%) (Auto) 0.1 Neutrophils # (Auto) 4.4 Lymphocytes # (Auto) 0.3 Monocytes # (Auto) 0.2 Eosinophils # (Auto) 0.0 Basophils # (Auto) 0.0 CBC Comment AUTO DIFF Differential Total Cells Counted 100 Neutrophils % (Manual) 75 Band Neutrophils % 18 Lymphocytes % 4 Monocytes % 2 Neutrophils # (Manual) 4.7 Myelocytes 1 Differential Comment FINAL DIFF MANUAL Platelet Estimate LOW Platelet Morphology Comment NORMAL Ovalocytes 1+ Blood Urea Nitrogen 12 Creatinine 0.20 Random Glucose 206 Calcium Level 7.7 Sodium Level 135 Potassium Level 4.2 Chloride Level 103 Carbon Dioxide Level 23.8 Anion Gap 8 Estimat Glomerular Filtration Rate 490 Radiology Last Impressions Chest X-Ray 03/09/17 0000 Signed Impressions: Service Date/Time: Tuesday, March 09, 2017 14:49 - CONCLUSION: 1. Free intraperitoneal air beneath the hemidiaphragm. 2. Minimal left basilar atelectasis. 3. Multiple tubes and lines appear to be in good positions. Luisito Norris MD Cardiovascular: Regular Lungs: Other (using incentive spirometer) Abdomen: Non-distended, Other (feeding tube at 10 cc an hour), Post-op tenderness Extremities: Perfused, SCD's on A/P Problem List: (1) Encounter for postoperative follow-up after surgery for malignant neoplasm ICD Codes: Z08 - Encounter for follow-up examination after completed treatment for malignant neoplasm (2) History of esophagectomy ICD Codes: Z90.49 - Acquired absence of other specified parts of digestive tract (3) History of esophageal cancer ICD Codes: Z85.01 - Personal history of malignant neoplasm of esophagus Status: Chronic (4) Post-op pain ICD Codes: G89.18 - Other acute postprocedural pain Assessment and Plan 61 year old male POD2 robot assisted lap Leroy Sharad esophagectomy -NPO; okay for a ice chips sparingly -Continue IVF -CT to wall suction -Pain control---seems better controlled today -PT/OT -Maintain [place] Spoke with and nurse at bedside Patient appears to be in good spirits Tolerating tube feeds at 10 cc an hour the plan is to increase to 20 cc tomorrow Attending Statement NOTE FOR SURGICAL ATTENDING, DR. ISAIAH NAPOLES I attest that I had a [id number] encounter with the patient on the same day, and personally performed and documented my assessment and findings in the medical record. The following services were provided during this hospital visit: Chart data review, vital sign assessments/reviewing monitor data Review of consultations notes if present. Medication orders/review and/or management Ordering and/or reviewing lab tests Ordering and/or interpreting/reviewing x-rays and/or diagnostic studies Care of the patient and discussion of the patient with the care team Documentation time To help prompt me to consider important information that might be impacting today's encounter and assessment, information from prior notes written by myself or my colleagues may have been "brought forward/copy and pasted" into today's note. Isaiah Napoles MD Mar 12, 2017 14:21
[2017-03-12] MEDS: ENOXAPARIN SODIUM 40 MG/0.4 ML SYRINGE SQ SCH (14:28)
[2017-03-12] MEDS: PANTOPRAZOLE SODIUM 40 MG VIAL IV PUSH SCH (18:12)
[2017-03-13] VITALS (9 sets, daily range): BP systolic 113–133; BP diastolic 73–87; PULSE 101–110; RESP 18–19; TEMP 96.2–99.3; O2SAT 90–96
[2017-03-13] MEDS: MORPHINE SULFATE 4 MG/ML INJ IV PUSH PRN ×2 (03:26→08:44)
[2017-03-13] MEDS: RESP: ALBUTEROL 2.5 MG/IPRATROPIUM 0.5 MG NEB (SCH) NEB ×3 (05:01→16:23)
[2017-03-13] MEDS: PCA - TOTAL MG MORPHINE DELIVERED PER SHIFT SCH ×3 (05:37→21:23)
[2017-03-13] MEDS: D5-NS + KCL 20 MEQ INJ 1,000 ML IV SCH ×2 (05:38→17:40)
[2017-03-13] MEDS: HYDROmorphone HCL PF 1 MG/ML VIAL IV PUSH PRN ×3 (05:51→10:03)
[2017-03-13 06:25] LABS: HEMATOCRIT 31.4 % (39.0-51.0); MEAN CORPUSCULAR HEMOGLOBIN 30.3 PG (27.0-34.0); PLATELET COUNT 212 TH/MM3 (150-450); RED BLOOD COUNT 3.53 MIL/MM3 (4.50-5.90); RED CELL DISTRIBUTION WIDTH 17.4 % (11.6-17.2); REVIEW FLAG FINAL; WHITE BLOOD COUNT 8.8 TH/MM3 (4.0-11.0)
[2017-03-13 06:50] LABS: BICARBONATE 24.7 MEQ/L (21.0-32.0); POTASSIUM 3.5 MEQ/L (3.5-5.1)
[2017-03-13] MEDS: SODIUM CHLORIDE 0.9% FLUSH 10 ML FLUSH IV FLUSH SCH ×2 (09:00→21:23)
--- NOTE | 2017-03-13 10:29 | HHI.PR ---
Subjective Subjective Notes reports poor pain control, needs more pain meds, wants cardiac cath technologist back Objective Vitals/I&O Vital Signs Date Time Temp Pulse Resp B/P (MAP) Pulse Ox O2 Delivery O2 Flow Rate FiO2 03/13/17 09:36 95 21 03/13/17 08:00 97.6 102 19 115/77 (90) 03/12/17 10:09 Labs Laboratory Tests Test 03/13/17 05:55 White Blood Count 8.8 Red Blood Count 3.53 Hemoglobin 10.7 Hematocrit 31.4 Mean Corpuscular Volume 89.0 Mean Corpuscular Hemoglobin 30.3 Mean Corpuscular Hemoglobin Concent 34.0 Red Cell Distribution Width 17.4 Platelet Count 212 Mean Platelet Volume 7.7 Blood Urea Nitrogen 4 Creatinine 0.49 Random Glucose 120 Calcium Level 8.1 Sodium Level 138 Potassium Level 3.5 Chloride Level 104 Carbon Dioxide Level 24.7 Anion Gap 9 Estimat Glomerular Filtration Rate 174 Radiology Last Impressions Chest X-Ray 03/09/17 0000 Signed Impressions: Service Date/Time: Thursday, March 09, 2017 14:49 - CONCLUSION: 1. Free intraperitoneal air beneath the hemidiaphragm. 2. Minimal left basilar atelectasis. 3. Multiple tubes and lines appear to be in good positions. Luisito Norris MD Cardiovascular: Regular Lungs: Clear Abdomen: Non-distended Narrative Exam wound clean, yung intact A/P Problem List: (1) Encounter for postoperative follow-up after surgery for malignant neoplasm ICD Codes: Z08 - Encounter for follow-up examination after completed treatment for malignant neoplasm (2) History of esophagectomy ICD Codes: Z90.49 - Acquired absence of other specified parts of digestive tract (3) History of esophageal cancer ICD Codes: Z85.01 - Personal history of malignant neoplasm of esophagus Status: Chronic (4) Post-op pain ICD Codes: G89.18 - Other acute postprocedural pain Assessment and Plan s/p esophagectomy increase pain meds increase TF Ayden Marcum MD Mar 13, 2017 10:29
[2017-03-13] MEDS ORDERED: HYDROmorphone HCL PF 1 MG/ML VIAL IV PUSH PRN (10:45)
[2017-03-13] MEDS ORDERED: MORPHINE SULFATE 4 MG/ML INJ IV PUSH PRN (10:45)
[2017-03-13] MEDS: ENOXAPARIN SODIUM 40 MG/0.4 ML SYRINGE SQ SCH (12:23)
--- NOTE | 2017-03-13 13:59 | HHI.PR ---
Subjective Remarks She reports uncontrolled pain. Appears to be very uncomfortable despite every hour morphine and has been receiving Dilaudid also. Heart rate low 100s. Objective Vitals Vital Signs Date Time Temp Pulse Resp B/P (MAP) Pulse Ox O2 Delivery O2 Flow Rate FiO2 03/13/17 12:00 97.8 101 19 113/73 (86) 93 03/13/17 09:36 95 21 03/13/17 08:00 97.6 102 19 115/77 (90) 94 03/13/17 05:04 96 21 03/13/17 00:52 97.7 110 18 117/79 (92) 95 03/12/17 21:42 21 03/12/17 20:00 97.5 111 18 117/82 (94) 92 03/12/17 16:00 98.1 120 18 125/78 (94) 92 I/O 03/12/17 03/12/17 03/12/17 03/13/17 03/13/17 03/13/17 07:00 15:00 23:00 07:00 15:00 23:00 Intake Total 82 ml 1215 ml 369 ml Output Total 1475 ml 310 ml 1390 ml 660 ml Balance -1393 ml -310 ml -175 ml -291 ml Intake Oral 0 ml 60 ml IV Total 1000 ml 369 ml Tube Feeding 82 ml 155 ml Output Urine Total 1475 ml 1150 ml 500 ml Gastric Drainage Total 200 ml 200 ml 150 ml Chest Tube Drainage Total 110 ml 40 ml 10 ml # Voids 1 # Bowel Movements 0 Result Diagram: 03/13/1755403/13/1755 Objective Remarks GENERAL: Chronically ill-appearing male. He appears uncomfortable. Cannot get into a comfortable position. CARDIOVASCULAR: Rate around 105 and regular rhythm without murmurs, gallops, or rubs. RESPIRATORY: Good respiratory efforts. Breath sounds equal and clear to auscultation bilaterally. GASTROINTESTINAL: Abdomen soft, midline dressing intact. Reports severe deep pain in the mid epigastric region. MUSCULOSKELETAL: Extremities without cyanosis, or edema. NEURO: Alert & Oriented x4 to person, place, time, situation. Moves all ext x4 PSYCH: Appropriate mood and affect. A/P Assessment and Plan 61-year-old male with esophageal poorly differentiated adenocarcinoma admitted with intractable pain. Patient underwent robot-assisted esophagectomy by general surgery. Pain has been very difficult to control. General surgery following. Esophageal cancer, status post esophagectomy. Completed chemotherapy 3 weeks ago - General surgery following. - Chest tube to wall suction. -Pain has been very difficult to control. Not much relief despite every hour morphine and Dilaudid for breakthrough. - We'll transition to morphine INTERACTIVE PRODUCER for now for better pain relief. Plan to reassess tomorrow and wean off as tolerated. - Okay for ice chips per general surgery. Intractable pain secondary to esophageal cancer - Start morphine INTERACTIVE PRODUCER as above. - Continue to monitor Severe Protein calorie malnutrition. Continue feeding tube. Plan per general surgery. Appreciate assistance. GERD. Chronic. Continue PPI Hypertension. Patient was previously on metoprolol which was discontinued. Blood pressure acceptable. Continue to monitor. Prophylaxis. SCDs. Anticoagulation when okay by surgery Tasha Jacobs MD Mar 13, 2017 13:59
[2017-03-13] MEDS ORDERED: NALOXONE HCL 0.4 MG/ML AMP IV PUSH PRN (14:00)
[2017-03-13] MEDS: MORPHINE SULFATE 30 MG/30 ML PCA IV SCH (15:23)
[2017-03-13] MEDS: PANTOPRAZOLE SODIUM 40 MG VIAL IV PUSH SCH (17:39)
[2017-03-14] VITALS (9 sets, daily range): BP systolic 117–137; BP diastolic 70–88; PULSE 89–105; RESP 18–22; TEMP 97.6–99.5; O2SAT 92–95
[2017-03-14] MEDS: D5-NS + KCL 20 MEQ INJ 1,000 ML IV SCH ×2 (04:10→16:16)
[2017-03-14] MEDS: PCA - TOTAL MG MORPHINE DELIVERED PER SHIFT SCH ×3 (06:00→20:02)
[2017-03-14] MEDS: MORPHINE SULFATE 30 MG/30 ML PCA IV SCH ×2 (06:53→21:54)
[2017-03-14 07:10] LABS: MEAN CORPUSCULAR HEMOGLOBIN 30.5 PG (27.0-34.0); MEAN CORPUSCULAR HGB CONC 34.7 % (32.0-36.0); PLATELET COUNT 182 TH/MM3 (150-450); RED BLOOD COUNT 3.18 MIL/MM3 (4.50-5.90); REVIEW FLAG FINAL; WHITE BLOOD COUNT 8.2 TH/MM3 (4.0-11.0)
[2017-03-14 07:38] LABS: BICARBONATE 25.9 MEQ/L (21.0-32.0)
--- NOTE | 2017-03-14 07:49 | PD.ONC.PN ---
Subjective Subjective Remarks Still has pain on SERVICE SUPERINTENDENT. Slightly confused. Objective Data Date Time Temp Pulse Resp B/P (MAP) Pulse Ox O2 Delivery O2 Flow Rate FiO2 03/14/17 06:53 18 03/14/17 04:40 97.8 102 18 137/79 (98) 94 03/14/17 00:00 98.3 105 18 117/70 (86) 94 03/13/17 21:45 94 03/13/17 21:23 18 03/13/17 21:17 18 03/13/17 20:00 99.3 105 18 115/79 (91) 92 03/13/17 16:00 96.2 107 19 133/87 (102) 90 03/13/17 15:23 17 03/13/17 12:00 97.8 101 19 113/73 (86) 93 03/13/17 09:36 95 21 03/13/17 08:35 Room Air 03/13/17 08:00 97.6 102 19 115/77 (90) 94 03/14/17 03/14/17 03/14/17 07:00 15:00 23:00 Intake Total 138 ml Output Total 700 ml Balance -562 ml Result Diagram: 03/14/17 0620 03/14/17 0620 Laboratory Results Laboratory Tests Test 03/14/17 06:20 White Blood Count 8.2 TH/MM3 Red Blood Count 3.18 MIL/MM3 Hemoglobin 9.7 GM/DL Hematocrit 28.0 % Mean Corpuscular Volume 88.0 FL Mean Corpuscular Hemoglobin 30.5 PG Mean Corpuscular Hemoglobin Concent 34.7 % Red Cell Distribution Width 17.0 % Platelet Count 182 TH/MM3 Mean Platelet Volume 8.1 FL Blood Urea Nitrogen 2 MG/DL Creatinine 0.42 MG/DL Random Glucose 112 MG/DL Calcium Level 7.6 MG/DL Sodium Level 137 MEQ/L Potassium Level 4.0 MEQ/L Chloride Level 103 MEQ/L Carbon Dioxide Level 25.9 MEQ/L Anion Gap 8 MEQ/L Estimat Glomerular Filtration Rate 208 ML/MIN Administered Medications Medications (Trade) Dose Ordered Sig/[place] Route PRN Reason Start Time Stop Time Status Last Admin Dose Admin Lidocaine HCl (Xylocaine 2% Viscous) 15 ml Q4H PRN SWISH-SWAL SORE THROAT 03/08/17 19:30 03/09/17 01:38 Potassium Chloride/Dextrose/ Sod Cl 1,000 ml @ 85 mls/hr [id number] IV 03/09/17 14:20 03/14/17 04:10 Sodium Chloride (NS Flush) 2 ml BID IV FLUSH 03/09/17 14:30 03/13/17 21:23 Pantoprazole Sodium (Protonix Inj) 40 mg Q24H IV PUSH 03/09/17 17:00 03/13/17 17:39 Enoxaparin Sodium (Lovenox Inj) 40 mg Q24H SQ 03/10/17 14:00 03/13/17 12:23 Morphine Sulfate (Morphine 1 Mg/ ml SERVICE SUPERINTENDENT) 30 mg UNSCH IV 03/13/17 14:00 03/14/17 06:53 SERVICE SUPERINTENDENT Dosage Infused (Pha) 1 Q8HR .XX 03/13/17 14:00 03/13/17 21:23 Objective Remarks GENERAL: Drowsy, slightly confused. SKIN: Warm and dry. HEAD: Normocephalic. EYES: No scleral icterus. No injection or drainage. NECK: Supple, trachea midline. No JVD or lymphadenopathy. LYMPHATIC: No adenopathy. CARDIOVASCULAR: Regular rate and rhythm without murmurs. RESPIRATORY: Breath sounds equal bilaterally. No accessory muscle use. GASTROINTESTINAL: Abdomen soft, tender surgical site, no skin breakdown. EXTREMITIES: No cyanosis, or edema. MUSCULOSKELETAL: Adequate muscle tone. NEUROLOGICAL: No obvious focal deficit. Awake, slightly confused. Assessment/Plan Assessment 1. Esophageal cancer. 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 Upper endoscopy showed a 3 cm ulcerated mass involving the lower esophageal sphincter at the GE junction and in the cardia. The mass was partially obstructing when he first presented. He was treated with radiation with concurrent chemotherapy which he completed several weeks ago. PET/CT showed no distant metastasis. He just underwent esophagectomy with a J-tube placement 03/09/2017. Final pathology showed no residual tumor and perigastric LN were negative for mets disease. 2. Mid epigastric pain due to his esophageal cancer. He is now status post surgery as above. 3. Nonspecific lung nodule, will need to be monitored. 4. Anemia due to operative blood loss. Hgb stable. Plan PLAN 1. Reviewed pathology with pt but he may not comprehend our discussion at this time. 2. Continue supportive care. 3. DVT prophylaxis with Lovenox. Sylvester Silver MD Mar 14, 2017 07:49
[2017-03-14] MEDS: SODIUM CHLORIDE 0.9% FLUSH 10 ML FLUSH IV FLUSH SCH ×2 (09:00→20:02)
--- NOTE | 2017-03-14 11:20 | HHI.PR ---
Subjective Remarks Patient has not been doing incentive spirometry correctly Have reeducated him on the correct way to do it Still has chest tube in place HAs NG tube in place Discussed with patient and RN Still having lots of pain Objective Vitals Vital Signs Date Time Temp Pulse Resp B/P (MAP) Pulse Ox O2 Delivery O2 Flow Rate FiO2 03/14/17 08:00 98.8 100 20 121/82 (95) 92 03/14/17 06:53 18 03/14/17 06:00 18 03/14/17 06:00 8 03/14/17 04:40 97.8 102 18 137/79 (98) 94 03/14/17 00:00 98.3 105 18 117/70 (86) 94 03/13/17 21:45 94 03/13/17 21:23 18 03/13/17 21:17 18 03/13/17 20:00 99.3 105 18 115/79 (91) 92 03/13/17 16:00 96.2 107 19 133/87 (102) 90 03/13/17 15:23 17 03/13/17 12:00 97.8 101 19 113/73 (86) 93 I/O 03/13/17 03/13/17 03/13/17 03/14/17 03/14/17 03/14/17 07:00 15:00 23:00 07:00 15:00 23:00 Intake Total 369 ml 198 ml 900 ml Output Total 660 ml 1105 ml 1390 ml Balance -291 ml -907 ml -490 ml Intake Oral 0 ml IV Total 369 ml 762 ml Tube Feeding 198 ml 138 ml Output Urine Total 500 ml 900 ml 1100 ml Gastric Drainage Total 150 ml 175 ml 200 ml Chest Tube Drainage Total 10 ml 30 ml 90 ml # Voids 1 # Bowel Movements 0 Result Diagram: 03/14/17 0620 03/14/17 0620 Other Results Laboratory Tests Test 03/12/17 06:00 03/13/17 05:55 03/14/17 06:20 White Blood Count 5.0 TH/MM3 8.8 TH/MM3 8.2 TH/MM3 Red Blood Count 2.77 MIL/MM3 3.53 MIL/MM3 3.18 MIL/MM3 Hemoglobin 8.3 GM/DL 10.7 GM/DL 9.7 GM/DL Hematocrit 24.3 % 31.4 % 28.0 % Mean Corpuscular Volume 87.6 FL 89.0 FL 88.0 FL Mean Corpuscular Hemoglobin 30.0 PG 30.3 PG 30.5 PG Mean Corpuscular Hemoglobin Concent 34.2 % 34.0 % 34.7 % Red Cell Distribution Width 15.6 % 17.4 % 17.0 % Platelet Count 128 TH/MM3 212 TH/MM3 182 TH/MM3 Mean Platelet Volume 7.4 FL 7.7 FL 8.1 FL Neutrophils (%) (Auto) 88.6 % Lymphocytes (%) (Auto) 6.5 % Monocytes (%) (Auto) 4.8 % Eosinophils (%) (Auto) 0.0 % Basophils (%) (Auto) 0.1 % Neutrophils # (Auto) 4.4 TH/MM3 Lymphocytes # (Auto) 0.3 TH/MM3 Monocytes # (Auto) 0.2 TH/MM3 Eosinophils # (Auto) 0.0 TH/MM3 Basophils # (Auto) 0.0 TH/MM3 CBC Comment AUTO DIFF Differential Total Cells Counted 100 Neutrophils % (Manual) 75 % Band Neutrophils % 18 % Lymphocytes % 4 % Monocytes % 2 % Neutrophils # (Manual) 4.7 TH/MM3 Myelocytes 1 % Differential Comment FINAL DIFF MANUAL Platelet Estimate LOW Platelet Morphology Comment NORMAL Ovalocytes 1+ Blood Urea Nitrogen 12 MG/DL 4 MG/DL 2 MG/DL Creatinine 0.20 MG/DL 0.49 MG/DL 0.42 MG/DL Random Glucose 206 MG/DL 120 MG/DL 112 MG/DL Calcium Level 7.7 MG/DL 8.1 MG/DL 7.6 MG/DL Sodium Level 135 MEQ/L 138 MEQ/L 137 MEQ/L Potassium Level 4.2 MEQ/L 3.5 MEQ/L 4.0 MEQ/L Chloride Level 103 MEQ/L 104 MEQ/L 103 MEQ/L Carbon Dioxide Level 23.8 MEQ/L 24.7 MEQ/L 25.9 MEQ/L Anion Gap 8 MEQ/L 9 MEQ/L 8 MEQ/L Estimat Glomerular Filtration Rate 490 ML/MIN 174 ML/MIN 208 ML/MIN Imaging Last Impressions Chest X-Ray 03/09/17 0000 Signed Impressions: Service Date/Time: Thursday, March 09, 2017 14:49 - CONCLUSION: 1. Free intraperitoneal air beneath the hemidiaphragm. 2. Minimal left basilar atelectasis. 3. Multiple tubes and lines appear to be in good positions. Luisito Norris MD Objective Remarks GENERAL: Awake alert oriented talkative and cooperative appears to be in some pain SKIN: Warm and dry. HEAD: Atraumatic. Normocephalic. EYES: Pupils equal and round. No scleral icterus. No injection or drainage. extraocular muscles intact ENT: No nasal bleeding or discharge. Mucous membranes pink and moist. NG tube in place NECK: Trachea midline. No JVD. Supple CARDIOVASCULAR: Regular rate and rhythm. S1 and S2 no S3 or S4 RESPIRATORY: No accessory muscle use. Clear to auscultation. Breath sounds equal bilaterally. GASTROINTESTINAL: Abdomen tender nondistended. Hepatic and splenic margins not palpable. Hypoactive bowel sounds midline incision yung in place MUSCULOSKELETAL: Extremities without clubbing, cyanosis, or edema. No obvious deformities. NEUROLOGICAL: Awake and alert. No obvious cranial nerve deficits. Motor grossly within normal limits. 4 out of 5 muscle strength in the arms and legs. Normal speech. PSYCHIATRIC: Appropriate mood and affect; insight and judgment normal. Procedures DATE OF SURGERY 03/09/2017 PREOPERATIVE DIAGNOSIS Distal esophageal adenocarcinoma. POSTOPERATIVE DIAGNOSIS Distal esophageal adenocarcinoma. PROCEDURE 1. Robotic-assisted Viola Sharad esophagectomy. 2. Injection of Botox to pylorus (chemical pyloroplasty) 3. Jejunostomy tube placement. 4. Omental pedicle flap for a gastric conduit. ATTENDING SURGEON Goldy Espinal MD TYPE DISK QUALITY CONTROL SUPERVISOR Chino Callaway MD ANESTHESIA General BLOOD LOSS 300 cc COMPLICATIONS None FINDINGS Intraoperative evaluation with negative proximal and distal margin on Viola Sharad esophagogastrectomy specimen. INDICATIONS FOR PROCEDURE The patient is a 61-year-old male who was recently diagnosed with a distal esophageal adenocarcinoma. Staging scans revealed that this was a stage II-III without any evidence of distant metastasis. The patient was recommended to undergo neoadjuvant chemoradiation per NCCN guidelines. The patient did a complicated course including malnutrition and esophagitis (radiation esophagitis requiring multiple additions, nutrition support and pain management. The patient was admitted to [facility] with recurrent pain and esophagitis. Staging CT PET scan did reveal no evidence of metastatic disease and the patient was medically fit for esophagectomy. The risks, benefits, alternatives were discussed with the patient and his daughter at a previous appointment and they agreed to undergo the procedure. PROCEDURE After informed consent was obtained, the patient was an inpatient at [facility], was brought to the operating room and placed in the supine position and placed under general anesthesia. The patient had a double lumen tube placed. The patient had a regional tap block performed on the abdomen. At this point in time, a time-out was performed. The patient's abdomen was shaved, prepped and draped in a sterile fashion. We entered the abdomen with an upper midline incision from his xiphoid area to the umbilicus with a 10 blade scalpel. Bovie electrocautery dissected into the subcutaneous tissue and opened the fascia through the entire length of the incision. We placed an [place] extra-large wound retractor followed by a Bookwalter retractor to gain better exposure. At this point in time, there was no evidence of metastatic disease. We continued with the dissection. We opened the lesser sac of the gastrocolic ligament. We took down the short gastrics all way to the left bonny using the Enseal device taking great care to preserve the blood flow through our right gastroepiploic artery. He had an excellent pulse and good perfusion through this artery throughout the case. We then extended this proximally and mobilized the hepatic flexure of the colon and kocherized the duodenum. We did perform omentectomy due to the patient's large omentum and due to patient's blood supply for the omentum. This was again done with the Bovie electrocautery, as well as the Enseal, and this was taken from the splenic flexure and passed off for permanent processing. At this point in time, we identify the left gastric artery at its origin. We dissected around this with a right-angle retractor. We placed the vascular load on the echelon GI stapler across this vessel and there was continued pulse and perfusion of our liver and our hepatic artery. We divided this white load on the [place] stapler. We then continued our dissection further past the bonny and into the mediastinum. We dissected all the way approximately between 6 and 8 cm up into the mediastinum and opened the right chest by dividing the parietal pleura. We also injected 100 units of Botox into the pylorus creating effectively a chemical pyloroplasty. At this point in time, we place a Kendall drain at a ring type loop around the esophagus and we went past the specimen up into the right chest. We did take our stomach and create somewhat of a conduit by dividing the incisura up to the fundus creating a wide floppy conduit approximately [address] to the fundus. This was done with a green load on the [place] stapler. The lip at the very tip of the conduit attached to our specimen to facilitate migration into the chest. At this point in time, we then turned our attention towards jejunostomy tube placement. We identified the ligament of Treitz and approximately 40 cm distal to this, we found a loop of jejunum. We placed a 14-Kiswahili jejunostomy tube through a separate incision in the left lateral side of the patient and placed this into the antimesenteric portion of the jejunum. We placed a pursestring 3-0 silk suture around the J tube as it entered the bowel wall and also placed four 3-0 silk Jose sutures up against the abdominal wall. We inserted 2 cc of fluid in the balloon to allow for any occlusion. This was placed as this tube was capped. This was sutured in place to the skin in an anatomic position and we ensured this went distal to the distal jejunum. At this point in time, we turned our attention to closure. We irrigated out the abdomen with one liter of sterile saline. All suctioning was clear. We did have a very tiny capsular tear approximately 3 or 4 mm on the spleen and we did place FloSeal and Surgicel on this for complete hemostasis. There was approximately 20 cc lost from this area and this was easily secured. We closed the midline with a single stitch which was a #1 looped PDS suture. We closed the skin with skin yung. A sterile dressing was applied. At this point in time, the patient was turned to the left decubitus position after we had taken down the sterile drapes. We placed Ioban over the right chest and broke the bed to gain better exposure. After prepping the patient, we then placed sterile drapes. We then placed the patient on single lung ventilation through the left lung only trapping right lung. This gave us excellent oxygenation at 99% of lung ventilation. We entered the chest proximally at the sixth rib at the posterior axillary line with a scalpel and a hemostat spreading down above the inferior rib. We directly placed a robot 10/12 port into the patients under direct visualization. We insufflated the chest to low pressure and had good collapse of our lung and good visualization. We placed a 10/12 robot port in approximately the third space in the right chest near the axillary posterior line. We placed 2 x 8 ports in the seventh to eighth and ninth and tenth rib spaces approximately one-fifth length apart to facilitate robot arm movement. As these were all placed under direct visualization, local anesthetic was used at all these sites. We then docked the SustainX SI robot system without difficulty. We were able to continued our dissection. We used a suction scrap shear operator device in arm three to facilitate lung retraction and to suction and irrigate as needed. We used the fenestrated Bipolar, as well as Bovie electrocautery in the vessel sealer to continue our dissection. I dissected the mediastinum and was able to grasp our Kendall and use this to facilitate an ablation of the esophagus. We clearly got above the area of radiation into normal esophagus well below the azygos vein. We dissected all the way to the thoracic inlet and dividing the azygos vein was unnecessary as this was a very distal tumor and we had several centimeters of normal-appearing esophagus below this. We divided the esophagus with a green load on the robotic stapler and then we were able to pass an Rasta 25 mm anvil transorally into this proximal esophageal blind pouch through a separate esophagotomy incision right at the middle of the staple line. We then cut this suture and again secured the anvil in a normal position in the proximal esophagus. The specimen was removed and electrocautery was used to remove the specimen from our conduit. This left us with a gastrotomy in our conduit which was used for the 25 EEA stapler. We did, of note, de-dock the arm two at the seventh and eighth rib space and make this into a small backs type thoracotomy proximally 5 cm along with a small Finochietto retractor. I did not traumatize or cut any ribs to do this. We were able to bring our specimen and our conduit out through this incision and our margins were negative on intraoperative consultation by pathology. We did place the EEA stapler, did this gastrotomy back into the chest under visualization with the robotic camera and performed an EEA end esophagus to side gastric conduit anastomosis. We had two good doughnuts and the proximal esophageal was sent to have a permanent margin and specimen performed. This laid tension-free without twisting in the chest. We placed an NG tube through this anastomosis into the conduit, placed this to suction. We closed the gastrotomy with the two green loads on the robotic stapler. We did irrigate out the chest and had excellent hemostasis. There were no signs of any complications. There was no electro Bovie injury and again no signs of any leak or ischemia in our conduit or the proximal esophagus. The anastomosis laid just approximately 1 cm below the azygous vein. We turned out attention towards closure. We ensured the lung was not entrapped and slowly reinsufflated this and watched the upper and lower and middle lobes expands well. We did placed a 28 size Kiswahili chest tube through the third port space at the 10-11 rib space and sutured this in place with a silk suture. This was in a posterolateral position. We then thoroughly de-docked the robot and closed all our port sites with 0-PDS and 0 Vicryl sutures followed by 4-0 Monocryl and Steri-Strips at the skin. The NG tube with a bridle was in position. At this point in time, the patient was turned back into a supine position, discontinued from the anesthesia, taken to the PACU in a stable condition. The patient tolerated the procedure well. No apparent complications. The sponge, instrument and needle counts were correct. I was present and scrubbed for the entire procedure or at the robotic console for all portions of this procedure. Dr. Callaway was present and scrubbed for all critical portions of this procedure and his expertise was needed as a second surgeon at the bedside in assisting me as well as assisting me at the bedside while I was on the consult. Medications and IVs Current Medications Sodium Chloride 1,000 ml @ 125 mls/hr Q8H IV Last administered on 03/08/17 19:12; Start 03/08/17 at 19:00; Stop 03/08/17 at 20:09; Status DC Hydromorphone HCl (Dilaudid Pf Inj) 1 mg ONCE ONCE IV PUSH Last administered on 03/08/17 19:13; Start 03/08/17 at 19:00; Stop 03/08/17 at 19:01; Status DC Ondansetron HCl (Zofran Inj) 4 mg ONCE ONCE IV PUSH Last administered on 03/08 19:13; Start 03/08/17 at 19:00; Stop 03/08/17 at 19:01; Status DC Potassium Chloride/Dextrose/ Sod Cl 1,000 ml @ 100 mls/hr Q10H IV ; Start at 20:00; Stop 03/08/17 at 20:09; Status DC Sodium Chloride (NS Flush) 2 ml UNSCH PRN IV FLUSH FLUSH AFTER USING IV ACCESS ; Start 03/08/17 at 19:15; Stop 03/09/17 at 16:00; Status DC Sodium Chloride (NS Flush) 2 ml BID IV FLUSH Last administered on 03/08/17 21 :00; Start 03/08/17 at 21:00; Stop 03/09/17 at 16:00; Status DC Ondansetron HCl (Zofran Inj) 4 mg Q6H PRN IVP NAUSEA OR VOMITING; Start at 19:15; Stop 03/09/17 at 16:00; Status DC Naloxone HCl (Narcan Inj) 0.4 mg UNSCH PRN IV PUSH SEE LABEL COMMENTS; Start 03/08/17 at 19:15; Stop 03/09/17 at 11:20; Status DC Magnesium Hydroxide (Milk Of Magnesia Liq) 30 ml Q12H PRN PO Mild constipation ; Start 03/08/17 at 19:15 Sennosides (Senokot) 17.2 mg Q12H PRN PO Moderate constipation; Start at 19:15 Bisacodyl (Dulcolax Supp) 10 mg DAILY PRN RECTAL SEVERE CONSITIPATION; Start 03/08/17 at 19:15 Lactulose (Lactulose Liq) 30 ml DAILY PRN PO SEVERE CONSITIPATION; Start 03/08 at 19:15 Oxycodone HCl (Roxicodone) 10 mg Q4H PRN PO PAIN SCALE 6 TO 10 Last administered on 03/09/17 03:10; Start 03/08/17 at 19:15; Stop 03/11/17 at 15: 42; Status DC Morphine Sulfate (Morphine Inj) 2 mg Q3H PRN IV PUSH Pain 3-5; if unable to take PO; Start 03/08/17 at 19:15; Stop 03/11/17 at 15:43; Status DC Morphine Sulfate (Morphine Inj) 4 mg Q3H PRN IV PUSH Pain 6-10;if unable to take PO Last administered on 03/09/17 05:12; Start 03/08/17 at 19:15; Stop at 15:43; Status DC Morphine Sulfate (Morphine Inj) 4 mg Q3H PRN IV PUSH BREAKTHROUGH PAIN Last administered on 03/13/17 08:44; Start 03/08/17 at 19:15; Stop 03/13/17 at 10: 32; Status DC Oxycodone HCl (Roxicodone) 5 mg Q4H PRN PO PAIN SCALE 3 TO 5; Start 03/08/17 at 19:15; Stop 03/11/17 at 15:43; Status DC Naloxone HCl (Narcan Inj) 0.4 mg UNSCH PRN IV PUSH SEE LABEL COMMENTS; Start 03/08/17 at 19:15; Stop 03/09/17 at 16:00; Status DC Lidocaine HCl (Xylocaine 2% Viscous) 15 ml Q4H PRN SWISH-SWAL SORE THROAT Last administered on 03/09/17 01:38; Start 03/08/17 at 19:30 Potassium Chloride/Dextrose/ Sod Cl 1,000 ml @ 84 mls/hr [id number] IV Last administered on 03/09/17 01:39; Start 03/08/17 at 21:00; Stop 03/09/17 at 16: 00; Status DC Potassium Chloride 100 ml @ 100 mls/hr Q1H IV Last administered on 03/09/17 03:10; Start 03/08/17 at 21:00; Stop 03/08/17 at 23:59; Status DC Bupivacaine HCl/ Epinephrine Bitart (Sensorcaine-Epi 0.5% 50 ml Inj) 50 ml STK- MED ONCE .ROUTE Last administered on 03/09/17 06:26; Start 03/09/17 at 06:26; Stop 03/09/17 at 06:27; Status DC Cefazolin Sodium/ Dextrose 50 ml @ 100 mls/hr LOTTERY OFFICE MANAGER IV Last administered on 03/09/17 12:10; Start 03/09/17 at 07:15; Stop 03/12/17 at 07:14; Status DC Lactated Ringer's 1,000 ml @ 30 mls/hr Q24H PRN IV SEE LABEL COMMENTS Last administered on 03/09/17 07:10; Start 03/09/17 at 07:15; Stop 03/09/17 at 16:01 ; Status DC Sodium Chloride 500 ml @ 30 mls/hr [id number] PRN IV SEE LABEL COMMENTS; Start at 07:15; Stop 03/09/17 at 16:00; Status DC Metoprolol Tartrate (Lopressor) 25 mg LOTTERY OFFICE MANAGER PRN PO SEE LABEL COMMENTS; Start 03/09/17 at 07:15; Stop 03/12/17 at 07:14; Status DC Povidone Iodine (Betadine 5% Antisepsis Kit) 1 applic LOTTERY OFFICE MANAGER PRN EACH NARE SEE LABEL COMMENTS; Start 03/09/17 at 07:15; Stop 03/12/17 at 07:14; Status DC Chlorhexidine Gluconate (Chlorhexidine 2% Cloth) 3 pack LOTTERY OFFICE MANAGER PRN TOPICAL SEE LABEL COMMENTS; Start 03/09/17 at 07:15; Stop 03/12/17 at 07:14; Status DC Insulin Human Regular (NovoLIN R INJ) See Protocol Table ... LOTTERY OFFICE MANAGER PRN SQ SEE PROTOCOL TABLE; Start 03/09/17 at 07:15; Stop 03/12/17 at 07:14; Status DC Acetaminophen 100 ml @ As Directed STK-MED ONCE IV Last administered on 16:05; Start 03/09/17 at 07:20; Stop 03/09/17 at 07:21; Status DC Albuterol Sulfate (Albuterol Neb) 2.5 mg STK-MED ONCE .ROUTE ; Start 03/09/17 at 07:34; Stop 03/09/17 at 07:35; Status DC Bupivacaine HCl (Marcaine Pf 0.5% Inj) 30 ml STK-MED ONCE .ROUTE ; Start at 07:50; Stop 03/09/17 at 07:51; Status DC Onabotulinumtoxina (Botox Inj) 100 units ONCE ONCE .XX ; Start 03/09/17 at 08: 45; Stop 03/09/17 at 08:46; Status DC Fluconazole/ Sodium Chloride 200 ml @ As Directed STK-MED ONCE .ROUTE Last administered on 03/09/17t 12:11; Start 03/09/17 at 12:03; Stop 03/09/17 at 12:04 ; Status DC Potassium Chloride (KCl) 40 meq ONCE ONCE PO ; Start 03/09/17 at 14:15; Stop 03/09/17 at 14:16; Status DC Potassium Chloride/Dextrose/ Sod Cl 1,000 ml @ 85 mls/hr [id number] IV Last administered on 03/14/17 04:10; Start 03/09/17 at 14:20 Sodium Chloride (NS Flush) 2 ml UNSCH PRN IV FLUSH FLUSH AFTER USING IV ACCESS ; Start 03/09/17 at 14:30 Sodium Chloride (NS Flush) 2 ml BID IV FLUSH Last administered on 03/13/17 21: 23; Start 03/09/17 at 14:30 Ondansetron HCl (Zofran Inj) 4 mg Q6H PRN IV PUSH NAUSEA OR VOMITING; Start at 14:30 Pantoprazole Sodium (Protonix Inj) 40 mg Q24H IV PUSH Last administered on 03/13 17:39; Start 03/09/17 at 17:00 Diphenhydramine HCl (Benadryl Inj) 25 mg Q6H PRN IV PUSH ITCHING; Start at 14:30 Benzocaine (Hurricaine 20% Oral Spr) 1 spray UNSCH X1 PRN MT SEE LABEL COMMENTS ; Start 03/09/17 at 14:30; Stop 03/10/17 at 14:29; Status DC Clindamycin Phosphate 600 mg/ Sodium Chloride 54 ml @ 108 mls/hr Q8H IV Last administered on 03/10/17 11:46; Start 03/09/17 at 20:00; Stop 03/10/17 at 12:29 ; Status DC Miscellaneous Information (Post-op Orders (for Pharmacy)) STAT ONCE XX ; Start 03/09/17 at 14:30; Stop 03/09/17 at 16:08; Status DC Acetaminophen 100 ml @ 400 mls/hr Q6H IV Last administered on 03/11/17 09:36 ; Start 03/09/17 at 16:00; Stop 03/11/17 at 10:14; Status DC Naloxone HCl (Narcan Inj) 0.4 mg UNSCH PRN IV PUSH SEE LABEL COMMENTS; Start 03/09/17 at 14:30; Stop 03/09/17 at 16:00; Status DC Enoxaparin Sodium (Lovenox Inj) 40 mg Q24H SQ Last administered on 03/13/17 12 :23; Start 03/10/17 at 14:00 Naloxone HCl (Narcan Inj) 0.4 mg UNSCH PRN IV PUSH RESPIRATORY RATE LESS THAN 10; Start 03/09/17 at 14:30 Morphine Sulfate (Morphine 1 Mg/ ml OVERLOCK SLEEVE SETTER) 30 mg UNSCH IV Last administered on 08:28; Start 03/09/17 at 14:30; Stop 03/11/17 at 15:38; Status DC OVERLOCK SLEEVE SETTER Dosage Infused (Pha) 1 Q8HR .XX Last administered on 03/11/17 14:00; Start 03/09/17 at 14:30; Stop 03/13/17 at 13:52; Status DC Meperidine HCl (*DEMEROL INJ PERIprocedural ONLY) 25 mg STK-MED ONCE .ROUTE Last administered on 03/09/17 15:17; Start 03/09/17 at 15:17; Stop 03/09/17 at 15:18; Status DC Albuterol/ Ipratropium (Duoneb Neb) 1 ampule Q6HR NEB NEB Last administered on 03/13/17 16:23; Start 03/09/17 at 17:00; Stop 03/13/17 at 16:59; Status DC Miscellaneous Information ALL NURSING DEPARTME... UNSCH PRN .XX SEE LABEL COMMENTS; Start 03/09/17 at 14:45; Stop 03/10/17 at 14:44; Status DC Ketorolac Tromethamine (Toradol Inj) 30 mg ONCE ONCE IV PUSH Last administered on 03/10/17 14:40; Start 03/10/17 at 14:30; Stop 03/10/17 at 14:32 ; Status DC Acetaminophen/ Hydrocodone Bitart (Hycet 325-7.5 Mg Liq) 15 ml Q4H PRN PO pain 1-5 ; Start 03/11/17 at 15:45; Stop 03/13/17 at 13:52; Status DC Hydromorphone HCl (Dilaudid Pf Inj) 1 mg Q4H PRN IV PUSH pain 6-10 Last administered on 03/13/17 10:03; Start 03/11/17 at 15:45; Stop 03/13/17 at 10:32 ; Status DC Pneumococcal Polyvalent Vaccine (Pneumovax-23 Inj) 25 mcg ONCE ONCE IM ; Start 03/12/17 at 10:00; Stop 03/12/17 at 10:01; Status DC Influenza Virus Vaccine (Flu (Quadrivalent) Vaccine Inj) 0.5 ml ONCE ONCE IM ; Start 03/12/17 at 10:00; Stop 03/12/17 at 10:01; Status DC Hydromorphone HCl (Dilaudid Pf Inj) 1 mg UNSCH PRN IV PUSH pain 6-10 Last administered on 03/13/17 12:23; Start 03/13/17 at 10:45; Stop 03/13/17 at 13:52 ; Status DC Morphine Sulfate (Morphine Inj) 4 mg UNSCH PRN IV PUSH BREAKTHROUGH PAIN; Start 03/13/17 at 10:45; Stop 03/13/17 at 13:52; Status DC Naloxone HCl (Narcan Inj) 0.4 mg UNSCH PRN IV PUSH RESPIRATORY RATE LESS THAN 10; Start 03/13/17 at 14:00 Morphine Sulfate (Morphine 1 Mg/ ml OVERLOCK SLEEVE SETTER) 30 mg UNSCH IV Last administered on 06:53; Start 03/13/17 at 14:00 OVERLOCK SLEEVE SETTER Dosage Infused (Pha) 1 Q8HR .XX Last administered on 03/14/17 06:00; Start 03/13/17 at 14:00 A/P Assessment and Plan 61-year-old male with esophageal poorly differentiated adenocarcinoma admitted with intractable pain. Patient underwent robot-assisted esophagectomy by general surgery. Pain has been very difficult to control. General surgery following. Esophageal cancer, status post esophagectomy. Completed chemotherapy 3 weeks ago - General surgery following. - Chest tube to wall suction. -Pain has been very difficult to control. Not much relief despite every hour morphine and Dilaudid for breakthrough. - We'll transition to morphine OVERLOCK SLEEVE SETTER for now for better pain relief. Plan to reassess tomorrow and wean off as tolerated. - Okay for ice chips per general surgery. Intractable pain secondary to esophageal cancer - Start morphine OVERLOCK SLEEVE SETTER as above. - Continue to monitor Severe Protein calorie malnutrition. Continue feeding tube. Plan per general surgery. Appreciate assistance. GERD. Chronic. Continue PPI Hypertension. Patient was previously on metoprolol which was discontinued. Blood pressure acceptable. Continue to monitor. Prophylaxis. SCDs. Anticoagulation when okay by surgery Discharge Planning Pain control Martín Manning DO Mar 14, 2017 11:20
--- NOTE | 2017-03-14 12:41 | HHI.PR ---
Subjective Subjective Notes Reports had a rough day yesterday but better today Nervous about getting esophagram Mother at bedside Objective Vitals/I&O Vital Signs Date Time Temp Pulse Resp B/P (MAP) Pulse Ox O2 Delivery O2 Flow Rate FiO2 03/14/17 11:44 94 21 03/14/17 08:00 98.8 100 20 121/82 (95) 03/13/17 08:35 Room Air 03/12/17 10:09 Labs Laboratory Tests Test 03/14/17 06:20 White Blood Count 8.2 Red Blood Count 3.18 Hemoglobin 9.7 Hematocrit 28.0 Mean Corpuscular Volume 88.0 Mean Corpuscular Hemoglobin 30.5 Mean Corpuscular Hemoglobin Concent 34.7 Red Cell Distribution Width 17.0 Platelet Count 182 Mean Platelet Volume 8.1 Blood Urea Nitrogen 2 Creatinine 0.42 Random Glucose 112 Calcium Level 7.6 Sodium Level 137 Potassium Level 4.0 Chloride Level 103 Carbon Dioxide Level 25.9 Anion Gap 8 Estimat Glomerular Filtration Rate 208 Radiology Last Impressions Chest X-Ray 03/09/17 0000 Signed Impressions: Service Date/Time: Thursday, March 09, 2017 14:49 - CONCLUSION: 1. Free intraperitoneal air beneath the hemidiaphragm. 2. Minimal left basilar atelectasis. 3. Multiple tubes and lines appear to be in good positions. Luisito Norris MD Cardiovascular: Regular Lungs: Clear Abdomen: Other (incision c/d/i; abdomen soft non tender; J tube without complications ) Extremities: No edema Narrative Exam RIGHT CT in place to water seal A/P Problem List: (1) Encounter for postoperative follow-up after surgery for malignant neoplasm ICD Codes: Z08 - Encounter for follow-up examination after completed treatment for malignant neoplasm (2) History of esophagectomy ICD Codes: Z90.49 - Acquired absence of other specified parts of digestive tract (3) History of esophageal cancer ICD Codes: Z85.01 - Personal history of malignant neoplasm of esophagus Status: Chronic (4) Post-op pain ICD Codes: G89.18 - Other acute postprocedural pain Assessment and Plan 61 year old male POD5 robot assisted lap Leroy Sharad esophagectomy -Esophagram planned for today -NPO; okay for a ice chips sparingly -Continue IVF -CT to water seal -Pain control -PT/OT -Discussed plan with Mr. Bingham and mother Attending Statement The exam, history, and the medical decision-making described in the above note were completed with the assistance of the mid-level provider. I reviewed and agree with the findings presented. I attest that I had a [id number] encounter with the patient on the same day, and personally performed and documented my assessment and findings in the medical record. Abdominal exam: wound clean, intact dressings, postoperative tenderness minimal overall looks good, continue pain control, pulmonary toilet Jennifer Barreto Mar 14, 2017 12:41 Goldy Espinal MD Mar 17, 2017 21:35
[2017-03-14] MEDS ORDERED: DIATRIZOATE MEGLUM/DIATRIZOATE SOD 120 ML BTL (for RAD DIAG) PO ONE (12:56)
--- NOTE | 2017-03-14 15:16 | RADRPT ---
EXAM DATE/TIME: 03/14/2017 12:56 [facility] COMPARISON: No previous studies available for comparison. INDICATIONS : Post Gridley Sharad esophagectomy on March 09 2017. FLUORO TIME: 2.7 minutes IMAGE COUNT: 21 CONTRAST: 1. Gastrografin (Diatrizoate Meglumine and Diatrizoate Sodium) MEDICAL HISTORY : Hypertension. SURGICAL HISTORY : Gridley Sharad esophagectomy. Infusaport. ENCOUNTER: Initial ACUITY: 4 - 6 days PAIN SCORE: 0/10 LOCATION: Esophagus. FINDINGS: Nasogastric tube is across the anastomosis. There is no leak. There is limited emptying of the stom ach in the right upright position. This could be further quantitated the radioisotope emptying study through the nasogastric tube. CONCLUSION: Negative for leak. Nasogastric tube across the anastomosis. Martín Hardy MD FACR on March 14, 2017 at 15:12 Board Certified Radiologist. This report was verified electronically.
[2017-03-14] MEDS: PANTOPRAZOLE SODIUM 40 MG VIAL IV PUSH SCH (16:15)
[2017-03-14] MEDS: ENOXAPARIN SODIUM 40 MG/0.4 ML SYRINGE SQ SCH (16:15)
[2017-03-15] VITALS (8 sets, daily range): BP systolic 109–125; BP diastolic 70–85; PULSE 85–105; RESP 15–22; TEMP 97.5–98.4; O2SAT 93–99
[2017-03-15] MEDS: D5-NS + KCL 20 MEQ INJ 1,000 ML IV SCH ×2 (04:00→15:35)
[2017-03-15] MEDS: PCA - TOTAL MG MORPHINE DELIVERED PER SHIFT SCH ×3 (06:00→20:08)
[2017-03-15 06:18] LABS: AUTOMATED NEUTROPHIL # 4.1 TH/MM3 (1.8-7.7); BASOPHIL % 0.6 % (0.0-2.0); EOSINOPHIL # 0.1 TH/MM3 (0-0.4); EOSINOPHIL % 2.2 % (0.0-4.0); HEMATOCRIT 25.9 % (39.0-51.0); HEMO FLAGS DIFF FINAL; LYMPH % 12.1 % (9.0-44.0); LYMPHOCYTE # 0.7 TH/MM3 (1.0-4.8); MEAN CELL VOLUME 87.3 FL (80.0-100.0); MEAN CORPUSCULAR HEMOGLOBIN 30.5 PG (27.0-34.0); MONO % 16.6 % (0.0-8.0); NEUT % 68.5 % (16.0-70.0); PLATELET COUNT 164 TH/MM3 (150-450); RED BLOOD COUNT 2.97 MIL/MM3 (4.50-5.90); RED CELL DISTRIBUTION WIDTH 16.7 % (11.6-17.2); WHITE BLOOD COUNT 5.9 TH/MM3 (4.0-11.0)
[2017-03-15 06:41] LABS: ANION GAP 8 MEQ/L (5-15); AST (GOT) 17 U/L (15-37); BICARBONATE 25.6 MEQ/L (21.0-32.0); BLOOD UREA NITROGEN 4 MG/DL (7-18); CHLORIDE 103 MEQ/L (98-107); GLOMERULAR FILTRATION RATE 234 ML/MIN (>89); MAGNESIUM 1.4 MG/DL (1.5-2.5); POTASSIUM 3.6 MEQ/L (3.5-5.1); SODIUM (NA) 137 MEQ/L (136-145)
[2017-03-15 06:50] LABS: ALKALINE PHOSPHATASE 89 U/L (45-117); ALT (GPT) 15 U/L (12-78); FREE T4 1.22 NG/DL (0.76-1.46); TOTAL BILIRUBIN ADULT 0.5 MG/DL (0.2-1.0)
--- NOTE | 2017-03-15 07:50 | PD.ONC.PN ---
Subjective Subjective Remarks Feeling better. NGT d/c'd. No N/V. Pain better controlled. Yung to sit in chair yesterday. Objective Data Date Time Temp Pulse Resp B/P (MAP) Pulse Ox O2 Delivery O2 Flow Rate FiO2 03/15/17 06:00 20 03/15/17 00:00 97.9 105 22 125/85 (98) 99 03/14/17 22:20 20 03/14/17 21:54 18 03/14/17 20:02 20 03/14/17 20:00 20 03/14/17 20:00 99.5 103 22 128/78 (95) 95 03/14/17 20:00 Room Air 03/14/17 16:00 98.8 98 18 127/82 (97) 93 03/14/17 14:00 18 03/14/17 14:00 18 03/14/17 12:00 97.6 89 18 118/88 (98) 94 03/14/17 11:44 94 21 03/14/17 08:00 98.8 100 20 121/82 (95) 92 03/14/17 08:00 Room Air 03/15/17 03/15/17 03/15/17 07:00 15:00 23:00 Intake Total 0 ml Output Total 30 ml Balance -30 ml Result Diagram: 03/15/17 0545 03/15/17 0545 Laboratory Results Laboratory Tests Test 03/15/17 05:45 White Blood Count 5.9 TH/MM3 Red Blood Count 2.97 MIL/MM3 Hemoglobin 9.1 GM/DL Hematocrit 25.9 % Mean Corpuscular Volume 87.3 FL Mean Corpuscular Hemoglobin 30.5 PG Mean Corpuscular Hemoglobin Concent 35.0 % Red Cell Distribution Width 16.7 % Platelet Count 164 TH/MM3 Mean Platelet Volume 7.7 FL Neutrophils (%) (Auto) 68.5 % Lymphocytes (%) (Auto) 12.1 % Monocytes (%) (Auto) 16.6 % Eosinophils (%) (Auto) 2.2 % Basophils (%) (Auto) 0.6 % Neutrophils # (Auto) 4.1 TH/MM3 Lymphocytes # (Auto) 0.7 TH/MM3 Monocytes # (Auto) 1.0 TH/MM3 Eosinophils # (Auto) 0.1 TH/MM3 Basophils # (Auto) 0.0 TH/MM3 CBC Comment DIFF FINAL Differential Comment Blood Urea Nitrogen 4 MG/DL Creatinine 0.38 MG/DL Random Glucose 91 MG/DL Total Protein 5.6 GM/DL Albumin 1.9 GM/DL Calcium Level 7.7 MG/DL Phosphorus Level 3.9 MG/DL Magnesium Level 1.4 MG/DL Alkaline Phosphatase 89 U/L Aspartate Amino Transf (AST/SGOT) 17 U/L Alanine Aminotransferase (ALT/SGPT) 15 U/L Total Bilirubin 0.5 MG/DL Sodium Level 137 MEQ/L Potassium Level 3.6 MEQ/L Chloride Level 103 MEQ/L Carbon Dioxide Level 25.6 MEQ/L Anion Gap 8 MEQ/L Estimat Glomerular Filtration Rate 234 ML/MIN Free Thyroxine 1.22 NG/DL Thyroid Stimulating Hormone 3rd Gen 1.730 uIU/ML Administered Medications Medications (Trade) Dose Ordered Sig/[place] Route PRN Reason Start Time Stop Time Status Last Admin Dose Admin Lidocaine HCl (Xylocaine 2% Viscous) 15 ml Q4H PRN SWISH-SWAL SORE THROAT 03/08/17 19:30 03/09/17 01:38 Potassium Chloride/Dextrose/ Sod Cl 1,000 ml @ 85 mls/hr [id number] IV 03/09/17 14:20 03/15/17 04:00 Sodium Chloride (NS Flush) 2 ml BID IV FLUSH 03/09/17 14:30 03/14/17 20:02 Pantoprazole Sodium (Protonix Inj) 40 mg Q24H IV PUSH 03/09/17 17:00 03/14/17 16:15 Enoxaparin Sodium (Lovenox Inj) 40 mg Q24H SQ 03/10/17 14:00 03/14/17 16:15 Morphine Sulfate (Morphine 1 Mg/ ml [employer] SUPER[employer]OR) 30 mg UNSCH IV 03/13/17 14:00 03/14/17 21:54 [employer] SUPER[employer]OR Dosage Infused (Pha) 1 Q8HR .XX 03/13/17 14:00 03/15/17 06:00 Objective Remarks GENERAL: Well-nourished, well-developed patient. Stronger SKIN: Warm and dry. HEAD: Normocephalic. EYES: No scleral icterus. No injection or drainage. NECK: Supple, trachea midline. No JVD or lymphadenopathy. LYMPHATIC: No adenopathy. CARDIOVASCULAR: Regular rate and rhythm without murmurs. RESPIRATORY: Breath sounds equal bilaterally. No accessory muscle use. GASTROINTESTINAL: Abdomen soft, less tender, nondistended. J-tube noted. EXTREMITIES: No cyanosis, or edema. MUSCULOSKELETAL: Adequate muscle tone. NEUROLOGICAL: No obvious focal deficit. Awake, alert, and oriented x3. PSYCHIATRIC: Appropriate mood and affect; insight and judgment normal. Assessment/Plan Assessment 1. Esophageal cancer. 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 Upper endoscopy showed a 3 cm ulcerated mass involving the lower esophageal sphincter at the GE junction and in the cardia. The mass was partially obstructing when he first presented. He was treated with radiation with concurrent chemotherapy which he completed several weeks ago. PET/CT showed no distant metastasis. He just underwent esophagectomy with a J-tube placement 03/09/2017. Final pathology showed no residual tumor and perigastric LN were negative for mets disease. He had achieved remission with neoadjuvant therapy. 2. Mid epigastric pain due to his esophageal cancer. He is now status post surgery as above. 3. Nonspecific lung nodule, will need to be monitored. 4. Anemia due to operative blood loss. Hgb stable. Plan PLAN 1. Reviewed pathology with pt. 2. Continue supportive care. 3. DVT prophylaxis with Lovenox. Sylvester Silver MD Mar 15, 2017 07:50
[2017-03-15] MEDS: SODIUM CHLORIDE 0.9% FLUSH 10 ML FLUSH IV FLUSH SCH ×2 (09:00→20:06)
--- NOTE | 2017-03-15 12:18 | HHI.PR ---
Subjective Remarks Patient has not been doing incentive spirometry correctly Have reeducated him on the correct way to do it Still has chest tube in place HAs NG tube in place Discussed with patient and RN Still having lots of pain 11-7 LESS ABDOMINAL PAIN CHEST TUBE STILL IN PLACE NGT REMOVED TOLERATING TUBE FEEDS SOME CONFUSION PROBABLY DUE TO PAIN MEDICATIONS DW RN AND PT AND FAMILY AND CM Objective Vitals Vital Signs Date Time Temp Pulse Resp B/P (MAP) Pulse Ox O2 Delivery O2 Flow Rate FiO2 03/15/17 12:00 97.7 93 17 115/73 (87) 93 03/15/17 08:00 97.5 89 15 109/70 (83) 94 03/15/17 06:00 20 03/15/17 00:00 97.9 105 22 125/85 (98) 99 03/14/17 22:20 20 03/14/17 21:54 18 03/14/17 20:02 20 03/14/17 20:00 20 03/14/17 20:00 99.5 103 22 128/78 (95) 95 03/14/17 20:00 Room Air 03/14/17 16:00 98.8 98 18 127/82 (97) 93 03/14/17 14:00 18 03/14/17 14:00 18 I/O 03/14/17 03/14/17 03/14/17 03/15/17 03/15/17 03/15/17 07:00 15:00 23:00 07:00 15:00 23:00 Intake Total 900 ml 257 ml 0 ml Output Total 1390 ml 975 ml 30 ml Balance -490 ml -718 ml -30 ml Intake Oral 60 ml 0 ml IV Total 762 ml Tube Feeding 138 ml 167 ml Tube Irrigant 30 ml Output Urine Total 1100 ml 800 ml Gastric Drainage Total 200 ml 100 ml Chest Tube Drainage Total 90 ml 75 ml 30 ml # Voids 1 # Bowel Movements 0 0 Result Diagram: 03/15/17 0545 03/15/17 0545 Other Results Laboratory Tests Test 03/13/17 05:55 03/14/17 06:20 03/15/17 05:45 White Blood Count 8.8 TH/MM3 8.2 TH/MM3 5.9 TH/MM3 Red Blood Count 3.53 MIL/MM3 3.18 MIL/MM3 2.97 MIL/MM3 Hemoglobin 10.7 GM/DL 9.7 GM/DL 9.1 GM/DL Hematocrit 31.4 % 28.0 % 25.9 % Mean Corpuscular Volume 89.0 FL 88.0 FL 87.3 FL Mean Corpuscular Hemoglobin 30.3 PG 30.5 PG 30.5 PG Mean Corpuscular Hemoglobin Concent 34.0 % 34.7 % 35.0 % Red Cell Distribution Width 17.4 % 17.0 % 16.7 % Platelet Count 212 TH/MM3 182 TH/MM3 164 TH/MM3 Mean Platelet Volume 7.7 FL 8.1 FL 7.7 FL Blood Urea Nitrogen 4 MG/DL 2 MG/DL 4 MG/DL Creatinine 0.49 MG/DL 0.42 MG/DL 0.38 MG/DL Random Glucose 120 MG/DL 112 MG/DL 91 MG/DL Calcium Level 8.1 MG/DL 7.6 MG/DL 7.7 MG/DL Sodium Level 138 MEQ/L 137 MEQ/L 137 MEQ/L Potassium Level 3.5 MEQ/L 4.0 MEQ/L 3.6 MEQ/L Chloride Level 104 MEQ/L 103 MEQ/L 103 MEQ/L Carbon Dioxide Level 24.7 MEQ/L 25.9 MEQ/L 25.6 MEQ/L Anion Gap 9 MEQ/L 8 MEQ/L 8 MEQ/L Estimat Glomerular Filtration Rate 174 ML/MIN 208 ML/MIN 234 ML/MIN Neutrophils (%) (Auto) 68.5 % Lymphocytes (%) (Auto) 12.1 % Monocytes (%) (Auto) 16.6 % Eosinophils (%) (Auto) 2.2 % Basophils (%) (Auto) 0.6 % Neutrophils # (Auto) 4.1 TH/MM3 Lymphocytes # (Auto) 0.7 TH/MM3 Monocytes # (Auto) 1.0 TH/MM3 Eosinophils # (Auto) 0.1 TH/MM3 Basophils # (Auto) 0.0 TH/MM3 CBC Comment DIFF FINAL Differential Comment Total Protein 5.6 GM/DL Albumin 1.9 GM/DL Phosphorus Level 3.9 MG/DL Magnesium Level 1.4 MG/DL Alkaline Phosphatase 89 U/L Aspartate Amino Transf (AST/SGOT) 17 U/L Alanine Aminotransferase (ALT/SGPT) 15 U/L Total Bilirubin 0.5 MG/DL Free Thyroxine 1.22 NG/DL Thyroid Stimulating Hormone 3rd Gen 1.730 uIU/ML Imaging Last Impressions Esophagus X-Ray 03/14/17 0000 Signed Impressions: Service Date/Time: Tuesday, March 14, 2017 12:56 - CONCLUSION: Negative for leak. Nasogastric tube across the anastomosis. Martín Hardy MD FACR Chest X-Ray 03/09/17 0000 Signed Impressions: Service Date/Time: Thursday, March 09, 2017 14:49 - CONCLUSION: 1. Free intraperitoneal air beneath the hemidiaphragm. 2. Minimal left basilar atelectasis. 3. Multiple tubes and lines appear to be in good positions. Luisito Norris MD Objective Remarks GENERAL: Awake alert oriented talkative and cooperative appears to be in some pain SKIN: Warm and dry. HEAD: Atraumatic. Normocephalic. EYES: Pupils equal and round. No scleral icterus. No injection or drainage. extraocular muscles intact ENT: No nasal bleeding or discharge. Mucous membranes pink and moist. NG tube in place NECK: Trachea midline. No JVD. Supple CARDIOVASCULAR: Regular rate and rhythm. S1 and S2 no S3 or S4 RESPIRATORY: No accessory muscle use. Clear to auscultation. Breath sounds equal bilaterally. GASTROINTESTINAL: Abdomen tender nondistended. Hepatic and splenic margins not palpable. Hypoactive bowel sounds midline incision yung in place MUSCULOSKELETAL: Extremities without clubbing, cyanosis, or edema. No obvious deformities. NEUROLOGICAL: Awake and alert. No obvious cranial nerve deficits. Motor grossly within normal limits. 4 out of 5 muscle strength in the arms and legs. Normal speech. PSYCHIATRIC: INAppropriate mood and affect; insight and judgment ABnormal. SOME CONFUSION Procedures DATE OF SURGERY 03/09/2017 PREOPERATIVE DIAGNOSIS Distal esophageal adenocarcinoma. POSTOPERATIVE DIAGNOSIS Distal esophageal adenocarcinoma. PROCEDURE 1. Robotic-assisted Leroy Sharad esophagectomy. 2. Injection of Botox to pylorus (chemical pyloroplasty) 3. Jejunostomy tube placement. 4. Omental pedicle flap for a gastric conduit. ATTENDING SURGEON Goldy Espinal MD JOB DEVELOPMENT SPECIALIST Chino Callaway MD ANESTHESIA General BLOOD LOSS 300 cc COMPLICATIONS None FINDINGS Intraoperative evaluation with negative proximal and distal margin on Leroy Sharad esophagogastrectomy specimen. INDICATIONS FOR PROCEDURE The patient is a 61-year-old male who was recently diagnosed with a distal esophageal adenocarcinoma. Staging scans revealed that this was a stage II-III without any evidence of distant metastasis. The patient was recommended to undergo neoadjuvant chemoradiation per NCCN guidelines. The patient did a complicated course including malnutrition and esophagitis (radiation esophagitis requiring multiple additions, nutrition support and pain management. The patient was admitted to [facility] with recurrent pain and esophagitis. Staging CT PET scan did reveal no evidence of metastatic disease and the patient was medically fit for esophagectomy. The risks, benefits, alternatives were discussed with the patient and his daughter at a previous appointment and they agreed to undergo the procedure. PROCEDURE After informed consent was obtained, the patient was an inpatient at [facility], was brought to the operating room and placed in the supine position and placed under general anesthesia. The patient had a double lumen tube placed. The patient had a regional tap block performed on the abdomen. At this point in time, a time-out was performed. The patient's abdomen was shaved, prepped and draped in a sterile fashion. We entered the abdomen with an upper midline incision from his xiphoid area to the umbilicus with a 10 blade scalpel. Bovie electrocautery dissected into the subcutaneous tissue and opened the fascia through the entire length of the incision. We placed an [place] extra-large wound retractor followed by a [place] retractor to gain better exposure. At this point in time, there was no evidence of metastatic disease. We continued with the dissection. We opened the lesser sac of the gastrocolic ligament. We took down the short gastrics all way to the left bonny using the Enseal device taking great care to preserve the blood flow through our right gastroepiploic artery. He had an excellent pulse and good perfusion through this artery throughout the case. We then extended this proximally and mobilized the hepatic flexure of the colon and kocherized the duodenum. We did perform omentectomy due to the patient's large omentum and due to patient's blood supply for the omentum. This was again done with the Bovie electrocautery, as well as the Enseal, and this was taken from the splenic flexure and passed off for permanent processing. At this point in time, we identify the left gastric artery at its origin. We dissected around this with a right-angle retractor. We placed the vascular load on the echelon GI stapler across this vessel and there was continued pulse and perfusion of our liver and our hepatic artery. We divided this white load on the [place] stapler. We then continued our dissection further past the bonny and into the mediastinum. We dissected all the way approximately between 6 and 8 cm up into the mediastinum and opened the right chest by dividing the parietal pleura. We also injected 100 units of Botox into the pylorus creating effectively a chemical pyloroplasty. At this point in time, we place a Mick drain at a ring type loop around the esophagus and we went past the specimen up into the right chest. We did take our stomach and create somewhat of a conduit by dividing the incisura up to the fundus creating a wide floppy conduit approximately [address] to the fundus. This was done with a green load on the [place] stapler. The lip at the very tip of the conduit attached to our specimen to facilitate migration into the chest. At this point in time, we then turned our attention towards jejunostomy tube placement. We identified the ligament of Treitz and approximately 40 cm distal to this, we found a loop of jejunum. We placed a 14-Bur[place]ian jejunostomy tube through a separate incision in the left lateral side of the patient and placed this into the antimesenteric portion of the jejunum. We placed a pursestring 3-0 silk suture around the J tube as it entered the bowel wall and also placed four 3-0 silk Jose sutures up against the abdominal wall. We inserted 2 cc of fluid in the balloon to allow for any occlusion. This was placed as this tube was capped. This was sutured in place to the skin in an anatomic position and we ensured this went distal to the distal jejunum. At this point in time, we turned our attention to closure. We irrigated out the abdomen with one liter of sterile saline. All suctioning was clear. We did have a very tiny capsular tear approximately 3 or 4 mm on the spleen and we did place FloSeal and Surgicel on this for complete hemostasis. There was approximately 20 cc lost from this area and this was easily secured. We closed the midline with a single stitch which was a #1 looped PDS suture. We closed the skin with skin yung. A sterile dressing was applied. At this point in time, the patient was turned to the left decubitus position after we had taken down the sterile drapes. We placed Ioban over the right chest and broke the bed to gain better exposure. After prepping the patient, we then placed sterile drapes. We then placed the patient on single lung ventilation through the left lung only trapping right lung. This gave us excellent oxygenation at 99% of lung ventilation. We entered the chest proximally at the sixth rib at the posterior axillary line with a scalpel and a hemostat spreading down above the inferior rib. We directly placed a robot 10/12 port into the patients under direct visualization. We insufflated the chest to low pressure and had good collapse of our lung and good visualization. We placed a 10/12 robot port in approximately the third space in the right chest near the axillary posterior line. We placed 2 x 8 ports in the seventh to eighth and ninth and tenth rib spaces approximately one-fifth length apart to facilitate robot arm movement. As these were all placed under direct visualization, local anesthetic was used at all these sites. We then docked the [employer] robot system without difficulty. We were able to continued our dissection. We used a suction tax intern device in arm three to facilitate lung retraction and to suction and irrigate as needed. We used the fenestrated Bipolar, as well as Bovie electrocautery in the vessel sealer to continue our dissection. I dissected the mediastinum and was able to grasp our [place] and use this to facilitate an ablation of the esophagus. We clearly got above the area of radiation into normal esophagus well below the azygos vein. We dissected all the way to the thoracic inlet and dividing the azygos vein was unnecessary as this was a very distal tumor and we had several centimeters of normal-appearing esophagus below this. We divided the esophagus with a green load on the robotic stapler and then we were able to pass an Rasta 25 mm anvil transorally into this proximal esophageal blind pouch through a separate esophagotomy incision right at the middle of the staple line. We then cut this suture and again secured the anvil in a normal position in the proximal esophagus. The specimen was removed and electrocautery was used to remove the specimen from our conduit. This left us with a gastrotomy in our conduit which was used for the 25 EEA stapler. We did, of note, de-dock the arm two at the seventh and eighth rib space and make this into a small backs type thoracotomy proximally 5 cm along with a small F[place]chietto retractor. I did not traumatize or cut any ribs to do this. We were able to bring our specimen and our conduit out through this incision and our margins were negative on intraoperative consultation by pathology. We did place the EEA stapler, did this gastrotomy back into the chest under visualization with the robotic camera and performed an EEA end esophagus to side gastric conduit anastomosis. We had two good doughnuts and the proximal esophageal was sent to have a permanent margin and specimen performed. This laid tension-free without twisting in the chest. We placed an NG tube through this anastomosis into the conduit, placed this to suction. We closed the gastrotomy with the two green loads on the robotic stapler. We did irrigate out the chest and had excellent hemostasis. There were no signs of any complications. There was no electro Bovie injury and again no signs of any leak or ischemia in our conduit or the proximal esophagus. The anastomosis laid just approximately 1 cm below the azygous vein. We turned out attention towards closure. We ensured the lung was not entrapped and slowly reinsufflated this and watched the upper and lower and middle lobes expands well. We did placed a 28 size [place] chest tube through the third port space at the 10-11 rib space and sutured this in place with a silk suture. This was in a posterolateral position. We then thoroughly de-docked the robot and closed all our port sites with 0-PDS and 0 Vicryl sutures followed by 4-0 Monocryl and Steri-Strips at the skin. The NG tube with a bridle was in position. At this point in time, the patient was turned back into a supine position, discontinued from the anesthesia, taken to the PACU in a stable condition. The patient tolerated the procedure well. No apparent complications. The sponge, instrument and needle counts were correct. I was present and scrubbed for the entire procedure or at the robotic console for all portions of this procedure. Dr. Callaway was present and scrubbed for all critical portions of this procedure and his expertise was needed as a second surgeon at the bedside in assisting me as well as assisting me at the bedside while I was on the consult. Medications and IVs Current Medications Sodium Chloride 1,000 ml @ 125 mls/hr Q8H IV Last administered on 03/08/17t 19:12; Start 03/08/17 at 19:00; Stop 03/08/17 at 20:09; Status DC Hydromorphone HCl (Dilaudid Pf Inj) 1 mg ONCE ONCE IV PUSH Last administered on 03/08/17 19:13; Start 03/08/17 at 19:00; Stop 03/08/17 at 19:01; Status DC Ondansetron HCl (Zofran Inj) 4 mg ONCE ONCE IV PUSH Last administered on 03/08 19:13; Start 03/08/17 at 19:00; Stop 03/08/17 at 19:01; Status DC Potassium Chloride/Dextrose/ Sod Cl 1,000 ml @ 100 mls/hr Q10H IV ; Start at 20:00; Stop 03/08/17 at 20:09; Status DC Sodium Chloride (NS Flush) 2 ml UNSCH PRN IV FLUSH FLUSH AFTER USING IV ACCESS ; Start 03/08/17 at 19:15; Stop 03/09/17 at 16:00; Status DC Sodium Chloride (NS Flush) 2 ml BID IV FLUSH Last administered on 03/08/17 21 :00; Start 03/08/17 at 21:00; Stop 03/09/17 at 16:00; Status DC Ondansetron HCl (Zofran Inj) 4 mg Q6H PRN IVP NAUSEA OR VOMITING; Start at 19:15; Stop 03/09/17 at 16:00; Status DC Naloxone HCl (Narcan Inj) 0.4 mg UNSCH PRN IV PUSH SEE LABEL COMMENTS; Start 03/08/17 at 19:15; Stop 03/09/17 at 11:20; Status DC Magnesium Hydroxide (Milk Of Magnesia Liq) 30 ml Q12H PRN PO Mild constipation ; Start 03/08/17 at 19:15 Sennosides (Senokot) 17.2 mg Q12H PRN PO Moderate constipation; Start at 19:15 Bisacodyl (Dulcolax Supp) 10 mg DAILY PRN RECTAL SEVERE CONSITIPATION; Start 03/08/17 at 19:15 Lactulose (Lactulose Liq) 30 ml DAILY PRN PO SEVERE CONSITIPATION; Start 03/08 at 19:15 Oxycodone HCl (Roxicodone) 10 mg Q4H PRN PO PAIN SCALE 6 TO 10 Last administered on 03/09/17 03:10; Start 03/08/17 at 19:15; Stop 03/11/17 at 15: 42; Status DC Morphine Sulfate (Morphine Inj) 2 mg Q3H PRN IV PUSH Pain 3-5; if unable to take PO; Start 03/08/17 at 19:15; Stop 03/11/17 at 15:43; Status DC Morphine Sulfate (Morphine Inj) 4 mg Q3H PRN IV PUSH Pain 6-10;if unable to take PO Last administered on 03/09/17 05:12; Start 03/08/17 at 19:15; Stop at 15:43; Status DC Morphine Sulfate (Morphine Inj) 4 mg Q3H PRN IV PUSH BREAKTHROUGH PAIN Last administered on 03/13/17 08:44; Start 03/08/17 at 19:15; Stop 03/13/17 at 10: 32; Status DC Oxycodone HCl (Roxicodone) 5 mg Q4H PRN PO PAIN SCALE 3 TO 5; Start 03/08/17 at 19:15; Stop 03/11/17 at 15:43; Status DC Naloxone HCl (Narcan Inj) 0.4 mg UNSCH PRN IV PUSH SEE LABEL COMMENTS; Start 03/08/17 at 19:15; Stop 03/09/17 at 16:00; Status DC Lidocaine HCl (Xylocaine 2% Viscous) 15 ml Q4H PRN SWISH-SWAL SORE THROAT Last administered on 03/09/17 01:38; Start 03/08/17 at 19:30 Potassium Chloride/Dextrose/ Sod Cl 1,000 ml @ 84 mls/hr [id number] IV Last administered on 03/09/17 01:39; Start 03/08/17 at 21:00; Stop 03/09/17 at 16: 00; Status DC Potassium Chloride 100 ml @ 100 mls/hr Q1H IV Last administered on 03/09/17 03:10; Start 03/08/17 at 21:00; Stop 03/08/17 at 23:59; Status DC Bupivacaine HCl/ Epinephrine Bitart (Sensorcaine-Epi 0.5% 50 ml Inj) 50 ml STK- MED ONCE .ROUTE Last administered on 03/09/17 06:26; Start 03/09/17 at 06:26; Stop 03/09/17 at 06:27; Status DC Cefazolin Sodium/ Dextrose 50 ml @ 100 mls/hr RESIDENTIAL MANAGER IV Last administered on 03/09/17 12:10; Start 03/09/17 at 07:15; Stop 03/12/17 at 07:14; Status DC Lactated Ringer's 1,000 ml @ 30 mls/hr Q24H PRN IV SEE LABEL COMMENTS Last administered on 03/09/17 07:10; Start 03/09/17 at 07:15; Stop 03/09/17 at 16:01 ; Status DC Sodium Chloride 500 ml @ 30 mls/hr [id number] PRN IV SEE LABEL COMMENTS; Start at 07:15; Stop 03/09/17 at 16:00; Status DC Metoprolol Tartrate (Lopressor) 25 mg RESIDENTIAL MANAGER PRN PO SEE LABEL COMMENTS; Start 03/09/17 at 07:15; Stop 03/12/17 at 07:14; Status DC Povidone Iodine (Betadine 5% Antisepsis Kit) 1 applic RESIDENTIAL MANAGER PRN EACH NARE SEE LABEL COMMENTS; Start 03/09/17 at 07:15; Stop 03/12/17 at 07:14; Status DC Chlorhexidine Gluconate (Chlorhexidine 2% Cloth) 3 pack RESIDENTIAL MANAGER PRN TOPICAL SEE LABEL COMMENTS; Start 03/09/17 at 07:15; Stop 03/12/17 at 07:14; Status DC Insulin Human Regular (NovoLIN R INJ) See Protocol Table ... RESIDENTIAL MANAGER PRN SQ SEE PROTOCOL TABLE; Start 03/09/17 at 07:15; Stop 03/12/17 at 07:14; Status DC Acetaminophen 100 ml @ As Directed STK-MED ONCE IV Last administered on 16:05; Start 03/09/17 at 07:20; Stop 03/09/17 at 07:21; Status DC Albuterol Sulfate (Albuterol Neb) 2.5 mg STK-MED ONCE .ROUTE ; Start 03/09/17 at 07:34; Stop 03/09/17 at 07:35; Status DC Bupivacaine HCl (Marcaine Pf 0.5% Inj) 30 ml STK-MED ONCE .ROUTE ; Start at 07:50; Stop 03/09/17 at 07:51; Status DC Onabotulinumtoxina (Botox Inj) 100 units ONCE ONCE .XX ; Start 03/09/17 at 08: 45; Stop 03/09/17 at 08:46; Status DC Fluconazole/ Sodium Chloride 200 ml @ As Directed STK-MED ONCE .ROUTE Last administered on 03/09/17 12:11; Start 03/09/17 at 12:03; Stop 03/09/17 at 12:04 ; Status DC Potassium Chloride (KCl) 40 meq ONCE ONCE PO ; Start 03/09/17 at 14:15; Stop 03/09/17 at 14:16; Status DC Potassium Chloride/Dextrose/ Sod Cl 1,000 ml @ 85 mls/hr [id number] IV Last administered on 03/15/17 04:00; Start 03/09/17 at 14:20 Sodium Chloride (NS Flush) 2 ml UNSCH PRN IV FLUSH FLUSH AFTER USING IV ACCESS ; Start 03/09/17 at 14:30 Sodium Chloride (NS Flush) 2 ml BID IV FLUSH Last administered on 03/14/17 20: 02; Start 03/09/17 at 14:30 Ondansetron HCl (Zofran Inj) 4 mg Q6H PRN IV PUSH NAUSEA OR VOMITING; Start at 14:30 Pantoprazole Sodium (Protonix Inj) 40 mg Q24H IV PUSH Last administered on 03/14 16:15; Start 03/09/17 at 17:00 Diphenhydramine HCl (Benadryl Inj) 25 mg Q6H PRN IV PUSH ITCHING; Start at 14:30 Benzocaine (Hurricaine 20% Oral Spr) 1 spray UNSCH X1 PRN MT SEE LABEL COMMENTS ; Start 03/09/17 at 14:30; Stop 03/10/17 at 14:29; Status DC Clindamycin Phosphate 600 mg/ Sodium Chloride 54 ml @ 108 mls/hr Q8H IV Last administered on 03/10/17 11:46; Start 03/09/17 at 20:00; Stop 03/10/17 at 12:29 ; Status DC Miscellaneous Information (Post-op Orders (for Pharmacy)) STAT ONCE XX ; Start 03/09/17 at 14:30; Stop 03/09/17 at 16:08; Status DC Acetaminophen 100 ml @ 400 mls/hr Q6H IV Last administered on 03/11/17 09:36 ; Start 03/09/17 at 16:00; Stop 03/11/17 at 10:14; Status DC Naloxone HCl (Narcan Inj) 0.4 mg UNSCH PRN IV PUSH SEE LABEL COMMENTS; Start 03/09/17 at 14:30; Stop 03/09/17 at 16:00; Status DC Enoxaparin Sodium (Lovenox Inj) 40 mg Q24H SQ Last administered on 03/14/17 16 :15; Start 03/10/17 at 14:00 Naloxone HCl (Narcan Inj) 0.4 mg UNSCH PRN IV PUSH RESPIRATORY RATE LESS THAN 10; Start 03/09/17 at 14:30 Morphine Sulfate (Morphine 1 Mg/ ml PACK CHANGER) 30 mg UNSCH IV Last administered on 08:28; Start 03/09/17 at 14:30; Stop 03/11/17 at 15:38; Status DC PACK CHANGER Dosage Infused (Pha) 1 Q8HR .XX Last administered on 03/11/17 14:00; Start 03/09/17 at 14:30; Stop 03/13/17 at 13:52; Status DC Meperidine HCl (*DEMEROL INJ PERIprocedural ONLY) 25 mg STK-MED ONCE .ROUTE Last administered on 03/09/17 15:17; Start 03/09/17 at 15:17; Stop 03/09/17 at 15:18; Status DC Albuterol/ Ipratropium (Duoneb Neb) 1 ampule Q6HR NEB NEB Last administered on 03/13/17 16:23; Start 03/09/17 at 17:00; Stop 03/13/17 at 16:59; Status DC Miscellaneous Information ALL NURSING DEPARTME... UNSCH PRN .XX SEE LABEL COMMENTS; Start 03/09/17 at 14:45; Stop 03/10/17 at 14:44; Status DC Ketorolac Tromethamine (Toradol Inj) 30 mg ONCE ONCE IV PUSH Last administered on 03/10/17 14:40; Start 03/10/17 at 14:30; Stop 03/10/17 at 14:32 ; Status DC Acetaminophen/ Hydrocodone Bitart (Hycet 325-7.5 Mg Liq) 15 ml Q4H PRN PO pain 1-5 ; Start 03/11/17 at 15:45; Stop 03/13/17 at 13:52; Status DC Hydromorphone HCl (Dilaudid Pf Inj) 1 mg Q4H PRN IV PUSH pain 6-10 Last administered on 03/13/17 10:03; Start 03/11/17 at 15:45; Stop 03/13/17 at 10:32 ; Status DC Pneumococcal Polyvalent Vaccine (Pneumovax-23 Inj) 25 mcg ONCE ONCE IM ; Start 03/12/17 at 10:00; Stop 03/12/17 at 10:01; Status DC Influenza Virus Vaccine (Flu (Quadrivalent) Vaccine Inj) 0.5 ml ONCE ONCE IM ; Start 03/12/17 at 10:00; Stop 03/12/17 at 10:01; Status DC Hydromorphone HCl (Dilaudid Pf Inj) 1 mg UNSCH PRN IV PUSH pain 6-10 Last administered on 03/13/17 12:23; Start 03/13/17 at 10:45; Stop 03/13/17 at 13:52 ; Status DC Morphine Sulfate (Morphine Inj) 4 mg UNSCH PRN IV PUSH BREAKTHROUGH PAIN; Start 03/13/17 at 10:45; Stop 03/13/17 at 13:52; Status DC Naloxone HCl (Narcan Inj) 0.4 mg UNSCH PRN IV PUSH RESPIRATORY RATE LESS THAN 10; Start 03/13/17 at 14:00 Morphine Sulfate (Morphine 1 Mg/ ml PACK CHANGER) 30 mg UNSCH IV Last administered on 21:54; Start 03/13/17 at 14:00 PACK CHANGER Dosage Infused (Pha) 1 Q8HR .XX Last administered on 03/15/17 06:00; Start 03/13/17 at 14:00 Diatrizoate Meglum/ Diatrizoate Sod ( Gastroview Liq) 120 ml STK-MED ONCE PO Last administered on 03/14/17 12:56; Start 03/14/17 at 12:56; Stop 03/15/17 at 09:02; Status DC Urinary Catheter: No A/P Assessment and Plan 61-year-old male with esophageal poorly differentiated adenocarcinoma admitted with intractable pain. Patient underwent robot-assisted esophagectomy by general surgery. Pain has been very difficult to control. General surgery following. Esophageal cancer, status post esophagectomy. Completed chemotherapy 3 weeks ago - General surgery following. - Chest tube to wall suction. -Pain has been very difficult to control. Not much relief despite every hour morphine and Dilaudid for breakthrough. - We'll transition to morphine PACK CHANGER for now for better pain relief. Plan to reassess tomorrow and wean off as tolerated. - Okay for ice chips per general surgery. Intractable pain secondary to esophageal cancer - Start morphine PACK CHANGER as above. - Continue to monitor Severe Protein calorie malnutrition. Continue feeding tube. Plan per general surgery. Appreciate assistance. GERD. Chronic. Continue PPI Hypertension. Patient was previously on metoprolol which was discontinued. Blood pressure acceptable. Continue to monitor. Prophylaxis. SCDs. Anticoagulation when okay by surgery NGT REMOVED BY SURGERY STILL HAS CHEST TUBE IN PLACE LISA RN AND PT AND CM Discharge Planning Pain control Martín Manning DO Mar 15, 2017 12:17
[2017-03-15] MEDS: ENOXAPARIN SODIUM 40 MG/0.4 ML SYRINGE SQ SCH (14:30)
--- NOTE | 2017-03-15 14:59 | HHI.PR ---
Subjective Subjective Notes Glad NGT is out Wants to try some popsicles Objective Vitals/I&O Vital Signs Date Time Temp Pulse Resp B/P (MAP) Pulse Ox O2 Delivery O2 Flow Rate FiO2 03/15/17 14:00 20 03/15/17 12:00 97.7 93 115/73 (87) 93 03/15/17 08:15 Room Air 03/14/17 11:44 21 03/12/17 10:09 Labs Laboratory Tests Test 03/15/17 05:45 White Blood Count 5.9 Red Blood Count 2.97 Hemoglobin 9.1 Hematocrit 25.9 Mean Corpuscular Volume 87.3 Mean Corpuscular Hemoglobin 30.5 Mean Corpuscular Hemoglobin Concent 35.0 Red Cell Distribution Width 16.7 Platelet Count 164 Mean Platelet Volume 7.7 Neutrophils (%) (Auto) 68.5 Lymphocytes (%) (Auto) 12.1 Monocytes (%) (Auto) 16.6 Eosinophils (%) (Auto) 2.2 Basophils (%) (Auto) 0.6 Neutrophils # (Auto) 4.1 Lymphocytes # (Auto) 0.7 Monocytes # (Auto) 1.0 Eosinophils # (Auto) 0.1 Basophils # (Auto) 0.0 CBC Comment DIFF FINAL Differential Comment Blood Urea Nitrogen 4 Creatinine 0.38 Random Glucose 91 Total Protein 5.6 Albumin 1.9 Calcium Level 7.7 Phosphorus Level 3.9 Magnesium Level 1.4 Alkaline Phosphatase 89 Aspartate Amino Transf (AST/SGOT) 17 Alanine Aminotransferase (ALT/SGPT) 15 Total Bilirubin 0.5 Sodium Level 137 Potassium Level 3.6 Chloride Level 103 Carbon Dioxide Level 25.6 Anion Gap 8 Estimat Glomerular Filtration Rate 234 Free Thyroxine 1.22 Thyroid Stimulating Hormone 3rd Gen 1.730 Radiology Last Impressions Chest X-Ray 03/09/17 0000 Signed Impressions: Service Date/Time: Thursday, March 09, 2017 14:49 - CONCLUSION: 1. Free intraperitoneal air beneath the hemidiaphragm. 2. Minimal left basilar atelectasis. 3. Multiple tubes and lines appear to be in good positions. Luisito Norris MD Cardiovascular: Regular Lungs: Clear Abdomen: Other (incision c/d/i; J tube in place with TF ) Extremities: No edema Narrative Exam RIGHT CT in place to water seal A/P Problem List: (1) Encounter for postoperative follow-up after surgery for malignant neoplasm ICD Codes: Z08 - Encounter for follow-up examination after completed treatment for malignant neoplasm (2) History of esophagectomy ICD Codes: Z90.49 - Acquired absence of other specified parts of digestive tract (3) History of esophageal cancer ICD Codes: Z85.01 - Personal history of malignant neoplasm of esophagus Status: Chronic (4) Post-op pain ICD Codes: G89.18 - Other acute postprocedural pain Assessment and Plan 61 year old male POD6 robot assisted lap Leroy Sharad esophagectomy -Esophagram showed no leak yesterday; NGT removed -Okay for ice chips and popsicles -Continue IVF -CT to water seal -Pain control -PT/OT -Increase TF to 30 cc/hr Attending Statement The exam, history, and the medical decision-making described in the above note were completed with the assistance of the mid-level provider. I reviewed and agree with the findings presented. I attest that I had a [id number] encounter with the patient on the same day, and personally performed and documented my assessment and findings in the medical record. Abdominal exam: postoperative tenderness pain controlled, OOB, advance TF slowly Jennifer Barreto Mar 15, 2017 14:59 Goldy Espinal MD Mar 17, 2017 21:37
[2017-03-15 16:07] LABS: HEMOGLOBIN A1a 1.1 %; HEMOGLOBIN A1b 0.6 %; HEMOGLOBIN Ao 86.4 %; HEMOGLOBIN F 1.5 %; HEMOGLOBIN LA1C 1.7 %; HEMOGLOBIN P3 3.4 %
[2017-03-15] MEDS: PANTOPRAZOLE SODIUM 40 MG VIAL IV PUSH SCH (17:05)
[2017-03-15] MEDS: MORPHINE SULFATE 30 MG/30 ML PCA IV SCH (18:46)
[2017-03-16] VITALS (7 sets, daily range): BP systolic 110–130; BP diastolic 70–86; PULSE 87–101; RESP 17–20; TEMP 96.9–98.6; O2SAT 94–98
[2017-03-16] MEDS: PCA - TOTAL MG MORPHINE DELIVERED PER SHIFT SCH ×3 (05:01→21:48)
[2017-03-16 06:42] LABS: AUTOMATED NEUTROPHIL # 6.6 TH/MM3 (1.8-7.7); BASOPHIL % 0.5 % (0.0-2.0); EOSINOPHIL # 0.1 TH/MM3 (0-0.4); EOSINOPHIL % 1.5 % (0.0-4.0); HEMATOCRIT 28.6 % (39.0-51.0); HEMO FLAGS DIFF FINAL; LYMPH % 9.4 % (9.0-44.0); LYMPHOCYTE # 0.8 TH/MM3 (1.0-4.8); MEAN CORPUSCULAR HEMOGLOBIN 30.4 PG (27.0-34.0); MEAN CORPUSCULAR HGB CONC 34.5 % (32.0-36.0); MONO % 11.9 % (0.0-8.0); NEUT % 76.7 % (16.0-70.0); PLATELET COUNT 219 TH/MM3 (150-450); RED BLOOD COUNT 3.25 MIL/MM3 (4.50-5.90); RED CELL DISTRIBUTION WIDTH 16.5 % (11.6-17.2); WHITE BLOOD COUNT 8.6 TH/MM3 (4.0-11.0)
[2017-03-16 06:58] LABS: ALT (GPT) 18 U/L (12-78); ANION GAP 9 MEQ/L (5-15); AST (GOT) 22 U/L (15-37); BICARBONATE 24.3 MEQ/L (21.0-32.0); BLOOD UREA NITROGEN 5 MG/DL (7-18); CHLORIDE 103 MEQ/L (98-107); GLOMERULAR FILTRATION RATE 174 ML/MIN (>89); MAGNESIUM 1.5 MG/DL (1.5-2.5); POTASSIUM 4.1 MEQ/L (3.5-5.1); SODIUM (NA) 136 MEQ/L (136-145)
[2017-03-16 07:00] LABS: ALKALINE PHOSPHATASE 106 U/L (45-117); TOTAL BILIRUBIN ADULT 0.4 MG/DL (0.2-1.0)
[2017-03-16] MEDS: SODIUM CHLORIDE 0.9% FLUSH 10 ML FLUSH IV FLUSH SCH ×2 (08:17→19:44)
--- NOTE | 2017-03-16 08:24 | PD.ONC.PN ---
Subjective Subjective Remarks Feeling stronger. Up sitting on commode. +BM. Episode of confusion but oriented. Objective Data Date Time Temp Pulse Resp B/P (MAP) Pulse Ox O2 Delivery O2 Flow Rate FiO2 03/16/17 08:00 98.3 101 17 121/74 (90) 97 03/16/17 05:01 20 03/16/17 04:00 97.1 90 20 110/72 (85) 94 03/16/17 00:00 97.9 92 18 111/71 (84) 94 03/15/17 21:27 98.4 93 18 117/71 (86) 94 03/15/17 20:08 20 03/15/17 20:00 Room Air 03/15/17 19:08 20 03/15/17 18:46 18 03/15/17 17:08 94 21 03/15/17 16:00 97.9 85 17 119/75 (90) 94 03/15/17 14:00 20 03/15/17 14:00 18 03/15/17 12:00 97.7 93 17 115/73 (87) 93 03/16/17 03/16/17 03/16/17 07:00 15:00 23:00 Output Total 40 ml Balance -40 ml Result Diagram: 03/16/17 0600 03/16/17 0600 Laboratory Results Laboratory Tests Test 03/16/17 06:00 White Blood Count 8.6 TH/MM3 Red Blood Count 3.25 MIL/MM3 Hemoglobin 9.9 GM/DL Hematocrit 28.6 % Mean Corpuscular Volume 88.0 FL Mean Corpuscular Hemoglobin 30.4 PG Mean Corpuscular Hemoglobin Concent 34.5 % Red Cell Distribution Width 16.5 % Platelet Count 219 TH/MM3 Mean Platelet Volume 7.8 FL Neutrophils (%) (Auto) 76.7 % Lymphocytes (%) (Auto) 9.4 % Monocytes (%) (Auto) 11.9 % Eosinophils (%) (Auto) 1.5 % Basophils (%) (Auto) 0.5 % Neutrophils # (Auto) 6.6 TH/MM3 Lymphocytes # (Auto) 0.8 TH/MM3 Monocytes # (Auto) 1.0 TH/MM3 Eosinophils # (Auto) 0.1 TH/MM3 Basophils # (Auto) 0.0 TH/MM3 CBC Comment DIFF FINAL Differential Comment Blood Urea Nitrogen 5 MG/DL Creatinine 0.49 MG/DL Random Glucose 108 MG/DL Total Protein 6.3 GM/DL Albumin 2.1 GM/DL Calcium Level 8.1 MG/DL Phosphorus Level 3.3 MG/DL Magnesium Level 1.5 MG/DL Alkaline Phosphatase 106 U/L Aspartate Amino Transf (AST/SGOT) 22 U/L Alanine Aminotransferase (ALT/SGPT) 18 U/L Total Bilirubin 0.4 MG/DL Sodium Level 136 MEQ/L Potassium Level 4.1 MEQ/L Chloride Level 103 MEQ/L Carbon Dioxide Level 24.3 MEQ/L Anion Gap 9 MEQ/L Estimat Glomerular Filtration Rate 174 ML/MIN Administered Medications Medications (Trade) Dose Ordered Sig/[place] Route PRN Reason Start Time Stop Time Status Last Admin Dose Admin Magnesium Hydroxide (Milk Of Magnesia Liq) 30 ml Q12H PRN PO Mild constipation 03/08/17 19:15 03/15/17 14:30 Lactulose (Lactulose Liq) 30 ml DAILY PRN PO SEVERE CONSITIPATION 03/08/17 19:15 03/16/17 01:46 Lidocaine HCl (Xylocaine 2% Viscous) 15 ml Q4H PRN SWISH-SWAL SORE THROAT 03/08/17 19:30 03/09/17 01:38 Potassium Chloride/Dextrose/ Sod Cl 1,000 ml @ 85 mls/hr [id number] IV 03/09/17 14:20 03/15/17 15:35 Sodium Chloride (NS Flush) 2 ml BID IV FLUSH 03/09/17 14:30 03/14/17 20:02 Pantoprazole Sodium (Protonix Inj) 40 mg Q24H IV PUSH 03/09/17 17:00 03/15/17 17:05 Enoxaparin Sodium (Lovenox Inj) 40 mg Q24H SQ 03/10/17 14:00 03/15/17 14:30 Morphine Sulfate (Morphine 1 Mg/ ml DERRICK ENGINEER) 30 mg UNSCH IV 03/13/17 14:00 03/15/17 18:46 DERRICK ENGINEER Dosage Infused (Pha) 1 Q8HR .XX 03/13/17 14:00 03/16/17 05:01 Objective Remarks GENERAL: Well-nourished, well-developed patient. Episode of mild confusion but easily reoriented. SKIN: Warm and dry. HEAD: Normocephalic. Alopecia EYES: No scleral icterus. No injection or drainage. NECK: Supple, trachea midline. No JVD or lymphadenopathy. LYMPHATIC: No adenopathy. CARDIOVASCULAR: Regular rate and rhythm without murmurs. RESPIRATORY: Breath sounds equal bilaterally. No accessory muscle use. GASTROINTESTINAL: Abdomen soft, non-tender, nondistended. Wound healing well. EXTREMITIES: No cyanosis, or edema. MUSCULOSKELETAL: Adequate muscle tone. NEUROLOGICAL: No obvious focal deficit. Awake, alert, and oriented x3. PSYCHIATRIC: Appropriate mood and affect; insight and judgment normal. Assessment/Plan Assessment 1. Esophageal cancer. 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 Upper endoscopy showed a 3 cm ulcerated mass involving the lower esophageal sphincter at the GE junction and in the cardia. The mass was partially obstructing when he first presented. He was treated with radiation with concurrent chemotherapy which he completed several weeks ago. PET/CT showed no distant metastasis. He just underwent esophagectomy with a J-tube placement 03/09/2017. Final pathology showed no residual tumor and perigastric LN were negative for mets disease. He had achieved remission with neoadjuvant therapy. 2. Mid epigastric pain due to his esophageal cancer. He is now status post surgery as above. Pain controlled. Mild confusion due to pain meds. 3. Nonspecific lung nodule, will need to be monitored. 4. Anemia due to operative blood loss. Hgb stable. Plan PLAN 1. Reviewed pathology with pt. 2. Continue supportive care. 3. DVT prophylaxis with Lovenox. Sylvester Silver MD Mar 16, 2017 08:24
--- NOTE | 2017-03-16 12:24 | HHI.PR ---
Subjective Subjective Notes Resting in bed Aggravated Objective Vitals/I&O Vital Signs Date Time Temp Pulse Resp B/P (MAP) Pulse Ox O2 Delivery O2 Flow Rate FiO2 03/16/17 08:20 17 03/16/17 08:20 Room Air 03/16/17 08:00 98.3 101 121/74 (90) 97 03/15/17 17:08 21 03/12/17 10:09 Labs Laboratory Tests Test 03/16/17 06:00 White Blood Count 8.6 Red Blood Count 3.25 Hemoglobin 9.9 Hematocrit 28.6 Mean Corpuscular Volume 88.0 Mean Corpuscular Hemoglobin 30.4 Mean Corpuscular Hemoglobin Concent 34.5 Red Cell Distribution Width 16.5 Platelet Count 219 Mean Platelet Volume 7.8 Neutrophils (%) (Auto) 76.7 Lymphocytes (%) (Auto) 9.4 Monocytes (%) (Auto) 11.9 Eosinophils (%) (Auto) 1.5 Basophils (%) (Auto) 0.5 Neutrophils # (Auto) 6.6 Lymphocytes # (Auto) 0.8 Monocytes # (Auto) 1.0 Eosinophils # (Auto) 0.1 Basophils # (Auto) 0.0 CBC Comment DIFF FINAL Differential Comment Blood Urea Nitrogen 5 Creatinine 0.49 Random Glucose 108 Total Protein 6.3 Albumin 2.1 Calcium Level 8.1 Phosphorus Level 3.3 Magnesium Level 1.5 Alkaline Phosphatase 106 Aspartate Amino Transf (AST/SGOT) 22 Alanine Aminotransferase (ALT/SGPT) 18 Total Bilirubin 0.4 Sodium Level 136 Potassium Level 4.1 Chloride Level 103 Carbon Dioxide Level 24.3 Anion Gap 9 Estimat Glomerular Filtration Rate 174 Radiology Last Impressions Chest X-Ray 03/09/17 0000 Signed Impressions: Service Date/Time: Thursday, March 09, 2017 14:49 - CONCLUSION: 1. Free intraperitoneal air beneath the hemidiaphragm. 2. Minimal left basilar atelectasis. 3. Multiple tubes and lines appear to be in good positions. Luisito Norris MD Cardiovascular: Regular Lungs: Clear Abdomen: Other (incisino c/d/i; soft ) Extremities: No edema Narrative Exam RIGHT CT in place to water seal ---removed at bedside A/P Problem List: (1) Encounter for postoperative follow-up after surgery for malignant neoplasm ICD Codes: Z08 - Encounter for follow-up examination after completed treatment for malignant neoplasm (2) History of esophagectomy ICD Codes: Z90.49 - Acquired absence of other specified parts of digestive tract (3) History of esophageal cancer ICD Codes: Z85.01 - Personal history of malignant neoplasm of esophagus Status: Chronic (4) Post-op pain ICD Codes: G89.18 - Other acute postprocedural pain Assessment and Plan 61 year old male POD7 robot assisted lap Leroy Sharad esophagectomy -Esophagram showed no leak; NGT removed -Sips of clear liquids -Continue IVF -Removed CT at bedside; CXR pending -Pain control---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 I reviewed and agree with the findings presented. I attest that I had a [id number] encounter with the patient on the same day, and personally performed and documented my assessment and findings in the medical record. Abdominal exam: postoperative tenderness, incisions c/d/i pain controlled, OOB, advance TF Jennifer Barreto Mar 16, 2017 12:24 Goldy Espinal MD Mar 17, 2017 21:38
--- NOTE | 2017-03-16 13:00 | RADRPT ---
EXAM DATE/TIME: 03/16/2017 12:28 [facility] COMPARISON: CHEST SINGLE AP, March 09, 2017, 14:49. INDICATIONS : Chest tube removal. MEDICAL HISTORY : Carcinoma, esophageal. SURGICAL HISTORY : Infusaport. ENCOUNTER: Subsequent ACUITY: 1 day PAIN SCORE: 0/10 LOCATION: Right chest FINDINGS: Minimal peripheral changes left base. Right lung is clear.. [id number] in good position. There is no pneumothorax following chest tube removal. The cardiomediastinal contours are unremarkable. Os seous structures are intact. CONCLUSION: Negative for pneumothorax. Martín Hardy MD FACR on March 16, 2017 at 12:58 Board Certified Radiologist. This report was verified electronically.
--- NOTE | 2017-03-16 13:18 | HHI.PR ---
Subjective Remarks Patient has not been doing incentive spirometry correctly Have reeducated him on the correct way to do it Still has chest tube in place HAs NG tube in place Discussed with patient and RN Still having lots of pain 11-7 LESS ABDOMINAL PAIN CHEST TUBE STILL IN PLACE NGT REMOVED TOLERATING TUBE FEEDS SOME CONFUSION PROBABLY DUE TO PAIN MEDICATIONS DW RN AND PT AND FAMILY AND CM 11-8 STILL CONFUSED CHEST TUBE OUT TODAY TOLERATING TUBE FEEDS DW RN AND PT AND FAMILY AND SURGERY AND CM LIQUID LORTAB FOR PAIN DC COUTURE ALTERATIONS DRESSMAKER Objective Vitals Vital Signs Date Time Temp Pulse Resp B/P (MAP) Pulse Ox O2 Delivery O2 Flow Rate FiO2 03/16/17 12:00 96.9 87 17 128/82 (97) 97 03/16/17 08:20 17 03/16/17 08:20 Room Air 03/16/17 08:00 98.3 101 17 121/74 (90) 97 03/16/17 05:01 20 03/16/17 04:00 97.1 90 20 110/72 (85) 94 03/16/17 00:00 97.9 92 18 111/71 (84) 94 03/15/17 21:27 98.4 93 18 117/71 (86) 94 03/15/17 20:08 20 03/15/17 20:00 Room Air 03/15/17 19:08 20 03/15/17 18:46 18 03/15/17 17:08 94 21 03/15/17 16:00 97.9 85 17 119/75 (90) 94 03/15/17 14:00 20 03/15/17 14:00 18 I/O 03/15/17 03/15/17 03/15/17 03/16/17 03/16/17 03/16/17 07:00 15:00 23:00 07:00 15:00 23:00 Intake Total 263 ml 1527 ml Output Total 30 ml 50 ml 40 ml Balance 233 ml 1477 ml -40 ml Intake Oral 0 ml 0 ml IV Total 1114 ml Tube Feeding 263 ml 313 ml Tube Irrigant 100 ml Chest Tube Drainage Total 30 ml 50 ml 40 ml # Voids 1 3 # Bowel Movements 0 0 Result Diagram: 03/16/17 0600 03/16/17 0600 Other Results Laboratory Tests Test 03/14/17 06:20 03/15/17 05:45 03/16/17 06:00 White Blood Count 8.2 TH/MM3 5.9 TH/MM3 8.6 TH/MM3 Red Blood Count 3.18 MIL/MM3 2.97 MIL/MM3 3.25 MIL/MM3 Hemoglobin 9.7 GM/DL 9.1 GM/DL 9.9 GM/DL Hematocrit 28.0 % 25.9 % 28.6 % Mean Corpuscular Volume 88.0 FL 87.3 FL 88.0 FL Mean Corpuscular Hemoglobin 30.5 PG 30.5 PG 30.4 PG Mean Corpuscular Hemoglobin Concent 34.7 % 35.0 % 34.5 % Red Cell Distribution Width 17.0 % 16.7 % 16.5 % Platelet Count 182 TH/MM3 164 TH/MM3 219 TH/MM3 Mean Platelet Volume 8.1 FL 7.7 FL 7.8 FL Blood Urea Nitrogen 2 MG/DL 4 MG/DL 5 MG/DL Creatinine 0.42 MG/DL 0.38 MG/DL 0.49 MG/DL Random Glucose 112 MG/DL 91 MG/DL 108 MG/DL Calcium Level 7.6 MG/DL 7.7 MG/DL 8.1 MG/DL Sodium Level 137 MEQ/L 137 MEQ/L 136 MEQ/L Potassium Level 4.0 MEQ/L 3.6 MEQ/L 4.1 MEQ/L Chloride Level 103 MEQ/L 103 MEQ/L 103 MEQ/L Carbon Dioxide Level 25.9 MEQ/L 25.6 MEQ/L 24.3 MEQ/L Anion Gap 8 MEQ/L 8 MEQ/L 9 MEQ/L Estimat Glomerular Filtration Rate 208 ML/MIN 234 ML/MIN 174 ML/MIN Neutrophils (%) (Auto) 68.5 % 76.7 % Lymphocytes (%) (Auto) 12.1 % 9.4 % Monocytes (%) (Auto) 16.6 % 11.9 % Eosinophils (%) (Auto) 2.2 % 1.5 % Basophils (%) (Auto) 0.6 % 0.5 % Neutrophils # (Auto) 4.1 TH/MM3 6.6 TH/MM3 Lymphocytes # (Auto) 0.7 TH/MM3 0.8 TH/MM3 Monocytes # (Auto) 1.0 TH/MM3 1.0 TH/MM3 Eosinophils # (Auto) 0.1 TH/MM3 0.1 TH/MM3 Basophils # (Auto) 0.0 TH/MM3 0.0 TH/MM3 CBC Comment DIFF FINAL DIFF FINAL Differential Comment Total Protein 5.6 GM/DL 6.3 GM/DL Albumin 1.9 GM/DL 2.1 GM/DL Phosphorus Level 3.9 MG/DL 3.3 MG/DL Magnesium Level 1.4 MG/DL 1.5 MG/DL Alkaline Phosphatase 89 U/L 106 U/L Aspartate Amino Transf (AST/SGOT) 17 U/L 22 U/L Alanine Aminotransferase (ALT/SGPT) 15 U/L 18 U/L Total Bilirubin 0.5 MG/DL 0.4 MG/DL Hemoglobin A1c 5.0 % Free Thyroxine 1.22 NG/DL Thyroid Stimulating Hormone 3rd Gen 1.730 uIU/ML Imaging Last Impressions Chest X-Ray 03/16/17 0000 Signed Impressions: Service Date/Time: Thursday, March 16, 2017 12:28 - CONCLUSION: Negative for pneumothorax. Martín Hardy MD FACR Esophagus X-Ray 03/14/17 0000 Signed Impressions: Service Date/Time: Tuesday, March 14, 2017 12:56 - CONCLUSION: Negative for leak. Nasogastric tube across the anastomosis. Martín Hardy MD FACR Objective Remarks GENERAL: Awake alert oriented talkative and cooperative appears TO HAVE MILD pain SKIN: Warm and dry. HEAD: Atraumatic. Normocephalic. EYES: Pupils equal and round. No scleral icterus. No injection or drainage. extraocular muscles intact ENT: No nasal bleeding or discharge. Mucous membranes pink and moist. TONGUE MIDLINE NECK: Trachea midline. No JVD. Supple CARDIOVASCULAR: Regular rate and rhythm. S1 and S2 no S3 or S4 RESPIRATORY: No accessory muscle use. Clear to auscultation. Breath sounds equal bilaterally. GASTROINTESTINAL: Abdomen LESS tender nondistended. Hepatic and splenic margins not palpable. POSITIVE bowel sounds midline incision yung in place MUSCULOSKELETAL: Extremities without clubbing, cyanosis, or edema. No obvious deformities. NEUROLOGICAL: Awake and alert. No obvious cranial nerve deficits. Motor grossly within normal limits. 4 out of 5 muscle strength in the arms and legs. Normal speech. PSYCHIATRIC: INAppropriate mood and affect; insight and judgment ABnormal. SOME CONFUSION Procedures DATE OF SURGERY 03/09/2017 PREOPERATIVE DIAGNOSIS Distal esophageal adenocarcinoma. POSTOPERATIVE DIAGNOSIS Distal esophageal adenocarcinoma. PROCEDURE 1. Robotic-assisted Leroy Hsarad esophagectomy. 2. Injection of Botox to pylorus (chemical pyloroplasty) 3. Jejunostomy tube placement. 4. Omental pedicle flap for a gastric conduit. ATTENDING SURGEON Goldy Espinal MD MECHANIC GENERAL OPERATIONAL TEST Chino Callaway MD ANESTHESIA General BLOOD LOSS 300 cc COMPLICATIONS None FINDINGS Intraoperative evaluation with negative proximal and distal margin on Milton Sharad esophagogastrectomy specimen. INDICATIONS FOR PROCEDURE The patient is a 61-year-old male who was recently diagnosed with a distal esophageal adenocarcinoma. Staging scans revealed that this was a stage II-III without any evidence of distant metastasis. The patient was recommended to undergo neoadjuvant chemoradiation per NCCN guidelines. The patient did a complicated course including malnutrition and esophagitis (radiation esophagitis requiring multiple additions, nutrition support and pain management. The patient was admitted to [facility] with recurrent pain and esophagitis. Staging CT PET scan did reveal no evidence of metastatic disease and the patient was medically fit for esophagectomy. The risks, benefits, alternatives were discussed with the patient and his daughter at a previous appointment and they agreed to undergo the procedure. PROCEDURE After informed consent was obtained, the patient was an inpatient at [facility], was brought to the operating room and placed in the supine position and placed under general anesthesia. The patient had a double lumen tube placed. The patient had a regional tap block performed on the abdomen. At this point in time, a time-out was performed. The patient's abdomen was shaved, prepped and draped in a sterile fashion. We entered the abdomen with an upper midline incision from his xiphoid area to the umbilicus with a 10 blade scalpel. Bovie electrocautery dissected into the subcutaneous tissue and opened the fascia through the entire length of the incision. We placed an [place] extra-large wound retractor followed by a Bookwalter retractor to gain better exposure. At this point in time, there was no evidence of metastatic disease. We continued with the dissection. We opened the lesser sac of the gastrocolic ligament. We took down the short gastrics all way to the left bonny using the Enseal device taking great care to preserve the blood flow through our right gastroepiploic artery. He had an excellent pulse and good perfusion through this artery throughout the case. We then extended this proximally and mobilized the hepatic flexure of the colon and kocherized the duodenum. We did perform omentectomy due to the patient's large omentum and due to patient's blood supply for the omentum. This was again done with the Bovie electrocautery, as well as the Enseal, and this was taken from the splenic flexure and passed off for permanent processing. At this point in time, we identify the left gastric artery at its origin. We dissected around this with a right-angle retractor. We placed the vascular load on the echelon GI stapler across this vessel and there was continued pulse and perfusion of our liver and our hepatic artery. We divided this white load on the [place] stapler. We then continued our dissection further past the bonny and into the mediastinum. We dissected all the way approximately between 6 and 8 cm up into the mediastinum and opened the right chest by dividing the parietal pleura. We also injected 100 units of Botox into the pylorus creating effectively a chemical pyloroplasty. At this point in time, we place a [place] drain at a ring type loop around the esophagus and we went past the specimen up into the right chest. We did take our stomach and create somewhat of a conduit by dividing the incisura up to the fundus creating a wide floppy conduit approximately [address] to the fundus. This was done with a green load on the [place] stapler. The lip at the very tip of the conduit attached to our specimen to facilitate migration into the chest. At this point in time, we then turned our attention towards jejunostomy tube placement. We identified the ligament of Treitz and approximately 40 cm distal to this, we found a loop of jejunum. We placed a 14-Austrian jejunostomy tube through a separate incision in the left lateral side of the patient and placed this into the antimesenteric portion of the jejunum. We placed a pursestring 3-0 silk suture around the J tube as it entered the bowel wall and also placed four 3-0 silk Jose sutures up against the abdominal wall. We inserted 2 cc of fluid in the balloon to allow for any occlusion. This was placed as this tube was capped. This was sutured in place to the skin in an anatomic position and we ensured this went distal to the distal jejunum. At this point in time, we turned our attention to closure. We irrigated out the abdomen with one liter of sterile saline. All suctioning was clear. We did have a very tiny capsular tear approximately 3 or 4 mm on the spleen and we did place FloSeal and Surgicel on this for complete hemostasis. There was approximately 20 cc lost from this area and this was easily secured. We closed the midline with a single stitch which was a #1 looped PDS suture. We closed the skin with skin uyng. A sterile dressing was applied. At this point in time, the patient was turned to the left decubitus position after we had taken down the sterile drapes. We placed Ioban over the right chest and broke the bed to gain better exposure. After prepping the patient, we then placed sterile drapes. We then placed the patient on single lung ventilation through the left lung only trapping right lung. This gave us excellent oxygenation at 99% of lung ventilation. We entered the chest proximally at the sixth rib at the posterior axillary line with a scalpel and a hemostat spreading down above the inferior rib. We directly placed a robot 10/12 port into the patients under direct visualization. We insufflated the chest to low pressure and had good collapse of our lung and good visualization. We placed a 10/12 robot port in approximately the third space in the right chest near the axillary posterior line. We placed 2 x 8 ports in the seventh to eighth and ninth and tenth rib spaces approximately one-fifth length apart to facilitate robot arm movement. As these were all placed under direct visualization, local anesthetic was used at all these sites. We then docked the [employer] SI robot system without difficulty. We were able to continued our dissection. We used a suction animal care service worker device in arm three to facilitate lung retraction and to suction and irrigate as needed. We used the fenestrated Bipolar, as well as Bovie electrocautery in the vessel sealer to continue our dissection. I dissected the mediastinum and was able to grasp our Mick and use this to facilitate an ablation of the esophagus. We clearly got above the area of radiation into normal esophagus well below the azygos vein. We dissected all the way to the thoracic inlet and dividing the azygos vein was unnecessary as this was a very distal tumor and we had several centimeters of normal-appearing esophagus below this. We divided the esophagus with a green load on the robotic stapler and then we were able to pass an Rasta 25 mm anvil transorally into this proximal esophageal blind pouch through a separate esophagotomy incision right at the middle of the staple line. We then cut this suture and again secured the anvil in a normal position in the proximal esophagus. The specimen was removed and electrocautery was used to remove the specimen from our conduit. This left us with a gastrotomy in our conduit which was used for the 25 EEA stapler. We did, of note, de-dock the arm two at the seventh and eighth rib space and make this into a small backs type thoracotomy proximally 5 cm along with a small Finochietto retractor. I did not traumatize or cut any ribs to do this. We were able to bring our specimen and our conduit out through this incision and our margins were negative on intraoperative consultation by pathology. We did place the EEA stapler, did this gastrotomy back into the chest under visualization with the robotic camera and performed an EEA end esophagus to side gastric conduit anastomosis. We had two good doughnuts and the proximal esophageal was sent to have a permanent margin and specimen performed. This laid tension-free without twisting in the chest. We placed an NG tube through this anastomosis into the conduit, placed this to suction. We closed the gastrotomy with the two green loads on the robotic stapler. We did irrigate out the chest and had excellent hemostasis. There were no signs of any complications. There was no electro Bovie injury and again no signs of any leak or ischemia in our conduit or the proximal esophagus. The anastomosis laid just approximately 1 cm below the azygous vein. We turned out attention towards closure. We ensured the lung was not entrapped and slowly reinsufflated this and watched the upper and lower and middle lobes expands well. We did placed a 28 size Austrian chest tube through the third port space at the 10-11 rib space and sutured this in place with a silk suture. This was in a posterolateral position. We then thoroughly de-docked the robot and closed all our port sites with 0-PDS and 0 Vicryl sutures followed by 4-0 Monocryl and Steri-Strips at the skin. The NG tube with a bridle was in position. At this point in time, the patient was turned back into a supine position, discontinued from the anesthesia, taken to the PACU in a stable condition. The patient tolerated the procedure well. No apparent complications. The sponge, instrument and needle counts were correct. I was present and scrubbed for the entire procedure or at the robotic console for all portions of this procedure. Dr. Callaway was present and scrubbed for all critical portions of this procedure and his expertise was needed as a second surgeon at the bedside in assisting me as well as assisting me at the bedside while I was on the consult. Medications and IVs Current Medications Sodium Chloride 1,000 ml @ 125 mls/hr Q8H IV Last administered on 03/08/17 19:12; Start 03/08/17 at 19:00; Stop 03/08/17 at 20:09; Status DC Hydromorphone HCl (Dilaudid Pf Inj) 1 mg ONCE ONCE IV PUSH Last administered on 03/08/17 19:13; Start 03/08/17 at 19:00; Stop 03/08/17 at 19:01; Status DC Ondansetron HCl (Zofran Inj) 4 mg ONCE ONCE IV PUSH Last administered on 03/08 19:13; Start 03/08/17 at 19:00; Stop 03/08/17 at 19:01; Status DC Potassium Chloride/Dextrose/ Sod Cl 1,000 ml @ 100 mls/hr Q10H IV ; Start at 20:00; Stop 03/08/17 at 20:09; Status DC Sodium Chloride (NS Flush) 2 ml UNSCH PRN IV FLUSH FLUSH AFTER USING IV ACCESS ; Start 03/08/17 at 19:15; Stop 03/09/17 at 16:00; Status DC Sodium Chloride (NS Flush) 2 ml BID IV FLUSH Last administered on 03/08/17 21 :00; Start 03/08/17 at 21:00; Stop 03/09/17 at 16:00; Status DC Ondansetron HCl (Zofran Inj) 4 mg Q6H PRN IVP NAUSEA OR VOMITING; Start at 19:15; Stop 03/09/17 at 16:00; Status DC Naloxone HCl (Narcan Inj) 0.4 mg UNSCH PRN IV PUSH SEE LABEL COMMENTS; Start 03/08/17 at 19:15; Stop 03/09/17 at 11:20; Status DC Magnesium Hydroxide (Milk Of Magnesia Liq) 30 ml Q12H PRN PO Mild constipation Last administered on 03/15/17 14:30; Start 03/08/17 at 19:15 Sennosides (Senokot) 17.2 mg Q12H PRN PO Moderate constipation; Start at 19:15 Bisacodyl (Dulcolax Supp) 10 mg DAILY PRN RECTAL SEVERE CONSITIPATION; Start 03/08/17 at 19:15 Lactulose (Lactulose Liq) 30 ml DAILY PRN PO SEVERE CONSITIPATION Last administered on 03/16/17 01:46; Start 03/08/17 at 19:15 Oxycodone HCl (Roxicodone) 10 mg Q4H PRN PO PAIN SCALE 6 TO 10 Last administered on 03/09/17 03:10; Start 03/08/17 at 19:15; Stop 03/11/17 at 15: 42; Status DC Morphine Sulfate (Morphine Inj) 2 mg Q3H PRN IV PUSH Pain 3-5; if unable to take PO; Start 03/08/17 at 19:15; Stop 03/11/17 at 15:43; Status DC Morphine Sulfate (Morphine Inj) 4 mg Q3H PRN IV PUSH Pain 6-10;if unable to take PO Last administered on 03/09/17 05:12; Start 03/08/17 at 19:15; Stop at 15:43; Status DC Morphine Sulfate (Morphine Inj) 4 mg Q3H PRN IV PUSH BREAKTHROUGH PAIN Last administered on 03/13/17 08:44; Start 03/08/17 at 19:15; Stop 03/13/17 at 10: 32; Status DC Oxycodone HCl (Roxicodone) 5 mg Q4H PRN PO PAIN SCALE 3 TO 5; Start 03/08/17 at 19:15; Stop 03/11/17 at 15:43; Status DC Naloxone HCl (Narcan Inj) 0.4 mg UNSCH PRN IV PUSH SEE LABEL COMMENTS; Start 03/08/17 at 19:15; Stop 03/09/17 at 16:00; Status DC Lidocaine HCl (Xylocaine 2% Viscous) 15 ml Q4H PRN SWISH-SWAL SORE THROAT Last administered on 03/09/17 01:38; Start 03/08/17 at 19:30 Potassium Chloride/Dextrose/ Sod Cl 1,000 ml @ 84 mls/hr [id number] IV Last administered on 03/09/17 01:39; Start 03/08/17 at 21:00; Stop 03/09/17 at 16: 00; Status DC Potassium Chloride 100 ml @ 100 mls/hr Q1H IV Last administered on 03/09/17 03:10; Start 03/08/17 at 21:00; Stop 03/08/17 at 23:59; Status DC Bupivacaine HCl/ Epinephrine Bitart (Sensorcaine-Epi 0.5% 50 ml Inj) 50 ml STK- MED ONCE .ROUTE Last administered on 03/09/17 06:26; Start 03/09/17 at 06:26; Stop 03/09/17 at 06:27; Status DC Cefazolin Sodium/ Dextrose 50 ml @ 100 mls/hr CHIEF PAYROLL CLERK IV Last administered on 03/09/17 12:10; Start 03/09/17 at 07:15; Stop 03/12/17 at 07:14; Status DC Lactated Ringer's 1,000 ml @ 30 mls/hr Q24H PRN IV SEE LABEL COMMENTS Last administered on 03/09/17 07:10; Start 03/09/17 at 07:15; Stop 03/09/17 at 16:01 ; Status DC Sodium Chloride 500 ml @ 30 mls/hr [id number] PRN IV SEE LABEL COMMENTS; Start at 07:15; Stop 03/09/17 at 16:00; Status DC Metoprolol Tartrate (Lopressor) 25 mg CHIEF PAYROLL CLERK PRN PO SEE LABEL COMMENTS; Start 03/09/17 at 07:15; Stop 03/12/17 at 07:14; Status DC Povidone Iodine (Betadine 5% Antisepsis Kit) 1 applic CHIEF PAYROLL CLERK PRN EACH NARE SEE LABEL COMMENTS; Start 03/09/17 at 07:15; Stop 03/12/17 at 07:14; Status DC Chlorhexidine Gluconate (Chlorhexidine 2% Cloth) 3 pack CHIEF PAYROLL CLERK PRN TOPICAL SEE LABEL COMMENTS; Start 03/09/17 at 07:15; Stop 03/12/17 at 07:14; Status DC Insulin Human Regular (NovoLIN R INJ) See Protocol Table ... CHIEF PAYROLL CLERK PRN SQ SEE PROTOCOL TABLE; Start 03/09/17 at 07:15; Stop 03/12/17 at 07:14; Status DC Acetaminophen 100 ml @ As Directed STK-MED ONCE IV Last administered on 16:05; Start 03/09/17 at 07:20; Stop 03/09/17 at 07:21; Status DC Albuterol Sulfate (Albuterol Neb) 2.5 mg STK-MED ONCE .ROUTE ; Start 03/09/17 at 07:34; Stop 03/09/17 at 07:35; Status DC Bupivacaine HCl (Marcaine Pf 0.5% Inj) 30 ml STK-MED ONCE .ROUTE ; Start at 07:50; Stop 03/09/17 at 07:51; Status DC Onabotulinumtoxina (Botox Inj) 100 units ONCE ONCE .XX ; Start 03/09/17 at 08: 45; Stop 03/09/17 at 08:46; Status DC Fluconazole/ Sodium Chloride 200 ml @ As Directed STK-MED ONCE .ROUTE Last administered on 03/09/17 12:11; Start 03/09/17 at 12:03; Stop 03/09/17 at 12:04 ; Status DC Potassium Chloride (KCl) 40 meq ONCE ONCE PO ; Start 03/09/17 at 14:15; Stop 03/09/17 at 14:16; Status DC Potassium Chloride/Dextrose/ Sod Cl 1,000 ml @ 85 mls/hr [id number] IV Last administered on 03/15/17 15:35; Start 03/09/17 at 14:20 Sodium Chloride (NS Flush) 2 ml UNSCH PRN IV FLUSH FLUSH AFTER USING IV ACCESS ; Start 03/09/17 at 14:30 Sodium Chloride (NS Flush) 2 ml BID IV FLUSH Last administered on 03/14/17 20: 02; Start 03/09/17 at 14:30 Ondansetron HCl (Zofran Inj) 4 mg Q6H PRN IV PUSH NAUSEA OR VOMITING; Start at 14:30 Pantoprazole Sodium (Protonix Inj) 40 mg Q24H IV PUSH Last administered on 03/15 17:05; Start 03/09/17 at 17:00 Diphenhydramine HCl (Benadryl Inj) 25 mg Q6H PRN IV PUSH ITCHING; Start at 14:30 Benzocaine (Hurricaine 20% Oral Spr) 1 spray UNSCH X1 PRN MT SEE LABEL COMMENTS ; Start 03/09/17 at 14:30; Stop 03/10/17 at 14:29; Status DC Clindamycin Phosphate 600 mg/ Sodium Chloride 54 ml @ 108 mls/hr Q8H IV Last administered on 03/10/17 11:46; Start 03/09/17 at 20:00; Stop 03/10/17 at 12:29 ; Status DC Miscellaneous Information (Post-op Orders (for Pharmacy)) STAT ONCE XX ; Start 03/09/17 at 14:30; Stop 03/09/17 at 16:08; Status DC Acetaminophen 100 ml @ 400 mls/hr Q6H IV Last administered on 03/11/17 09:36 ; Start 03/09/17 at 16:00; Stop 03/11/17 at 10:14; Status DC Naloxone HCl (Narcan Inj) 0.4 mg UNSCH PRN IV PUSH SEE LABEL COMMENTS; Start 03/09/17 at 14:30; Stop 03/09/17 at 16:00; Status DC Enoxaparin Sodium (Lovenox Inj) 40 mg Q24H SQ Last administered on 03/15/17 14 :30; Start 03/10/17 at 14:00 Naloxone HCl (Narcan Inj) 0.4 mg UNSCH PRN IV PUSH RESPIRATORY RATE LESS THAN 10; Start 03/09/17 at 14:30 Morphine Sulfate (Morphine 1 Mg/ ml COUTURE ALTERATIONS DRESSMAKER) 30 mg UNSCH IV Last administered on 08:28; Start 03/09/17 at 14:30; Stop 03/11/17 at 15:38; Status DC COUTURE ALTERATIONS DRESSMAKER Dosage Infused (Pha) 1 Q8HR .XX Last administered on 03/11/17 14:00; Start 03/09/17 at 14:30; Stop 03/13/17 at 13:52; Status DC Meperidine HCl (*DEMEROL INJ PERIprocedural ONLY) 25 mg STK-MED ONCE .ROUTE Last administered on 03/09/17 15:17; Start 03/09/17 at 15:17; Stop 03/09/17 at 15:18; Status DC Albuterol/ Ipratropium (Duoneb Neb) 1 ampule Q6HR NEB NEB Last administered on 03/13/17 16:23; Start 03/09/17 at 17:00; Stop 03/13/17 at 16:59; Status DC Miscellaneous Information ALL NURSING DEPARTME... UNSCH PRN .XX SEE LABEL COMMENTS; Start 03/09/17 at 14:45; Stop 03/10/17 at 14:44; Status DC Ketorolac Tromethamine (Toradol Inj) 30 mg ONCE ONCE IV PUSH Last administered on 03/10/17 14:40; Start 03/10/17 at 14:30; Stop 03/10/17 at 14:32 ; Status DC Acetaminophen/ Hydrocodone Bitart (Hycet 325-7.5 Mg Liq) 15 ml Q4H PRN PO pain 1-5 ; Start 03/11/17 at 15:45; Stop 03/13/17 at 13:52; Status DC Hydromorphone HCl (Dilaudid Pf Inj) 1 mg Q4H PRN IV PUSH pain 6-10 Last administered on 03/13/17 10:03; Start 03/11/17 at 15:45; Stop 03/13/17 at 10:32 ; Status DC Pneumococcal Polyvalent Vaccine (Pneumovax-23 Inj) 25 mcg ONCE ONCE IM ; Start 03/12/17 at 10:00; Stop 03/12/17 at 10:01; Status DC Influenza Virus Vaccine (Flu (Quadrivalent) Vaccine Inj) 0.5 ml ONCE ONCE IM ; Start 03/12/17 at 10:00; Stop 03/12/17 at 10:01; Status DC Hydromorphone HCl (Dilaudid Pf Inj) 1 mg UNSCH PRN IV PUSH pain 6-10 Last administered on 03/13/17 12:23; Start 03/13/17 at 10:45; Stop 03/13/17 at 13:52 ; Status DC Morphine Sulfate (Morphine Inj) 4 mg UNSCH PRN IV PUSH BREAKTHROUGH PAIN; Start 03/13/17 at 10:45; Stop 03/13/17 at 13:52; Status DC Naloxone HCl (Narcan Inj) 0.4 mg UNSCH PRN IV PUSH RESPIRATORY RATE LESS THAN 10; Start 03/13/17 at 14:00 Morphine Sulfate (Morphine 1 Mg/ ml COUTURE ALTERATIONS DRESSMAKER) 30 mg UNSCH IV Last administered on 18:46; Start 03/13/17 at 14:00 COUTURE ALTERATIONS DRESSMAKER Dosage Infused (Pha) 1 Q8HR .XX Last administered on 03/16/17 05:01; Start 03/13/17 at 14:00 Diatrizoate Meglum/ Diatrizoate Sod ( Gastrodarek Liq) 120 ml STK-MED ONCE PO Last administered on 03/14/17 12:56; Start 03/14/17 at 12:56; Stop 03/15/17 at 09:02; Status DC Urinary Catheter: No A/P Assessment and Plan 61-year-old male with esophageal poorly differentiated adenocarcinoma admitted with intractable pain. Patient underwent robot-assisted esophagectomy by general surgery. Pain has been very difficult to control. General surgery following. Esophageal cancer, status post esophagectomy. Completed chemotherapy 3 weeks ago - General surgery following. - Chest tube to wall suction. -Pain has been very difficult to control. Not much relief despite every hour morphine and Dilaudid for breakthrough. 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 Plan to reassess tomorrow and wean off as tolerated. - Okay for ice chips per general surgery. ON TUBE FEEDS NOW Intractable pain secondary to esophageal cancer - Start morphine COUTURE ALTERATIONS DRESSMAKER as above.--DC COUTURE ALTERATIONS DRESSMAKER AND START LIQUID LORTAB - Continue to monitor Severe Protein calorie malnutrition. Continue feeding tube. Plan per general surgery. Appreciate assistance. TUBE FEEDS GERD. Chronic. Continue PPI Hypertension. Patient was previously on metoprolol which was discontinued. Blood pressure acceptable. Continue to monitor. Prophylaxis. SCDs. Anticoagulation when okay by surgery NGT REMOVED BY SURGERY CHEST TUBE IS OUT DW RN AND PT AND CM Discharge Planning TOLERATING TUBE FEEDS AND Pain control Martín Manning DO Mar 16, 2017 13:18
[2017-03-16] MEDS: ENOXAPARIN SODIUM 40 MG/0.4 ML SYRINGE SQ SCH (14:58)
[2017-03-16] MEDS: ACETAMINOPHEN 325MG/HYDROcodone 7.5MG/15ML UDC PEG PRN ×2 (16:52→21:48)
[2017-03-16] MEDS: D5-NS + KCL 20 MEQ INJ 1,000 ML IV SCH (16:52)
[2017-03-16] MEDS: PANTOPRAZOLE SODIUM 40 MG VIAL IV PUSH SCH (16:53)
[2017-03-17] VITALS: BP 103/70; PULSE 88; RESP 20; TEMP 97.7; O2SAT 97
[2017-03-17] MEDS: ACETAMINOPHEN 325MG/HYDROcodone 7.5MG/15ML UDC PEG PRN ×5 (02:02→22:09)
[2017-03-17] MEDS: D5-NS + KCL 20 MEQ INJ 1,000 ML IV SCH (04:42)
[2017-03-17] MEDS: PCA - TOTAL MG MORPHINE DELIVERED PER SHIFT SCH ×3 (04:43→20:19)
[2017-03-17 06:16] LABS: AUTOMATED NEUTROPHIL # 3.1 TH/MM3 (1.8-7.7); BASOPHIL % 0.7 % (0.0-2.0); EOSINOPHIL # 0.1 TH/MM3 (0-0.4); EOSINOPHIL % 3.2 % (0.0-4.0); HEMATOCRIT 25.8 % (39.0-51.0); HEMO FLAGS DIFF FINAL; LYMPH % 10.9 % (9.0-44.0); LYMPHOCYTE # 0.5 TH/MM3 (1.0-4.8); MEAN CELL VOLUME 88.3 FL (80.0-100.0); MEAN CORPUSCULAR HEMOGLOBIN 29.7 PG (27.0-34.0); MEAN CORPUSCULAR HGB CONC 33.6 % (32.0-36.0); MONO % 18.7 % (0.0-8.0); NEUT % 66.5 % (16.0-70.0); PLATELET COUNT 208 TH/MM3 (150-450); RED BLOOD COUNT 2.92 MIL/MM3 (4.50-5.90); RED CELL DISTRIBUTION WIDTH 16.6 % (11.6-17.2); WHITE BLOOD COUNT 4.7 TH/MM3 (4.0-11.0)
[2017-03-17 06:38] LABS: ANION GAP 8 MEQ/L (5-15); AST (GOT) 21 U/L (15-37); BICARBONATE 24.5 MEQ/L (21.0-32.0); BLOOD UREA NITROGEN 3 MG/DL (7-18); CHLORIDE 108 MEQ/L (98-107); GLOMERULAR FILTRATION RATE 220 ML/MIN (>89); MAGNESIUM 1.8 MG/DL (1.5-2.5); SODIUM (NA) 140 MEQ/L (136-145)
[2017-03-17 06:42] LABS: ALKALINE PHOSPHATASE 97 U/L (45-117); ALT (GPT) 15 U/L (12-78); TOTAL BILIRUBIN ADULT 0.3 MG/DL (0.2-1.0)
[2017-03-17 08:00] VITALS: BP 123/79; PULSE 91; RESP 16; TEMP 97.3; O2SAT 97
--- NOTE | 2017-03-17 08:03 | PD.ONC.PN ---
Subjective Subjective Remarks Pain improved. +BM. Wanted to go home. Objective Data Date Time Temp Pulse Resp B/P (MAP) Pulse Ox O2 Delivery O2 Flow Rate FiO2 03/17/17 04:43 16 03/17/17 00:00 97.7 88 20 103/70 (81) 97 03/16/17 21:48 17 03/16/17 20:00 98.0 99 20 130/86 (101) 98 03/16/17 17:58 21 03/16/17 16:00 98.6 95 17 126/70 (88) 98 03/16/17 14:00 17 03/16/17 12:00 96.9 87 17 128/82 (97) 97 03/16/17 08:20 17 03/16/17 08:20 Room Air 03/17/17 03/17/17 03/17/17 07:00 15:00 23:00 Intake Total 1396 ml Output Total 650 ml Balance 746 ml Result Diagram: 03/17/17 0451 03/17/17 0451 Laboratory Results Laboratory Tests Test 03/17/17 04:51 White Blood Count 4.7 TH/MM3 Red Blood Count 2.92 MIL/MM3 Hemoglobin 8.7 GM/DL Hematocrit 25.8 % Mean Corpuscular Volume 88.3 FL Mean Corpuscular Hemoglobin 29.7 PG Mean Corpuscular Hemoglobin Concent 33.6 % Red Cell Distribution Width 16.6 % Platelet Count 208 TH/MM3 Mean Platelet Volume 7.6 FL Neutrophils (%) (Auto) 66.5 % Lymphocytes (%) (Auto) 10.9 % Monocytes (%) (Auto) 18.7 % Eosinophils (%) (Auto) 3.2 % Basophils (%) (Auto) 0.7 % Neutrophils # (Auto) 3.1 TH/MM3 Lymphocytes # (Auto) 0.5 TH/MM3 Monocytes # (Auto) 0.9 TH/MM3 Eosinophils # (Auto) 0.1 TH/MM3 Basophils # (Auto) 0.0 TH/MM3 CBC Comment DIFF FINAL Differential Comment Blood Urea Nitrogen 3 MG/DL Creatinine 0.40 MG/DL Random Glucose 137 MG/DL Total Protein 5.6 GM/DL Albumin 1.9 GM/DL Calcium Level 8.4 MG/DL Phosphorus Level 4.0 MG/DL Magnesium Level 1.8 MG/DL Alkaline Phosphatase 97 U/L Aspartate Amino Transf (AST/SGOT) 21 U/L Alanine Aminotransferase (ALT/SGPT) 15 U/L Total Bilirubin 0.3 MG/DL Sodium Level 140 MEQ/L Potassium Level 4.0 MEQ/L Chloride Level 108 MEQ/L Carbon Dioxide Level 24.5 MEQ/L Anion Gap 8 MEQ/L Estimat Glomerular Filtration Rate 220 ML/MIN Administered Medications Medications (Trade) Dose Ordered Sig/[place] Route PRN Reason Start Time Stop Time Status Last Admin Dose Admin Magnesium Hydroxide (Milk Of Magnesia Liq) 30 ml Q12H PRN PO Mild constipation 03/08/17 19:15 03/15/17 14:30 Lactulose (Lactulose Liq) 30 ml DAILY PRN PO SEVERE CONSITIPATION 03/08/17 19:15 03/16/17 01:46 Lidocaine HCl (Xylocaine 2% Viscous) 15 ml Q4H PRN SWISH-SWAL SORE THROAT 03/08/17 19:30 03/09/17 01:38 Potassium Chloride/Dextrose/ Sod Cl 1,000 ml @ 85 mls/hr [id number] IV 03/09/17 14:20 03/17/17 04:42 Sodium Chloride (NS Flush) 2 ml BID IV FLUSH 03/09/17 14:30 03/16/17 19:44 Pantoprazole Sodium (Protonix Inj) 40 mg Q24H IV PUSH 03/09/17 17:00 03/16/17 16:53 Enoxaparin Sodium (Lovenox Inj) 40 mg Q24H SQ 03/10/17 14:00 03/16/17 14:58 Morphine Sulfate (Morphine 1 Mg/ ml LAST REPAIRER) 30 mg UNSCH IV 03/13/17 14:00 03/15/17 18:46 LAST REPAIRER Dosage Infused (Pha) 1 Q8HR .XX 03/13/17 14:00 03/17/17 04:43 Acetaminophen/ Hydrocodone Bitart (Hycet 325-7.5 Mg Liq) 15 ml Q4H PRN PEG PAIN 3-10 03/16/17 13:15 03/17/17 06:36 Objective Remarks GENERAL: Well-nourished, well-developed patient. Stronger SKIN: Warm and dry. HEAD: Normocephalic. EYES: No scleral icterus. No injection or drainage. NECK: Supple, trachea midline. No JVD or lymphadenopathy. LYMPHATIC: No adenopathy. CARDIOVASCULAR: Regular rate and rhythm without murmurs. RESPIRATORY: Breath sounds equal bilaterally. No accessory muscle use. GASTROINTESTINAL: Abdomen soft, non-tender, nondistended. +BS, no skin breakdown. EXTREMITIES: No cyanosis, or edema. MUSCULOSKELETAL: Adequate muscle tone. NEUROLOGICAL: No obvious focal deficit. Awake, alert, and oriented x3. Episode of confusion Assessment/Plan Assessment 1. Esophageal cancer. 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 Upper endoscopy showed a 3 cm ulcerated mass involving the lower esophageal sphincter at the GE junction and in the cardia. The mass was partially obstructing when he first presented. He was treated with radiation with concurrent chemotherapy which he completed several weeks ago. PET/CT showed no distant metastasis. He just underwent esophagectomy with a J-tube placement 03/09/2017. Final pathology showed no residual tumor and perigastric LN were negative for mets disease. He had achieved remission with neoadjuvant therapy. Recovering well. 2. Mid epigastric pain due to his esophageal cancer. He is now status post surgery as above. Pain controlled. Mild confusion due to pain meds. 3. Nonspecific lung nodule, will need to be monitored. 4. Anemia due to operative blood loss. Hgb stable. Plan PLAN 1. Continue supportive care. 2. F/u oncology clinic after d/c. Sylvester Silver MD Mar 17, 2017 08:03
[2017-03-17] MEDS: SODIUM CHLORIDE 0.9% FLUSH 10 ML FLUSH IV FLUSH SCH ×2 (08:24→21:00)
[2017-03-17 09:20] VITALS: O2SAT 97
[2017-03-17] MEDS: PANTOPRAZOLE SOD 40 MG DELAYED RELEASE TAB PO SCH (11:47)
[2017-03-17 12:00] VITALS: BP 127/75; PULSE 82; RESP 18; TEMP 96.6; O2SAT 98
--- NOTE | 2017-03-17 13:13 | HHI.PR ---
Subjective Remarks Patient has not been doing incentive spirometry correctly Have reeducated him on the correct way to do it Still has chest tube in place HAs NG tube in place Discussed with patient and RN Still having lots of pain 11-7 LESS ABDOMINAL PAIN CHEST TUBE STILL IN PLACE NGT REMOVED TOLERATING TUBE FEEDS SOME CONFUSION PROBABLY DUE TO PAIN MEDICATIONS DW RN AND PT AND FAMILY AND CM 11-8 STILL CONFUSED CHEST TUBE OUT TODAY TOLERATING TUBE FEEDS DW RN AND PT AND FAMILY AND SURGERY AND CM LIQUID LORTAB FOR PAIN DC MANAGER DISTRIBUTION 11- TOLERATING PEG PAIN MEDS DC MANAGER DISTRIBUTION CONTINUE TUBE FEEDS Objective Vitals Vital Signs Date Time Temp Pulse Resp B/P (MAP) Pulse Ox O2 Delivery O2 Flow Rate FiO2 03/17/17 12:00 96.6 82 18 127/75 (92) 98 03/17/17 08:28 Room Air 03/17/17 08:00 97.3 91 16 123/79 (94) 97 03/17/17 04:43 16 03/17/17 00:00 97.7 88 20 103/70 (81) 97 03/16/17 21:48 17 03/16/17 20:00 98.0 99 20 130/86 (101) 98 03/16/17 17:58 21 03/16/17 16:00 98.6 95 17 126/70 (88) 98 03/16/17 14:00 17 I/O 03/16/17 03/16/17 03/16/17 03/17/17 03/17/17 03/17/17 07:00 15:00 23:00 07:00 15:00 23:00 Intake Total 535 ml 1396 ml 420 ml Output Total 40 ml 650 ml Balance -40 ml 535 ml 746 ml 420 ml Intake Oral 0 ml IV Total 1120 ml 420 ml Tube Feeding 535 ml 276 ml Output Urine Total 650 ml Chest Tube Drainage Total 40 ml # Voids 3 # Bowel Movements 3 Result Diagram: 03/17/17 0451 03/17/17 045 Other Results Laboratory Tests Test 03/15/17 05:45 03/16/17 06:00 03/17/17 04:51 White Blood Count 5.9 TH/MM3 8.6 TH/MM3 4.7 TH/MM3 Red Blood Count 2.97 MIL/MM3 3.25 MIL/MM3 2.92 MIL/MM3 Hemoglobin 9.1 GM/DL 9.9 GM/DL 8.7 GM/DL Hematocrit 25.9 % 28.6 % 25.8 % Mean Corpuscular Volume 87.3 FL 88.0 FL 88.3 FL Mean Corpuscular Hemoglobin 30.5 PG 30.4 PG 29.7 PG Mean Corpuscular Hemoglobin Concent 35.0 % 34.5 % 33.6 % Red Cell Distribution Width 16.7 % 16.5 % 16.6 % Platelet Count 164 TH/MM3 219 TH/MM3 208 TH/MM3 Mean Platelet Volume 7.7 FL 7.8 FL 7.6 FL Neutrophils (%) (Auto) 68.5 % 76.7 % 66.5 % Lymphocytes (%) (Auto) 12.1 % 9.4 % 10.9 % Monocytes (%) (Auto) 16.6 % 11.9 % 18.7 % Eosinophils (%) (Auto) 2.2 % 1.5 % 3.2 % Basophils (%) (Auto) 0.6 % 0.5 % 0.7 % Neutrophils # (Auto) 4.1 TH/MM3 6.6 TH/MM3 3.1 TH/MM3 Lymphocytes # (Auto) 0.7 TH/MM3 0.8 TH/MM3 0.5 TH/MM3 Monocytes # (Auto) 1.0 TH/MM3 1.0 TH/MM3 0.9 TH/MM3 Eosinophils # (Auto) 0.1 TH/MM3 0.1 TH/MM3 0.1 TH/MM3 Basophils # (Auto) 0.0 TH/MM3 0.0 TH/MM3 0.0 TH/MM3 CBC Comment DIFF FINAL DIFF FINAL DIFF FINAL Differential Comment Blood Urea Nitrogen 4 MG/DL 5 MG/DL 3 MG/DL Creatinine 0.38 MG/DL 0.49 MG/DL 0.40 MG/DL Random Glucose 91 MG/DL 108 MG/DL 137 MG/DL Total Protein 5.6 GM/DL 6.3 GM/DL 5.6 GM/DL Albumin 1.9 GM/DL 2.1 GM/DL 1.9 GM/DL Calcium Level 7.7 MG/DL 8.1 MG/DL 8.4 MG/DL Phosphorus Level 3.9 MG/DL 3.3 MG/DL 4.0 MG/DL Magnesium Level 1.4 MG/DL 1.5 MG/DL 1.8 MG/DL Alkaline Phosphatase 89 U/L 106 U/L 97 U/L Aspartate Amino Transf (AST/SGOT) 17 U/L 22 U/L 21 U/L Alanine Aminotransferase (ALT/SGPT) 15 U/L 18 U/L 15 U/L Total Bilirubin 0.5 MG/DL 0.4 MG/DL 0.3 MG/DL Sodium Level 137 MEQ/L 136 MEQ/L 140 MEQ/L Potassium Level 3.6 MEQ/L 4.1 MEQ/L 4.0 MEQ/L Chloride Level 103 MEQ/L 103 MEQ/L 108 MEQ/L Carbon Dioxide Level 25.6 MEQ/L 24.3 MEQ/L 24.5 MEQ/L Anion Gap 8 MEQ/L 9 MEQ/L 8 MEQ/L Estimat Glomerular Filtration Rate 234 ML/MIN 174 ML/MIN 220 ML/MIN Hemoglobin A1c 5.0 % Free Thyroxine 1.22 NG/DL Thyroid Stimulating Hormone 3rd Gen 1.730 uIU/ML Imaging Last Impressions Chest X-Ray 03/16/17 0000 Signed Impressions: Service Date/Time: Thursday, March 16, 2017 12:28 - CONCLUSION: Negative for pneumothorax. Martín Hardy MD FACR Esophagus X-Ray 03/14/17 0000 Signed Impressions: Service Date/Time: Tuesday, March 14, 2017 12:56 - CONCLUSION: Negative for leak. Nasogastric tube across the anastomosis. Martín Hardy MD FACR Objective Remarks GENERAL: Awake alert oriented talkative and cooperative appears TO HAVE MILD pain SKIN: Warm and dry. HEAD: Atraumatic. Normocephalic. EYES: Pupils equal and round. No scleral icterus. No injection or drainage. extraocular muscles intact ENT: No nasal bleeding or discharge. Mucous membranes pink and moist. TONGUE MIDLINE NECK: Trachea midline. No JVD. Supple CARDIOVASCULAR: Regular rate and rhythm. S1 and S2 no S3 or S4 RESPIRATORY: No accessory muscle use. Clear to auscultation. Breath sounds equal bilaterally. GASTROINTESTINAL: Abdomen LESS tender nondistended. Hepatic and splenic margins not palpable. POSITIVE bowel sounds MUSCULOSKELETAL: Extremities without clubbing, cyanosis, or edema. No obvious deformities. NEUROLOGICAL: Awake and alert. No obvious cranial nerve deficits. Motor grossly within normal limits. 4 out of 5 muscle strength in the arms and legs. Normal speech. PSYCHIATRIC: INAppropriate mood and affect; insight and judgment ABnormal. SOME CONFUSION Procedures DATE OF SURGERY 03/09/2017 PREOPERATIVE DIAGNOSIS Distal esophageal adenocarcinoma. POSTOPERATIVE DIAGNOSIS Distal esophageal adenocarcinoma. PROCEDURE 1. Robotic-assisted Hope Sharad esophagectomy. 2. Injection of Botox to pylorus (chemical pyloroplasty) 3. Jejunostomy tube placement. 4. Omental pedicle flap for a gastric conduit. ATTENDING SURGEON Goldy Espinal MD PSYCHOLOGIST CLINICAL Chino Callaway MD ANESTHESIA General BLOOD LOSS 300 cc COMPLICATIONS None FINDINGS Intraoperative evaluation with negative proximal and distal margin on Leroy Sharad esophagogastrectomy specimen. INDICATIONS FOR PROCEDURE The patient is a 61-year-old male who was recently diagnosed with a distal esophageal adenocarcinoma. Staging scans revealed that this was a stage II-III without any evidence of distant metastasis. The patient was recommended to undergo neoadjuvant chemoradiation per NCCN guidelines. The patient did a complicated course including malnutrition and esophagitis (radiation esophagitis requiring multiple additions, nutrition support and pain management. The patient was admitted to [facility] with recurrent pain and esophagitis. Staging CT PET scan did reveal no evidence of metastatic disease and the patient was medically fit for esophagectomy. The risks, benefits, alternatives were discussed with the patient and his daughter at a previous appointment and they agreed to undergo the procedure. PROCEDURE After informed consent was obtained, the patient was an inpatient at [facility], was brought to the operating room and placed in the supine position and placed under general anesthesia. The patient had a double lumen tube placed. The patient had a regional tap block performed on the abdomen. At this point in time, a time-out was performed. The patient's abdomen was shaved, prepped and draped in a sterile fashion. We entered the abdomen with an upper midline incision from his xiphoid area to the umbilicus with a 10 blade scalpel. Bovie electrocautery dissected into the subcutaneous tissue and opened the fascia through the entire length of the incision. We placed an Colton extra-large wound retractor followed by a Bookwalter retractor to gain better exposure. At this point in time, there was no evidence of metastatic disease. We continued with the dissection. We opened the lesser sac of the gastrocolic ligament. We took down the short gastrics all way to the left bonny using the Enseal device taking great care to preserve the blood flow through our right gastroepiploic artery. He had an excellent pulse and good perfusion through this artery throughout the case. We then extended this proximally and mobilized the hepatic flexure of the colon and kocherized the duodenum. We did perform omentectomy due to the patient's large omentum and due to patient's blood supply for the omentum. This was again done with the Bovie electrocautery, as well as the Enseal, and this was taken from the splenic flexure and passed off for permanent processing. At this point in time, we identify the left gastric artery at its origin. We dissected around this with a right-angle retractor. We placed the vascular load on the echelon GI stapler across this vessel and there was continued pulse and perfusion of our liver and our hepatic artery. We divided this white load on the [place] stapler. We then continued our dissection further past the bonny and into the mediastinum. We dissected all the way approximately between 6 and 8 cm up into the mediastinum and opened the right chest by dividing the parietal pleura. We also injected 100 units of Botox into the pylorus creating effectively a chemical pyloroplasty. At this point in time, we place a Mick drain at a ring type loop around the esophagus and we went past the specimen up into the right chest. We did take our stomach and create somewhat of a conduit by dividing the incisura up to the fundus creating a wide floppy conduit approximately [address] to the fundus. This was done with a green load on the [place] stapler. The lip at the very tip of the conduit attached to our specimen to facilitate migration into the chest. At this point in time, we then turned our attention towards jejunostomy tube placement. We identified the ligament of Treitz and approximately 40 cm distal to this, we found a loop of jejunum. We placed a 14-Nauruan jejunostomy tube through a separate incision in the left lateral side of the patient and placed this into the antimesenteric portion of the jejunum. We placed a pursestring 3-0 silk suture around the J tube as it entered the bowel wall and also placed four 3-0 silk Jose sutures up against the abdominal wall. We inserted 2 cc of fluid in the balloon to allow for any occlusion. This was placed as this tube was capped. This was sutured in place to the skin in an anatomic position and we ensured this went distal to the distal jejunum. At this point in time, we turned our attention to closure. We irrigated out the abdomen with one liter of sterile saline. All suctioning was clear. We did have a very tiny capsular tear approximately 3 or 4 mm on the spleen and we did place FloSeal and Surgicel on this for complete hemostasis. There was approximately 20 cc lost from this area and this was easily secured. We closed the midline with a single stitch which was a #1 looped PDS suture. We closed the skin with skin yung. A sterile dressing was applied. At this point in time, the patient was turned to the left decubitus position after we had taken down the sterile drapes. We placed Ioban over the right chest and broke the bed to gain better exposure. After prepping the patient, we then placed sterile drapes. We then placed the patient on single lung ventilation through the left lung only trapping right lung. This gave us excellent oxygenation at 99% of lung ventilation. We entered the chest proximally at the sixth rib at the posterior axillary line with a scalpel and a hemostat spreading down above the inferior rib. We directly placed a robot 10/12 port into the patients under direct visualization. We insufflated the chest to low pressure and had good collapse of our lung and good visualization. We placed a 10/12 robot port in approximately the third space in the right chest near the axillary posterior line. We placed 2 x 8 ports in the seventh to eighth and ninth and tenth rib spaces approximately one-fifth length apart to facilitate robot arm movement. As these were all placed under direct visualization, local anesthetic was used at all these sites. We then docked the GoCoop Ji SI robot system without difficulty. We were able to continued our dissection. We used a suction knowledge engineer device in arm three to facilitate lung retraction and to suction and irrigate as needed. We used the fenestrated Bipolar, as well as Bovie electrocautery in the vessel sealer to continue our dissection. I dissected the mediastinum and was able to grasp our Mick and use this to facilitate an ablation of the esophagus. We clearly got above the area of radiation into normal esophagus well below the azygos vein. We dissected all the way to the thoracic inlet and dividing the azygos vein was unnecessary as this was a very distal tumor and we had several centimeters of normal-appearing esophagus below this. We divided the esophagus with a green load on the robotic stapler and then we were able to pass an Rasta 25 mm anvil transorally into this proximal esophageal blind pouch through a separate esophagotomy incision right at the middle of the staple line. We then cut this suture and again secured the anvil in a normal position in the proximal esophagus. The specimen was removed and electrocautery was used to remove the specimen from our conduit. This left us with a gastrotomy in our conduit which was used for the 25 EEA stapler. We did, of note, de-dock the arm two at the seventh and eighth rib space and make this into a small backs type thoracotomy proximally 5 cm along with a small Finochietto retractor. I did not traumatize or cut any ribs to do this. We were able to bring our specimen and our conduit out through this incision and our margins were negative on intraoperative consultation by pathology. We did place the EEA stapler, did this gastrotomy back into the chest under visualization with the robotic camera and performed an EEA end esophagus to side gastric conduit anastomosis. We had two good doughnuts and the proximal esophageal was sent to have a permanent margin and specimen performed. This laid tension-free without twisting in the chest. We placed an NG tube through this anastomosis into the conduit, placed this to suction. We closed the gastrotomy with the two green loads on the robotic stapler. We did irrigate out the chest and had excellent hemostasis. There were no signs of any complications. There was no electro Bovie injury and again no signs of any leak or ischemia in our conduit or the proximal esophagus. The anastomosis laid just approximately 1 cm below the azygous vein. We turned out attention towards closure. We ensured the lung was not entrapped and slowly reinsufflated this and watched the upper and lower and middle lobes expands well. We did placed a 28 size Nauruan chest tube through the third port space at the 10-11 rib space and sutured this in place with a silk suture. This was in a posterolateral position. We then thoroughly de-docked the robot and closed all our port sites with 0-PDS and 0 Vicryl sutures followed by 4-0 Monocryl and Steri-Strips at the skin. The NG tube with a bridle was in position. At this point in time, the patient was turned back into a supine position, discontinued from the anesthesia, taken to the PACU in a stable condition. The patient tolerated the procedure well. No apparent complications. The sponge, instrument and needle counts were correct. I was present and scrubbed for the entire procedure or at the robotic console for all portions of this procedure. Dr. Callaway was present and scrubbed for all critical portions of this procedure and his expertise was needed as a second surgeon at the bedside in assisting me as well as assisting me at the bedside while I was on the consult. Medications and IVs Current Medications Sodium Chloride 1,000 ml @ 125 mls/hr Q8H IV Last administered on 03/08/17 19:12; Start 03/08/17 at 19:00; Stop 03/08/17 at 20:09; Status DC Hydromorphone HCl (Dilaudid Pf Inj) 1 mg ONCE ONCE IV PUSH Last administered on 03/08/17 19:13; Start 03/08/17 at 19:00; Stop 03/08/17 at 19:01; Status DC Ondansetron HCl (Zofran Inj) 4 mg ONCE ONCE IV PUSH Last administered on 03/08 19:13; Start 03/08/17 at 19:00; Stop 03/08/17 at 19:01; Status DC Potassium Chloride/Dextrose/ Sod Cl 1,000 ml @ 100 mls/hr Q10H IV ; Start at 20:00; Stop 03/08/17 at 20:09; Status DC Sodium Chloride (NS Flush) 2 ml UNSCH PRN IV FLUSH FLUSH AFTER USING IV ACCESS ; Start 03/08/17 at 19:15; Stop 03/09/17 at 16:00; Status DC Sodium Chloride (NS Flush) 2 ml BID IV FLUSH Last administered on 03/08/17 21 :00; Start 03/08/17 at 21:00; Stop 03/09/17 at 16:00; Status DC Ondansetron HCl (Zofran Inj) 4 mg Q6H PRN IVP NAUSEA OR VOMITING; Start at 19:15; Stop 03/09/17 at 16:00; Status DC Naloxone HCl (Narcan Inj) 0.4 mg UNSCH PRN IV PUSH SEE LABEL COMMENTS; Start 03/08/17 at 19:15; Stop 03/09/17 at 11:20; Status DC Magnesium Hydroxide (Milk Of Magnesia Liq) 30 ml Q12H PRN PO Mild constipation Last administered on 03/15/17 14:30; Start 03/08/17 at 19:15 Sennosides (Senokot) 17.2 mg Q12H PRN PO Moderate constipation; Start at 19:15 Bisacodyl (Dulcolax Supp) 10 mg DAILY PRN RECTAL SEVERE CONSITIPATION; Start 03/08/17 at 19:15 Lactulose (Lactulose Liq) 30 ml DAILY PRN PO SEVERE CONSITIPATION Last administered on 03/16/17 01:46; Start 03/08/17 at 19:15 Oxycodone HCl (Roxicodone) 10 mg Q4H PRN PO PAIN SCALE 6 TO 10 Last administered on 03/09/17 03:10; Start 03/08/17 at 19:15; Stop 03/11/17 at 15: 42; Status DC Morphine Sulfate (Morphine Inj) 2 mg Q3H PRN IV PUSH Pain 3-5; if unable to take PO; Start 03/08/17 at 19:15; Stop 03/11/17 at 15:43; Status DC Morphine Sulfate (Morphine Inj) 4 mg Q3H PRN IV PUSH Pain 6-10;if unable to take PO Last administered on 03/09/17 05:12; Start 03/08/17 at 19:15; Stop at 15:43; Status DC Morphine Sulfate (Morphine Inj) 4 mg Q3H PRN IV PUSH BREAKTHROUGH PAIN Last administered on 03/13/17 08:44; Start 03/08/17 at 19:15; Stop 03/13/17 at 10: 32; Status DC Oxycodone HCl (Roxicodone) 5 mg Q4H PRN PO PAIN SCALE 3 TO 5; Start 03/08/17 at 19:15; Stop 03/11/17 at 15:43; Status DC Naloxone HCl (Narcan Inj) 0.4 mg UNSCH PRN IV PUSH SEE LABEL COMMENTS; Start 03/08/17 at 19:15; Stop 03/09/17 at 16:00; Status DC Lidocaine HCl (Xylocaine 2% Viscous) 15 ml Q4H PRN SWISH-SWAL SORE THROAT Last administered on 03/09/17 01:38; Start 03/08/17 at 19:30 Potassium Chloride/Dextrose/ Sod Cl 1,000 ml @ 84 mls/hr [id number] IV Last administered on 03/09/17 01:39; Start 03/08/17 at 21:00; Stop 03/09/17 at 16: 00; Status DC Potassium Chloride 100 ml @ 100 mls/hr Q1H IV Last administered on 03/09/17 03:10; Start 03/08/17 at 21:00; Stop 03/08/17 at 23:59; Status DC Bupivacaine HCl/ Epinephrine Bitart (Sensorcaine-Epi 0.5% 50 ml Inj) 50 ml STK- MED ONCE .ROUTE Last administered on 03/09/17 06:26; Start 03/09/17 at 06:26; Stop 03/09/17 at 06:27; Status DC Cefazolin Sodium/ Dextrose 50 ml @ 100 mls/hr POWDER COMPOUNDER IV Last administered on 03/09/17 12:10; Start 03/09/17 at 07:15; Stop 03/12/17 at 07:14; Status DC Lactated Ringer's 1,000 ml @ 30 mls/hr Q24H PRN IV SEE LABEL COMMENTS Last administered on 03/09/17 07:10; Start 03/09/17 at 07:15; Stop 03/09/17 at 16:01 ; Status DC Sodium Chloride 500 ml @ 30 mls/hr [id number] PRN IV SEE LABEL COMMENTS; Start at 07:15; Stop 03/09/17 at 16:00; Status DC Metoprolol Tartrate (Lopressor) 25 mg POWDER COMPOUNDER PRN PO SEE LABEL COMMENTS; Start 03/09/17 at 07:15; Stop 03/12/17 at 07:14; Status DC Povidone Iodine (Betadine 5% Antisepsis Kit) 1 applic POWDER COMPOUNDER PRN EACH NARE SEE LABEL COMMENTS; Start 03/09/17 at 07:15; Stop 03/12/17 at 07:14; Status DC Chlorhexidine Gluconate (Chlorhexidine 2% Cloth) 3 pack POWDER COMPOUNDER PRN TOPICAL SEE LABEL COMMENTS; Start 03/09/17 at 07:15; Stop 03/12/17 at 07:14; Status DC Insulin Human Regular (NovoLIN R INJ) See Protocol Table ... POWDER COMPOUNDER PRN SQ SEE PROTOCOL TABLE; Start 03/09/17 at 07:15; Stop 03/12/17 at 07:14; Status DC Acetaminophen 100 ml @ As Directed STK-MED ONCE IV Last administered on 16:05; Start 03/09/17 at 07:20; Stop 03/09/17 at 07:21; Status DC Albuterol Sulfate (Albuterol Neb) 2.5 mg STK-MED ONCE .ROUTE ; Start 03/09/17 at 07:34; Stop 03/09/17 at 07:35; Status DC Bupivacaine HCl (Marcaine Pf 0.5% Inj) 30 ml STK-MED ONCE .ROUTE ; Start at 07:50; Stop 03/09/17 at 07:51; Status DC Onabotulinumtoxina (Botox Inj) 100 units ONCE ONCE .XX ; Start 03/09/17 at 08: 45; Stop 03/09/17 at 08:46; Status DC Fluconazole/ Sodium Chloride 200 ml @ As Directed STK-MED ONCE .ROUTE Last administered on 03/09/17 12:11; Start 03/09/17 at 12:03; Stop 03/09/17 at 12:04 ; Status DC Potassium Chloride (KCl) 40 meq ONCE ONCE PO ; Start 03/09/17 at 14:15; Stop 03/09/17 at 14:16; Status DC Potassium Chloride/Dextrose/ Sod Cl 1,000 ml @ 85 mls/hr [id number] IV Last administered on 03/17/17 04:42; Start 03/09/17 at 14:20; Stop 03/17/17 at 10:54 ; Status DC Sodium Chloride (NS Flush) 2 ml UNSCH PRN IV FLUSH FLUSH AFTER USING IV ACCESS ; Start 03/09/17 at 14:30 Sodium Chloride (NS Flush) 2 ml BID IV FLUSH Last administered on 03/16/17 19: 44; Start 03/09/17 at 14:30 Ondansetron HCl (Zofran Inj) 4 mg Q6H PRN IV PUSH NAUSEA OR VOMITING; Start at 14:30 Pantoprazole Sodium (Protonix Inj) 40 mg Q24H IV PUSH Last administered on 03/16 16:53; Start 03/09/17 at 17:00; Stop 03/17/17 at 10:54; Status DC Diphenhydramine HCl (Benadryl Inj) 25 mg Q6H PRN IV PUSH ITCHING; Start at 14:30 Benzocaine (Hurricaine 20% Oral Spr) 1 spray UNSCH X1 PRN MT SEE LABEL COMMENTS ; Start 03/09/17 at 14:30; Stop 03/10/17 at 14:29; Status DC Clindamycin Phosphate 600 mg/ Sodium Chloride 54 ml @ 108 mls/hr Q8H IV Last administered on 03/10/17 11:46; Start 03/09/17 at 20:00; Stop 03/10/17 at 12:29 ; Status DC Miscellaneous Information (Post-op Orders (for Pharmacy)) STAT ONCE XX ; Start 03/09/17 at 14:30; Stop 03/09/17 at 16:08; Status DC Acetaminophen 100 ml @ 400 mls/hr Q6H IV Last administered on 03/11/17 09:36 ; Start 03/09/17 at 16:00; Stop 03/11/17 at 10:14; Status DC Naloxone HCl (Narcan Inj) 0.4 mg UNSCH PRN IV PUSH SEE LABEL COMMENTS; Start 03/09/17 at 14:30; Stop 03/09/17 at 16:00; Status DC Enoxaparin Sodium (Lovenox Inj) 40 mg Q24H SQ Last administered on 03/16/17 14 :58; Start 03/10/17 at 14:00 Naloxone HCl (Narcan Inj) 0.4 mg UNSCH PRN IV PUSH RESPIRATORY RATE LESS THAN 10; Start 03/09/17 at 14:30 Morphine Sulfate (Morphine 1 Mg/ ml MANAGER DISTRIBUTION) 30 mg UNSCH IV Last administered on 08:28; Start 03/09/17 at 14:30; Stop 03/11/17 at 15:38; Status DC MANAGER DISTRIBUTION Dosage Infused (Pha) 1 Q8HR .XX Last administered on 03/11/17 14:00; Start 03/09/17 at 14:30; Stop 03/13/17 at 13:52; Status DC Meperidine HCl (*DEMEROL INJ PERIprocedural ONLY) 25 mg STK-MED ONCE .ROUTE Last administered on 03/09/17 15:17; Start 03/09/17 at 15:17; Stop 03/09/17 at 15:18; Status DC Albuterol/ Ipratropium (Duoneb Neb) 1 ampule Q6HR NEB NEB Last administered on 03/13/17 16:23; Start 03/09/17 at 17:00; Stop 03/13/17 at 16:59; Status DC Miscellaneous Information ALL NURSING DEPARTME... UNSCH PRN .XX SEE LABEL COMMENTS; Start 03/09/17 at 14:45; Stop 03/10/17 at 14:44; Status DC Ketorolac Tromethamine (Toradol Inj) 30 mg ONCE ONCE IV PUSH Last administered on 03/10/17 14:40; Start 03/10/17 at 14:30; Stop 03/10/17 at 14:32 ; Status DC Acetaminophen/ Hydrocodone Bitart (Hycet 325-7.5 Mg Liq) 15 ml Q4H PRN PO pain 1-5 ; Start 03/11/17 at 15:45; Stop 03/13/17 at 13:52; Status DC Hydromorphone HCl (Dilaudid Pf Inj) 1 mg Q4H PRN IV PUSH pain 6-10 Last administered on 03/13/17 10:03; Start 03/11/17 at 15:45; Stop 03/13/17 at 10:32 ; Status DC Pneumococcal Polyvalent Vaccine (Pneumovax-23 Inj) 25 mcg ONCE ONCE IM ; Start 03/12/17 at 10:00; Stop 03/12/17 at 10:01; Status DC Influenza Virus Vaccine (Flu (Quadrivalent) Vaccine Inj) 0.5 ml ONCE ONCE IM ; Start 03/12/17 at 10:00; Stop 03/12/17 at 10:01; Status DC Hydromorphone HCl (Dilaudid Pf Inj) 1 mg UNSCH PRN IV PUSH pain 6-10 Last administered on 03/13/17 12:23; Start 03/13/17 at 10:45; Stop 03/13/17 at 13:52 ; Status DC Morphine Sulfate (Morphine Inj) 4 mg UNSCH PRN IV PUSH BREAKTHROUGH PAIN; Start 03/13/17 at 10:45; Stop 03/13/17 at 13:52; Status DC Naloxone HCl (Narcan Inj) 0.4 mg UNSCH PRN IV PUSH RESPIRATORY RATE LESS THAN 10; Start 03/13/17 at 14:00 Morphine Sulfate (Morphine 1 Mg/ ml MANAGER DISTRIBUTION) 30 mg UNSCH IV Last administered on 18:46; Start 03/13/17 at 14:00; Stop 03/17/17 at 10:54; Status DC MANAGER DISTRIBUTION Dosage Infused (Pha) 1 Q8HR .XX Last administered on 03/17/17 04:43; Start 03/13/17 at 14:00 Diatrizoate Meglum/ Diatrizoate Sod ( Gastroview Liq) 120 ml STK-MED ONCE PO Last administered on 03/14/17 12:56; Start 03/14/17 at 12:56; Stop 03/15/17 at 09:02; Status DC Acetaminophen/ Hydrocodone Bitart (Hycet 325-7.5 Mg Liq) 15 ml Q4H PRN PEG PAIN 3-10 Last administered on 03/17/17 11:47; Start 03/16/17 at 13:15 Lidocaine HCl (Xylocaine-Mpf 1% Inj) 50 ml STK-MED ONCE OTHER ; Start 03/09/17 at 12:00; Stop 03/17/17 at 10:41; Status DC Rocuronium [place] (Zemuron Inj) 50 mg STK-MED ONCE IV PUSH ; Start 03/09/17 at 12:00; Stop 03/17/17 at 10:41; Status DC Neostigmine Methylsulfate (Prostigmin Inj) 3 mg STK-MED ONCE IV ; Start at 12:00; Stop 03/17/17 at 10:41; Status DC Phenylephrine HCl (Neosynephrine/ NS 1000 Mcg/10ml Syr) 2,000 mcg STK-MED ONCE IV ; Start 03/09/17 at 12:00; Stop 03/17/17 at 10:41; Status DC Phenylephrine HCl (Neosynephrine Inj) 20 mg STK-MED ONCE IV ; Start 03/09/17 at 12:00; Stop 03/17/17 at 10:41; Status DC Ephedrine Sulfate (ePHEDrine/NS 25 MG/5 ML SYR) 25 mg STK-MED ONCE IV ; Start 03/09/17 at 12:00; Stop 03/17/17 at 10:41; Status DC Metoprolol Tartrate (Lopressor Inj) 5 mg STK-MED ONCE IV PUSH ; Start 03/09/17 at 12:00; Stop 03/17/17 at 10:41; Status DC Esmolol HCl (Brevibloc Bolus Inj) 100 mg STK-MED ONCE IV ; Start 03/09/17 at 12: 00; Stop 03/17/17 at 10:41; Status DC Vecuronium [place] (Norcuron 20 Mg Inj) 20 mg STK-MED ONCE IV ; Start 03/09/17 at 12:00; Stop 03/17/17 at 10:41; Status DC Midazolam HCl (Versed Inj) 2 mg STK-MED ONCE IV ; Start 03/09/17 at 12:00; Stop 03/17/17 at 10:41; Status DC Dexamethasone Sodium Phosphate (Decadron Inj) 8 mg STK-MED ONCE IV ; Start 03/09 at 12:00; Stop 03/17/17 at 10:41; Status DC Ondansetron HCl (Zofran Inj) 4 mg STK-MED ONCE IV PUSH ; Start 03/09/17 at 12:00 ; Stop 03/17/17 at 10:41; Status DC Cefazolin Sodium (Ancef Inj) 2,000 mg STK-MED ONCE IV ; Start 03/09/17 at 12:00 ; Stop 03/17/17 at 10:41; Status DC Fentanyl Citrate (fentaNYL INJ) 500 mcg STK-MED ONCE IV ; Start 03/09/17 at 12: 00; Stop 03/17/17 at 10:41; Status DC Propofol (Diprivan 200 Mg/20 ml Inj) 200 mg STK-MED ONCE IV ; Start 03/09/17 at 12:00; Stop 03/17/17 at 10:41; Status DC Glycopyrrolate (Robinul Inj) 2 mg STK-MED ONCE IV PUSH ; Start 03/09/17 at 12:00 ; Stop 03/17/17 at 10:41; Status DC Lactated Ringer's 1,000 ml @ As Directed STK-MED ONCE IV ; Start 03/09/17 at 12 :00; Stop 03/17/17 at 10:41; Status DC Parenteral Electrolytes 2,000 ml @ As Directed STK-MED ONCE IV ; Start at 12:00; Stop 03/17/17 at 10:41; Status DC Pantoprazole Sodium (Protonix) 40 mg DAILY PO Last administered on 03/17/17t 11 :47; Start 03/17/17 at 11:00 A/P Assessment and Plan 61-year-old male with esophageal poorly differentiated adenocarcinoma admitted with intractable pain. Patient underwent robot-assisted esophagectomy by general surgery. Pain has been very difficult to control. General surgery following. Esophageal cancer, status post esophagectomy. Completed chemotherapy 3 weeks ago - General surgery following. - Chest tube to wall suction. -Pain has been very difficult to control. Not much relief despite every hour morphine and Dilaudid for breakthrough. - We'll transition to morphine MANAGER DISTRIBUTION for now for better pain relief. Plan to reassess tomorrow and wean off as tolerated. - Okay for ice chips per general surgery. ON TUBE FEEDS NOW Intractable pain secondary to esophageal cancer - Start morphine MANAGER DISTRIBUTION as above.--DC MANAGER DISTRIBUTION AND START LIQUID LORTAB - Continue to monitor Severe Protein calorie malnutrition. Continue feeding tube. Plan per general surgery. Appreciate assistance. TUBE FEEDS GERD. Chronic. Continue PPI Hypertension. Patient was previously on metoprolol which was discontinued. Blood pressure acceptable. Continue to monitor. Prophylaxis. SCDs. Anticoagulation when okay by surgery NGT REMOVED BY SURGERY CHEST TUBE IS OUT DW RN AND PT AND CM Discharge Planning TOLERATING TUBE FEEDS AND Pain control Martín Manning DO Mar 17, 2017 13:13
[2017-03-17] MEDS: ENOXAPARIN SODIUM 40 MG/0.4 ML SYRINGE SQ SCH (15:04)
[2017-03-17 16:00] VITALS: BP 136/76; PULSE 97; RESP 18; TEMP 96.6; O2SAT 97
--- NOTE | 2017-03-17 16:01 | HHI.FF ---
Face to Face Verification Diagnosis: (1) Esophageal cancer Physical Therapy Order: Evaluate and Treat, Improve ambulation, Strength and gait training Instructions: No restrictions Home Health Nursing Order: Wound care and dressing changes Instructions: Midline incision with yung---primapore daily Feeding through J tube---goal of 45cc/hr; okay for CLEAR LIQUIDS ONLY I have seen patient Teto Bingham on 03/17/17. My clinical findings support the need for the requested home health care services because: Need for psychosocial assistance High risk of falls I certify that my clinical findings support that this patient is homebound because: Post-op weakness Jennifer Barreto Mar 17, 2017 16:01
--- NOTE | 2017-03-17 17:21 | HHI.PR ---
Subjective Subjective Notes Resting in bed Has been OOB Still with hallucinations Objective Vitals/I&O Vital Signs Date Time Temp Pulse Resp B/P (MAP) Pulse Ox O2 Delivery O2 Flow Rate FiO2 03/17/17 16:00 96.6 97 18 136/76 (96) 97 03/17/17 09:20 21 03/17/17 08:28 Room Air Labs Laboratory Tests Test 03/17/17 04:51 White Blood Count 4.7 Red Blood Count 2.92 Hemoglobin 8.7 Hematocrit 25.8 Mean Corpuscular Volume 88.3 Mean Corpuscular Hemoglobin 29.7 Mean Corpuscular Hemoglobin Concent 33.6 Red Cell Distribution Width 16.6 Platelet Count 208 Mean Platelet Volume 7.6 Neutrophils (%) (Auto) 66.5 Lymphocytes (%) (Auto) 10.9 Monocytes (%) (Auto) 18.7 Eosinophils (%) (Auto) 3.2 Basophils (%) (Auto) 0.7 Neutrophils # (Auto) 3.1 Lymphocytes # (Auto) 0.5 Monocytes # (Auto) 0.9 Eosinophils # (Auto) 0.1 Basophils # (Auto) 0.0 CBC Comment DIFF FINAL Differential Comment Blood Urea Nitrogen 3 Creatinine 0.40 Random Glucose 137 Total Protein 5.6 Albumin 1.9 Calcium Level 8.4 Phosphorus Level 4.0 Magnesium Level 1.8 Alkaline Phosphatase 97 Aspartate Amino Transf (AST/SGOT) 21 Alanine Aminotransferase (ALT/SGPT) 15 Total Bilirubin 0.3 Sodium Level 140 Potassium Level 4.0 Chloride Level 108 Carbon Dioxide Level 24.5 Anion Gap 8 Estimat Glomerular Filtration Rate 220 Radiology Last Impressions Chest X-Ray 03/09/17 0000 Signed Impressions: Service Date/Time: Thursday, March 09, 2017 14:49 - CONCLUSION: 1. Free intraperitoneal air beneath the hemidiaphragm. 2. Minimal left basilar atelectasis. 3. Multiple tubes and lines appear to be in good positions. Luisito Norris MD Cardiovascular: Regular Lungs: Clear Abdomen: Other (midline incision with yung; J tube in place without complications ) Extremities: No edema Narrative Exam RIGHT CT removed A/P Problem List: (1) Encounter for postoperative follow-up after surgery for malignant neoplasm ICD Codes: Z08 - Encounter for follow-up examination after completed treatment for malignant neoplasm (2) History of esophagectomy ICD Codes: Z90.49 - Acquired absence of other specified parts of digestive tract (3) History of esophageal cancer ICD Codes: Z85.01 - Personal history of malignant neoplasm of esophagus Status: Chronic (4) Post-op pain ICD Codes: G89.18 - Other acute postprocedural pain Assessment and Plan 61 year old male POD8 robot assisted lap Leroy Sharad esophagectomy -Esophagram showed no leak; NGT removed -Continue sips of clear liquids -DC IVF -DC port access; DC PIV -Pain control--- Hycet -PT/OT -Increase TF to 45 cc/hr -Remember head of bed at 30 degrees -HHC arranged -Discussed with patient's brother Rodrigue + who will be with patient at home Attending Statement The exam, history, and the medical decision-making described in the above note were completed with the assistance of the mid-level provider. I reviewed and agree with the findings presented. I attest that I had a [id number] encounter with the patient on the same day, and personally performed and documented my assessment and findings in the medical record. Abdominal exam: postoperative tenderness, incisions c/d/i tolerating some clears, home soon Jennifer Barreto Mar 17, 2017 17:21 Goldy Espinal MD Mar 17, 2017 21:40
[2017-03-17 20:00] VITALS: BP 119/79; PULSE 87; RESP 18; TEMP 98.1; O2SAT 96
[2017-03-18 00:38] VITALS: BP 111/74; PULSE 85; RESP 18; TEMP 97.8; O2SAT 95
[2017-03-18] MEDS: ACETAMINOPHEN 325MG/HYDROcodone 7.5MG/15ML UDC PEG PRN ×3 (04:43→13:10)
[2017-03-18] MEDS: PCA - TOTAL MG MORPHINE DELIVERED PER SHIFT SCH ×2 (04:45→13:12)
--- NOTE | 2017-03-18 07:26 | PD.ONC.PN ---
Subjective Subjective Remarks Feeling stronger, eager to go home. Tolerating tube feeding. Objective Data Date Time Temp Pulse Resp B/P (MAP) Pulse Ox O2 Delivery O2 Flow Rate FiO2 03/18/17 00:38 97.8 85 18 111/74 (86) 95 03/17/17 20:15 21 03/17/17 20:00 98.1 87 18 119/79 (92) 96 03/17/17 16:00 96.6 97 18 136/76 (96) 97 03/17/17 12:00 96.6 82 18 127/75 (92) 98 03/17/17 09:20 97 21 03/17/17 08:28 Room Air 03/17/17 08:00 97.3 91 16 123/79 (94) 97 03/18/17 03/18/17 03/18/17 07:00 15:00 23:00 Intake Total 979 ml Balance 979 ml Result Diagram: 03/17/17 0451 03/17/17 045 Administered Medications Medications (Trade) Dose Ordered Sig/[place] Route PRN Reason Start Time Stop Time Status Last Admin Dose Admin Magnesium Hydroxide (Milk Of Magnesia Liq) 30 ml Q12H PRN PO Mild constipation 03/08/17 19:15 03/15/17 14:30 Lactulose (Lactulose Liq) 30 ml DAILY PRN PO SEVERE CONSITIPATION 03/08/17 19:15 03/16/17 01:46 Lidocaine HCl (Xylocaine 2% Viscous) 15 ml Q4H PRN SWISH-SWAL SORE THROAT 03/08/17 19:30 03/09/17 01:38 Sodium Chloride (NS Flush) 2 ml BID IV FLUSH 03/09/17 14:30 03/16/17 19:44 Enoxaparin Sodium (Lovenox Inj) 40 mg Q24H SQ 03/10/17 14:00 03/17/17 15:04 RADIATOR SPECIALIST Dosage Infused (Pha) 1 Q8HR .XX 03/13/17 14:00 03/17/17 04:43 Acetaminophen/ Hydrocodone Bitart (Hycet 325-7.5 Mg Liq) 15 ml Q4H PRN PEG PAIN 3-10 03/16/17 13:15 03/18/17 04:43 Pantoprazole Sodium (Protonix) 40 mg DAILY PO 03/17/17 11:00 03/17/17 11:47 Objective Remarks GENERAL: Well-nourished, well-developed patient. Stronger SKIN: Warm and dry. HEAD: Normocephalic. EYES: No scleral icterus. No injection or drainage. NECK: Supple, trachea midline. No JVD or lymphadenopathy. LYMPHATIC: No adenopathy. CARDIOVASCULAR: Regular rate and rhythm without murmurs. RESPIRATORY: Breath sounds equal bilaterally. No accessory muscle use. GASTROINTESTINAL: Abdomen soft, non-tender, nondistended. J-tube noted, wound site no breakdown EXTREMITIES: No cyanosis, or edema. MUSCULOSKELETAL: Adequate muscle tone. NEUROLOGICAL: No obvious focal deficit. Awake, alert, and oriented x3. Assessment/Plan Assessment 1. Esophageal cancer. 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 Upper endoscopy showed a 3 cm ulcerated mass involving the lower esophageal sphincter at the GE junction and in the cardia. The mass was partially obstructing when he first presented. He was treated with radiation with concurrent chemotherapy which he completed several weeks ago. PET/CT showed no distant metastasis. He just underwent esophagectomy with a J-tube placement 03/09/2017. Final pathology showed no residual tumor and perigastric LN were negative for mets disease. He had achieved remission with neoadjuvant therapy. Recovering well. 2. Mid epigastric pain due to his esophageal cancer. He is now status post surgery as above. Pain controlled. Mild confusion due to pain meds. 3. Nonspecific lung nodule, will need to be monitored. 4. Anemia due to operative blood loss. Hgb stable. Plan PLAN 1. Continue supportive care. 2. F/u oncology clinic after d/c. Sylvester Silver MD Mar 18, 2017 07:26
[2017-03-18 08:00] VITALS: BP 116/66; PULSE 93; RESP 19; TEMP 97.5; O2SAT 96
[2017-03-18] MEDS: SODIUM CHLORIDE 0.9% FLUSH 10 ML FLUSH IV FLUSH SCH (08:50)
[2017-03-18] MEDS: PANTOPRAZOLE SOD 40 MG DELAYED RELEASE TAB PO SCH (08:53)
[2017-03-18 09:27] VITALS: O2SAT 96
[2017-03-18 09:30] LABS: BASOPHIL % 0.8 % (0.0-2.0); EOSINOPHIL # 0.2 TH/MM3 (0-0.4); EOSINOPHIL % 2.7 % (0.0-4.0); HEMATOCRIT 27.8 % (39.0-51.0); HEMO FLAGS DIFF FINAL; LYMPH % 11.4 % (9.0-44.0); LYMPHOCYTE # 0.6 TH/MM3 (1.0-4.8); MEAN CELL VOLUME 88.1 FL (80.0-100.0); MEAN CORPUSCULAR HEMOGLOBIN 30.1 PG (27.0-34.0); MEAN CORPUSCULAR HGB CONC 34.2 % (32.0-36.0); MONO % 13.7 % (0.0-8.0); NEUT % 71.4 % (16.0-70.0); PLATELET COUNT 271 TH/MM3 (150-450); RED BLOOD COUNT 3.16 MIL/MM3 (4.50-5.90); RED CELL DISTRIBUTION WIDTH 16.4 % (11.6-17.2); WHITE BLOOD COUNT 5.6 TH/MM3 (4.0-11.0)
[2017-03-18 10:04] LABS: BICARBONATE 24.4 MEQ/L (21.0-32.0); BLOOD UREA NITROGEN 6 MG/DL (7-18); MAGNESIUM 1.8 MG/DL (1.5-2.5)
[2017-03-18 10:10] LABS: ANION GAP 11 MEQ/L (5-15); AST (GOT) 25 U/L (15-37); CHLORIDE 103 MEQ/L (98-107); GLOMERULAR FILTRATION RATE 203 ML/MIN (>89); POTASSIUM 3.8 MEQ/L (3.5-5.1); SODIUM (NA) 138 MEQ/L (136-145)
[2017-03-18 10:14] LABS: ALKALINE PHOSPHATASE 111 U/L (45-117); ALT (GPT) 18 U/L (12-78); TOTAL BILIRUBIN ADULT 0.2 MG/DL (0.2-1.0)
--- NOTE | 2017-03-18 11:13 | HHI.PR ---
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 11- TOLERATING PEG PAIN MEDS DC OLIVER FILTER OPERATOR CONTINUE TUBE FEEDS 11- DC TO HOME WITH C IF OK WITH SURGERY WANTS TO GO HOME Objective Vitals Vital Signs Date Time Temp Pulse Resp B/P (MAP) Pulse Ox O2 Delivery O2 Flow Rate FiO2 03/18/17 09:27 96 21 03/18/17 08:00 97.5 93 19 116/66 (83) 96 03/18/17 00:38 97.8 85 18 111/74 (86) 95 03/17/17 20:15 21 03/17/17 20:00 98.1 87 18 119/79 (92) 96 03/17/17 16:00 96.6 97 18 136/76 (96) 97 03/17/17 12:00 96.6 82 18 127/75 (92) 98 I/O 03/17/17 03/17/17 03/17/17 03/18/17 03/18/17 03/18/17 07:00 15:00 23:00 07:00 15:00 23:00 Intake Total 1396 ml 420 ml 979 ml Output Total 650 ml 200 ml Balance 746 ml 420 ml -200 ml 979 ml IV Total 1120 ml 420 ml Tube Feeding 276 ml 979 ml Output Urine Total 650 ml 200 ml # Voids 3 1 # Bowel Movements 2 1 Result Diagram: 03/18/1714 03/18/17813 Other Results Laboratory Tests Test 03/16/17 06:00 03/17/17 04:51 03/18/17 08:14 White Blood Count 8.6 TH/MM3 4.7 TH/MM3 5.6 TH/MM3 Red Blood Count 3.25 MIL/MM3 2.92 MIL/MM3 3.16 MIL/MM3 Hemoglobin 9.9 GM/DL 8.7 GM/DL 9.5 GM/DL Hematocrit 28.6 % 25.8 % 27.8 % Mean Corpuscular Volume 88.0 FL 88.3 FL 88.1 FL Mean Corpuscular Hemoglobin 30.4 PG 29.7 PG 30.1 PG Mean Corpuscular Hemoglobin Concent 34.5 % 33.6 % 34.2 % Red Cell Distribution Width 16.5 % 16.6 % 16.4 % Platelet Count 219 TH/MM3 208 TH/MM3 271 TH/MM3 Mean Platelet Volume 7.8 FL 7.6 FL 7.4 FL Neutrophils (%) (Auto) 76.7 % 66.5 % 71.4 % Lymphocytes (%) (Auto) 9.4 % 10.9 % 11.4 % Monocytes (%) (Auto) 11.9 % 18.7 % 13.7 % Eosinophils (%) (Auto) 1.5 % 3.2 % 2.7 % Basophils (%) (Auto) 0.5 % 0.7 % 0.8 % Neutrophils # (Auto) 6.6 TH/MM3 3.1 TH/MM3 4.0 TH/MM3 Lymphocytes # (Auto) 0.8 TH/MM3 0.5 TH/MM3 0.6 TH/MM3 Monocytes # (Auto) 1.0 TH/MM3 0.9 TH/MM3 0.8 TH/MM3 Eosinophils # (Auto) 0.1 TH/MM3 0.1 TH/MM3 0.2 TH/MM3 Basophils # (Auto) 0.0 TH/MM3 0.0 TH/MM3 0.0 TH/MM3 CBC Comment DIFF FINAL DIFF FINAL DIFF FINAL Differential Comment Blood Urea Nitrogen 5 MG/DL 3 MG/DL 6 MG/DL Creatinine 0.49 MG/DL 0.40 MG/DL 0.43 MG/DL Random Glucose 108 MG/DL 137 MG/DL 102 MG/DL Total Protein 6.3 GM/DL 5.6 GM/DL 6.1 GM/DL Albumin 2.1 GM/DL 1.9 GM/DL 2.1 GM/DL Calcium Level 8.1 MG/DL 8.4 MG/DL 8.5 MG/DL Phosphorus Level 3.3 MG/DL 4.0 MG/DL 3.8 MG/DL Magnesium Level 1.5 MG/DL 1.8 MG/DL 1.8 MG/DL Alkaline Phosphatase 106 U/L 97 U/L 111 U/L Aspartate Amino Transf (AST/SGOT) 22 U/L 21 U/L 25 U/L Alanine Aminotransferase (ALT/SGPT) 18 U/L 15 U/L 18 U/L Total Bilirubin 0.4 MG/DL 0.3 MG/DL 0.2 MG/DL Sodium Level 136 MEQ/L 140 MEQ/L 138 MEQ/L Potassium Level 4.1 MEQ/L 4.0 MEQ/L 3.8 MEQ/L Chloride Level 103 MEQ/L 108 MEQ/L 103 MEQ/L Carbon Dioxide Level 24.3 MEQ/L 24.5 MEQ/L 24.4 MEQ/L Anion Gap 9 MEQ/L 8 MEQ/L 11 MEQ/L Estimat Glomerular Filtration Rate 174 ML/MIN 220 ML/MIN 203 ML/MIN Imaging Last Impressions Chest X-Ray 03/16/17 0000 Signed Impressions: Service Date/Time: Thursday, March 16, 2017 12:28 - CONCLUSION: Negative for pneumothorax. Martín Hardy MD FACR Esophagus X-Ray 03/14/17 0000 Signed Impressions: Service Date/Time: Tuesday, March 14, 2017 12:56 - CONCLUSION: Negative for leak. Nasogastric tube across the anastomosis. Martín Hardy MD FACR Objective Remarks GENERAL: Awake alert oriented talkative and cooperative appears TO HAVE MILD pain SKIN: Warm and dry. HEAD: Atraumatic. Normocephalic. EYES: Pupils equal and round. No scleral icterus. No injection or drainage. extraocular muscles intact ENT: No nasal bleeding or discharge. Mucous membranes pink and moist. TONGUE MIDLINE NECK: Trachea midline. No JVD. Supple CARDIOVASCULAR: Regular rate and rhythm. S1 and S2 no S3 or S4 RESPIRATORY: No accessory muscle use. Clear to auscultation. Breath sounds equal bilaterally. GASTROINTESTINAL: Abdomen LESS tender nondistended. Hepatic and splenic margins not palpable. POSITIVE bowel sounds MUSCULOSKELETAL: Extremities without clubbing, cyanosis, or edema. No obvious deformities. NEUROLOGICAL: Awake and alert. No obvious cranial nerve deficits. Motor grossly within normal limits. 4 out of 5 muscle strength in the arms and legs. Normal speech. PSYCHIATRIC: INAppropriate mood and affect; insight and judgment ABnormal. SOME CONFUSION Procedures DATE OF SURGERY 03/09/2017 PREOPERATIVE DIAGNOSIS Distal esophageal adenocarcinoma. POSTOPERATIVE DIAGNOSIS Distal esophageal adenocarcinoma. PROCEDURE 1. Robotic-assisted Doddridge Sharad esophagectomy. 2. Injection of Botox to pylorus (chemical pyloroplasty) 3. Jejunostomy tube placement. 4. Omental pedicle flap for a gastric conduit. ATTENDING SURGEON Goldy Espinal MD DATA CENTER PROJECT MANAGER Chino Callaway MD ANESTHESIA General BLOOD LOSS 300 cc COMPLICATIONS None FINDINGS Intraoperative evaluation with negative proximal and distal margin on Doddridge Sharad esophagogastrectomy specimen. INDICATIONS FOR PROCEDURE The patient is a 61-year-old male who was recently diagnosed with a distal esophageal adenocarcinoma. Staging scans revealed that this was a stage II-III without any evidence of distant metastasis. The patient was recommended to undergo neoadjuvant chemoradiation per NCCN guidelines. The patient did a complicated course including malnutrition and esophagitis (radiation esophagitis requiring multiple additions, nutrition support and pain management. The patient was admitted to [facility] with recurrent pain and esophagitis. Staging CT PET scan did reveal no evidence of metastatic disease and the patient was medically fit for esophagectomy. The risks, benefits, alternatives were discussed with the patient and his daughter at a previous appointment and they agreed to undergo the procedure. PROCEDURE After informed consent was obtained, the patient was an inpatient at [facility], was brought to the operating room and placed in the supine position and placed under general anesthesia. The patient had a double lumen tube placed. The patient had a regional tap block performed on the abdomen. At this point in time, a time-out was performed. The patient's abdomen was shaved, prepped and draped in a sterile fashion. We entered the abdomen with an upper midline incision from his xiphoid area to the umbilicus with a 10 blade scalpel. Bovie electrocautery dissected into the subcutaneous tissue and opened the fascia through the entire length of the incision. We placed an [place] extra-large wound retractor followed by a Bookwalter retractor to gain better exposure. At this point in time, there was no evidence of metastatic disease. We continued with the dissection. We opened the lesser sac of the gastrocolic ligament. We took down the short gastrics all way to the left bonny using the Enseal device taking great care to preserve the blood flow through our right gastroepiploic artery. He had an excellent pulse and good perfusion through this artery throughout the case. We then extended this proximally and mobilized the hepatic flexure of the colon and kocherized the duodenum. We did perform omentectomy due to the patient's large omentum and due to patient's blood supply for the omentum. This was again done with the Bovie electrocautery, as well as the Enseal, and this was taken from the splenic flexure and passed off for permanent processing. At this point in time, we identify the left gastric artery at its origin. We dissected around this with a right-angle retractor. We placed the vascular load on the echelon GI stapler across this vessel and there was continued pulse and perfusion of our liver and our hepatic artery. We divided this white load on the [place] stapler. We then continued our dissection further past the bonny and into the mediastinum. We dissected all the way approximately between 6 and 8 cm up into the mediastinum and opened the right chest by dividing the parietal pleura. We also injected 100 units of Botox into the pylorus creating effectively a chemical pyloroplasty. At this point in time, we place a Oxford drain at a ring type loop around the esophagus and we went past the specimen up into the right chest. We did take our stomach and create somewhat of a conduit by dividing the incisura up to the fundus creating a wide floppy conduit approximately [address] to the fundus. This was done with a green load on the [place] stapler. The lip at the very tip of the conduit attached to our specimen to facilitate migration into the chest. At this point in time, we then turned our attention towards jejunostomy tube placement. We identified the ligament of Treitz and approximately 40 cm distal to this, we found a loop of jejunum. We placed a 14-Montserratian jejunostomy tube through a separate incision in the left lateral side of the patient and placed this into the antimesenteric portion of the jejunum. We placed a pursestring 3-0 silk suture around the J tube as it entered the bowel wall and also placed four 3-0 silk Jose sutures up against the abdominal wall. We inserted 2 cc of fluid in the balloon to allow for any occlusion. This was placed as this tube was capped. This was sutured in place to the skin in an anatomic position and we ensured this went distal to the distal jejunum. At this point in time, we turned our attention to closure. We irrigated out the abdomen with one liter of sterile saline. All suctioning was clear. We did have a very tiny capsular tear approximately 3 or 4 mm on the spleen and we did place FloSeal and Surgicel on this for complete hemostasis. There was approximately 20 cc lost from this area and this was easily secured. We closed the midline with a single stitch which was a #1 looped PDS suture. We closed the skin with skin yung. A sterile dressing was applied. At this point in time, the patient was turned to the left decubitus position after we had taken down the sterile drapes. We placed Ioban over the right chest and broke the bed to gain better exposure. After prepping the patient, we then placed sterile drapes. We then placed the patient on single lung ventilation through the left lung only trapping right lung. This gave us excellent oxygenation at 99% of lung ventilation. We entered the chest proximally at the sixth rib at the posterior axillary line with a scalpel and a hemostat spreading down above the inferior rib. We directly placed a robot 10/12 port into the patients under direct visualization. We insufflated the chest to low pressure and had good collapse of our lung and good visualization. We placed a 10/12 robot port in approximately the third space in the right chest near the axillary posterior line. We placed 2 x 8 ports in the seventh to eighth and ninth and tenth rib spaces approximately one-fifth length apart to facilitate robot arm movement. As these were all placed under direct visualization, local anesthetic was used at all these sites. We then docked the Rethink Autism SI robot system without difficulty. We were able to continued our dissection. We used a suction industrial sweeper cleaner device in arm three to facilitate lung retraction and to suction and irrigate as needed. We used the fenestrated Bipolar, as well as Bovie electrocautery in the vessel sealer to continue our dissection. I dissected the mediastinum and was able to grasp our Oxford and use this to facilitate an ablation of the esophagus. We clearly got above the area of radiation into normal esophagus well below the azygos vein. We dissected all the way to the thoracic inlet and dividing the azygos vein was unnecessary as this was a very distal tumor and we had several centimeters of normal-appearing esophagus below this. We divided the esophagus with a green load on the robotic stapler and then we were able to pass an Rasta 25 mm anvil transorally into this proximal esophageal blind pouch through a separate esophagotomy incision right at the middle of the staple line. We then cut this suture and again secured the anvil in a normal position in the proximal esophagus. The specimen was removed and electrocautery was used to remove the specimen from our conduit. This left us with a gastrotomy in our conduit which was used for the 25 EEA stapler. We did, of note, de-dock the arm two at the seventh and eighth rib space and make this into a small backs type thoracotomy proximally 5 cm along with a small Finochietto retractor. I did not traumatize or cut any ribs to do this. We were able to bring our specimen and our conduit out through this incision and our margins were negative on intraoperative consultation by pathology. We did place the EEA stapler, did this gastrotomy back into the chest under visualization with the robotic camera and performed an EEA end esophagus to side gastric conduit anastomosis. We had two good doughnuts and the proximal esophageal was sent to have a permanent margin and specimen performed. This laid tension-free without twisting in the chest. We placed an NG tube through this anastomosis into the conduit, placed this to suction. We closed the gastrotomy with the two green loads on the robotic stapler. We did irrigate out the chest and had excellent hemostasis. There were no signs of any complications. There was no electro Bovie injury and again no signs of any leak or ischemia in our conduit or the proximal esophagus. The anastomosis laid just approximately 1 cm below the azygous vein. We turned out attention towards closure. We ensured the lung was not entrapped and slowly reinsufflated this and watched the upper and lower and middle lobes expands well. We did placed a 28 size Montserratian chest tube through the third port space at the 10-11 rib space and sutured this in place with a silk suture. This was in a posterolateral position. We then thoroughly de-docked the robot and closed all our port sites with 0-PDS and 0 Vicryl sutures followed by 4-0 Monocryl and Steri-Strips at the skin. The NG tube with a bridle was in position. At this point in time, the patient was turned back into a supine position, discontinued from the anesthesia, taken to the PACU in a stable condition. The patient tolerated the procedure well. No apparent complications. The sponge, instrument and needle counts were correct. I was present and scrubbed for the entire procedure or at the robotic console for all portions of this procedure. Dr. Callaway was present and scrubbed for all critical portions of this procedure and his expertise was needed as a second surgeon at the bedside in assisting me as well as assisting me at the bedside while I was on the consult. Medications and IVs Current Medications Sodium Chloride 1,000 ml @ 125 mls/hr Q8H IV Last administered on 03/08/17 19:12; Start 03/08/17 at 19:00; Stop 03/08/17 at 20:09; Status DC Hydromorphone HCl (Dilaudid Pf Inj) 1 mg ONCE ONCE IV PUSH Last administered on 03/08/17 19:13; Start 03/08/17 at 19:00; Stop 03/08/17 at 19:01; Status DC Ondansetron HCl (Zofran Inj) 4 mg ONCE ONCE IV PUSH Last administered on 03/08 19:13; Start 03/08/17 at 19:00; Stop 03/08/17 at 19:01; Status DC Potassium Chloride/Dextrose/ Sod Cl 1,000 ml @ 100 mls/hr Q10H IV ; Start at 20:00; Stop 03/08/17 at 20:09; Status DC Sodium Chloride (NS Flush) 2 ml UNSCH PRN IV FLUSH FLUSH AFTER USING IV ACCESS ; Start 03/08/17 at 19:15; Stop 03/09/17 at 16:00; Status DC Sodium Chloride (NS Flush) 2 ml BID IV FLUSH Last administered on 03/08/17 21 :00; Start 03/08/17 at 21:00; Stop 03/09/17 at 16:00; Status DC Ondansetron HCl (Zofran Inj) 4 mg Q6H PRN IVP NAUSEA OR VOMITING; Start at 19:15; Stop 03/09/17 at 16:00; Status DC Naloxone HCl (Narcan Inj) 0.4 mg UNSCH PRN IV PUSH SEE LABEL COMMENTS; Start 03/08/17 at 19:15; Stop 03/09/17 at 11:20; Status DC Magnesium Hydroxide (Milk Of Magnesia Liq) 30 ml Q12H PRN PO Mild constipation Last administered on 03/15/17 14:30; Start 03/08/17 at 19:15 Sennosides (Senokot) 17.2 mg Q12H PRN PO Moderate constipation; Start at 19:15 Bisacodyl (Dulcolax Supp) 10 mg DAILY PRN RECTAL SEVERE CONSITIPATION; Start 03/08/17 at 19:15 Lactulose (Lactulose Liq) 30 ml DAILY PRN PO SEVERE CONSITIPATION Last administered on 03/16/17 01:46; Start 03/08/17 at 19:15 Oxycodone HCl (Roxicodone) 10 mg Q4H PRN PO PAIN SCALE 6 TO 10 Last administered on 03/09/17 03:10; Start 03/08/17 at 19:15; Stop 03/11/17 at 15: 42; Status DC Morphine Sulfate (Morphine Inj) 2 mg Q3H PRN IV PUSH Pain 3-5; if unable to take PO; Start 03/08/17 at 19:15; Stop 03/11/17 at 15:43; Status DC Morphine Sulfate (Morphine Inj) 4 mg Q3H PRN IV PUSH Pain 6-10;if unable to take PO Last administered on 03/09/17 05:12; Start 03/08/17 at 19:15; Stop at 15:43; Status DC Morphine Sulfate (Morphine Inj) 4 mg Q3H PRN IV PUSH BREAKTHROUGH PAIN Last administered on 03/13/17 08:44; Start 03/08/17 at 19:15; Stop 03/13/17 at 10: 32; Status DC Oxycodone HCl (Roxicodone) 5 mg Q4H PRN PO PAIN SCALE 3 TO 5; Start 03/08/17 at 19:15; Stop 03/11/17 at 15:43; Status DC Naloxone HCl (Narcan Inj) 0.4 mg UNSCH PRN IV PUSH SEE LABEL COMMENTS; Start 03/08/17 at 19:15; Stop 03/09/17 at 16:00; Status DC Lidocaine HCl (Xylocaine 2% Viscous) 15 ml Q4H PRN SWISH-SWAL SORE THROAT Last administered on 03/09/17 01:38; Start 03/08/17 at 19:30 Potassium Chloride/Dextrose/ Sod Cl 1,000 ml @ 84 mls/hr [id number] IV Last administered on 03/09/17 01:39; Start 03/08/17 at 21:00; Stop 03/09/17 at 16: 00; Status DC Potassium Chloride 100 ml @ 100 mls/hr Q1H IV Last administered on 03/09/17 03:10; Start 03/08/17 at 21:00; Stop 03/08/17 at 23:59; Status DC Bupivacaine HCl/ Epinephrine Bitart (Sensorcaine-Epi 0.5% 50 ml Inj) 50 ml STK- MED ONCE .ROUTE Last administered on 03/09/17 06:26; Start 03/09/17 at 06:26; Stop 03/09/17 at 06:27; Status DC Cefazolin Sodium/ Dextrose 50 ml @ 100 mls/hr STORE DETECTIVE IV Last administered on 03/09/17 12:10; Start 03/09/17 at 07:15; Stop 03/12/17 at 07:14; Status DC Lactated Ringer's 1,000 ml @ 30 mls/hr Q24H PRN IV SEE LABEL COMMENTS Last administered on 03/09/17 07:10; Start 03/09/17 at 07:15; Stop 03/09/17 at 16:01 ; Status DC Sodium Chloride 500 ml @ 30 mls/hr [id number] PRN IV SEE LABEL COMMENTS; Start at 07:15; Stop 03/09/17 at 16:00; Status DC Metoprolol Tartrate (Lopressor) 25 mg STORE DETECTIVE PRN PO SEE LABEL COMMENTS; Start 03/09/17 at 07:15; Stop 03/12/17 at 07:14; Status DC Povidone Iodine (Betadine 5% Antisepsis Kit) 1 applic STORE DETECTIVE PRN EACH NARE SEE LABEL COMMENTS; Start 03/09/17 at 07:15; Stop 03/12/17 at 07:14; Status DC Chlorhexidine Gluconate (Chlorhexidine 2% Cloth) 3 pack STORE DETECTIVE PRN TOPICAL SEE LABEL COMMENTS; Start 03/09/17 at 07:15; Stop 03/12/17 at 07:14; Status DC Insulin Human Regular (NovoLIN R INJ) See Protocol Table ... STORE DETECTIVE PRN SQ SEE PROTOCOL TABLE; Start 03/09/17 at 07:15; Stop 03/12/17 at 07:14; Status DC Acetaminophen 100 ml @ As Directed STK-MED ONCE IV Last administered on 16:05; Start 03/09/17 at 07:20; Stop 03/09/17 at 07:21; Status DC Albuterol Sulfate (Albuterol Neb) 2.5 mg STK-MED ONCE .ROUTE ; Start 03/09/17 at 07:34; Stop 03/09/17 at 07:35; Status DC Bupivacaine HCl (Marcaine Pf 0.5% Inj) 30 ml STK-MED ONCE .ROUTE ; Start at 07:50; Stop 03/09/17 at 07:51; Status DC Onabotulinumtoxina (Botox Inj) 100 units ONCE ONCE .XX ; Start 03/09/17 at 08: 45; Stop 03/09/17 at 08:46; Status DC Fluconazole/ Sodium Chloride 200 ml @ As Directed STK-MED ONCE .ROUTE Last administered on 03/09/17 12:11; Start 03/09/17 at 12:03; Stop 03/09/17 at 12:04 ; Status DC Potassium Chloride (KCl) 40 meq ONCE ONCE PO ; Start 03/09/17 at 14:15; Stop 03/09/17 at 14:16; Status DC Potassium Chloride/Dextrose/ Sod Cl 1,000 ml @ 85 mls/hr [id number] IV Last administered on 03/17/17 04:42; Start 03/09/17 at 14:20; Stop 03/17/17 at 10:54 ; Status DC Sodium Chloride (NS Flush) 2 ml UNSCH PRN IV FLUSH FLUSH AFTER USING IV ACCESS ; Start 03/09/17 at 14:30 Sodium Chloride (NS Flush) 2 ml BID IV FLUSH Last administered on 03/16/17 19: 44; Start 03/09/17 at 14:30 Ondansetron HCl (Zofran Inj) 4 mg Q6H PRN IV PUSH NAUSEA OR VOMITING; Start at 14:30 Pantoprazole Sodium (Protonix Inj) 40 mg Q24H IV PUSH Last administered on 03/16 16:53; Start 03/09/17 at 17:00; Stop 03/17/17 at 10:54; Status DC Diphenhydramine HCl (Benadryl Inj) 25 mg Q6H PRN IV PUSH ITCHING; Start at 14:30 Benzocaine (Hurricaine 20% Oral Spr) 1 spray UNSCH X1 PRN MT SEE LABEL COMMENTS ; Start 03/09/17 at 14:30; Stop 03/10/17 at 14:29; Status DC Clindamycin Phosphate 600 mg/ Sodium Chloride 54 ml @ 108 mls/hr Q8H IV Last administered on 03/10/17 11:46; Start 03/09/17 at 20:00; Stop 03/10/17 at 12:29 ; Status DC Miscellaneous Information (Post-op Orders (for Pharmacy)) STAT ONCE XX ; Start 03/09/17 at 14:30; Stop 03/09/17 at 16:08; Status DC Acetaminophen 100 ml @ 400 mls/hr Q6H IV Last administered on 03/11/17 09:36 ; Start 03/09/17 at 16:00; Stop 03/11/17 at 10:14; Status DC Naloxone HCl (Narcan Inj) 0.4 mg UNSCH PRN IV PUSH SEE LABEL COMMENTS; Start 03/09/17 at 14:30; Stop 03/09/17 at 16:00; Status DC Enoxaparin Sodium (Lovenox Inj) 40 mg Q24H SQ Last administered on 03/17/17 15 :04; Start 03/10/17 at 14:00 Naloxone HCl (Narcan Inj) 0.4 mg UNSCH PRN IV PUSH RESPIRATORY RATE LESS THAN 10; Start 03/09/17 at 14:30 Morphine Sulfate (Morphine 1 Mg/ ml OLIVER FILTER OPERATOR) 30 mg UNSCH IV Last administered on 08:28; Start 03/09/17 at 14:30; Stop 03/11/17 at 15:38; Status DC OLIVER FILTER OPERATOR Dosage Infused (Pha) 1 Q8HR .XX Last administered on 03/11/17 14:00; Start 03/09/17 at 14:30; Stop 03/13/17 at 13:52; Status DC Meperidine HCl (*DEMEROL INJ PERIprocedural ONLY) 25 mg STK-MED ONCE .ROUTE Last administered on 03/09/17 15:17; Start 03/09/17 at 15:17; Stop 03/09/17 at 15:18; Status DC Albuterol/ Ipratropium (Duoneb Neb) 1 ampule Q6HR NEB NEB Last administered on 03/13/17 16:23; Start 03/09/17 at 17:00; Stop 03/13/17 at 16:59; Status DC Miscellaneous Information ALL NURSING DEPARTME... UNSCH PRN .XX SEE LABEL COMMENTS; Start 03/09/17 at 14:45; Stop 03/10/17 at 14:44; Status DC Ketorolac Tromethamine (Toradol Inj) 30 mg ONCE ONCE IV PUSH Last administered on 03/10/17 14:40; Start 03/10/17 at 14:30; Stop 03/10/17 at 14:32 ; Status DC Acetaminophen/ Hydrocodone Bitart (Hycet 325-7.5 Mg Liq) 15 ml Q4H PRN PO pain 1-5 ; Start 03/11/17 at 15:45; Stop 03/13/17 at 13:52; Status DC Hydromorphone HCl (Dilaudid Pf Inj) 1 mg Q4H PRN IV PUSH pain 6-10 Last administered on 03/13/17 10:03; Start 03/11/17 at 15:45; Stop 03/13/17 at 10:32 ; Status DC Pneumococcal Polyvalent Vaccine (Pneumovax-23 Inj) 25 mcg ONCE ONCE IM ; Start 03/12/17 at 10:00; Stop 03/12/17 at 10:01; Status DC Influenza Virus Vaccine (Flu (Quadrivalent) Vaccine Inj) 0.5 ml ONCE ONCE IM ; Start 03/12/17 at 10:00; Stop 03/12/17 at 10:01; Status DC Hydromorphone HCl (Dilaudid Pf Inj) 1 mg UNSCH PRN IV PUSH pain 6-10 Last administered on 03/13/17 12:23; Start 03/13/17 at 10:45; Stop 03/13/17 at 13:52 ; Status DC Morphine Sulfate (Morphine Inj) 4 mg UNSCH PRN IV PUSH BREAKTHROUGH PAIN; Start 03/13/17 at 10:45; Stop 03/13/17 at 13:52; Status DC Naloxone HCl (Narcan Inj) 0.4 mg UNSCH PRN IV PUSH RESPIRATORY RATE LESS THAN 10; Start 03/13/17 at 14:00 Morphine Sulfate (Morphine 1 Mg/ ml OLIVER FILTER OPERATOR) 30 mg UNSCH IV Last administered on 18:46; Start 03/13/17 at 14:00; Stop 03/17/17 at 10:54; Status DC OLIVER FILTER OPERATOR Dosage Infused (Pha) 1 Q8HR .XX Last administered on 03/17/17 04:43; Start 03/13/17 at 14:00 Diatrizoate Meglum/ Diatrizoate Sod ( Gastroview Liq) 120 ml STK-MED ONCE PO Last administered on 03/14/17 12:56; Start 03/14/17 at 12:56; Stop 03/15/17 at 09:02; Status DC Acetaminophen/ Hydrocodone Bitart (Hycet 325-7.5 Mg Liq) 15 ml Q4H PRN PEG PAIN 3-10 Last administered on 03/18/17 08:51; Start 03/16/17 at 13:15 Lidocaine HCl (Xylocaine-Mpf 1% Inj) 50 ml STK-MED ONCE OTHER ; Start 03/09/17 at 12:00; Stop 03/17/17 at 10:41; Status DC Rocuronium [place] (Zemuron Inj) 50 mg STK-MED ONCE IV PUSH ; Start 03/09/17 at 12:00; Stop 03/17/17 at 10:41; Status DC Neostigmine Methylsulfate (Prostigmin Inj) 3 mg STK-MED ONCE IV ; Start at 12:00; Stop 03/17/17 at 10:41; Status DC Phenylephrine HCl (Neosynephrine/ NS 1000 Mcg/10ml Syr) 2,000 mcg STK-MED ONCE IV ; Start 03/09/17 at 12:00; Stop 03/17/17 at 10:41; Status DC Phenylephrine HCl (Neosynephrine Inj) 20 mg STK-MED ONCE IV ; Start 03/09/17 at 12:00; Stop 03/17/17 at 10:41; Status DC Ephedrine Sulfate (ePHEDrine/NS 25 MG/5 ML SYR) 25 mg STK-MED ONCE IV ; Start 03/09/17 at 12:00; Stop 03/17/17 at 10:41; Status DC Metoprolol Tartrate (Lopressor Inj) 5 mg STK-MED ONCE IV PUSH ; Start 03/09/17 at 12:00; Stop 03/17/17 at 10:41; Status DC Esmolol HCl (Brevibloc Bolus Inj) 100 mg STK-MED ONCE IV ; Start 03/09/17 at 12: 00; Stop 03/17/17 at 10:41; Status DC Vecuronium [place] (Norcuron 20 Mg Inj) 20 mg STK-MED ONCE IV ; Start 03/09/17 at 12:00; Stop 03/17/17 at 10:41; Status DC Midazolam HCl (Versed Inj) 2 mg STK-MED ONCE IV ; Start 03/09/17 at 12:00; Stop 03/17/17 at 10:41; Status DC Dexamethasone Sodium Phosphate (Decadron Inj) 8 mg STK-MED ONCE IV ; Start 03/09 at 12:00; Stop 03/17/17 at 10:41; Status DC Ondansetron HCl (Zofran Inj) 4 mg STK-MED ONCE IV PUSH ; Start 03/09/17 at 12:00 ; Stop 03/17/17 at 10:41; Status DC Cefazolin Sodium (Ancef Inj) 2,000 mg STK-MED ONCE IV ; Start 03/09/17 at 12:00 ; Stop 03/17/17 at 10:41; Status DC Fentanyl Citrate (fentaNYL INJ) 500 mcg STK-MED ONCE IV ; Start 03/09/17 at 12: 00; Stop 03/17/17 at 10:41; Status DC Propofol (Diprivan 200 Mg/20 ml Inj) 200 mg STK-MED ONCE IV ; Start 03/09/17 at 12:00; Stop 03/17/17 at 10:41; Status DC Glycopyrrolate (Robinul Inj) 2 mg STK-MED ONCE IV PUSH ; Start 03/09/17 at 12:00 ; Stop 03/17/17 at 10:41; Status DC Lactated Ringer's 1,000 ml @ As Directed STK-MED ONCE IV ; Start 03/09/17 at 12 :00; Stop 03/17/17 at 10:41; Status DC Parenteral Electrolytes 2,000 ml @ As Directed STK-MED ONCE IV ; Start at 12:00; Stop 03/17/17 at 10:41; Status DC Pantoprazole Sodium (Protonix) 40 mg DAILY PO Last administered on 03/18/17 08:53; Start 03/17/17 at 11:00 Heparin Sodium (Porcine) (Heparin Central Flush) 400 units ONCE ONCE IV FLUSH Last administered on 03/17/17 17:05; Start 03/17/17 at 16:00; Stop 03/17/17 at 16:01; Status DC Urinary Catheter: No Vascular Central Line Catheter: No A/P Assessment and Plan 61-year-old male with esophageal poorly differentiated adenocarcinoma admitted with intractable pain. Patient underwent robot-assisted esophagectomy by general surgery. Pain has been very difficult to control. General surgery following. Esophageal cancer, status post esophagectomy. Completed chemotherapy 3 weeks ago - General surgery following. - Chest tube to wall suction. -Pain has been very difficult to control. Not much relief despite every hour morphine and Dilaudid for breakthrough. 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 Plan to reassess tomorrow and wean off as tolerated. - Okay for ice chips per general surgery. ON TUBE FEEDS NOW Intractable pain secondary to esophageal cancer - Start morphine OLIVER FILTER OPERATOR as above.--DC OLIVER FILTER OPERATOR AND START LIQUID LORTAB - Continue to monitor Severe Protein calorie malnutrition. Continue feeding tube. Plan per general surgery. Appreciate assistance. TUBE FEEDS GERD. Chronic. Continue PPI Hypertension. Patient was previously on metoprolol which was discontinued. Blood pressure acceptable. Continue to monitor. Prophylaxis. SCDs. Anticoagulation when okay by surgery NGT REMOVED BY SURGERY CHEST TUBE IS OUT DW RN AND PT AND CM DC TO HOME IF OK WITH SURGERY Discharge Planning TOLERATING TUBE FEEDS AND Pain control Martín Manning DO Mar 18, 2017 11:13
[2017-03-18] MEDS ORDERED: PRIL20TA2 PO (11:23)
[2017-03-18] MEDS ORDERED: HYDR1SOL6 PEG (11:23)
[2017-03-18] MEDS ORDERED: DIAZ10TA PO (11:23)
[2017-03-18] MEDS ORDERED: Lactulose Liq PO (11:23)
--- NOTE | 2017-03-18 11:28 | HHI.DS ---
Discharge Summary Admission Date Mar 08, 2017 at 19:27 Discharge Date: Mar 18, 2017 Admitting Diagnosis intract pain, esophageal cancer requiring operative intervention (1) History of esophagectomy ICD Code: Z90.49 - Acquired absence of other specified parts of digestive tract Diagnosis: Principal (2) Esophageal cancer ICD Code: C15.9 - Malignant neoplasm of esophagus, unspecified Diagnosis: Principal Status: Acute (3) History of esophageal cancer ICD Code: Z85.01 - Personal history of malignant neoplasm of esophagus Diagnosis: Principal Status: Chronic (4) Post-op pain ICD Code: G89.18 - Other acute postprocedural pain Diagnosis: Secondary (5) Intractable abdominal pain ICD Code: R10.9 - Unspecified abdominal pain Diagnosis: Secondary Status: Acute (6) Abdominal pain ICD Code: R10.9 - Unspecified abdominal pain Diagnosis: Principal Status: Acute (7) Malnutrition ICD Code: E46 - Unspecified protein-calorie malnutrition Diagnosis: Secondary (8) Dehydration ICD Code: E86.0 - Dehydration Diagnosis: Secondary Procedures DATE OF SURGERY 03/09/2017 PREOPERATIVE DIAGNOSIS Distal esophageal adenocarcinoma. POSTOPERATIVE DIAGNOSIS Distal esophageal adenocarcinoma. PROCEDURE 1. Robotic-assisted Leroy Sharad esophagectomy. 2. Injection of Botox to pylorus (chemical pyloroplasty) 3. Jejunostomy tube placement. 4. Omental pedicle flap for a gastric conduit. ATTENDING SURGEON Goldy Espinal MD SOLE BUFFER Chino Callaway MD ANESTHESIA General BLOOD LOSS 300 cc COMPLICATIONS None FINDINGS Intraoperative evaluation with negative proximal and distal margin on Leroy Sharad esophagogastrectomy specimen. INDICATIONS FOR PROCEDURE The patient is a 61-year-old male who was recently diagnosed with a distal esophageal adenocarcinoma. Staging scans revealed that this was a stage II-III without any evidence of distant metastasis. The patient was recommended to undergo neoadjuvant chemoradiation per NCCN guidelines. The patient did a complicated course including malnutrition and esophagitis (radiation esophagitis requiring multiple additions, nutrition support and pain management. The patient was admitted to [facility] with recurrent pain and esophagitis. Staging CT PET scan did reveal no evidence of metastatic disease and the patient was medically fit for esophagectomy. The risks, benefits, alternatives were discussed with the patient and his daughter at a previous appointment and they agreed to undergo the procedure. PROCEDURE After informed consent was obtained, the patient was an inpatient at [facility], was brought to the operating room and placed in the supine position and placed under general anesthesia. The patient had a double lumen tube placed. The patient had a regional tap block performed on the abdomen. At this point in time, a time-out was performed. The patient's abdomen was shaved, prepped and draped in a sterile fashion. We entered the abdomen with an upper midline incision from his xiphoid area to the umbilicus with a 10 blade scalpel. Bovie electrocautery dissected into the subcutaneous tissue and opened the fascia through the entire length of the incision. We placed an [place]ton extra-large wound retractor followed by a Bookwalter retractor to gain better exposure. At this point in time, there was no evidence of metastatic disease. We continued with the dissection. We opened the lesser sac of the gastrocolic ligament. We took down the short gastrics all way to the left bonny using the Enseal device taking great care to preserve the blood flow through our right gastroepiploic artery. He had an excellent pulse and good perfusion through this artery throughout the case. We then extended this proximally and mobilized the hepatic flexure of the colon and kocherized the duodenum. We did perform omentectomy due to the patient's large omentum and due to patient's blood supply for the omentum. This was again done with the Bovie electrocautery, as well as the Enseal, and this was taken from the splenic flexure and passed off for permanent processing. At this point in time, we identify the left gastric artery at its origin. We dissected around this with a right-angle retractor. We placed the vascular load on the echelon GI stapler across this vessel and there was continued pulse and perfusion of our liver and our hepatic artery. We divided this white load on the Townsend stapler. We then continued our dissection further past the bonny and into the mediastinum. We dissected all the way approximately between 6 and 8 cm up into the mediastinum and opened the right chest by dividing the parietal pleura. We also injected 100 units of Botox into the pylorus creating effectively a chemical pyloroplasty. At this point in time, we place a [place] drain at a ring type loop around the esophagus and we went past the specimen up into the right chest. We did take our stomach and create somewhat of a conduit by dividing the incisura up to the fundus creating a wide floppy conduit approximately [address] to the fundus. This was done with a green load on the Townsend stapler. The lip at the very tip of the conduit attached to our specimen to facilitate migration into the chest. At this point in time, we then turned our attention towards jejunostomy tube placement. We identified the ligament of Treitz and approximately 40 cm distal to this, we found a loop of jejunum. We placed a 14-Faroese jejunostomy tube through a separate incision in the left lateral side of the patient and placed this into the antimesenteric portion of the jejunum. We placed a pursestring 3-0 silk suture around the J tube as it entered the bowel wall and also placed four 3-0 silk Jose sutures up against the abdominal wall. We inserted 2 cc of fluid in the balloon to allow for any occlusion. This was placed as this tube was capped. This was sutured in place to the skin in an anatomic position and we ensured this went distal to the distal jejunum. At this point in time, we turned our attention to closure. We irrigated out the abdomen with one liter of sterile saline. All suctioning was clear. We did have a very tiny capsular tear approximately 3 or 4 mm on the spleen and we did place FloSeal and Surgicel on this for complete hemostasis. There was approximately 20 cc lost from this area and this was easily secured. We closed the midline with a single stitch which was a #1 looped PDS suture. We closed the skin with skin yung. A sterile dressing was applied. At this point in time, the patient was turned to the left decubitus position after we had taken down the sterile drapes. We placed Ioban over the right chest and broke the bed to gain better exposure. After prepping the patient, we then placed sterile drapes. We then placed the patient on single lung ventilation through the left lung only trapping right lung. This gave us excellent oxygenation at 99% of lung ventilation. We entered the chest proximally at the sixth rib at the posterior axillary line with a scalpel and a hemostat spreading down above the inferior rib. We directly placed a robot 10/12 port into the patients under direct visualization. We insufflated the chest to low pressure and had good collapse of our lung and good visualization. We placed a 10/12 robot port in approximately the third space in the right chest near the axillary posterior line. We placed 2 x 8 ports in the seventh to eighth and ninth and tenth rib spaces approximately one-fifth length apart to facilitate robot arm movement. As these were all placed under direct visualization, local anesthetic was used at all these sites. We then docked the Nova[place]par[place] robot system without difficulty. We were able to continued our dissection. We used a suction internal auditor device in arm three to facilitate lung retraction and to suction and irrigate as needed. We used the fenestrated Bipolar, as well as Bovie electrocautery in the vessel sealer to continue our dissection. I dissected the mediastinum and was able to grasp our Mick and use this to facilitate an ablation of the esophagus. We clearly got above the area of radiation into normal esophagus well below the azygos vein. We dissected all the way to the thoracic inlet and dividing the azygos vein was unnecessary as this was a very distal tumor and we had several centimeters of normal-appearing esophagus below this. We divided the esophagus with a green load on the robotic stapler and then we were able to pass an Rasta 25 mm anvil transorally into this proximal esophageal blind pouch through a separate esophagotomy incision right at the middle of the staple line. We then cut this suture and again secured the anvil in a normal position in the proximal esophagus. The specimen was removed and electrocautery was used to remove the specimen from our conduit. This left us with a gastrotomy in our conduit which was used for the 25 EEA stapler. We did, of note, de-dock the arm two at the seventh and eighth rib space and make this into a small backs type thoracotomy proximally 5 cm along with a small Finochietto retractor. I did not traumatize or cut any ribs to do this. We were able to bring our specimen and our conduit out through this incision and our margins were negative on intraoperative consultation by pathology. We did place the EEA stapler, did this gastrotomy back into the chest under visualization with the robotic camera and performed an EEA end esophagus to side gastric conduit anastomosis. We had two good doughnuts and the proximal esophageal was sent to have a permanent margin and specimen performed. This laid tension-free without twisting in the chest. We placed an NG tube through this anastomosis into the conduit, placed this to suction. We closed the gastrotomy with the two green loads on the robotic stapler. We did irrigate out the chest and had excellent hemostasis. There were no signs of any complications. There was no electro Bovie injury and again no signs of any leak or ischemia in our conduit or the proximal esophagus. The anastomosis laid just approximately 1 cm below the azygous vein. We turned out attention towards closure. We ensured the lung was not entrapped and slowly reinsufflated this and watched the upper and lower and middle lobes expands well. We did placed a 28 size Faroese chest tube through the third port space at the 10-11 rib space and sutured this in place with a silk suture. This was in a posterolateral position. We then thoroughly de-docked the robot and closed all our port sites with 0-PDS and 0 Vicryl sutures followed by 4-0 Monocryl and Steri-Strips at the skin. The NG tube with a bridle was in position. At this point in time, the patient was turned back into a supine position, discontinued from the anesthesia, taken to the PACU in a stable condition. The patient tolerated the procedure well. No apparent complications. The sponge, instrument and needle counts were correct. I was present and scrubbed for the entire procedure or at the robotic console for all portions of this procedure. Dr. Callaway was present and scrubbed for all critical portions of this procedure and his expertise was needed as a second surgeon at the bedside in assisting me as well as assisting me at the bedside while I was on the consult. Brief History - From Admission 61-year-old male with GERD, anxiety, HTN, distal esophageal cancer having completed chemotherapy 3 weeks ago, with recent admission earlier this month for dysphasia, who presents with a one-day history of worsening intractable epigastric abdominal pain, which he describes as sharp, constant, nonradiating typical of his esophageal cancer pain but worsened. He denies any fevers or chills. Denies any nausea or vomiting. He reports poor appetite continues, generalized fatigue continues. Patient was planned for esophagectomy this week by Dr. Espinal. CBC/BMP: 03/18/17 0814 03/18/17 0814 Significant Findings Laboratory Tests Test 03/16/17 06:00 03/17/17 04:51 03/18/17 08:14 Red Blood Count 3.25 MIL/MM3 (4.50-5.90) 2.92 MIL/MM3 (4.50-5.90) 3.16 MIL/MM3 (4.50-5.90) Hemoglobin 9.9 GM/DL (13.0-17.0) 8.7 GM/DL (13.0-17.0) 9.5 GM/DL (13.0-17.0) Hematocrit 28.6 % (39.0-51.0) 25.8 % (39.0-51.0) 27.8 % (39.0-51.0) Neutrophils (%) (Auto) 76.7 % (16.0-70.0) 71.4 % (16.0-70.0) Monocytes (%) (Auto) 11.9 % (0.0-8.0) 18.7 % (0.0-8.0) 13.7 % (0.0-8.0) Lymphocytes # (Auto) 0.8 TH/MM3 (1.0-4.8) 0.5 TH/MM3 (1.0-4.8) 0.6 TH/MM3 (1.0-4.8) Monocytes # (Auto) 1.0 TH/MM3 (0-0.9) Blood Urea Nitrogen 5 MG/DL (7-18) 3 MG/DL (7-18) 6 MG/DL (7-18) Creatinine 0.49 MG/DL (0.60-1.30) 0.40 MG/DL (0.60-1.30) 0.43 MG/DL (0.60-1.30) Random Glucose 108 MG/DL (74-106) 137 MG/DL (74-106) Total Protein 6.3 GM/DL (6.4-8.2) 5.6 GM/DL (6.4-8.2) 6.1 GM/DL (6.4-8.2) Albumin 2.1 GM/DL (3.4-5.0) 1.9 GM/DL (3.4-5.0) 2.1 GM/DL (3.4-5.0) Calcium Level 8.1 MG/DL (8.5-10.1) 8.4 MG/DL (8.5-10.1) Chloride Level 108 MEQ/L (98-107) Imaging Last Impressions Chest X-Ray 03/16/17 0000 Signed Impressions: Service Date/Time: Thursday, March 16, 2017 12:28 - CONCLUSION: Negative for pneumothorax. Martín Hardy MD FACR Esophagus X-Ray 03/14/17 0000 Signed Impressions: Service Date/Time: Tuesday, March 14, 2017 12:56 - CONCLUSION: Negative for leak. Nasogastric tube across the anastomosis. Martín Hardy MD FACR PE at Discharge GENERAL: Awake alert oriented talkative and cooperative appears TO HAVE MILD pain SKIN: Warm and dry. HEAD: Atraumatic. Normocephalic. EYES: Pupils equal and round. No scleral icterus. No injection or drainage. extraocular muscles intact ENT: No nasal bleeding or discharge. Mucous membranes pink and moist. TONGUE MIDLINE NECK: Trachea midline. No JVD. Supple CARDIOVASCULAR: Regular rate and rhythm. S1 and S2 no S3 or S4 RESPIRATORY: No accessory muscle use. Clear to auscultation. Breath sounds equal bilaterally. GASTROINTESTINAL: Abdomen LESS tender nondistended. Hepatic and splenic margins not palpable. POSITIVE bowel sounds MUSCULOSKELETAL: Extremities without clubbing, cyanosis, or edema. No obvious deformities. NEUROLOGICAL: Awake and alert. No obvious cranial nerve deficits. Motor grossly within normal limits. 4 out of 5 muscle strength in the arms and legs. Normal speech. PSYCHIATRIC: INAppropriate mood and affect; insight and judgment ABnormal. SOME CONFUSION Hospital Course 61-year-old male with GERD, anxiety, HTN, distal esophageal cancer having completed chemotherapy 3 weeks ago, with recent admission earlier this month for dysphasia, who presents with a one-day history of worsening intractable epigastric abdominal pain, which he describes as sharp, constant, nonradiating typical of his esophageal cancer pain but worsened. He denies any fevers or chills. Denies any nausea or vomiting. He reports poor appetite continues, generalized fatigue continues. Patient was planned for esophagectomy this week by Dr. Espinal. Patient has not been doing incentive spirometry correctly Have reeducated him on the correct way to do it Still has chest tube in place HAs NG tube in place Discussed with patient and RN Still having lots of pain 11-7 LESS ABDOMINAL PAIN CHEST TUBE STILL IN PLACE NGT REMOVED TOLERATING TUBE FEEDS SOME CONFUSION PROBABLY DUE TO PAIN MEDICATIONS DW RN AND PT AND FAMILY AND CM 11-8 STILL CONFUSED CHEST TUBE OUT TODAY TOLERATING TUBE FEEDS DW RN AND PT AND FAMILY AND SURGERY AND CM LIQUID LORTAB FOR PAIN DC PATIENT CARRIER 11-9 TOLERATING PEG PAIN MEDS DC PATIENT CARRIER CONTINUE TUBE FEEDS 11-10 DC TO HOME WITH [facility] IF OK WITH SURGERY WANTS TO GO HOME Pt Condition on Discharge: Fair Discharge Disposition: Disch w/ Home Health Serv Discharge Time: > 30 minutes Discharge Instructions DIET: Follow Instructions for: On Tube Feeding, Clear Liquid Diet Speech Therapy-Diet Recommends: Regular Activities you can perform: Shower Only-No Bath Other Activity Instructions: NO SWIMMING OR SUBMERGING Follow up Referrals: Oncology - 1 Week with Sylvester Silver MD PCP Follow-up - 3-5 Days with Luarel Viera MD Surgical - 3-5 Days with Goldy Espinal MD New Medications: Hydrocodone/Acetaminophen (Hydrocodon-Acetamin 7.5-325/15) 7.5 Mg-325 Mg/15 Ml ( 15 Ml) Solution 15 ML PEG Q4H PRN for PAIN 3-10, #2000 ML [Lactulose Liq] () 30 ML SYRP 30 ML PO DAILY PRN for SEVERE CONSITIPATION, #900 ML Continued Medications: Diazepam (Diazepam) 10 Mg Tab 10 MG PO BID PRN for ANXIETY, #60 TAB 0 Refills (This prescription has been renewed) Omeprazole Magnesium (Prilosec) 20 Mg Tab 20 MG PO DAILY for Heartburn Management, #30 TAB (This prescription has been renewed) Discontinued Medications: Morphine ER (Morphine ER) 30 Mg Tab 30 MG PO Q8H PRN for PAIN SCALE 4 TO 10, TAB 0 Refills Oxycodone-Acetaminophen (Oxycodone-Acetaminophen) 10-325 mg Tab 1 TAB PO Q4H PRN for PAIN SCALE 1-8, #25 TAB Sucralfate Liq (Sucralfate Liq) 1 Gram/10 Ml Karla 1 GM PO QID for gi, #90 TAB Martín Manning DO Mar 18, 2017 11:28
[2017-03-18 12:00] VITALS: BP 116/77; PULSE 18; RESP 18; TEMP 97.3; O2SAT 95
[2017-03-18] MEDS: ENOXAPARIN SODIUM 40 MG/0.4 ML SYRINGE SQ SCH (13:10)
--- NOTE | 2017-03-18 13:29 | HHI.PR ---
Subjective Subjective Notes Resting in bed Emotional today and pleased with recovery States he will be able to help others now that will have helped him Objective Vitals/I&O Vital Signs Date Time Temp Pulse Resp B/P (MAP) Pulse Ox O2 Delivery O2 Flow Rate FiO2 03/18/17 12:00 97.3 18 18 116/77 (90) 95 03/18/17 09:27 21 03/17/17 08:28 Room Air Labs Laboratory Tests Test 03/18/17 08:14 White Blood Count 5.6 Red Blood Count 3.16 Hemoglobin 9.5 Hematocrit 27.8 Mean Corpuscular Volume 88.1 Mean Corpuscular Hemoglobin 30.1 Mean Corpuscular Hemoglobin Concent 34.2 Red Cell Distribution Width 16.4 Platelet Count 271 Mean Platelet Volume 7.4 Neutrophils (%) (Auto) 71.4 Lymphocytes (%) (Auto) 11.4 Monocytes (%) (Auto) 13.7 Eosinophils (%) (Auto) 2.7 Basophils (%) (Auto) 0.8 Neutrophils # (Auto) 4.0 Lymphocytes # (Auto) 0.6 Monocytes # (Auto) 0.8 Eosinophils # (Auto) 0.2 Basophils # (Auto) 0.0 CBC Comment DIFF FINAL Differential Comment Blood Urea Nitrogen 6 Creatinine 0.43 Random Glucose 102 Total Protein 6.1 Albumin 2.1 Calcium Level 8.5 Phosphorus Level 3.8 Magnesium Level 1.8 Alkaline Phosphatase 111 Aspartate Amino Transf (AST/SGOT) 25 Alanine Aminotransferase (ALT/SGPT) 18 Total Bilirubin 0.2 Sodium Level 138 Potassium Level 3.8 Chloride Level 103 Carbon Dioxide Level 24.4 Anion Gap 11 Estimat Glomerular Filtration Rate 203 Radiology Last Impressions Chest X-Ray 03/09/17 0000 Signed Impressions: Service Date/Time: Thursday, March 09, 2017 14:49 - CONCLUSION: 1. Free intraperitoneal air beneath the hemidiaphragm. 2. Minimal left basilar atelectasis. 3. Multiple tubes and lines appear to be in good positions. Luisito Norris MD Cardiovascular: Regular Lungs: Clear Abdomen: Non-distended, Other (midline incision with yung in place; J tube in place with TF ) Extremities: No edema Narrative Exam RIGHT CT removed A/P Problem List: (1) Encounter for postoperative follow-up after surgery for malignant neoplasm ICD Codes: Z08 - Encounter for follow-up examination after completed treatment for malignant neoplasm (2) History of esophagectomy ICD Codes: Z90.49 - Acquired absence of other specified parts of digestive tract (3) History of esophageal cancer ICD Codes: Z85.01 - Personal history of malignant neoplasm of esophagus Status: Chronic (4) Post-op pain ICD Codes: G89.18 - Other acute postprocedural pain Assessment and Plan 61 year old male POD9 robot assisted lap Leroy Sharad esophagectomy -Esophagram showed no leak; NGT removed -Continue sips of clear liquids at home -Pain control--- Hycet -PT/OT -Tolerating TF at 45 cc/hr -Remember head of bed at 30 degrees -[facility] arranged - Jennifer Walters DC Mar 18, 2017 13:29
== END 2017-03-18 15:06 | disposition home or self-care (01) | DRG 356 ==
LOC: NEPE 17:20 → NEDA 19:27 → N05A 21:41 → N03A 03-09 16:25 → N07A 03-11 17:09
PROVIDERS: ADMIT Hospitalist; ATTEND Hospitalist
PROC: 0DBU0ZZ Excision of Omentum, Open Approach (ICD-10-PCS; 2017-03-09)
PROC: 0DUU07Z Supplement Omentum with Autologous Tissue Substitute, Open Approach (ICD-10-PCS; 2017-03-09)
PROC: 0DB64ZZ Excision of Stomach, Percutaneous Endoscopic Approach (ICD-10-PCS; 2017-03-09)
PROC: 3E0G8GC Introduction of Other Therapeutic Substance into Upper GI, Via Natural or Artificial Opening Endoscopic (ICD-10-PCS; 2017-03-09)
PROC: 0DHA3UZ Insertion of Feeding Device into Jejunum, Percutaneous Approach (ICD-10-PCS; 2017-03-09)
PROC: 8E0W0CZ Robotic Assisted Procedure of Trunk Region, Open Approach (ICD-10-PCS; 2017-03-09)
PROC: 3E0T3BZ Introduction of Anesthetic Agent into Peripheral Nerves and Plexi, Percutaneous Approach (ICD-10-PCS; 2017-03-09)
PROC: 0DB58ZZ Excision of Esophagus, Via Natural or Artificial Opening Endoscopic (ICD-10-PCS; principal; 2017-03-09 07:46)
DX: C15.5 Malignant neoplasm of lower third of esophagus (principal); E43 Unspecified severe protein-calorie malnutrition; D62 Acute posthemorrhagic anemia; E87.1 Hypo-osmolality and hyponatremia; E86.0 Dehydration; K57.92 Diverticulitis of intestine, part unspecified, without perforation or abscess without bleeding; E78.5 Hyperlipidemia, unspecified; E87.6 Hypokalemia; G47.30 Sleep apnea, unspecified; G89.3 Neoplasm related pain (acute) (chronic); I12.9 Hypertensive chronic kidney disease with stage 1 through stage 4 chronic kidney disease, or unspecified chronic kidney disease; N18.9 Chronic kidney disease, unspecified; K21.0 Gastro-esophageal reflux disease with esophagitis; N40.0 Benign prostatic hyperplasia without lower urinary tract symptoms; R47.02 Dysphasia; F41.9 Anxiety disorder, unspecified; Z87.891 Personal history of nicotine dependence; Z92.21 Personal history of antineoplastic chemotherapy; Z92.3 Personal history of irradiation
CPT/HCPCS: 36415; 36600; 71010; 74220; 80048; 80053; 82805; 83036; 83690; 83735; 84100; 84439; 84443; 85007; 85025; 85027; 85610; 85730; 86850; 86900; 86901; 86920; 88305; 88307; 88309; 88331; 93005; 94640; 94664; 96374; 96375; C9113; J0131; J0585; J0690; J1100; J1170; J1450; J1642; J1650; J1885; J2175; J2250; J2270; J2370; J2405; J2710; J3010; J3480; J7030; J7120; J7613; Q9963

== ENCOUNTER 2017-07-01 13:03 | Inpatient (IN) | payer MEDICAID, OTHER ==
[~2017-07-01] VITALS: Ht 170.2 cm; Wt 70.5 kg
[2017-07-01] VITALS (9 sets, daily range): BP systolic 120–182; BP diastolic 72–110; PULSE 51–81; RESP 16–18; TEMP 98.4; O2SAT 95–98
[~2017-07-01 13:03] MED LIST changes: -FLEE10EN RECTAL; -HYDR-3583 PO; +HYDR1SOL6 PEG; -LEVA500T33 PO; +Lactulose Liq PO; -METO50TA PO; -MORP1TAB25 PO; -ONDA8TAB7 PO; -OXYC1TAB36 PO; -POTA1TAB4 PO; -PROC10TA PO; -SUCR1S PO
[2017-07-01 13:54] LABS: AUTOMATED NEUTROPHIL # 8.9 TH/MM3 (1.8-7.7); BASOPHIL % 0.4 % (0.0-2.0); EOSINOPHIL % 0.1 % (0.0-4.0); HEMOGLOBIN 16.6 GM/DL (13.0-17.0); LYMPHOCYTE # 0.9 TH/MM3 (1.0-4.8); MEAN CELL VOLUME 75.5 FL (80.0-100.0); MEAN CORPUSCULAR HEMOGLOBIN 25.5 PG (27.0-34.0); MEAN CORPUSCULAR HGB CONC 33.8 % (32.0-36.0); MEAN PLATELET VOLUME 8.3 FL (7.0-11.0); MONO % 9.2 % (0.0-8.0); NEUT % 82.3 % (16.0-70.0); PLATELET COUNT 184 TH/MM3 (150-450); RED BLOOD COUNT 6.49 MIL/MM3 (4.50-5.90); RED CELL DISTRIBUTION WIDTH 16.9 % (11.6-17.2); WHITE BLOOD COUNT 10.8 TH/MM3 (4.0-11.0)
[2017-07-01 14:01] LABS: BLOOD, URINE TRACE (NEG); GLUCOSE,URINE TRACE mg/dL (NEG); KETONE, URINE 80 mg/dL (NEG); MUCUS URINE MANY /lpf (OCC); NITRITE,URINE NEG (NEG); SQUAMOUS EPITHELIAL CELL URINE <1 /hpf (0-5); URINE COLOR DARK-YELLOW (YELLW/STRAW); URINE LEUKOCYTE ESTERASE TRACE (NEG)
[2017-07-01 14:06] LABS: BILIRUBIN, URINE NEG (NEG)
[2017-07-01 14:12] LABS: AST (GOT) 24 U/L (15-37); BICARBONATE 25.8 MEQ/L (21.0-32.0); BLOOD UREA NITROGEN 8 MG/DL (7-18); CALCIUM 9.1 MG/DL (8.5-10.1); CHLORIDE 97 MEQ/L (98-107); GLUCOSE,RANDOM 130 MG/DL (74-106); SODIUM (NA) 133 MEQ/L (136-145)
[2017-07-01 14:14] LABS: ALT (GPT) 26 U/L (12-78); CREATININE 0.97 MG/DL (0.60-1.30); GLOMERULAR FILTRATION RATE 79 ML/MIN (>89)
[2017-07-01 14:18] LABS: ALKALINE PHOSPHATASE 186 U/L (45-117); TOTAL BILIRUBIN ADULT 1.2 MG/DL (0.2-1.0); TOTAL PROTEIN 8.4 GM/DL (6.4-8.2); TROPONIN I 0.02 NG/ML (0.02-0.05)
[2017-07-01] MEDS ORDERED: ONDANSETRON HCL 4 MG/2 ML VIAL IV PUSH ONE ×2 (15:15→18:45)
[2017-07-01] MEDS ORDERED: SODIUM CHLOR 0.9% 1000 ML INJ 1,000 ML IV ONE ×2 (15:15→17:00)
[2017-07-01] MEDS ORDERED: MORPHINE SULFATE 4 MG/ML INJ IV PUSH ONE ×2 (15:15→17:15)
--- NOTE | 2017-07-01 15:25 | PD ---
HPI Chief Complaint: Chest Pain Time Seen by Provider: 15:02 Travel History International Travel<30 days: No Contact w/Intl Traveler<30days: No Traveled to known affect area: No History of Present Illness HPI 61-year-old male presents to the emergency department for evaluation of flulike symptoms. Patient states that he started to feel sick on Tuesday. He reports body aches, left-sided chest pain, epigastric abdominal pain, headache. Patient believes headache is from vomiting. He reports associated photophobia. Current headache as 10/10. Patient states current chest pain as 5/10, worse with deep breathing. He also reports epigastric abdominal pain, 10/10. Patient denies any fevers. He also reports back pain and body aches. Patient states he has been vomiting since Tuesday and has been unable keep any food or fluids down. Patient denies any diarrhea or constipation. Patient has history of esophageal cancer with previous removal the esophagus and part of the stomach. Patient states he is currently in remission. Patient states he has a history of hypertension, but is not currently on any medications for high blood pressure. He is on pain medication, but has been unable to take it due to vomiting. No exacerbating or alleviating factors. Moderate severity. PFSH Past Medical History Arthritis: Yes Asthma: No Blood Disorders: No Anxiety: Yes Depression: Yes Heart Rhythm Problems: No Cancer: Yes (ESOPHAGEAL CA) Cardiovascular Problems: Yes High Cholesterol: No Chemotherapy: Yes (HX) Chest Pain: Yes Congestive Heart Failure: No COPD: No Diabetes: No Diminished Hearing: No Endocrine: No GERD: Yes Genitourinary: Yes Hypertension: Yes Inguinal Hernia: Yes Musculoskeletal: Yes (left knee surgery) Neurologic: No Psychiatric: Yes Reproductive: No Respiratory: Yes (SLEEP APNEA) Radiation Therapy: Yes (HX) Sleep Apnea: Yes Thyroid Disease: No Past Surgical History Abdominal Surgery: Yes (BILATERAL HERNIA REPAIR IN GROIN, G TUBE PRIOR) AICD: No Joint Replacement: Yes (L TOTAL KNEE) Pacemaker: No Social History Alcohol Use: Yes (occas) Tobacco Use: No Substance Use: No Allergies-Medications (Allergen,Severity, Reaction): Coded Allergies: scallops (Unverified Allergy, Unknown, 03/08/17) Reported Meds & Prescriptions Reported Meds & Active Scripts Active [Lactulose Liq] 30 ML Syrp 30 Ml PO DAILY PRN Hydrocodon-Acetamin 7.5-325/15 (Hydrocodone/Acetaminophen) 7.5 Mg-325 Mg/15 Ml ( 15 Ml) Solution 15 Ml PEG Q4H PRN Prilosec (Omeprazole Magnesium) 20 Mg Tab 20 Mg PO DAILY Diazepam 10 Mg Tab 10 Mg PO BID PRN Review of Systems Except as stated in HPI: all other systems reviewed are Neg Physical Exam Narrative GENERAL: Well-nourished, well-developed male patient, afebrile. SKIN: Focused skin assessment warm/dry. HEAD: Normocephalic. Atraumatic. ENT: Mucosa pink and moist. No erythema or exudates. No uvular edema. No uvular , palatal, or tonsillar deviation. Airway patent. Nasal turbinates appear normal without nasal blood, purulent drainage or septal hematoma. Bilateral tympanic membranes are clear without erythema or perforation. EYES: No scleral icterus. No injection or drainage. NECK: Supple, trachea midline. No JVD or lymphadenopathy. CARDIOVASCULAR: Regular rate and rhythm without murmurs, gallops, or rubs. RESPIRATORY: Breath sounds equal bilaterally. No accessory muscle use. Lungs sounds clear to auscultation. GASTROINTESTINAL: Abdomen soft and nondistended. Patient has tenderness to palpation over epigastric, right upper quadrant, left upper quadrant. MUSCULOSKELETAL: No cyanosis, or edema. BACK: Nontender without obvious deformity. No CVA tenderness. Data Data Last Documented VS Vital Signs Date Time Temp Pulse Resp B/P (MAP) Pulse Ox O2 Delivery O2 Flow Rate FiO2 07/01/17 17:51 61 17 157/89 (111) 98 Room Air 07/01/17 13:06 98.4 Orders Orders Electrocardiogram (07/01/17 13:30) Complete Blood Count With Diff (07/01/17 13:30) Basic Metabolic Panel (Bmp) (07/01/17 13:30) Ckmb (Isoenzyme) Profile (07/01/17 13:30) Troponin I (07/01/17 13:30) Iv Access Insert/Monitor (07/01/17 13:30) Ecg Monitoring (07/01/17 13:30) Oxygen Administration (07/01/17 13:30) Oximetry (07/01/17 13:30) Comprehensive Metabolic Panel (07/01/17 13:30) Urinalysis - C+S If Indicated (07/01/17 13:30) Lipase (07/01/17 13:30) Chest, Pa & Lat (07/01/17 13:30) Sepsis Workup Initiated (07/01/17 ) Prothrombin Time / Inr (Pt) (07/01/17 15:12) Act Partial Throm Time (Ptt) (07/01/17 15:12) Lactic Acid Sepsis Protocol (07/01/17 15:12) Influenzae A/B Antigen (07/01/17 15:12) Blood Culture (07/01/17 15:12) Ct Abd/Pel W Iv Contrast(Rout) (07/01/17 ) Ct Brain W/O Iv Contrast(Rout) (07/01/17 ) Sodium Chlor 0.9% 1000 Ml Inj (Ns 1000 M (07/01/17 15:15) Morphine Inj (Morphine Inj) (07/01/17 15:15) Ondansetron Inj (Zofran Inj) (07/01/17 15:15) Ct Pulmonary Angiogram (07/01/17 ) Sodium Chlor 0.9% 1000 Ml Inj (Ns 1000 M (07/01/17 17:00) Morphine Inj (Morphine Inj) (07/01/17 17:15) Iohexol 350 Inj (Omnipaque 350 Inj) (07/01/17 17:04) Enalaprilat Inj (Vasotec Inj) (07/01/17 17:15) Mri Brain W&W/O Contrast (07/01/17 ) Admit Order (Ed Use Only) (07/01/17 18:35) Labs Laboratory Tests Test 07/01/17 13:35 07/01/17 13:40 07/01/17 15:40 07/01/17 15:46 Urine Color DARK-YELLOW Urine Turbidity CLEAR Urine pH 6.0 Urine Specific [place] 1.023 Urine Protein 100 mg/dL Urine Glucose (UA) TRACE mg/dL Urine Ketones 80 mg/dL Urine Occult Blood TRACE Urine Nitrite NEG Urine Bilirubin NEG Urine Urobilinogen 2.0 MG/DL Urine Leukocyte Esterase TRACE Urine RBC 2 /hpf Urine WBC 6 /hpf Urine Squamous Epithelial Cells <1 /hpf Urine Mucus MANY /lpf Microscopic Urinalysis Comment CULT NOT INDICATED White Blood Count 10.8 TH/MM3 Red Blood Count 6.49 MIL/MM3 Hemoglobin 16.6 GM/DL Hematocrit 49.0 % Mean Corpuscular Volume 75.5 FL Mean Corpuscular Hemoglobin 25.5 PG Mean Corpuscular Hemoglobin Concent 33.8 % Red Cell Distribution Width 16.9 % Platelet Count 184 TH/MM3 Mean Platelet Volume 8.3 FL Neutrophils (%) (Auto) 82.3 % Lymphocytes (%) (Auto) 8.0 % Monocytes (%) (Auto) 9.2 % Eosinophils (%) (Auto) 0.1 % Basophils (%) (Auto) 0.4 % Neutrophils # (Auto) 8.9 TH/MM3 Lymphocytes # (Auto) 0.9 TH/MM3 Monocytes # (Auto) 1.0 TH/MM3 Eosinophils # (Auto) 0.0 TH/MM3 Basophils # (Auto) 0.0 TH/MM3 CBC Comment DIFF FINAL Differential Comment Blood Urea Nitrogen 8 MG/DL Creatinine 0.97 MG/DL Random Glucose 130 MG/DL Total Protein 8.4 GM/DL Albumin 4.0 GM/DL Calcium Level 9.1 MG/DL Alkaline Phosphatase 186 U/L Aspartate Amino Transf (AST/SGOT) 24 U/L Alanine Aminotransferase (ALT/SGPT) 26 U/L Total Bilirubin 1.2 MG/DL Sodium Level 133 MEQ/L Potassium Level 3.4 MEQ/L Chloride Level 97 MEQ/L Carbon Dioxide Level 25.8 MEQ/L Anion Gap 10 MEQ/L Estimat Glomerular Filtration Rate 79 ML/MIN Total Creatine Kinase 14 U/L Troponin I 0.02 NG/ML Lipase 81 U/L Prothrombin Time 12.0 SEC Prothromb Time International Ratio 1.2 RATIO Activated Partial Thromboplast Time 24.5 SEC Lactic Acid Level 2.1 mmol/L Test 07/01/17 18:00 Lactic Acid Level 1.2 mmol/L [facility] Medical Decision Making Medical Screen Exam Complete: Yes Emergency Medical Condition: Yes Medical Record Reviewed: Yes Interpretation(s) chest x-ray - CONCLUSION: No acute disease. CT brain - CONCLUSION: Abnormal examination demonstrating possible subdural hemorrhage layering along the tentorium. It is possible this represents a combination of the tentorium and blood with in the transverse sinus itself however, this area significantly denser than the superior sagittal sinus. MRI imaging of the brain is warranted for more definitive assessment of this. CT pulmonary angiogram - CONCLUSION: 1. Positive for bilateral pulmonary embolism in numerous segmental and subsegmental vessels involving all segments. 2. Expected postsurgical findings from gastric pull-through. CT abdomen/pelvis - CONCLUSION: Postoperative changes from previous esophagectomy and gastric pullup. Small pleural-based nodular densities in the lung bases were not clearly seen previously and will need to be followed. No definite acute CT findings in the abdomen or pelvis. Differential Diagnosis Influenza versus viral syndrome versus pneumonia versus pancreatitis versus sepsis versus electrolyte abnormality versus dehydration versus PE versus ACS Narrative Course 61-year-old male presents to the emergency department for evaluation of body aches, chest pain, abdominal pain, headache, shortness of breath, vomiting for 5 days. EKG shows sinus rhythm, heart rate 63, inverted T waves in leads 2, 3, aVF. CBC, CMP, lipase, CK, troponin, UA, PTT, PT/INR, lactic acid, blood cultures 2, and influenza are ordered and pending. Chest x-ray is ordered and pending. CT of the brain, CT pulmonary angiogram, CT of the abdomen/pelvis with IV contrast are ordered and pending. Patient is given normal saline 1 L IV bolus, morphine 4 mg IV, Zofran 4 mg IV. CBC shows normal WBC of 10.8, neutrophil percentage 82.3. CMP shows slight hyponatremia at 133, mild hypokalemia of 3.4 alkaline phosphatase 186. CK is 14. Troponin is 0.02. Lipase is 81. Lactic acid is 2.1. UA is negative for acute infection. Influenza is negative. Chest x-ray shows no acute disease. CT of the brain shows abnormal examination demonstrating possible subdural hemorrhage layering along the tentorium. It is possible this represents a combination of the tentorium and blood with in the transverse sinus itself however, this area significantly denser than the superior sagittal sinus. MRI imaging of the brain is warranted for more definitive assessment of this. CT pulmonary angiogram shows positive for bilateral pulmonary embolism in numerous segmental and subsegmental vessels involving all segments; Expected postsurgical findings from gastric pull-through. CT abdomen/pelvis with IV contrast shows postoperative changes from previous esophagectomy and gastric pullup; small pleural-based nodular densities in the lung bases were not clearly seen previously and will need to be followed; No definite acute CT findings in the abdomen or pelvis. Neurosurgeon director of institutional giving, Dr. Rojas, is paged. He recommends observation, MRI. He states patient cannot be anticoagulated if patient does have bleeding in the brain. [facility] is paged. Dr. Hernandez accepted admission. Diagnosis Primary Impression: Subdural hemorrhage Additional Impressions: Pulmonary embolism Qualified Codes: I26.99 - Other pulmonary embolism without acute cor pulmonale Lactic acidosis Admitting Information Admitting Physician Requests: Admit Xena Martinez Jul 01, 2017 15:25
--- NOTE | 2017-07-01 15:48 | RADRPT ---
EXAM DATE/TIME: 07/01/2017 15:18 [facility] COMPARISON: CHEST SINGLE AP, March 16, 2017, 12:28. INDICATIONS : Chest pain, cough, and shortness of breath. MEDICAL HISTORY : Carcinoma, esophageal. SURGICAL HISTORY : Infusaport. ENCOUNTER: Initial ACUITY: 1 day PAIN SCORE: 0/10 LOCATION: chest FINDINGS: PA and lateral views of the chest demonstrate the lungs to be symmetrically aerated without evidence of mass, infiltrate or effusion. The cardiomediastinal contours are unremarkable. Osseous structure s are intact. CONCLUSION: No acute disease. Ren Smiley MD on July 01, 2017 at 15:42 Board Certified Radiologist. This report was verified electronically.
[2017-07-01 16:32] LABS: LACTIC ACID SEPSIS PROTOCOL 2.1 mmol/L (0.4-2.0)
[2017-07-01 16:37] LABS: INTERNATIONAL NORMALIZED RATIO 1.2 RATIO
--- NOTE | 2017-07-01 16:59 | RADRPT ---
EXAM DATE/TIME: 07/01/2017 16:36 [facility] COMPARISON: CT PULMONARY ANGIOGRAM, February 07, 2017, 19:42. INDICATIONS : Headache, nausea, vomiting diarrhea. RADIATION DOSE: 44.83 CTDIvol (mGy) MEDICAL HISTORY : Cardiovascular disease. Hypertension. Hernia, inguinal.GERD, Chemo, Ca esophageal SURGICAL HISTORY : Herniorrhophy ENCOUNTER: Initial ACUITY: 1 day PAIN SCALE: 6/10 LOCATION: Bilateral cranial TECHNIQUE: Multiple contiguous axial images were obtained of the head. Using automated exposure control and adj ustment of the mA and/or kV according to patient size, radiation dose was kept as low as reasonably a chievable to obtain optimal diagnostic quality images. DICOM format image data is available electro nically for review and comparison. FINDINGS: The ventricular system is normal in size and configuration. No focal mass lesion is identified. The s ulci and gyri are intact. Imaging through the posterior fossa demonstrates possible subdural hemorrhage layering along the tent orium. There is no significant mass effect associated with this. It is possible this represents blood within the transverse sinus combined with the density of the tentorium however this area significant ly increased in density when compared to the remainder of the sinuses. MRI imaging would be warranted for more thorough assessment. The fourth ventricle is midline. The cerebellar hemispheres are intact . The osseous structures of the skull are grossly intact. The sinuses are clear. The orbits appear inta ct. CONCLUSION: Abnormal examination demonstrating possible subdural hemorrhage layering along the tentorium. It is p ossible this represents a combination of the tentorium and blood with in the transverse sinus itself however, this area significantly denser than the superior sagittal sinus. MRI imaging of the brain is warranted for more definitive assessment of this. Teto Hardy MD on July 01, 2017 at 16:51 Board Certified Radiologist. This report was verified electronically.
[2017-07-01] MEDS ORDERED: IOHEXOL 350 MG/ML 10 ML VIAL (for RAD DIAG) IVCONTRAST ONE (17:04)
--- NOTE | 2017-07-01 17:10 | RADRPT ---
EXAM DATE/TIME: 07/01/2017 16:40 [facility] COMPARISON: CT PULMONARY ANGIOGRAM, February 07, 2017, 19:42. INDICATIONS : Chest pain, nausea, vomiting, diarrhea. IV CONTRAST: 85 cc Omnipaque 350 (iohexol) IV ; Cumulative dose for multiple exams. RADIATION DOSE: 11.55 CTDIvol (mGy) ; Combined studies - Thorax/Abdomen/Pelvis MEDICAL HISTORY : Cardiovascular disease. Hypertension. Gastroesophageal reflux disease.Hernia, esoph ca, chemo SURGICAL HISTORY : Herniorrhophy ENCOUNTER: Initial ACUITY: 1 day PAIN SCALE: 10/10 LOCATION: chest TECHNIQUE: Volumetric scanning of the chest was performed using a pulmonary embolism protocol MIP images were re constructed. Using automated exposure control and adjustment of the mA and/or kV according to patien t size, radiation dose was kept as low as reasonably achievable to obtain optimal diagnostic quality images. DICOM format image data is available electronically for review and comparison. Follow-up recommendations for detected pulmonary nodules are based at a minimum on nodule size and pa tient risk factors according to Fleischner Society Guidelines. FINDINGS: PULMONARY ARTERIES: Multiple filling defects in subsegmental arteries to the right upper lobe, basal segments right lower lobe, basal segments left lower lobe, and left upper lobe. No central defects in the main pulmonary artery or in the central left or right pulmonary artery. LUNGS: There is no consolidation or pneumothorax . No concerning pulmonary nodule is visualized. PLEURAE: There is no pleural thickening or pleural effusion. MEDIASTINUM: There is good visualization of the great vessels of the middle mediastinum. No evidence of mediastin al or hilar adenopathy/mass. Gastric pull-through. CONCLUSION: 1. Positive for bilateral pulmonary embolism in numerous segmental and subsegmental vessels involving all segments. 2. Expected postsurgical findings from gastric pull-through. Gilberto Hernandez MD on July 01, 2017 at 16:55 Board Certified Radiologist. This report was verified electronically.
[2017-07-01] MEDS ORDERED: ENALAPRILAT 1.25 MG/ML VIAL IV PUSH ONE (17:15)
--- NOTE | 2017-07-01 17:38 | RADRPT ---
EXAM DATE/TIME: 07/01/2017 16:40 [facility] COMPARISON: CT ABDOMEN & PELVIS W CONTRAST, February 07, 2017, 19:36. INDICATIONS : Headache, nausea, vomiting diarrhea. IV CONTRAST: 85 cc Omnipaque 350 (iohexol) IV ; Cumulative dose for multiple exams. ORAL CONTRAST: No oral contrast ingested. RADIATION DOSE: 11.55 CTDIvol (mGy) ; Combined studies - Thorax/Abdomen/Pelvis MEDICAL HISTORY : Cardiovascular disease. Hypertension. Gastroesophageal reflux disease.Hernia, esoph ca, chemo SURGICAL HISTORY : Herniorrhophy ENCOUNTER: Initial ACUITY: 1 day PAIN SCALE: 10/10 LOCATION: Bilateral abdomen TECHNIQUE: Volumetric scanning of the abdomen and pelvis was performed. Using automated exposure control and ad justment of the mA and/or kV according to patient size, radiation dose was kept as low as reasonably achievable to obtain optimal diagnostic quality images. DICOM format image data is available electro nically for review and comparison. FINDINGS: LOWER LUNGS: There is mild parenchymal disease in the lung bases. Several tiny pleural-based nodular densities wer e not clearly seen previously. Gastric pullup post esophagectomy. Mild adjacent scarring and atelecta sis in the medial right lung base LIVER: Homogeneous density without lesion. There is no dilation of the biliary tree. No calcified gallston es. SPLEEN: Normal size without lesion. PANCREAS: Within normal limits. KIDNEYS: Normal in size and shape. There is no mass, stone or hydronephrosis. ADRENAL GLANDS: Within normal limits. VASCULAR: There is no aortic aneurysm. BOWEL/MESENTERY: Distal colonic diverticulosis. No abnormal dilatation, wall thickening or focal inflammatory changes. ABDOMINAL WALL: Within normal limits. RETROPERITONEUM: There is no lymphadenopathy. BLADDER: No wall thickening or mass. REPRODUCTIVE: Within normal limits. INGUINAL: Previous bilateral mesh inguinal hernia repairs. MUSCULOSKELETAL: Within normal limits for patient age. CONCLUSION: Postoperative changes from previous esophagectomy and gastric pullup. Small pleural-based nodular densities in the lung bases were not clearly seen previously and will nee d to be followed. No definite acute CT findings in the abdomen or pelvis. Ren Smiley MD on July 01, 2017 at 17:31 Board Certified Radiologist. This report was verified electronically.
--- NOTE | 2017-07-01 17:43 | PD ---
Physical Exam Narrative GENERAL: 61 y/o male in no apparent distress SKIN: Focused skin assessment warm/dry. HEAD: Atraumatic. Normocephalic. EYES: Pupils equal and round. No scleral icterus. No injection or drainage. ENT: No nasal bleeding or discharge. Mucous membranes pink and moist. NECK: Trachea midline. No JVD. CARDIOVASCULAR: Regular rate and rhythm. RESPIRATORY: No accessory muscle use. no increased effort GASTROINTESTINAL: Abdomen soft, non-tender, nondistended. MUSCULOSKELETAL: No obvious deformities. NEUROLOGICAL: Awake and alert. No obvious cranial nerve deficits. Motor grossly within normal limits. Normal speech. PSYCHIATRIC: Appropriate mood and affect; insight and judgment normal. Data Data Last Documented VS Vital Signs Date Time Temp Pulse Resp B/P (MAP) Pulse Ox O2 Delivery O2 Flow Rate FiO2 07/01/17 17:51 61 17 157/89 (111) 98 Room Air 07/01/17 13:06 98.4 Orders Orders Electrocardiogram (07/01/17 13:30) Complete Blood Count With Diff (07/01/17 13:30) Basic Metabolic Panel (Bmp) (07/01/17 13:30) Ckmb (Isoenzyme) Profile (07/01/17 13:30) Troponin I (07/01/17 13:30) Iv Access Insert/Monitor (07/01/17 13:30) Ecg Monitoring (07/01/17 13:30) Oxygen Administration (07/01/17 13:30) Oximetry (07/01/17 13:30) Comprehensive Metabolic Panel (07/01/17 13:30) Urinalysis - C+S If Indicated (07/01/17 13:30) Lipase (07/01/17 13:30) Chest, Pa & Lat (07/01/17 13:30) Sepsis Workup Initiated (07/01/17 ) Prothrombin Time / Inr (Pt) (07/01/17 15:12) Act Partial Throm Time (Ptt) (07/01/17 15:12) Lactic Acid Sepsis Protocol (07/01/17 15:12) Influenzae A/B Antigen (07/01/17 15:12) Blood Culture (07/01/17 15:12) Ct Abd/Pel W Iv Contrast(Rout) (07/01/17 ) Ct Brain W/O Iv Contrast(Rout) (07/01/17 ) Sodium Chlor 0.9% 1000 Ml Inj (Ns 1000 M (07/01/17 15:15) Morphine Inj (Morphine Inj) (07/01/17 15:15) Ondansetron Inj (Zofran Inj) (07/01/17 15:15) Ct Pulmonary Angiogram (07/01/17 ) Sodium Chlor 0.9% 1000 Ml Inj (Ns 1000 M (07/01/17 17:00) Morphine Inj (Morphine Inj) (07/01/17 17:15) Iohexol 350 Inj (Omnipaque 350 Inj) (07/01/17 17:04) Enalaprilat Inj (Vasotec Inj) (07/01/17 17:15) Mri Brain W&W/O Contrast (07/01/17 ) Admit Order (Ed Use Only) (07/01/17 18:35) Labs Laboratory Tests Test 07/01/17 13:35 07/01/17 13:40 07/01/17 15:40 07/01/17 15:46 Urine Color DARK-YELLOW Urine Turbidity CLEAR Urine pH 6.0 Urine Specific [place] 1.023 Urine Protein 100 mg/dL Urine Glucose (UA) TRACE mg/dL Urine Ketones 80 mg/dL Urine Occult Blood TRACE Urine Nitrite NEG Urine Bilirubin NEG Urine Urobilinogen 2.0 MG/DL Urine Leukocyte Esterase TRACE Urine RBC 2 /hpf Urine WBC 6 /hpf Urine Squamous Epithelial Cells <1 /hpf Urine Mucus MANY /lpf Microscopic Urinalysis Comment CULT NOT INDICATED White Blood Count 10.8 TH/MM3 Red Blood Count 6.49 MIL/MM3 Hemoglobin 16.6 GM/DL Hematocrit 49.0 % Mean Corpuscular Volume 75.5 FL Mean Corpuscular Hemoglobin 25.5 PG Mean Corpuscular Hemoglobin Concent 33.8 % Red Cell Distribution Width 16.9 % Platelet Count 184 TH/MM3 Mean Platelet Volume 8.3 FL Neutrophils (%) (Auto) 82.3 % Lymphocytes (%) (Auto) 8.0 % Monocytes (%) (Auto) 9.2 % Eosinophils (%) (Auto) 0.1 % Basophils (%) (Auto) 0.4 % Neutrophils # (Auto) 8.9 TH/MM3 Lymphocytes # (Auto) 0.9 TH/MM3 Monocytes # (Auto) 1.0 TH/MM3 Eosinophils # (Auto) 0.0 TH/MM3 Basophils # (Auto) 0.0 TH/MM3 CBC Comment DIFF FINAL Differential Comment Blood Urea Nitrogen 8 MG/DL Creatinine 0.97 MG/DL Random Glucose 130 MG/DL Total Protein 8.4 GM/DL Albumin 4.0 GM/DL Calcium Level 9.1 MG/DL Alkaline Phosphatase 186 U/L Aspartate Amino Transf (AST/SGOT) 24 U/L Alanine Aminotransferase (ALT/SGPT) 26 U/L Total Bilirubin 1.2 MG/DL Sodium Level 133 MEQ/L Potassium Level 3.4 MEQ/L Chloride Level 97 MEQ/L Carbon Dioxide Level 25.8 MEQ/L Anion Gap 10 MEQ/L Estimat Glomerular Filtration Rate 79 ML/MIN Total Creatine Kinase 14 U/L Troponin I 0.02 NG/ML Lipase 81 U/L Prothrombin Time 12.0 SEC Prothromb Time International Ratio 1.2 RATIO Activated Partial Thromboplast Time 24.5 SEC Lactic Acid Level 2.1 mmol/L Test 07/01/17 18:00 Lactic Acid Level 1.2 mmol/L [facility] Supervised Visit with TANIYA: Yes Interpretation(s) CBC & BMP Diagram 07/01/17 13:40 Total Protein 8.4 H, Albumin 4.0, Calcium Level 9.1, Alkaline Phosphatase 186 H , Aspartate Amino Transf (AST/SGOT) 24, Alanine Aminotransferase (ALT/SGPT) 26, Total Bilirubin 1.2 H Last 24 hours Impressions Chest X-Ray 07/01/17 1330 Signed Impressions: Service Date/Time: Saturday, July 01, 2017 15:18 - CONCLUSION: No acute disease. Ren Smiley MD Head CT 07/01/17 0000 Signed Impressions: Service Date/Time: Saturday, July 01, 2017 16:36 - CONCLUSION: Abnormal examination demonstrating possible subdural hemorrhage layering along the tentorium. It is possible this represents a combination of the tentorium and blood with in the transverse sinus itself however, this area significantly denser than the superior sagittal sinus. MRI imaging of the brain is warranted for more definitive assessment of this. Teto Hardy MD CT Angiography 07/01/17 0000 Signed Impressions: Service Date/Time: Saturday, July 01, 2017 16:40 - CONCLUSION: 1. Positive for bilateral pulmonary embolism in numerous segmental and subsegmental vessels involving all segments. 2. Expected postsurgical findings from gastric pull-through. Gilberto Hernandez MD Abdomen/Pelvis CT 07/01/17 0000 Signed Impressions: Service Date/Time: Saturday, July 01, 2017 16:40 - CONCLUSION: Postoperative changes from previous esophagectomy and gastric pullup. Small pleural-based nodular densities in the lung bases were not clearly seen previously and will need to be followed. No definite acute CT findings in the abdomen or pelvis. Ren Smiley MD Narrative Course I, Dr. briscoe, have reviewed the advance practice practitioner's documentation and am in agreement, met with the patient face to face, made the diagnosis, and the medical decision making was done by me. *My assessment and Findings:61 y/o male presents with headache and chest pain. Workup shows subdural and segmental pulmonary embolus. He cannot get blood thinners for pulmonary embolus given active head bleed. His head bleed is nonsurgical. He will be monitored in the ICU with supportive care with concurrent neurosurgery consultation and blood pressure control. in the future he would benefit from an IVC filter Physician Communication Physician Communication dr de la fuente will be available if needed dr monterroso agrees to admit and requests in ICU Diagnosis Primary Impression: Subdural hemorrhage Additional Impression: Pulmonary embolism Qualified Codes: I26.99 - Other pulmonary embolism without acute cor pulmonale Admitting Information Admitting Physician Requests: Admit Rachael Briscoe MD Jul 01, 2017 17:43
[2017-07-01] MEDS ORDERED: GADODIAMIDE PF 287 MG/ML 5 ML VIAL (for RAD MRI) IVCONTRAST ONE (19:17)
--- NOTE | 2017-07-01 19:45 | RADRPT ---
EXAM DATE/TIME: 07/01/2017 19:04 [facility] COMPARISON: CT SIMULATION, December 13, 2016, 11:09. CT BRAIN W/O CONTRAST, July 01, 2017, 16:36. INDICATIONS : Hemorrhage. CONTRAST: 13 cc Omniscan (gadodiamide) IV MEDICAL HISTORY : Carcinoma, esophageal. SURGICAL HISTORY : Total knee replacement, left. ENCOUNTER: Initial ACUITY: 1 day PAIN SCORE: 0/10 LOCATION: cranial TECHNIQUE: Multiplanar, multisequence MRI of the brain was performed both prior to and following the administrat ion of paramagnetic contrast. FINDINGS: CT examination demonstrated a possible subdural hemorrhage layering along the tentorium on the left. An MRI examination this region demonstrates increased flair signal, some restricted diffusion and jaqui ceptibility consistent with blood products. No evidence for mass or abnormal enhancement in this jose rafael on. Remainder of the exam is essentially unremarkable. Ventricles are normal in size. Cerebellum and brai nstem are intact. Paranasal sinuses and extra cranial structures are unremarkable. CONCLUSION: 1. Abnormality on CT examination corresponds with subtle subdural blood products on MRI examination. Efrain Ivey MD on July 01, 2017 at 19:35 Board Certified Radiologist. This report was verified electronically.
[2017-07-01] MEDS ORDERED: TRAZ50TA12 PO (20:07)
[2017-07-01] MEDS ORDERED: DIAZ10 PO (20:07)
[2017-07-01] MEDS ORDERED: OXYC1CAP PO (20:07)
[2017-07-01] MEDS ORDERED: MORPHINE SULFATE 2 MG/ML INJ IV PUSH ONE (20:15)
[2017-07-01] MEDS ORDERED: METOCLOPRAMIDE HCL 10 MG/2 ML VIAL IV PUSH ONE (20:15)
[2017-07-01] MEDS ORDERED: MAGNESIUM HYDROXIDE SUSP 30 ML CUP PO PRN (21:30)
[2017-07-01] MEDS ORDERED: NALOXONE HCL 0.4 MG/ML AMP IV PUSH PRN (21:30)
[2017-07-01] MEDS ORDERED: SENNOSIDES 8.6 MG TAB PO PRN (21:30)
[2017-07-01] MEDS ORDERED: BISACODYL 10 MG SUPP RECTAL PRN (21:30)
[2017-07-01] MEDS ORDERED: SODIUM CHLORIDE 0.9% FLUSH 10 ML FLUSH IV FLUSH PRN (21:30)
--- NOTE | 2017-07-01 21:44 | HHI.HP ---
HPI Service [facility] Hospitalists Primary Care Physician Laurel Viera MD Admission Diagnosis subdural hemorrhage, bilateral PE Chief Complaint: 4-5 days headaches atypical abdominal discomfort chest discomfort Travel History International Travel<30 Days: No Contact w/Intl Traveler <30 Da: No Traveled to Known Affected Are: No History of Present Illness 61-year-old male presents to the emergency department for evaluation . Patient states that he started to feel sick on Tuesday. He reports body aches, left- sided chest pain, epigastric abdominal pain, headache. Patient believes headache is from vomiting. He reports associated photophobia. Current headache as 10/10. Patient states current chest pain as 5/10, worse with deep breathing. He also reports epigastric abdominal pain, 10/10. Patient denies any fevers. He also reports back pain and body aches. Patient states he has been vomiting since Tuesday and has been unable keep any food or fluids down. Patient denies any diarrhea or constipation. Patient has history of esophageal cancer with previous removal the esophagus and part of the stomach. Patient states he is currently in remission. Patient has completed chemo and RT followed by Dr. Silver. Patient states he has a history of hypertension, but is not currently on any medications for high blood pressure. He is on pain medication, but has been unable to take it due to vomiting. No exacerbating or alleviating factors. Moderate severity. In er had CT scan head and showed subdural hematomas and bilateral PE will be admitted to [facility] ,patient did require several doses of morphine to 12 mg before had any relief of head pain. Neurosurgery was notified and they recommend observation for now and check MRI brain. Review of Systems Constitutional: COMPLAINS OF: Fatigue Cardiovascular: COMPLAINS OF: Chest pain Gastrointestinal: COMPLAINS OF: Abdominal pain, Nausea, Vomiting Neurologic: COMPLAINS OF: Headache Psychiatric: COMPLAINS OF: Anxiety Past Family Social History Past Medical History esophageal cancer s/p chemo and RT ,hypertension,anxiety Past Surgical History esophageal surgery,hernia surgery knee surgery Reported Medications [Lactulose Liq] 30 ML Syrp 30 Ml PO DAILY PRN Hydrocodon-Acetamin 7.5-325/15 (Hydrocodone/Acetaminophen) 7.5 Mg-325 Mg/15 Ml ( 15 Ml) Solution 15 Ml PEG Q4H PRN Prilosec (Omeprazole Magnesium) 20 Mg Tab 20 Mg PO DAILY Diazepam 10 Mg Tab 10 Mg PO BID PRN Allergies: Coded Allergies: scallops (Unverified Allergy, Unknown, 03/08/17) Social History occ etoh non smoker Physical Exam Vital Signs Vital Signs Date Time Temp Pulse Resp B/P (MAP) Pulse Ox O2 Delivery O2 Flow Rate FiO2 07/01/17 21:00 64 18 135/79 (97) 98 Nasal Cannula 2.00 07/01/17 20:08 64 16 137/81 (99) 97 Room Air 07/01/17 17:51 61 17 157/89 (111) 98 Room Air 07/01/17 17:04 72 17 155/93 (113) 98 Room Air 07/01/17 16:03 69 17 150/96 (114) 98 Room Air 07/01/17 15:55 97 07/01/17 15:55 98 Room Air 07/01/17 13:06 98.4 81 18 182/110 (134) 98 Physical Exam GENERAL: This is a well-nourished, well-developed patient, in no apparent distress. SKIN: No rashes, ecchymoses or lesions. Cool and dry. HEAD: Atraumatic. Normocephalic. No temporal or scalp tenderness. EYES: Pupils equal round and reactive. Extraocular motions intact. No scleral icterus. No injection or drainage. ENT: Nose without bleeding, purulent drainage or septal hematoma. Throat without erythema, tonsillar hypertrophy or exudate. Uvula midline. Airway patent. NECK: Trachea midline. No JVD or lymphadenopathy. Supple, nontender, no meningeal signs. CARDIOVASCULAR: Regular rate and rhythm without murmurs, gallops, or rubs. RESPIRATORY: Clear to auscultation. Breath sounds equal bilaterally. No wheezes , rales, or rhonchi. GASTROINTESTINAL: Abdomen soft, mild tender, nondistended. No hepato- splenomegaly, or palpable masses. No guarding. MUSCULOSKELETAL: Extremities without clubbing, cyanosis, or edema. No joint tenderness, effusion, or edema noted. No calf tenderness. Negative Homans sign bilaterally. NEUROLOGICAL: Awake and alert. Cranial nerves II through XII intact. Motor and sensory grossly within normal limits. Five out of 5 muscle strength in all muscle groups. Normal speech. Laboratory Laboratory Tests Test 07/01/17 13:35 07/01/17 13:40 07/01/17 15:40 07/01/17 15:46 Urine Color DARK-YELLOW Urine Turbidity CLEAR Urine pH 6.0 Urine Specific [place] 1.023 Urine Protein 100 Urine Glucose (UA) TRACE Urine Ketones 80 Urine Occult Blood TRACE Urine Nitrite NEG Urine Bilirubin NEG Urine Urobilinogen 2.0 Urine Leukocyte Esterase TRACE Urine RBC 2 Urine WBC 6 Urine Squamous Epithelial Cells <1 Urine Mucus MANY Microscopic Urinalysis Comment CULT NOT INDICATED White Blood Count 10.8 Red Blood Count 6.49 Hemoglobin 16.6 Hematocrit 49.0 Mean Corpuscular Volume 75.5 Mean Corpuscular Hemoglobin 25.5 Mean Corpuscular Hemoglobin Concent 33.8 Red Cell Distribution Width 16.9 Platelet Count 184 Mean Platelet Volume 8.3 Neutrophils (%) (Auto) 82.3 Lymphocytes (%) (Auto) 8.0 Monocytes (%) (Auto) 9.2 Eosinophils (%) (Auto) 0.1 Basophils (%) (Auto) 0.4 Neutrophils # (Auto) 8.9 Lymphocytes # (Auto) 0.9 Monocytes # (Auto) 1.0 Eosinophils # (Auto) 0.0 Basophils # (Auto) 0.0 CBC Comment DIFF FINAL Differential Comment Blood Urea Nitrogen 8 Creatinine 0.97 Random Glucose 130 Total Protein 8.4 Albumin 4.0 Calcium Level 9.1 Alkaline Phosphatase 186 Aspartate Amino Transf (AST/SGOT) 24 Alanine Aminotransferase (ALT/SGPT) 26 Total Bilirubin 1.2 Sodium Level 133 Potassium Level 3.4 Chloride Level 97 Carbon Dioxide Level 25.8 Anion Gap 10 Estimat Glomerular Filtration Rate 79 Total Creatine Kinase 14 Troponin I 0.02 Lipase 81 Prothrombin Time 12.0 Prothromb Time International Ratio 1.2 Activated Partial Thromboplast Time 24.5 Lactic Acid Level 2.1 Test 07/01/17 18:00 Lactic Acid Level 1.2 Date/Time Source Procedure Growth Status 07/01/17 15:45 Blood Peripheral Aerobic Blood Culture Pending Received 07/01/17 15:45 Blood Peripheral Anaerobic Blood Culture Pending Received 07/01/17 15:41 Nasal Aspirate Influenza Types A,B Antigen (AMBER) - Final NEGATIVE FOR FLU A AND B ANTIGEN.... Complete Result Diagram: 07/01/17 1340 07/01/17 1340 Imaging Last 24 hours Impressions Chest X-Ray 07/01/17 1330 Signed Impressions: Service Date/Time: Saturday, July 01, 2017 15:18 - CONCLUSION: No acute disease. Ren Smiley MD Head CT 07/01/17 0000 Signed Impressions: Service Date/Time: Saturday, July 01, 2017 16:36 - CONCLUSION: Abnormal examination demonstrating possible subdural hemorrhage layering along the tentorium. It is possible this represents a combination of the tentorium and blood with in the transverse sinus itself however, this area significantly denser than the superior sagittal sinus. MRI imaging of the brain is warranted for more definitive assessment of this. Teto Hardy MD CT Angiography 07/01/17 0000 Signed Impressions: Service Date/Time: Saturday, July 01, 2017 16:40 - CONCLUSION: 1. Positive for bilateral pulmonary embolism in numerous segmental and subsegmental vessels involving all segments. 2. Expected postsurgical findings from gastric pull-through. Gilberto Hernandez MD Brain MRI 07/01/17 Signed Impressions: Service Date/Time: Saturday, July 01, 2017 19:04 - CONCLUSION: 1. Abnormality on CT examination corresponds with subtle subdural blood products on MRI examination. Efrain Ivey MD Abdomen/Pelvis CT 07/01/17 0000 Signed Impressions: Service Date/Time: Saturday, July 01, 2017 16:40 - CONCLUSION: Postoperative changes from previous esophagectomy and gastric pullup. Small pleural-based nodular densities in the lung bases were not clearly seen previously and will need to be followed. No definite acute CT findings in the abdomen or pelvis. Ren Smiley MD Course in er given pain medications Caprini VTE Risk Assessment Caprini VTE Risk Assessment: Mod/High Risk (score >= 2) Caprini Risk Assessment Model Point Value = 1 Point Value = 2 Point Value = 3 Point Value = 5 Age 41-60 Minor surgery BMI > 25 kg/m2 Swollen legs Varicose veins or History of unexplained or recurrent spontaneous Oral contraceptives or hormone replacement Sepsis (< 1 month) Serious lung disease, including pneumonia (< 1 month) Abnormal pulmonary function Acute myocardial infarction Congestive heart failure (< 1 month) History of inflammatory bowel disease Medical patient at bed rest Age 61-74 Arthroscopic surgery Major open surgery (> 45 min) Laparoscopic surgery (> 45 min) Malignancy Confined to bed (> 72 hours) Immobilizing plaster cast Central venous access Age >= 75 History of VTE Family history of VTE Factor V Leiden Prothrombin [id number] Lupus anticoagulant Anticardiolipin antibodies Elevated serum homocysteine Heparin-induced thrombocytopenia Other congenital or acquired thrombophilia Stroke (< 1 month) Elective arthroplasty Hip, pelvis, or leg fracture Acute spinal cord injury (< 1 month) Prophylaxis Regimen Total Risk Factor Score Risk Level Prophylaxis Regimen 0-1 Low Early ambulation 2 Moderate Order ONE of the following: *Sequential Compression Device (SCD) *Heparin 5000 units SQ BID 3-4 Higher Order ONE of the following medications: *Heparin 5000 units SQ TID *Enoxaparin/Lovenox 40 mg SQ daily (WT < 150 kg, CrCl > 30 mL/min) *Enoxaparin/Lovenox 30 mg SQ daily (WT < 150 kg, CrCl > 10-29 mL/min) *Enoxaparin/Lovenox 30 mg SQ BID (WT < 150 kg, CrCl > 30 mL/min) AND/OR *Sequential Compression Device (SCD) 5 or more Highest Order ONE of the following medications: *Heparin 5000 units SQ TID (Preferred with Epidurals) *Enoxaparin/Lovenox 40 mg SQ daily (WT < 150 kg, CrCl > 30 mL/min) *Enoxaparin/Lovenox 30 mg SQ daily (WT < 150 kg, CrCl > 10-29 mL/min) *Enoxaparin/Lovenox 30 mg SQ BID (WT < 150 kg, CrCl > 30 mL/min) AND *Sequential Compression Device (SCD) Assessment and Plan Problem List: (1) Subdural hemorrhage ICD Codes: I62.00 - Nontraumatic subdural hemorrhage, unspecified Status: Acute Plan: consult neurosurgery MRI and CT confirm subdural will keep on clear liquids for now (2) Pulmonary embolism ICD Codes: I26.99 - Other pulmonary embolism without acute cor pulmonale Status: Acute Plan: will consult hematology /oncology patient with several areas embolus but has subdural cannot anticoagulate may require filter (3) Esophageal cancer ICD Codes: C15.9 - Malignant neoplasm of esophagus, unspecified Status: Chronic Plan: will consult patient cloth spreader Assessment and Plan further plan as case develops Code Status full Discussed Condition With patient Physician Certification 2 Midnight Certification Type: Admission for Inpatient Services Order for Inpatient Services The services are ordered in accordance with Medicare regulations or non- Medicare payer requirements, as applicable. In the case of services not specified as inpatient-only, they are appropriately provided as inpatient services in accordance with the 2-midnight benchmark. Estimated LOS (days): 3 3 days is the estimated time the patient will need to remain in the hospital, assuming treatment plan goals are met and no additional complications. Post-Hospital Plan: Not yet determined Problem Qualifiers (1) Pulmonary embolism: Qualified Codes: I26.99 - Other pulmonary embolism without acute cor pulmonale Papo Miner MD Jul 01, 2017 21:44
[2017-07-01] MEDS ORDERED: MISCELLANEOUS NURSING INFORMATION XX SCH (21:45)
[2017-07-01] MEDS ORDERED: CHLORHEXIDINE GLUCONATE 2 % 1 PACK (2 CLOTHS) TOP PRN (21:45)
[2017-07-01] MEDS: 1/2 NS + KCL 20 MEQ INJ 1,000 ML IV SCH (22:09)
[2017-07-01] MEDS: PANTOPRAZOLE SODIUM 40 MG VIAL IV PUSH SCH (22:10)
[2017-07-01] MEDS: HYDROmorphone HCL PF 2 MG/ML VIAL IV PUSH PRN (22:18)
[2017-07-01] MEDS: LORazepam 2 MG/ML VIAL IV PUSH PRN (23:10)
--- NOTE | 2017-07-01 23:23 | EKG ---
Date Performed: 07/01/2017 Time Performed: 13:42:02 PTAGE: 61 years EKG: Sinus rhythm LEFT ATRIAL ENLARGEMENT LEFT AXIS DEVIATION LOW QRS VOLTAGE IN EXTREMITY LEADS INFERIOR MYOCARDIAL I NFARCTION ABNORMAL ECG PREVIOUS TRACING : 03/08/2017 19.25 No significant change from previous tracing noted. DOCTOR: Jonatan Bronson Interpretating Date/Time 07/01/2017 23:21:10
[2017-07-02] VITALS (8 sets, daily range): BP systolic 119–147; BP diastolic 71–80; PULSE 50–60; RESP 13–16; TEMP 97.5–98.2; O2SAT 92–97
[2017-07-02] MEDS: ONDANSETRON HCL 4 MG/2 ML VIAL IVP PRN ×4 (00:58→18:00)
[2017-07-02] MEDS: HYDROmorphone HCL PF 2 MG/ML VIAL IV PUSH PRN ×5 (01:04→20:57)
[2017-07-02] MEDS: CHLORHEXIDINE GLUCONATE 2 % 1 PACK (2 CLOTHS) TOP SCH (03:42)
[2017-07-02 05:54] LABS: AUTOMATED NEUTROPHIL # 5.8 TH/MM3 (1.8-7.7); BASOPHIL % 0.1 % (0.0-2.0); EOSINOPHIL % 0.5 % (0.0-4.0); HEMATOCRIT 39.9 % (39.0-51.0); HEMOGLOBIN 13.1 GM/DL (13.0-17.0); LYMPH % 11.2 % (9.0-44.0); LYMPHOCYTE # 0.9 TH/MM3 (1.0-4.8); MEAN CELL VOLUME 75.9 FL (80.0-100.0); MEAN CORPUSCULAR HEMOGLOBIN 24.8 PG (27.0-34.0); MEAN CORPUSCULAR HGB CONC 32.7 % (32.0-36.0); MEAN PLATELET VOLUME 7.6 FL (7.0-11.0); MONO % 12.6 % (0.0-8.0); NEUT % 75.6 % (16.0-70.0); PLATELET COUNT 148 TH/MM3 (150-450); RED BLOOD COUNT 5.26 MIL/MM3 (4.50-5.90); RED CELL DISTRIBUTION WIDTH 16.7 % (11.6-17.2); WHITE BLOOD COUNT 7.7 TH/MM3 (4.0-11.0)
[2017-07-02 06:13] LABS: ALBUMIN 2.9 GM/DL (3.4-5.0); ALKALINE PHOSPHATASE 120 U/L (45-117); ALT (GPT) 17 U/L (12-78); AST (GOT) 25 U/L (15-37); BICARBONATE 26.9 MEQ/L (21.0-32.0); BLOOD UREA NITROGEN 8 MG/DL (7-18); CALCIUM 8.1 MG/DL (8.5-10.1); CHLORIDE 101 MEQ/L (98-107); CREATININE 0.56 MG/DL (0.60-1.30); GLOMERULAR FILTRATION RATE 149 ML/MIN (>89); GLUCOSE,RANDOM 93 MG/DL (74-106); SODIUM (NA) 136 MEQ/L (136-145); TOTAL BILIRUBIN ADULT 0.9 MG/DL (0.2-1.0); TOTAL PROTEIN 6.3 GM/DL (6.4-8.2)
--- NOTE | 2017-07-02 08:34 | RADRPT ---
EXAM DATE/TIME: 07/02/2017 07:44 [facility] COMPARISON: CT BRAIN W/O CONTRAST, July 01, 2017, 16:36. MRI BRAIN W & W/O CONTRAST, July 01, 2017, 19: 04. INDICATIONS : Bleed. MEDICAL HISTORY : Carcinoma, esophageal. SURGICAL HISTORY : Total knee replacement, left. Esophagus removed. Stomach reconstruction. ENCOUNTER: Subsequent ACUITY: 2 day PAIN SCORE: 2/10 LOCATION: cranial Please note a normal MRA of the brain does not entirely exclude the possibility of a small aneurysm, nor the possibility of distal intracranial vessel disease. TECHNIQUE: 3D time of flight MRA was performed. Source images, multiplanar STS MIP, and 3D volume MIP reconstru ctions were reviewed. FINDINGS: There is excellent visualization of the major intracranial arteries out to the second-order branch ve ssels. There is no evidence for aneurysm, vessel truncation or stenosis, and no evidence for vascula r malformation. CONCLUSION: Negative MRA. Ren Mckeon MD on July 02, 2017 at 8:28 Board Certified Radiologist. This report was verified electronically.
--- NOTE | 2017-07-02 08:37 | RADRPT ---
EXAM DATE/TIME: 07/02/2017 07:44 [facility] COMPARISON: MRI BRAIN W & W/O CONTRAST, July 01, 2017, 19:04. INDICATIONS : Bleed. MEDICAL HISTORY : Carcinoma, esophageal. SURGICAL HISTORY : Total knee replacement, left. Esophagus removed. Stomach reconstruction. ENCOUNTER: Subsequent ACUITY: 2 day PAIN SCORE: 2/10 LOCATION: cranial Please note a normal MRA of the brain does not entirely exclude the possibility of a small aneurysm, nor the possibility of distal intracranial vessel disease. TECHNIQUE: MR venography of the brain was performed without contrast with multiplanar and 3D reconstructions. FINDINGS: Normal venous flow is seen in the posterior aspect of the superior sagittal sinus. This empties into the right transverse sinus. The left transverse sinus demonstrates no signal or flow. The left sigmoi d sinus demonstrates no signal or flow. The inferior sagittal sinus is not seen. CONCLUSION: No flow demonstrated in the left transverse or sigmoid sinus. This also no flow seen in the inferior sagittal sinus. Ren Mckeon MD on July 02, 2017 at 8:33 Board Certified Radiologist. This report was verified electronically.
[2017-07-02] MEDS: DOCUSATE SODIUM 50 MG/SENNA 8.6 MG TAB PO SCH ×2 (09:00→20:56)
[2017-07-02] MEDS: SODIUM CHLORIDE 0.9% FLUSH 10 ML FLUSH IV FLUSH SCH ×2 (09:02→20:58)
[2017-07-02] MEDS: 1/2 NS + KCL 20 MEQ INJ 1,000 ML IV SCH (09:25)
--- NOTE | 2017-07-02 09:34 | MB ---
cc: MARK MAGANA ROHIT K. M.D. SAXOUR, JOANNE D. M.D. DATE OF CONSULTATION 07/01/2017 REASON FOR CONSULTATION Left tentorial subdural hemorrhage. HISTORY OF PRESENT ILLNESS This is a 61-year-old gentleman with a three-day history of left frontal headaches along with nausea and vomiting. He also complains of dizziness and unsteadiness in his gait along with some photophobia. He relates that around the same time complaints of dyspnea along with generalized body aches. Denies any fevers or chills. He has a history of esophageal cancer diagnosed last summer and underwent radiation and chemo and resection and was told he was in remission. Work-up in the emergency room with a CT of the head reveals a hypodensity in the left tentorium as well as a transverse sign and the possibility of a tentorial bleed and transverse sinus thrombosis. Subsequent MRI scan of the brain was obtained which again reveals subtle blood products on the tentorium and it also appears that the left transverse sinus is opacified. He was also found to have bilateral numerous segmental and subsegmental vessel pulmonary embolus with small pleural nodular densities in the lung bases. PAST MEDICAL HISTORY 1. Esophageal cancer status post chemotherapy and radiation and surgical resection. 2. Hypertension. 3. Anxiety. 4. Hernia surgery. 5. Knee surgery. MEDICATIONS Medications at home are: 1. Trazodone. 2. Oxycodone 5 mg q.4h. p.r.n. 3. Valium 10 mg b.i.d. ALLERGIES SCALLOPS. SOCIAL HISTORY He is but he relates to me that he resides alone. He drinks 4 alcoholic beverages. He is a former smoker. REVIEW OF SYSTEMS Positive for headaches. Positive for photophobia. Positive for nausea and vomiting. Positive for dyspnea. Positive for unsteadiness in his gait. Positive for dizziness. Positive for generalized aches. Otherwise the rest of the systems are negative. FAMILY HISTORY Unremarkable. LABORATORY STUDIES White blood cell count 10.8, hemoglobin 16.6, platelet count 184. PT 12, INR 1.2, PTT 24.5. Sodium 133, potassium 3.4, BUN 8, creatinine 0.97, glucose 130. PHYSICAL EXAMINATION VITAL SIGNS: Temperature 98.1, pulse 55, respiratory rate 13, blood pressure 122/72, oxygen saturation 94% on room air. GENERAL: This is a middle-aged gentleman lying in bed in the ICU in no acute distress. HEAD: Normocephalic, atraumatic. No Bales's or raccoon sign. NECK: No guarding or rigidity. CHEST: Clear to auscultation bilaterally. HEART: Mild bradycardia. Normal S1, S2. ABDOMEN: Soft, nontender. No hepatosplenomegaly. EXTREMITIES: No cyanosis or edema. SKIN: No rash, pustules or breakdown. NEUROLOGIC: He is awake and alert. Pupils are equal and reactive. Extraocular muscles are intact. No nystagmus. Face is symmetric. Tongue is midline. He moves upper and lower extremities with 5/5 strength. Negative Babinski. Light touch sensation is intact. Speech is fluent. IMPRESSION 1. 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 2. Bilateral multiple pulmonary embolus. 3. History of esophageal cancer. 4. History of hypertension. PLAN The patient will be monitored closely in the surgical intensive care unit. Keep his head of bed elevated at 30 degrees and keep him hydrated. We will obtain an MR venogram of the brain to further evaluate for the possible transverse sinus thrombosis. If there is a thrombosis we made need to contemplate anticoagulation, particularly given that he also has pulmonary embolus, even though there is a risk of intracranial hemorrhage progression with anticoagulation. Accordingly we will also obtain another opinion from the neurology as well as the hematology service prior to initiating any anticoagulation once we have the confirmation of a cerebral venous thrombosis with the MRI scan studies. His condition obviously is critical with a guarded prognosis and he is at high risk for progression of the cerebral thrombosis and associated stroke as well as pulmonary embolus progression. MD REDDY Galloway/MIKA /1:05 AM /9:15 AM
--- NOTE | 2017-07-02 09:40 | HHI.NSPN ---
History Interval History 61-year-old gentleman with a three-day history of left frontal headaches along with nausea and vomiting. He also complains of dizziness and unsteadiness in his gait along with some photophobia. He relates that around the same time complaints of dyspnea along with generalized body aches. Denies any fevers or chills. He has a history of esophageal cancer diagnosed last summer and underwent radiation and chemo and resection and was told he was in remission. Work-up in the emergency room with a CT of the head reveals a hypodensity in the left tentorium as well as a transverse sign and the possibility of a tentorial bleed and transverse sinus thrombosis. Subsequent MRI scan of the brain was obtained which again reveals subtle blood products on the tentorium and it also appears that the left transverse sinus is opacified. He was also found to have bilateral numerous segmental and subsegmental vessel pulmonary embolus with small pleural nodular densities in the lung bases. 07/02/17: No new complaints. MRA negative but MRV of the brain consistent with left transverse sinus thrombosis. Review of Systems General: Negative for: fever, chills, insomnia Respiratory: Positive for: shortness of breath Cardiovascular: Negative for: chest pain, palpitations, orthopnea Gastrointestinal: Positive for: nausea Genitourinary: Negative for: urinary burning, urinary frequency, urinary urgency Exam Results Vital Signs Date Time Temp Pulse Resp B/P (MAP) Pulse Ox O2 Delivery O2 Flow Rate FiO2 07/02/17 05:02 12 07/02/17 04:00 97.7 56 122/74 (90) 96 07/01/17 22:36 Room Air 07/01/17 21:00 2.00 Intake and Output 07/02/17 07/02/17 07/03/17 08:00 16:00 00:00 Intake Total 25 ml Output Total 200 ml Balance -175 ml Physical Examination GENERAL: Well-nourished, well-developed patient. SKIN: Warm and dry. HEAD: Normocephalic and atraumatic. EYES: No scleral icterus. No injection or drainage. ENT: No nasal drainage noted. Mucous membranes pink. Airway patent. NECK: Supple, trachea midline. No JVD. CARDIOVASCULAR: Regular rate and rhythm without murmurs, gallops, or rubs. RESPIRATORY: Breath sounds equal bilaterally. No accessory muscle use. GASTROINTESTINAL: Abdomen soft, non-tender, nondistended. EXTREMITIES: No cyanosis or edema. BACK: Nontender without obvious deformity. No CVA tenderness. NEUROLOGICAL: Awake and alert. Pupils Equal and reactive. EOMI. Face symmetric. Tongue midline. Cranial nerves II through XII intact. Motor and sensory grossly within normal limits. Five out of 5 muscle strength in all muscle groups. Normal speech. Normal comprehension. DTR's symmetric. Negative Millan' s reflex. Negative Babinski. Lab, Micro, Other Results Last 24 hours Impressions Head/Brain Mag Res Venography 07/02/17 0000 Signed Impressions: Service Date/Time: Sunday, July 02, 2017 07:44 - CONCLUSION: No flow demonstrated in the left transverse or sigmoid sinus. This also no flow seen in the inferior sagittal sinus. Ren Mckeon MD Head Magnetic Resonance Angiography 07/02/17 0000 Signed Impressions: Service Date/Time: Sunday, July 02, 2017 07:44 - CONCLUSION: Negative MRA. Ren Mckeon MD Chest X-Ray 07/01/17 1330 Signed Impressions: Service Date/Time: Saturday, July 01, 2017 15:18 - CONCLUSION: No acute disease. Ren Smiley MD Laboratory Tests Test 07/01/17 13:35 07/01/17 13:40 07/01/17 15:40 07/01/17 15:46 Urine Color DARK-YELLOW Urine Turbidity CLEAR Urine pH 6.0 Urine Specific [place] 1.023 Urine Protein 100 Urine Glucose (UA) TRACE Urine Ketones 80 Urine Occult Blood TRACE Urine Nitrite NEG Urine Bilirubin NEG Urine Urobilinogen 2.0 Urine Leukocyte Esterase TRACE Urine RBC 2 Urine WBC 6 Urine Squamous Epithelial Cells <1 Urine Mucus MANY Microscopic Urinalysis Comment CULT NOT INDICATED White Blood Count 10.8 Red Blood Count 6.49 Hemoglobin 16.6 Hematocrit 49.0 Mean Corpuscular Volume 75.5 Mean Corpuscular Hemoglobin 25.5 Mean Corpuscular Hemoglobin Concent 33.8 Red Cell Distribution Width 16.9 Platelet Count 184 Mean Platelet Volume 8.3 Neutrophils (%) (Auto) 82.3 Lymphocytes (%) (Auto) 8.0 Monocytes (%) (Auto) 9.2 Eosinophils (%) (Auto) 0.1 Basophils (%) (Auto) 0.4 Neutrophils # (Auto) 8.9 Lymphocytes # (Auto) 0.9 Monocytes # (Auto) 1.0 Eosinophils # (Auto) 0.0 Basophils # (Auto) 0.0 CBC Comment DIFF FINAL Differential Comment Blood Urea Nitrogen 8 Creatinine 0.97 Random Glucose 130 Total Protein 8.4 Albumin 4.0 Calcium Level 9.1 Alkaline Phosphatase 186 Aspartate Amino Transf (AST/SGOT) 24 Alanine Aminotransferase (ALT/SGPT) 26 Total Bilirubin 1.2 Sodium Level 133 Potassium Level 3.4 Chloride Level 97 Carbon Dioxide Level 25.8 Anion Gap 10 Estimat Glomerular Filtration Rate 79 Total Creatine Kinase 14 Troponin I 0.02 Lipase 81 Prothrombin Time 12.0 Prothromb Time International Ratio 1.2 Activated Partial Thromboplast Time 24.5 Lactic Acid Level 2.1 Test 07/01/17 18:00 07/02/17 04:46 Lactic Acid Level 1.2 White Blood Count 7.7 Red Blood Count 5.26 Hemoglobin 13.1 Hematocrit 39.9 Mean Corpuscular Volume 75.9 Mean Corpuscular Hemoglobin 24.8 Mean Corpuscular Hemoglobin Concent 32.7 Red Cell Distribution Width 16.7 Platelet Count 148 Mean Platelet Volume 7.6 Neutrophils (%) (Auto) 75.6 Lymphocytes (%) (Auto) 11.2 Monocytes (%) (Auto) 12.6 Eosinophils (%) (Auto) 0.5 Basophils (%) (Auto) 0.1 Neutrophils # (Auto) 5.8 Lymphocytes # (Auto) 0.9 Monocytes # (Auto) 1.0 Eosinophils # (Auto) 0.0 Basophils # (Auto) 0.0 CBC Comment DIFF FINAL Differential Comment Blood Urea Nitrogen 8 Creatinine 0.56 Random Glucose 93 Total Protein 6.3 Albumin 2.9 Calcium Level 8.1 Alkaline Phosphatase 120 Aspartate Amino Transf (AST/SGOT) 25 Alanine Aminotransferase (ALT/SGPT) 17 Total Bilirubin 0.9 Sodium Level 136 Potassium Level 3.7 Chloride Level 101 Carbon Dioxide Level 26.9 Anion Gap 8 Estimat Glomerular Filtration Rate 149 Date/Time Source Procedure Growth Status 07/01/17 15:45 Blood Peripheral Aerobic Blood Culture Pending Received 07/01/17 15:45 Blood Peripheral Anaerobic Blood Culture Pending Received 07/01/17 15:41 Nasal Aspirate Influenza Types A,B Antigen (AMBER) - Final NEGATIVE FOR FLU A AND B ANTIGEN.... Complete Medical Decision Making Impression and Plan 61-year-old gentleman with a small left tentorial hemorrhage likely related to the thrombosis of the left transverse sinus. He also has multiple bilateral pulmonary embolus. Given the cerebral left transverse venous sinus thrombosis as well as bilateral pulmonary embolus, I feel best that he be fully anticoagulated as risk of this thrombosis progression with consequent venous infarct as well as pulmonary embolus progression is higher than risk of cerebral rebleeding. Discussed with the patient who understands and is in agreement. We will also get the long term involvement in case of any acute decline in neurologic or pulmonary condition. Accordingly we'll start heparin anticoagulation if the consultants hematology and neurology are also in agreement. Matti Rojas MD Jul 02, 2017 09:40
--- NOTE | 2017-07-02 10:40 | PD.CONS ---
[facility] Service Critical Care Medicine Consult Requested By Dr. Rojas Reason for Consult ICU management Primary Care Physician Laurel Viera MD History of Present Illness 61-year-old gentleman with history of esophageal cancer post chemotherapy and radiation therapy, with surgical resection in March 2017, now admitted with 3 -4 day history of headache, nausea, vomiting, generalized weakness and dizziness. On admission patient was found to have bilateral segmental and subsegmental pulmonary embolism and small tentorial subdural hemorrhage. Neurosurgery was consulted and based on the workup so far it is believed that this subdural hemorrhage secondary to thrombosis of the left transverse sinus and currently patient is being started on full dose anticoagulation with heparin for the above diagnosis as well as multiple PE. Hematology and neurology services consulted as well. CCM consult was requested by Dr. Rojas to help with ICU management. Patient seen in the ICU. SPO2 98% on room air. Patient still complaining of mild headache improved with Dilaudid, nausea is better, no vomiting, no chest pain and no other complaints. Review of Systems Constitutional: COMPLAINS OF: Fatigue, Dizziness, DENIES: Diaphoretic episodes , Fever, Weight gain, Chills Eyes: COMPLAINS OF: Photosensitivity, DENIES: Blurred vision, Diplopia, Double Vision Ears, nose, mouth, throat: DENIES: Tinnitus, Hearing loss, Throat pain Respiratory: COMPLAINS OF: Shortness of breath, DENIES: Cough, Wheezing, Sputum production Cardiovascular: COMPLAINS OF: Chest pain, DENIES: Palpitations, Syncope, Lower Extremity Edema Gastrointestinal: COMPLAINS OF: Nausea, Vomiting, DENIES: Abdominal pain, Constipation, Diarrhea Hematologic/lymphatic: DENIES: Bruising Psychiatric: COMPLAINS OF: Anxiety, Depression Past Family Social History Allergies: Coded Allergies: scallops (Unverified Allergy, Unknown, 03/08/17) Past Medical History Esophageal cancer post chemotherapy and radiation therapy in January 2017 and surgical resection in March 2017 Hypertension Anxiety Depression Past Surgical History Esophageal resection Hernia surgery Knee surgery Reported Medications Reported Meds & Active Scripts Active Reported Valium (Diazepam) 10 Mg Tab 10 Mg PO BID PRN Trazodone (Trazodone HCl) Unknown Strength Tab Unknown Dose PO HS Oxycodone (Oxycodone HCl) 5 Mg Cap 5 Mg PO Q4H PRN Active Ordered Medications Current Medications Medications (Trade) Dose Ordered Sig/[place] Route Start Time Stop Time Status Last Admin (NS Flush) 2 ml UNSCH PRN IV FLUSH 07/01/17 21:30 (NS Flush) 2 ml BID IV FLUSH 07/02/17 09:00 07/02/17 09:02 (Zofran Inj) 4 mg Q6H PRN IVP 07/01/17 21:30 07/02/17 06:09 (Dilaudid Pf Inj) 1 mg Q3H PRN IV PUSH 07/01/17 21:45 07/02/17 08:59 (Narcan Inj) 0.4 mg UNSCH PRN IV PUSH 07/01/17 21:30 (Areli-Colace) 1 tab BID PO 07/02/17 09:00 (Milk Of Magnesia Liq) 30 ml Q12H PRN PO 07/01/17 21:30 (Senokot) 17.2 mg Q12H PRN PO 07/01/17 21:30 (Dulcolax Supp) 10 mg DAILY PRN RECTAL 07/01/17 21:30 (Lactulose Liq) 30 ml DAILY PRN PO 07/01/17 21:30 (Ativan Inj) 1 mg HS PRN IV PUSH 07/01/17 21:30 07/01/17 23:10 Potassium Chloride/Sodium Chloride 1,000 ml @ 84 mls/hr [id number] IV 07/01/17 21:30 07/01/17 22:09 (Protonix Inj) 40 mg Q24H IV PUSH 07/01/17 22:00 07/01/17 22:10 Miscellaneous Information 1 [id number] XX 07/01/17 21:45 (Chlorhexidine 2% Cloth) 3 pack Taper DAILY@04 TOP 07/02/17 04:00 06/28/18 03:59 (Chlorhexidine 2% Cloth) 3 pack UNSCH PRN TOP 07/01/17 21:45 Heparin Sodium/ Dextrose 250 ml @ 8 mls/hr TITRATE PRN IV 07/02/17 09:45 Family History Father with prostate cancer, back surgery, of MRSA infection Mother with COPD Social History Lives alone, from his , occasional alcohol not daily, remote history of tobacco, occasional marijuana Physical Exam Vital Signs Vital Signs Date Time Temp Pulse Resp B/P (MAP) Pulse Ox O2 Delivery O2 Flow Rate FiO2 07/02/17 08:00 Room Air 07/02/17 05:02 12 07/02/17 04:00 97.7 56 16 122/74 (90) 96 07/02/17 02:00 56 07/02/17 00:00 98.1 55 13 122/72 (89) 94 07/02/17 00:00 55 07/01/17 23:00 51 07/01/17 22:36 52 16 120/72 (88) 95 Room Air 07/01/17 22:35 07/01/17 21:00 64 18 135/79 (97) 98 Nasal Cannula 2.00 07/01/17 20:08 64 16 137/81 (99) 97 Room Air 07/01/17 17:51 61 17 157/89 (111) 98 Room Air 07/01/17 17:04 72 17 155/93 (113) 98 Room Air 07/01/17 16:03 69 17 150/96 (114) 98 Room Air 07/01/17 15:55 97 07/01/17 15:55 98 Room Air 07/01/17 13:06 98.4 81 18 182/110 (134) 98 Physical Exam General - middle-aged gentleman, awake, in no distress, on room air HEENT - pupils equal, reactive, sclerae anicteric, neck supple, no nuchal rigidity, neck veins not distended, no carotid bruit, moist mucous membranes CV - regular S1, S2, no murmurs Chest - clear b/l, good air entry, no wheezes Abdomen - soft, non-tender, non-distended, BS present, no hepatomegaly, no splenomegaly Skin - no rashes, no cyanosis Extremities - warm and well perfused, no edema, + peripheral pulses, no clubbing Neuro -awake, alert, oriented 3, pupils are equal and reactive, extraocular movements are intact, smile is symmetric, tongue is midline, shrugs shoulders, hearing is intact, motor 5/5 in all extremities, sensation is intact, no pronator drift Laboratory Laboratory Tests Test 07/01/17 13:35 07/01/17 13:40 07/01/17 15:40 07/01/17 15:46 Urine Color DARK-YELLOW Urine Turbidity CLEAR Urine pH 6.0 Urine Specific [place] 1.023 Urine Protein 100 Urine Glucose (UA) TRACE Urine Ketones 80 Urine Occult Blood TRACE Urine Nitrite NEG Urine Bilirubin NEG Urine Urobilinogen 2.0 Urine Leukocyte Esterase TRACE Urine RBC 2 Urine WBC 6 Urine Squamous Epithelial Cells <1 Urine Mucus MANY Microscopic Urinalysis Comment CULT NOT INDICATED White Blood Count 10.8 Red Blood Count 6.49 Hemoglobin 16.6 Hematocrit 49.0 Mean Corpuscular Volume 75.5 Mean Corpuscular Hemoglobin 25.5 Mean Corpuscular Hemoglobin Concent 33.8 Red Cell Distribution Width 16.9 Platelet Count 184 Mean Platelet Volume 8.3 Neutrophils (%) (Auto) 82.3 Lymphocytes (%) (Auto) 8.0 Monocytes (%) (Auto) 9.2 Eosinophils (%) (Auto) 0.1 Basophils (%) (Auto) 0.4 Neutrophils # (Auto) 8.9 Lymphocytes # (Auto) 0.9 Monocytes # (Auto) 1.0 Eosinophils # (Auto) 0.0 Basophils # (Auto) 0.0 CBC Comment DIFF FINAL Differential Comment Blood Urea Nitrogen 8 Creatinine 0.97 Random Glucose 130 Total Protein 8.4 Albumin 4.0 Calcium Level 9.1 Alkaline Phosphatase 186 Aspartate Amino Transf (AST/SGOT) 24 Alanine Aminotransferase (ALT/SGPT) 26 Total Bilirubin 1.2 Sodium Level 133 Potassium Level 3.4 Chloride Level 97 Carbon Dioxide Level 25.8 Anion Gap 10 Estimat Glomerular Filtration Rate 79 Total Creatine Kinase 14 Troponin I 0.02 Lipase 81 Prothrombin Time 12.0 Prothromb Time International Ratio 1.2 Activated Partial Thromboplast Time 24.5 Lactic Acid Level 2.1 Test 07/01/17 18:00 07/02/17 04:46 Lactic Acid Level 1.2 White Blood Count 7.7 Red Blood Count 5.26 Hemoglobin 13.1 Hematocrit 39.9 Mean Corpuscular Volume 75.9 Mean Corpuscular Hemoglobin 24.8 Mean Corpuscular Hemoglobin Concent 32.7 Red Cell Distribution Width 16.7 Platelet Count 148 Mean Platelet Volume 7.6 Neutrophils (%) (Auto) 75.6 Lymphocytes (%) (Auto) 11.2 Monocytes (%) (Auto) 12.6 Eosinophils (%) (Auto) 0.5 Basophils (%) (Auto) 0.1 Neutrophils # (Auto) 5.8 Lymphocytes # (Auto) 0.9 Monocytes # (Auto) 1.0 Eosinophils # (Auto) 0.0 Basophils # (Auto) 0.0 CBC Comment DIFF FINAL Differential Comment Blood Urea Nitrogen 8 Creatinine 0.56 Random Glucose 93 Total Protein 6.3 Albumin 2.9 Calcium Level 8.1 Alkaline Phosphatase 120 Aspartate Amino Transf (AST/SGOT) 25 Alanine Aminotransferase (ALT/SGPT) 17 Total Bilirubin 0.9 Sodium Level 136 Potassium Level 3.7 Chloride Level 101 Carbon Dioxide Level 26.9 Anion Gap 8 Estimat Glomerular Filtration Rate 149 Date/Time Source Procedure Growth Status 07/01/17 15:45 Blood Peripheral Aerobic Blood Culture Pending Received 07/01/17 15:45 Blood Peripheral Anaerobic Blood Culture Pending Received 07/01/17 15:41 Nasal Aspirate Influenza Types A,B Antigen (AMBER) - Final NEGATIVE FOR FLU A AND B ANTIGEN.... Complete Result Diagram: 07/02/176 07/02/17 0446 Imaging Last Impressions Head/Brain Mag Res Venography 07/02/17 0000 Signed Impressions: Service Date/Time: Sunday, July 02, 2017 07:44 - CONCLUSION: No flow demonstrated in the left transverse or sigmoid sinus. This also no flow seen in the inferior sagittal sinus. Ren Mckeon MD Head Magnetic Resonance Angiography 07/02/17 0000 Signed Impressions: Service Date/Time: Sunday, July 02, 2017 07:44 - CONCLUSION: Negative MRA. Ren Mckeon MD Chest X-Ray 07/01/17 1330 Signed Impressions: Service Date/Time: Saturday, July 01, 2017 15:18 - CONCLUSION: No acute disease. Ren Smiley MD Head CT 07/01/17 0000 Signed Impressions: Service Date/Time: Saturday, July 01, 2017 16:36 - CONCLUSION: Abnormal examination demonstrating possible subdural hemorrhage layering along the tentorium. It is possible this represents a combination of the tentorium and blood with in the transverse sinus itself however, this area significantly denser than the superior sagittal sinus. MRI imaging of the brain is warranted for more definitive assessment of this. Teto Hardy MD CT Angiography 07/01/17 0000 Signed Impressions: Service Date/Time: Saturday, July 01, 2017 16:40 - CONCLUSION: 1. Positive for bilateral pulmonary embolism in numerous segmental and subsegmental vessels involving all segments. 2. Expected postsurgical findings from gastric pull-through. Gilberto Hernandez MD Brain MRI 07/01/17 0000 Signed Impressions: Service Date/Time: Saturday, July 01, 2017 19:04 - CONCLUSION: 1. Abnormality on CT examination corresponds with subtle subdural blood products on MRI examination. Efrain Ivey MD Abdomen/Pelvis CT 07/01/17 0000 Signed Impressions: Service Date/Time: Saturday, July 01, 2017 16:40 - CONCLUSION: Postoperative changes from previous esophagectomy and gastric pullup. Small pleural-based nodular densities in the lung bases were not clearly seen previously and will need to be followed. No definite acute CT findings in the abdomen or pelvis. Ren Smiley MD Assessment and Plan Assessment and Plan 1. Small left tentorial hemorrhage likely related to the thrombosis of the left transverse sinus 2. Bilateral segmental and subsegmental PE 3. Recent history of stage III esophageal cancer status post chemo, radiation, and surgical resection 4. Depression/anxiety 5. Chronic pain medictation use 1. Continue to observe in the ICU 2. Patient to be evaluated by hematology and neurology 3. On full dose anticoagulation with heparin 4. Supplemental O2 if needed to keep SPO2 above 94% 5. Neurochecks per protocol 6. Pain control 7. GI prophylaxis 8. On diet 9. DVT prophylaxis addressed above I discussed patient's condition in detail. hTee Kruse MD Jul 02, 2017 10:40
[2017-07-02] MEDS: SODIUM CHLOR 0.9% 1000 ML INJ 1,000 ML IV SCH (11:00)
--- NOTE | 2017-07-02 12:13 | MB ---
cc: WES MATTHEWS M.D. DATE OF CONSULTATION: 07/02/2017. REASON FOR CONSULTATION: He is a 61-year-old seen in neurological consultation in regards to venous sinus thrombosis. HISTORY OF PRESENT ILLNESS: The patient was admitted yesterday and describes that three to four days ago he developed left frontal orbital pain which persists. He has had some epigastric pain off and on since he had esophageal / gastric cancer surgery March or 2016. Lately he has been taking Oxycodone for these but he has taken no other pain medications as well. MEDICATIONS: He otherwise takes: 1. Lactulose. 2. Prilosec. 3. Diazepam. NEUROLOGICAL EXAMINATION: The exam shows an alert pleasant, oriented man. Pupils relatively small but reactive. Ocular movements and visual ramírez full. No facial weakness. Speech and language normal. Neck is supple. He has good strength in all four limbs and reflexes were 1+ throughout. Plantar responses were flexor. IMAGING STUDIES: Reviewed. The head MRA was normal. The brain MRI confirms subtle subdural blood that was already discussed on the CT head. This subdural is on the left tentorium. MR venous brain showed no flow in the left transverse or sigmoid sinus as well as inferior sagittal sinus. Other studies include: CT angio positive for bilateral pulmonary embolism. ASSESSMENT: 1. Venous sinus thrombosis. 2. Pulmonary embolism. 3. Probable hypercoagulable state following esophageal cancer. There is some small subdural in the tentorium. This is a difficult decision, though I would be in favor of anticoagulation for two to three months. There will be a risk of extension of the subdural bleed and I have discussed this with the patient. Neurosurgery is evidently following him as well and we will wait for their opinion in regards to his care as anticoagulation will have its benefits, but with risks. Otherwise continue pain management and medical care. Thank you for asking us to assist in his care. MD SUSANNE Hemphill/Michael /9:14 AM /11:56 AM
[2017-07-02 12:40] LABS: HEMATOCRIT 39.8 % (39.0-51.0); HEMOGLOBIN 13.2 GM/DL (13.0-17.0); MEAN CELL VOLUME 75.6 FL (80.0-100.0); MEAN CORPUSCULAR HGB CONC 33.1 % (32.0-36.0); MEAN PLATELET VOLUME 7.6 FL (7.0-11.0); PLATELET COUNT 149 TH/MM3 (150-450); RED BLOOD COUNT 5.27 MIL/MM3 (4.50-5.90); RED CELL DISTRIBUTION WIDTH 16.6 % (11.6-17.2); WHITE BLOOD COUNT 8.1 TH/MM3 (4.0-11.0)
[2017-07-02 12:50] LABS: INTERNATIONAL NORMALIZED RATIO 1.1 RATIO; PROTHROMBIN TIME - PATIENT 11.4 SEC (9.8-11.6)
[2017-07-02] MEDS: PANTOPRAZOLE SODIUM 40 MG VIAL IV PUSH SCH (20:57)
[2017-07-02] MEDS: LORazepam 2 MG/ML VIAL IV PUSH PRN (23:27)
--- NOTE | 2017-07-02 23:33 | PD.ONC.PN ---
Objective Data Date Time Temp Pulse Resp B/P (MAP) Pulse Ox O2 Delivery O2 Flow Rate FiO2 07/02/17 20:00 Room Air 07/02/17 16:00 98.2 50 16 126/80 (95) 94 07/02/17 12:00 98.0 50 14 147/80 (102) 97 07/02/17 08:00 97.5 56 13 119/71 (87) 92 07/02/17 08:00 Room Air 07/02/17 05:02 12 07/02/17 04:00 97.7 56 16 122/74 (90) 96 07/02/17 02:00 56 07/02/17 00:00 98.1 55 13 122/72 (89) 94 07/02/17 00:00 55 Result Diagram: 07/02/17 1155 07/02/17 0446 Laboratory Results Laboratory Tests Test 07/02/17 04:46 07/02/17 11:15 07/02/17 11:55 White Blood Count 7.7 TH/MM3 8.1 TH/MM3 Red Blood Count 5.26 MIL/MM3 5.27 MIL/MM3 Hemoglobin 13.1 GM/DL 13.2 GM/DL Hematocrit 39.9 % 39.8 % Mean Corpuscular Volume 75.9 FL 75.6 FL Mean Corpuscular Hemoglobin 24.8 PG 25.0 PG Mean Corpuscular Hemoglobin Concent 32.7 % 33.1 % Red Cell Distribution Width 16.7 % 16.6 % Platelet Count 148 TH/MM3 149 TH/MM3 Mean Platelet Volume 7.6 FL 7.6 FL Neutrophils (%) (Auto) 75.6 % Lymphocytes (%) (Auto) 11.2 % Monocytes (%) (Auto) 12.6 % Eosinophils (%) (Auto) 0.5 % Basophils (%) (Auto) 0.1 % Neutrophils # (Auto) 5.8 TH/MM3 Lymphocytes # (Auto) 0.9 TH/MM3 Monocytes # (Auto) 1.0 TH/MM3 Eosinophils # (Auto) 0.0 TH/MM3 Basophils # (Auto) 0.0 TH/MM3 CBC Comment DIFF FINAL Differential Comment Blood Urea Nitrogen 8 MG/DL Creatinine 0.56 MG/DL Random Glucose 93 MG/DL Total Protein 6.3 GM/DL Albumin 2.9 GM/DL Calcium Level 8.1 MG/DL Alkaline Phosphatase 120 U/L Aspartate Amino Transf (AST/SGOT) 25 U/L Alanine Aminotransferase (ALT/SGPT) 17 U/L Total Bilirubin 0.9 MG/DL Sodium Level 136 MEQ/L Potassium Level 3.7 MEQ/L Chloride Level 101 MEQ/L Carbon Dioxide Level 26.9 MEQ/L Anion Gap 8 MEQ/L Estimat Glomerular Filtration Rate 149 ML/MIN Activated Partial Thromboplast Time 25.3 SEC Prothrombin Time 11.4 SEC Prothromb Time International Ratio 1.1 RATIO Culture Results Microbiology Date/Time Source Procedure Growth Status 07/01/17 15:45 Blood Peripheral Aerobic Blood Culture - Preliminary NO GROWTH IN 1 DAY Resulted 07/01/17 15:45 Blood Peripheral Anaerobic Blood Culture - Preliminary NO GROWTH IN 1 DAY Resulted 07/01/17 15:40 Blood Peripheral Aerobic Blood Culture - Preliminary NO GROWTH IN 1 DAY Resulted 07/01/17 15:40 Blood Peripheral Anaerobic Blood Culture - Preliminary NO GROWTH IN 1 DAY Resulted 07/01/17 15:41 Nasal Aspirate Influenza Types A,B Antigen (AMBER) - Final NEGATIVE FOR FLU A AND B ANTIGEN.... Complete Imaging Studies Last 24 hours Impressions Head/Brain Mag Res Venography 07/02/17 0000 Signed Impressions: Service Date/Time: Sunday, July 02, 2017 07:44 - CONCLUSION: No flow demonstrated in the left transverse or sigmoid sinus. This also no flow seen in the inferior sagittal sinus. Ren Mckeon MD Head Magnetic Resonance Angiography 07/02/17 0000 Signed Impressions: Service Date/Time: Sunday, July 02, 2017 07:44 - CONCLUSION: Negative MRA. Ren Mckeon MD Administered Medications Medications (Trade) Dose Ordered Sig/[place] Route PRN Reason Start Time Stop Time Status Last Admin Dose Admin Sodium Chloride (NS Flush) 2 ml BID IV FLUSH 07/02/17 09:00 07/02/17 20:58 Ondansetron HCl (Zofran Inj) 4 mg Q6H PRN IVP NAUSEA OR VOMITING 07/01/17 21:30 07/02/17 18:00 Hydromorphone HCl (Dilaudid Pf Inj) 1 mg Q3H PRN IV PUSH PAIN SCALE 7-10 07/01/17 21:45 07/02/17 20:57 Senna/Docusate Sodium (Areli-Colace) 1 tab BID PO 07/02/17 09:00 07/02/17 20:56 Lorazepam (Ativan Inj) 1 mg HS PRN IV PUSH ANXIETY SLEEP 07/01/17 21:30 07/02/17 23:27 Pantoprazole Sodium (Protonix Inj) 40 mg Q24H IV PUSH 07/01/17 22:00 07/02/17 20:57 Sodium Chloride 1,000 ml @ 42 mls/hr [id number] IV 07/02/17 11:00 07/02/17 11:00 Oxycodone HCl (Roxicodone) 5 mg Q4H PRN PO PAIN SCALE 1 TO 6 07/02/17 17:45 07/02/17 18:00 Objective Remarks GENERAL: Well-nourished, well-developed patient. SKIN: Warm and dry. HEAD: Normocephalic. EYES: No scleral icterus. No injection or drainage. NECK: Supple, trachea midline. No JVD or lymphadenopathy. LYMPHATIC: No adenopathy. CARDIOVASCULAR: Regular rate and rhythm without murmurs. RESPIRATORY: Breath sounds equal bilaterally. No accessory muscle use. GASTROINTESTINAL: Abdomen soft, non-tender, nondistended. EXTREMITIES: No cyanosis, or edema. MUSCULOSKELETAL: Adequate muscle tone. NEUROLOGICAL: No obvious focal deficit. Awake, alert, and oriented x3. PSYCHIATRIC: Appropriate mood and affect; insight and judgment normal. Williams Shaikh MD Jul 02, 2017 23:33
[2017-07-03] VITALS (9 sets, daily range): BP systolic 134–146; BP diastolic 73–91; PULSE 52–60; RESP 12–26; TEMP 97.8–98.8; O2SAT 94–100
[2017-07-03] MEDS: ONDANSETRON HCL 4 MG/2 ML VIAL IVP PRN ×4 (02:30→22:49)
[2017-07-03] MEDS: HYDROmorphone HCL PF 2 MG/ML VIAL IV PUSH PRN ×4 (03:55→22:49)
[2017-07-03] MEDS: CHLORHEXIDINE GLUCONATE 2 % 1 PACK (2 CLOTHS) TOP SCH (04:00)
--- NOTE | 2017-07-03 06:39 | MB ---
cc: MARK MAGANA DATE OF CONSULTATION: 07/02/2017 REASON FOR CONSULTATION: Patient with a history of esophageal cancer who now presents to the emergency room with headache and was found to have subdural hemorrhage and bilateral pulmonary embolism. HISTORY OF PRESENT ILLNESS: This is a 61-year-old male who has a history of esophageal cancer. This was at T3 N0 M0 disease and this was a poorly differentiated carcinoma. He completed concurrent chemotherapy and radiation treatment in January of 2017. He received carboplatin and Taxol. He underwent esophagectomy on 03/09/2017. There was no residual tumor noted. He is currently under observation. He sees Dr. Silver in the oncology clinic. He now presents to the emergency room with three day history of frontal headache along with nausea and vomiting. He was also experiencing dizziness and unsteady gait along with photophobia. In the emergency department a CT scan of the head revealed a hypodensity in the left tentorium. There was a possibility of tentorial bleed and transverse sinus thrombosis. He subsequently had an MRI of the brain which revealed subtle blood products on the tentorium, and some opacification of the left transverse sinus. The patient underwent CT angiogram. This revealed multiple filling defects in the subsegmental artery to the right upper lobe, basal segments of the right lower lobe, basal segments of the left lower lobe and left upper lobe. The patient was evaluated by neurosurgery and it was thought that since the amount of tentorial bleed was small and the fact that there is an increased risk of expansion of pulmonary embolism compared to the risk of further cerebral bleeding, anticoagulation should strongly be considered. The patient has dyspnea on exertion. He has not had any hemoptysis. He does not have any past history of DVT or pulmonary embolism. REVIEW OF SYSTEMS A comprehensive review of system was completed which is negative except as described in the HPI. PAST MEDICAL HISTORY 1. History of esophageal cancer status post chemotherapy and radiation treatments. 2. History of hypertension. 3. Anxiety. PAST SURGICAL HISTORY Esophageal surgery, hernia repair, knee surgery. MEDICATIONS 1. Lactulose 30 cc daily. 2. Lortab 7.5/325. 3. Prilosec 20 milligrams daily. 4. Diazepam 10 milligrams p.o. b.i.d. ALLERGIES NO KNOWN DRUG ALLERGIES. HE IS ALLERGIC TO SCALLOPS. SOCIAL HISTORY Occasional alcohol use. He denies smoking. He denies illicit drug use. FAMILY HISTORY: Family history was reviewed and noncontributory to this admission. PHYSICAL EXAMINATION Vital signs: Blood pressure is 126/80, pulse is in the 50s, temperature is 98.2, O2 sats are 94% on room air. General: Well-developed, well-nourished male in no apparent distress. HEENT: Pupils are equal, round, reactive to light. EOMI. No oral thrush. No oral lesions. Neck: Supple. No JVD, no bruits. No lymphadenopathy. Chest: Chest is clear to auscultation bilaterally. Cardiac: S1-S2 regular rate and rhythm. Abdomen: Soft, nontender, nondistended. Bowel sounds are present. Extremities: Without any edema, erythema or cyanosis. Skin: Without any petechiae, lesion or bruises. Neuro: No focal deficits. Psychiatric: Mood and affect is appropriate. LABORATORY DATA WBC 8.1, hemoglobin is 13.2, platelet count 149. Serum chemistries: sodium 136, potassium 3.7, chloride 101, CO2 is 26.9, BUN is 8, creatinine is 0.56, GFR is 149, AST 25, ALT 17, total protein is 6.3, albumin is 2.9. IMAGING STUDIES Reviewed in the EMR ASSESSMENT/PLAN This is a 61-year-old male who has a history of T3 N0 M0 esophageal cancer. He underwent concurrent chemotherapy and radiation followed by esophagectomy. He is currently in remission and was under observation. He now presents to the emergency room with headaches, nausea and vomiting. He was found to have a small supratentorial bleed and there is a concern for transverse sinus thrombosis. The patient was also found to have bilateral pulmonary embolism. Bilateral pulmonary embolism in a setting of supratentorial head bleed with transverse venous sinus thrombosis. This is a difficult situation in this patient who has an extensive clot burden from his pulmonary embolism. There is a high-risk for clot expansion and further comorbidity. He does have a very small supratentorial bleed and in addition there may be transverse venous sinus thrombosis. I reviewed neurosurgery's note. They think the head bleed is quite small and that anticoagulation should be strongly considered. I agree with this assessment. I recommend starting this patient on heparin GTT. We will need to closely monitor this patient. We would have follow-up CT scans to make sure that the head bleed is not worsening. Will also monitor his hemoglobin. I would also obtain Doppler ultrasound of bilateral lower extremity to document whether there is any lower extremity DVT. The pulmonary embolism seems to have occurred in an unprovoked situation. We do need to make sure there is no underlying malignancy. Will obtain CT of the chest, abdomen and pelvis with contrast once the patient is stable. T3 N0 M0 esophageal cancer, status post carboplatin and Taxol, and concern XRT followed by esophagectomy. Thank you for allowing me to participate in the care of this patient. I will continue to follow this patient along. MD BEHZAD Vicente/PHU /12:49 AM /6:18 AM
[2017-07-03] MEDS: DOCUSATE SODIUM 50 MG/SENNA 8.6 MG TAB PO SCH ×2 (08:39→21:32)
[2017-07-03] MEDS: SODIUM CHLORIDE 0.9% FLUSH 10 ML FLUSH IV FLUSH SCH ×2 (08:39→21:00)
[2017-07-03] MEDS: HEPARIN-D5W 25,000 U/250 ML 250 ML IV PRN (08:39)
--- NOTE | 2017-07-03 10:01 | PD.ONC.PN ---
Subjective Subjective Remarks Afebrile overnight. Patient states he continues to have headaches in the back of his head when his dilaudid wears off. he denies shortness of breath or difficulty breathing. he states the pain, when it comes, is some of the worst type of pain he has every experienced in his life. he wants me to increase his pain medications. Objective Data Date Time Temp Pulse Resp B/P (MAP) Pulse Ox O2 Delivery O2 Flow Rate FiO2 07/03/17 07:00 Room Air 07/03/17 06:00 52 07/03/17 04:00 52 07/03/17 04:00 98.1 52 18 138/73 (94) 100 07/03/17 02:00 54 07/03/17 00:00 98.1 54 18 137/81 (99) 94 07/03/17 00:00 54 07/02/17 22:00 60 07/02/17 20:00 52 07/02/17 20:00 98.0 52 16 132/73 (92) 96 07/02/17 20:00 Room Air 07/02/17 16:00 98.2 50 16 126/80 (95) 94 07/02/17 12:00 98.0 50 14 147/80 (102) 97 07/03/17 07/03/17 07/03/17 07:00 15:00 23:00 Intake Total 660 ml Output Total 1050 ml Balance -390 ml Result Diagram: 07/02/17 1155 07/02/17 0446 Laboratory Results Laboratory Tests Test 07/02/17 11:15 07/02/17 11:55 Activated Partial Thromboplast Time 25.3 SEC White Blood Count 8.1 TH/MM3 Red Blood Count 5.27 MIL/MM3 Hemoglobin 13.2 GM/DL Hematocrit 39.8 % Mean Corpuscular Volume 75.6 FL Mean Corpuscular Hemoglobin 25.0 PG Mean Corpuscular Hemoglobin Concent 33.1 % Red Cell Distribution Width 16.6 % Platelet Count 149 TH/MM3 Mean Platelet Volume 7.6 FL Prothrombin Time 11.4 SEC Prothromb Time International Ratio 1.1 RATIO Culture Results Microbiology Date/Time Source Procedure Growth Status 07/01/17 15:45 Blood Peripheral Aerobic Blood Culture - Preliminary NO GROWTH IN 1 DAY Resulted 07/01/17 15:45 Blood Peripheral Anaerobic Blood Culture - Preliminary NO GROWTH IN 1 DAY Resulted 07/01/17 15:40 Blood Peripheral Aerobic Blood Culture - Preliminary NO GROWTH IN 1 DAY Resulted 07/01/17 15:40 Blood Peripheral Anaerobic Blood Culture - Preliminary NO GROWTH IN 1 DAY Resulted 07/01/17 15:41 Nasal Aspirate Influenza Types A,B Antigen (AMBER) - Final NEGATIVE FOR FLU A AND B ANTIGEN.... Complete Administered Medications Medications (Trade) Dose Ordered Sig/[place] Route PRN Reason Start Time Stop Time Status Last Admin Dose Admin Sodium Chloride (NS Flush) 2 ml BID IV FLUSH 07/02/17 09:00 07/03/17 08:39 Ondansetron HCl (Zofran Inj) 4 mg Q6H PRN IVP NAUSEA OR VOMITING 07/01/17 21:30 07/03/17 08:42 Senna/Docusate Sodium (Areli-Colace) 1 tab BID PO 07/02/17 09:00 07/03/17 08:39 Lorazepam (Ativan Inj) 1 mg HS PRN IV PUSH ANXIETY SLEEP 07/01/17 21:30 07/02/17 23:27 Pantoprazole Sodium (Protonix Inj) 40 mg Q24H IV PUSH 07/01/17 22:00 07/02/17 20:57 Heparin Sodium/ Dextrose 250 ml @ 8 mls/hr TITRATE PRN IV Coagulation Management 07/02/17 09:45 07/03/17 08:39 Sodium Chloride 1,000 ml @ 42 mls/hr [id number] IV 07/02/17 11:00 07/02/17 11:00 Oxycodone HCl (Roxicodone) 5 mg Q4H PRN PO PAIN SCALE 1 TO 6 07/02/17 17:45 07/03/17 05:49 Objective Remarks GENERAL: Middle aged male, sitting up in bed in [facility]. SKIN: Warm and dry. HEAD: Normocephalic. EYES: No injection or drainage. NECK: Supple, trachea midline. CARDIOVASCULAR: Regular rate and rhythm RESPIRATORY: Breath sounds equal bilaterally. No accessory muscle use. GASTROINTESTINAL: Abdomen soft, non-tender, nondistended. EXTREMITIES: No cyanosis, or edema. MUSCULOSKELETAL: Adequate muscle tone. NEUROLOGICAL: awake and alert and oriented. normal speech. facial movements symmetric. moving all extremities. Assessment/Plan Problem List: (1) Subdural hemorrhage ICD Codes: I62.00 - Nontraumatic subdural hemorrhage, unspecified Status: Acute Plan: --monitor neurologic status --cleared by NS and neurology to start heparin gtt (2) Pulmonary embolism ICD Codes: I26.99 - Other pulmonary embolism without acute cor pulmonale Status: Acute Plan: --started on heparin gtt on 07/03 Assessment 61y/o male with a history of esophageal cancer admitted with subdural hemorrhage and bilateral PE. HPI (brought forward from initial consult for continuity of care) 5 T3 N0 M0 disease, poorly differentiated carcinoma. He completed concurrent chemotherapy and radiation treatment in January of 2017. He received carboplatin and Taxol. He underwent esophagectomy on 03/09/2017. There was no residual tumor noted. He is currently under observation. now presents to the emergency room with three day history of frontal headache along with nausea and vomiting. He was also experiencing dizziness and unsteady gait along with photophobia. In the emergency department a CT scan of the head revealed a hypodensity in the left tentorium. There was a possibility of tentorial bleed and transverse sinus thrombosis. He subsequently had an MRI of the brain which revealed subtle blood products on the tentorium, and some opacification of the left transverse sinus. CT angiogram revealed multiple filling defects in the subsegmental artery to the right upper lobe, basal segments of the right lower lobe, basal segments of the left lower lobe and left upper lobe. The patient was evaluated by neurosurgery and it was thought that since the amount of tentorial bleed was small and the fact that there is an increased risk of expansion of pulmonary embolism compared to the risk of further cerebral bleeding, anticoagulation should strongly be considered. Plan 1. agree with starting heparin gtt today. discussed with patient again that he has conflicting needs: i.e. SDH vs. pulmonary embolism. 2. will increase dilaudid IV to every two hours as needed for pain relief 3. monitor neurologic status. obtain repeat CT brain tomorrow 4. obtain anemia studies for a microcytosis Attending Statement The exam, history, and the medical decision-making described in the above note were completed with the assistance of the mid-level provider. I reviewed and agree with the findings presented. I attest that I had a [id number] encounter with the patient on the same day, and personally performed and documented my assessment and findings in the medical record. Problem Qualifiers (1) Pulmonary embolism: Qualified Codes: I26.99 - Other pulmonary embolism without acute cor pulmonale Glendy Malcolm Jul 03, 2017 10:01 Williams Shaikh MD Jul 03, 2017 11:52
--- NOTE | 2017-07-03 10:04 | RADRPT ---
EXAM DATE/TIME: 07/03/2017 09:11 [place] COMPARISON: No previous studies available for comparison. INDICATIONS : Pulmonary embolism. MEDICAL HISTORY : Gastroesophageal reflux disease. Hypertension. Arthritis. Headaches. Sleep apnea. Inguinal hernia. PT SD. Depression. Anxiety. Esophageal cancer. Chemotherapy. Radiation therapy. Pulmonary embolism. Subd ural hemorrhage. SURGICAL HISTORY : Inguinal hernia repair. Left knee replacement. Esophageal surgery. ENCOUNTER: Initial ACUITY: 1 day PAIN SCORE: 0/10 LOCATION: Bilateral legs. TECHNIQUE: Venous ultrasound of the left and right leg was performed from the inguinal ligament to the proximal calf. Real-time, color Doppler and spectral tracing, compression and augmentation techniques were us ed. FINDINGS: RIGHT LEG: There is normal compressibility of the deep venous system from the inguinal region to the proximal ca lf. No echogenic clot is seen in the lumen of the common femoral, femoral, popliteal, and posterior tibial veins. There is a normal response of the venous system to proximal and distal augmentation an d respiration. LEFT LEG: There is normal compressibility of the deep venous system from the inguinal region to the proximal ca lf. No echogenic clot is seen in the lumen of the common femoral, femoral, popliteal, and posterior tibial veins. There is a normal response of the venous system to proximal and distal augmentation an d respiration. CONCLUSION: No DVT. Ren Mckeon MD on July 03, 2017 at 10:03 Board Certified Radiologist. This report was verified electronically.
[2017-07-03] MEDS: SODIUM CHLOR 0.9% 1000 ML INJ 1,000 ML IV SCH (10:49)
--- NOTE | 2017-07-03 11:15 | HHI.NSPN ---
(John Sanchez) History Chief Complaint: Headache (John Sanchez) Interval History 61-year-old gentleman with a three-day history of left frontal headaches along with nausea and vomiting. He also complains of dizziness and unsteadiness in his gait along with some photophobia. He relates that around the same time complaints of dyspnea along with generalized body aches. Denies any fevers or chills. He has a history of esophageal cancer diagnosed last summer and underwent radiation and chemo and resection and was told he was in remission. Work-up in the emergency room with a CT of the head reveals a hypodensity in the left tentorium as well as a transverse sign and the possibility of a tentorial bleed and transverse sinus thrombosis. Subsequent MRI scan of the brain was obtained which again reveals subtle blood products on the tentorium and it also appears that the left transverse sinus is opacified. He was also found to have bilateral numerous segmental and subsegmental vessel pulmonary embolus with small pleural nodular densities in the lung bases. 07/02/17: No new complaints. MRA negative but MRV of the brain consistent with left transverse sinus thrombosis. 07/03/17: Patient awake and alert. Complains of left frontal headache radiating to the occipital area. Some nausea present. No muscle weakness or paresthesias in the extremities. Patient states he does not have any chest pain or shortness of breath today. He has been started on a heparin drip this morning. (John Sanchez) Review of Systems General: Negative for: fever, chills, insomnia Respiratory: Negative for: shortness of breath, cough, sputum Cardiovascular: Negative for: chest pain Gastrointestinal: Positive for: nausea, Negative for: vomitting, diarrhea, constipation (John Sanchez) Exam Results Vital Signs Date Time Temp Pulse Resp B/P (MAP) Pulse Ox O2 Delivery O2 Flow Rate FiO2 07/03/17 07:00 Room Air 07/03/17 06:00 52 07/03/17 04:00 98.1 18 138/73 (94) 100 07/01/17 21:00 2.00 Intake and Output 07/03/17 07/03/17 07/04/17 08:00 16:00 00:00 Intake Total 660 ml Output Total 1050 ml Balance -390 ml (John Sanchez) Physical Examination GENERAL: Well-nourished, well-developed patient. HEAD: Normocephalic and atraumatic. EYES: No scleral icterus. No injection or drainage. Pupils are 3 mm bilaterally reactive bilaterally. ENT: No nasal drainage noted. Mucous membranes pink. Airway patent. NECK: Supple, trachea midline. CARDIOVASCULAR: Regular rate and rhythm without murmurs, gallops, or rubs. RESPIRATORY: Breath sounds equal bilaterally. No accessory muscle use. GASTROINTESTINAL: Abdomen soft, non-tender, nondistended. SKIN: Warm and dry. No cyanosis or edema. MUSCLE: Moves all 4 extremities symmetrically with 5/5 strength. NEUROLOGICAL: Awake and alert. Pupils Equal and reactive. EOMI. Face symmetric. Tongue midline. Cranial nerves II through XII intact. Motor and sensory grossly within normal limits. Five out of 5 muscle strength in all muscle groups. Normal speech. Normal comprehension. DTR's symmetric. Negative Millan' s reflex. Negative Babinski. (John Sanchez) Lab, Micro, Other Results Last Impressions Head/Brain Mag Res Venography 07/02/17 0000 Signed Impressions: Service Date/Time: Sunday, July 02, 2017 07:44 - CONCLUSION: No flow demonstrated in the left transverse or sigmoid sinus. This also no flow seen in the inferior sagittal sinus. Ren Mckeon MD Head Magnetic Resonance Angiography 07/02/17 0000 Signed Impressions: Service Date/Time: Sunday, July 02, 2017 07:44 - CONCLUSION: Negative MRA. Ren Mckeon MD Chest X-Ray 07/01/17 1330 Signed Impressions: Service Date/Time: Saturday, July 01, 2017 15:18 - CONCLUSION: No acute disease. Ren Smiley MD Head CT 07/01/17 0000 Signed Impressions: Service Date/Time: Saturday, July 01, 2017 16:36 - CONCLUSION: Abnormal examination demonstrating possible subdural hemorrhage layering along the tentorium. It is possible this represents a combination of the tentorium and blood with in the transverse sinus itself however, this area significantly denser than the superior sagittal sinus. MRI imaging of the brain is warranted for more definitive assessment of this. Teto Hardy MD CT Angiography 07/01/17 0000 Signed Impressions: Service Date/Time: Saturday, July 01, 2017 16:40 - CONCLUSION: 1. Positive for bilateral pulmonary embolism in numerous segmental and subsegmental vessels involving all segments. 2. Expected postsurgical findings from gastric pull-through. Gilberto Hernandez MD Brain MRI 07/01/17 0000 Signed Impressions: Service Date/Time: Saturday, July 01, 2017 19:04 - CONCLUSION: 1. Abnormality on CT examination corresponds with subtle subdural blood products on MRI examination. Efrain Ivey MD Abdomen/Pelvis CT 07/01/17 0000 Signed Impressions: Service Date/Time: Saturday, July 01, 2017 16:40 - CONCLUSION: Postoperative changes from previous esophagectomy and gastric pullup. Small pleural-based nodular densities in the lung bases were not clearly seen previously and will need to be followed. No definite acute CT findings in the abdomen or pelvis. Ren Smiley MD Laboratory Tests Test 07/02/17 11:15 07/02/17 11:55 Activated Partial Thromboplast Time 25.3 SEC White Blood Count 8.1 TH/MM3 Red Blood Count 5.27 MIL/MM3 Hemoglobin 13.2 GM/DL Hematocrit 39.8 % Mean Corpuscular Volume 75.6 FL Mean Corpuscular Hemoglobin 25.0 PG Mean Corpuscular Hemoglobin Concent 33.1 % Red Cell Distribution Width 16.6 % Platelet Count 149 TH/MM3 Mean Platelet Volume 7.6 FL Prothrombin Time 11.4 SEC Prothromb Time International Ratio 1.1 RATIO (John Sanchez) Medical Decision Making Impression and Plan A: 1. 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 2. Bilateral multiple pulmonary embolus. 3. History of esophageal cancer. 4. History of hypertension. PLAN 61-year-old gentleman with a small left tentorial hemorrhage likely related to the thrombosis of the left transverse sinus. He also has multiple bilateral pulmonary embolus. Given the cerebral left transverse venous sinus thrombosis as well as bilateral pulmonary embolus, he was placed on Heparin drip this morning given the risk of this thrombosis progression with consequent venous infarct as well as pulmonary embolus progression is higher than risk of cerebral rebleeding. Continue with close neuro checks Continue with medical care (John Sanchez) Attending Statement The exam, history, and the medical decision-making described in the above note were completed with the assistance of the mid-level provider. I reviewed and agree with the findings presented. I attest that I had a [id number] encounter with the patient on the same day, and personally performed and documented my assessment and findings in the medical record. Awake alert in stable examination. On IV heparin drip for left transverse sinus thrombosis and bilateral pulmonary embolus. We'll obtain follow-up CT scan of the head to any progression of intracranial hemorrhage tomorrow morning. Continue with close observation in surgical intensive care unit. (Matti Rojas MD) John Sanchez Jul 03, 2017 11:15 Matti Rojas MD Jul 03, 2017 14:09
--- NOTE | 2017-07-03 11:20 | HHI.CCPN ---
Subjective Remarks/Hospital Course 07/02: 61-year-old gentleman with history of esophageal cancer post chemotherapy and radiation therapy, with surgical resection in March 2017, now admitted with 3-4 day history of headache, nausea, vomiting, generalized weakness and dizziness. On admission patient was found to have bilateral segmental and subsegmental pulmonary embolism and small tentorial subdural hemorrhage. Neurosurgery was consulted and based on the workup so far it is believed that this subdural hemorrhage secondary to thrombosis of the left transverse sinus and currently patient is being started on full dose anticoagulation with heparin for the above diagnosis as well as multiple PE. Hematology and neurology services consulted as well. CCM consult was requested by Dr. Rojas to help with ICU management. Patient seen in the ICU. SPO2 98% on room air. Patient still complaining of mild headache improved with Dilaudid, nausea is better, no vomiting, no chest pain and no other complaints. 07/03: No events overnight. Patient started on heparin drip after the agreement of neurosurgery, neurology and hematology this morning. Patient doing well, still complaining of intermittent headache, no chest pain, no shortness of breath, no palpitations, on room air. Some nausea but no vomiting. Objective Vital Signs Date Time Temp Pulse Resp B/P (MAP) Pulse Ox O2 Delivery O2 Flow Rate FiO2 07/03/17 07:00 Room Air 07/03/17 06:00 52 07/03/17 04:00 98.1 18 138/73 (94) 100 07/01/17 21:00 2.00 Intake and Output 07/03/17 07/03/17 07/04/17 08:00 16:00 00:00 Intake Total 660 ml Output Total 1050 ml Balance -390 ml Result Diagram: 07/02/17 1155 07/02/17 0446 Other Results Microbiology Date/Time Source Procedure Growth Status 07/01/17 15:41 Nasal Aspirate Influenza Types A,B Antigen (AMBER) - Final NEGATIVE FOR FLU A AND B ANTIGEN.... Complete Imaging Last Impressions Head/Brain Mag Res Venography 07/02/17 0000 Signed Impressions: Service Date/Time: Sunday, July 02, 2017 07:44 - CONCLUSION: No flow demonstrated in the left transverse or sigmoid sinus. This also no flow seen in the inferior sagittal sinus. Ren Mckeon MD Head Magnetic Resonance Angiography 07/02/17 0000 Signed Impressions: Service Date/Time: Sunday, July 02, 2017 07:44 - CONCLUSION: Negative MRA. Ren Mckeon MD Chest X-Ray 07/01/17 1330 Signed Impressions: Service Date/Time: Saturday, July 01, 2017 15:18 - CONCLUSION: No acute disease. Ren Smiley MD Head CT 07/01/17 0000 Signed Impressions: Service Date/Time: Saturday, July 01, 2017 16:36 - CONCLUSION: Abnormal examination demonstrating possible subdural hemorrhage layering along the tentorium. It is possible this represents a combination of the tentorium and blood with in the transverse sinus itself however, this area significantly denser than the superior sagittal sinus. MRI imaging of the brain is warranted for more definitive assessment of this. Teto Hardy MD CT Angiography 07/01/17 0000 Signed Impressions: Service Date/Time: Saturday, July 01, 2017 16:40 - CONCLUSION: 1. Positive for bilateral pulmonary embolism in numerous segmental and subsegmental vessels involving all segments. 2. Expected postsurgical findings from gastric pull-through. Gilberto Hernandez MD Brain MRI 07/01/17 0000 Signed Impressions: Service Date/Time: Saturday, July 01, 2017 19:04 - CONCLUSION: 1. Abnormality on CT examination corresponds with subtle subdural blood products on MRI examination. Efrain Ivey MD Abdomen/Pelvis CT 07/01/17 0000 Signed Impressions: Service Date/Time: Saturday, July 01, 2017 16:40 - CONCLUSION: Postoperative changes from previous esophagectomy and gastric pullup. Small pleural-based nodular densities in the lung bases were not clearly seen previously and will need to be followed. No definite acute CT findings in the abdomen or pelvis. Ren Smiley MD Objective Remarks General - middle-aged gentleman, awake, in no distress, on room air HEENT - pupils are equal and reactive, sclerae are anicteric, neck is supple, no rigidity, no JVD CV - regular heart sounds, no murmurs Chest - clear b/l, good air entry, no wheezes Abdomen - soft, non-tender, non-distended, BS present Extremities - warm, no edema, + peripheral pulses Neuro - awake, alert, oriented 3, pupils equal and reactive, EOMI, smile symmetric, tongue midline, shrugs shoulders, motor 5/5 in all extremities, sensation is intact A/P Assessment and Plan 1. Small left tentorial hemorrhage likely related to the thrombosis of the left transverse sinus 2. Bilateral segmental and subsegmental PE -no increasing O2 requirement 3. Recent history of stage III esophageal cancer status post chemo, radiation, and surgical resection 4. Depression/anxiety 5. Chronic opiate use 1. Continue to observe in the ICU 2. On full dose anticoagulation. Serial PTT 3. Stat CT head with any change in mental status 4. Supplemental O2 if needed to keep SPO2 above 94% 5. Neurochecks per protocol 6. Pain control 7. GI prophylaxis 8. On diet 9. DVT prophylaxis addressed above Thee Kruse MD Jul 03, 2017 11:20
[2017-07-03 13:38] LABS: HEMATOCRIT 40.7 % (39.0-51.0); HEMOGLOBIN 13.4 GM/DL (13.0-17.0); MEAN CELL VOLUME 75.6 FL (80.0-100.0); MEAN CORPUSCULAR HEMOGLOBIN 24.9 PG (27.0-34.0); MEAN CORPUSCULAR HGB CONC 32.9 % (32.0-36.0); MEAN PLATELET VOLUME 7.5 FL (7.0-11.0); PLATELET COUNT 148 TH/MM3 (150-450); RED BLOOD COUNT 5.39 MIL/MM3 (4.50-5.90); RED CELL DISTRIBUTION WIDTH 16.6 % (11.6-17.2); WHITE BLOOD COUNT 6.5 TH/MM3 (4.0-11.0)
[2017-07-03 14:02] LABS: BICARBONATE 29.2 MEQ/L (21.0-32.0); CALCIUM 8.6 MG/DL (8.5-10.1); CREATININE 0.7 MG/DL (0.60-1.30); MAGNESIUM 1.3 MG/DL (1.5-2.5)
[2017-07-03 15:04] LABS: IRON (FE) 39 MCG/DL (65-175); TOTAL IRON BINDING CAPACITY 391 MCG/DL (250-450)
[2017-07-03] MEDS ORDERED: ICU - MAGNESIUM OXIDE 400 MG TAB PO PRN (15:15)
[2017-07-03] MEDS ORDERED: ICU - CALL ORDERING PHYSICIAN PRN (15:15)
[2017-07-03] MEDS ORDERED: ICU - POTASSIUM CHLORIDE/AQUEOUS SOLN 40 MEQ/100 ML IVPB IV PRN (15:15)
[2017-07-03] MEDS ORDERED: ICU - POTASSIUM PHOSPHATE 30 MMOL/NS 250 ML IV PRN ×2 (15:15)
[2017-07-03] MEDS ORDERED: ICU - POTASSIUM CHLORIDE/AQUEOUS SOLN 20 MEQ/100 ML IVPB IV PRN (15:15)
[2017-07-03] MEDS ORDERED: ICU - MAGNESIUM SULFATE 4 GM/NS 100 ML IV PRN ×2 (15:15)
[2017-07-03] MEDS ORDERED: ICU - D/C ICU ELECTROLYTE ORDERS PRN (15:15)
[2017-07-03] MEDS ORDERED: ICU - SODIUM PHOSPHATE 30 MMOL/NS 250 ML IV PRN ×2 (15:15)
[2017-07-03] MEDS ORDERED: POTASSIUM CHLORIDE 25 MEQ EFFERVESCENT TAB PO PRN (15:15)
[2017-07-03] MEDS ORDERED: ICU - MAGNESIUM SULFATE 2 GM/NS 100 ML IV PRN ×2 (15:15)
[2017-07-03] MEDS ORDERED: ICU - POTASSIUM PHOSPHATE MONOBASIC 500 MG TAB PO PRN (15:15)
[2017-07-03 15:29] LABS: FERRITIN 30 NG/ML (26-388); FOLATE 14.7 NG/ML (3.1-17.5)
[2017-07-03] MEDS: PANTOPRAZOLE SODIUM 40 MG VIAL IV PUSH SCH (21:32)
[2017-07-04] VITALS (9 sets, daily range): BP systolic 130–158; BP diastolic 79–93; PULSE 52–62; RESP 10–27; TEMP 97.7–98.7; O2SAT 92–96
[2017-07-04] MEDS: HYDROmorphone HCL PF 2 MG/ML VIAL IV PUSH PRN ×7 (02:09→21:44)
[2017-07-04] MEDS: CHLORHEXIDINE GLUCONATE 2 % 1 PACK (2 CLOTHS) TOP SCH (04:00)
[2017-07-04 04:42] LABS: BICARBONATE 27.3 MEQ/L (21.0-32.0); CALCIUM 8.2 MG/DL (8.5-10.1); CREATININE 0.55 MG/DL (0.60-1.30); MAGNESIUM 1.3 MG/DL (1.5-2.5)
[2017-07-04 06:07] LABS: HEMATOCRIT 36.5 % (39.0-51.0); MEAN CELL VOLUME 74.8 FL (80.0-100.0); MEAN CORPUSCULAR HEMOGLOBIN 24.6 PG (27.0-34.0); MEAN CORPUSCULAR HGB CONC 32.9 % (32.0-36.0); MEAN PLATELET VOLUME 7.6 FL (7.0-11.0); PLATELET COUNT 149 TH/MM3 (150-450); RED BLOOD COUNT 4.88 MIL/MM3 (4.50-5.90); RED CELL DISTRIBUTION WIDTH 16.8 % (11.6-17.2); WHITE BLOOD COUNT 4.9 TH/MM3 (4.0-11.0)
[2017-07-04] MEDS: SODIUM CHLORIDE 0.9% FLUSH 10 ML FLUSH IV FLUSH SCH ×2 (08:10→19:44)
[2017-07-04] MEDS: DOCUSATE SODIUM 50 MG/SENNA 8.6 MG TAB PO SCH ×2 (08:10→19:44)
--- NOTE | 2017-07-04 08:51 | HHI.CCPN ---
Subjective Remarks/Hospital Course 07/02: 61-year-old gentleman with history of esophageal cancer post chemotherapy and radiation therapy, with surgical resection in March 2017, now admitted with 3-4 day history of headache, nausea, vomiting, generalized weakness and dizziness. On admission patient was found to have bilateral segmental and subsegmental pulmonary embolism and small tentorial subdural hemorrhage. Neurosurgery was consulted and based on the workup so far it is believed that this subdural hemorrhage secondary to thrombosis of the left transverse sinus and currently patient is being started on full dose anticoagulation with heparin for the above diagnosis as well as multiple PE. Hematology and neurology services consulted as well. CCM consult was requested by Dr. Rojas to help with ICU management. Patient seen in the ICU. SPO2 98% on room air. Patient still complaining of mild headache improved with Dilaudid, nausea is better, no vomiting, no chest pain and no other complaints. 07/03: No events overnight. Patient started on heparin drip after the agreement of neurosurgery, neurology and hematology this morning. Patient doing well, still complaining of intermittent headache, no chest pain, no shortness of breath, no palpitations, on room air. Some nausea but no vomiting. 07/04: doing well. patient states that pain and nausea med adjustments made yesterday were successful at controlling nausea and pain. currently eating breakfast which is "first solid food I've eaten in 8 days", which he is tolerating. denies other complaints. ROS negative. hgb went from 13.4 --> 12, but no signs of GI bleeding or other bleeding. did have 1 bleeding iv site episode last night. Objective Vital Signs Date Time Temp Pulse Resp B/P (MAP) Pulse Ox O2 Delivery O2 Flow Rate FiO2 07/04/17 06:00 54 07/04/17 04:00 98.1 18 138/79 (98) 92 07/03/17 07:00 Room Air 07/01/17 21:00 2.00 Intake and Output 07/04/17 07/04/17 07/05/17 08:00 16:00 00:00 Intake Total 740 ml Output Total 1500 ml Balance -760 ml Result Diagram: 07/04/17 0543 07/04/17 0405 Other Results Microbiology Date/Time Source Procedure Growth Status 07/01/17 15:41 Nasal Aspirate Influenza Types A,B Antigen (AMBER) - Final NEGATIVE FOR FLU A AND B ANTIGEN.... Complete Imaging Last Impressions Head/Brain Mag Res Venography 07/02/17 0000 Signed Impressions: Service Date/Time: Sunday, July 02, 2017 07:44 - CONCLUSION: No flow demonstrated in the left transverse or sigmoid sinus. This also no flow seen in the inferior sagittal sinus. Ren Mckeon MD Head Magnetic Resonance Angiography 07/02/17 0000 Signed Impressions: Service Date/Time: Sunday, July 02, 2017 07:44 - CONCLUSION: Negative MRA. Ren Mckeon MD Chest X-Ray 07/01/17 1330 Signed Impressions: Service Date/Time: Saturday, July 01, 2017 15:18 - CONCLUSION: No acute disease. Ren Smiley MD Head CT 07/01/17 0000 Signed Impressions: Service Date/Time: Saturday, July 01, 2017 16:36 - CONCLUSION: Abnormal examination demonstrating possible subdural hemorrhage layering along the tentorium. It is possible this represents a combination of the tentorium and blood with in the transverse sinus itself however, this area significantly denser than the superior sagittal sinus. MRI imaging of the brain is warranted for more definitive assessment of this. Teto Hardy MD CT Angiography 07/01/17 0000 Signed Impressions: Service Date/Time: Saturday, July 01, 2017 16:40 - CONCLUSION: 1. Positive for bilateral pulmonary embolism in numerous segmental and subsegmental vessels involving all segments. 2. Expected postsurgical findings from gastric pull-through. Gilberto Hernandez MD Brain MRI 07/01/17 0000 Signed Impressions: Service Date/Time: Saturday, July 01, 2017 19:04 - CONCLUSION: 1. Abnormality on CT examination corresponds with subtle subdural blood products on MRI examination. Efrain Ivey MD Abdomen/Pelvis CT 07/01/17 0000 Signed Impressions: Service Date/Time: Saturday, July 01, 2017 16:40 - CONCLUSION: Postoperative changes from previous esophagectomy and gastric pullup. Small pleural-based nodular densities in the lung bases were not clearly seen previously and will need to be followed. No definite acute CT findings in the abdomen or pelvis. Ren Smiley MD Objective Remarks General - middle-aged gentleman, awake, in no distress, on room air HEENT - pupils are equal and reactive, sclerae are anicteric, neck is supple, no rigidity, no JVD CV - normal rate, regular rhythm. sinus by tele. Chest - equal and unlabored. room air. Abdomen - soft, non-tender, non-distended. Extremities - warm, no edema, + peripheral pulses Neuro - awake, alert, oriented 3, pupils equal and reactive, EOMI, smile symmetric, tongue midline, shrugs shoulders, motor 5/5 in all extremities, sensation is intact A/P Assessment and Plan 1. Small left tentorial hemorrhage likely related to the thrombosis of the left transverse sinus 2. Bilateral segmental and subsegmental PE -no increasing O2 requirement 3. Recent history of stage III esophageal cancer status post chemo, radiation, and surgical resection 4. Depression/anxiety 5. Chronic opiate use 1. transfer out of ICU. consult hospitalist service. 2. On full dose anticoagulation. Serial PTT 3. Stat CT head with any change in mental status 4. Supplemental O2 if needed to keep SPO2 above 94% 5. Neurochecks per protocol 6. Pain control 7. GI prophylaxis 8. On diet 9. DVT prophylaxis addressed above Todd Todd MD Jul 04, 2017 08:51
[2017-07-04] MEDS: HEPARIN-D5W 25,000 U/250 ML 250 ML IV PRN (08:52)
[2017-07-04] MEDS ORDERED: POTASSIUM CHLORIDE 25 MEQ EFFERVESCENT TAB PO ONE (10:45)
--- NOTE | 2017-07-04 11:43 | RADRPT ---
EXAM DATE/TIME: 07/04/2017 11:16 [facility] COMPARISON: MRI BRAIN W & W/O CONTRAST, July 01, 2017, 19:04. CT BRAIN W/O CONTRAST, July 01, 2017, 16: 36. INDICATIONS : Intracerebral hemorrhage RADIATION DOSE: 56.35 CTDIvol (mGy) MEDICAL HISTORY : Cardiovascular disease. Hypertension. Esophageal cancer SURGICAL HISTORY : None. ENCOUNTER: Subsequent ACUITY: 4 - 6 days PAIN SCALE: 3/10 LOCATION: Bilateral cranial TECHNIQUE: Multiple contiguous axial images were obtained of the head. Using automated exposure control and adj ustment of the mA and/or kV according to patient size, radiation dose was kept as low as reasonably a chievable to obtain optimal diagnostic quality images. DICOM format image data is available electro nically for review and comparison. FINDINGS: There is stable high density along the left tentorium cerebelli. Otherwise, there has been no signifi cant interval change. There is mild generalized atrophy. Ventricles are normal. There is no midline s hift or herniation. No new blood products are seen. No mass or signs of acute infarct are identified. CONCLUSION: Stable head CT with a small amount of subdural blood products layering along the left tentorium cereb randall. Ren Hassan MD on July 04, 2017 at 11:38 Board Certified Radiologist. This report was verified electronically.
--- NOTE | 2017-07-04 12:25 | HHI.NSPN ---
(John Sanchez) History Chief Complaint: Headache (John Sanchez) Interval History 61-year-old gentleman with a three-day history of left frontal headaches along with nausea and vomiting. He also complains of dizziness and unsteadiness in his gait along with some photophobia. He relates that around the same time complaints of dyspnea along with generalized body aches. Denies any fevers or chills. He has a history of esophageal cancer diagnosed last summer and underwent radiation and chemo and resection and was told he was in remission. Work-up in the emergency room with a CT of the head reveals a hypodensity in the left tentorium as well as a transverse sign and the possibility of a tentorial bleed and transverse sinus thrombosis. Subsequent MRI scan of the brain was obtained which again reveals subtle blood products on the tentorium and it also appears that the left transverse sinus is opacified. He was also found to have bilateral numerous segmental and subsegmental vessel pulmonary embolus with small pleural nodular densities in the lung bases. 07/02/17: No new complaints. MRA negative but MRV of the brain consistent with left transverse sinus thrombosis. 07/03/17: Patient awake and alert. Complains of left frontal headache radiating to the occipital area. Some nausea present. No muscle weakness or paresthesias in the extremities. Patient states he does not have any chest pain or shortness of breath today. He has been started on a heparin drip this morning. 07/04/17: Pt awake and alert. Complains of left frontal headache radiating to the occipital area. No change in headache. He states some nausea when he is sitting up. No weakness or paresthesias in extremities. Pt on Heparin drip. He has constipation. (John Sanchez) Review of Systems General: Negative for: fever, chills, insomnia Respiratory: Negative for: shortness of breath, cough, sputum Cardiovascular: Negative for: chest pain Gastrointestinal: Positive for: nausea, Negative for: vomitting, diarrhea, constipation (John Sanchez) Exam Results Vital Signs Date Time Temp Pulse Resp B/P (MAP) Pulse Ox O2 Delivery O2 Flow Rate FiO2 07/04/17 08:00 98.5 52 10 142/82 (102) 94 07/03/17 07:00 Room Air 07/01/17 21:00 2.00 Intake and Output 07/04/17 07/04/17 07/05/17 08:00 16:00 00:00 Intake Total 740 ml Output Total 1500 ml Balance -760 ml (John Sanchez) Physical Examination GENERAL: Well-nourished, well-developed patient. HEAD: Normocephalic and atraumatic. EYES: No scleral icterus. No injection or drainage. Pupils are 3 mm bilaterally reactive bilaterally. ENT: No nasal drainage noted. Mucous membranes pink. Airway patent. NECK: Supple, trachea midline. CARDIOVASCULAR: Regular rate and rhythm without murmurs, gallops, or rubs. RESPIRATORY: Breath sounds equal bilaterally. No accessory muscle use. GASTROINTESTINAL: Abdomen soft, non-tender, nondistended. SKIN: Warm and dry. No cyanosis or edema. MUSCLE: Moves all 4 extremities symmetrically with 5/5 strength. NEUROLOGICAL: Awake and alert. Pupils Equal and reactive. EOMI. Face symmetric. Tongue midline. Cranial nerves II through XII intact. Motor and sensory grossly within normal limits. Five out of 5 muscle strength in all muscle groups. Normal speech. Normal comprehension. (John Sanchez) Lab, Micro, Other Results Last Impressions Lower Extremity Ultrasound 07/03/17 0000 Signed Impressions: Service Date/Time: Monday, July 03, 2017 09:11 - CONCLUSION: No DVT. Ren Mckeon MD Head/Brain Mag Res Venography 07/02/17 0000 Signed Impressions: Service Date/Time: Sunday, July 02, 2017 07:44 - CONCLUSION: No flow demonstrated in the left transverse or sigmoid sinus. This also no flow seen in the inferior sagittal sinus. Ren Mckeon MD Head Magnetic Resonance Angiography 07/02/17 0000 Signed Impressions: Service Date/Time: Sunday, July 02, 2017 07:44 - CONCLUSION: Negative MRA. Ren Mckeon MD Chest X-Ray 07/01/17 1330 Signed Impressions: Service Date/Time: Saturday, July 01, 2017 15:18 - CONCLUSION: No acute disease. Ren Smiley MD Head CT 07/01/17 0000 Signed Impressions: Service Date/Time: Saturday, July 01, 2017 16:36 - CONCLUSION: Abnormal examination demonstrating possible subdural hemorrhage layering along the tentorium. It is possible this represents a combination of the tentorium and blood with in the transverse sinus itself however, this area significantly denser than the superior sagittal sinus. MRI imaging of the brain is warranted for more definitive assessment of this. Teto Hardy MD CT Angiography 07/01/17 0000 Signed Impressions: Service Date/Time: Saturday, July 01, 2017 16:40 - CONCLUSION: 1. Positive for bilateral pulmonary embolism in numerous segmental and subsegmental vessels involving all segments. 2. Expected postsurgical findings from gastric pull-through. Gilberto Hernandez MD Brain MRI 07/01/17 0000 Signed Impressions: Service Date/Time: Saturday, July 01, 2017 19:04 - CONCLUSION: 1. Abnormality on CT examination corresponds with subtle subdural blood products on MRI examination. Efrain Ivey MD Abdomen/Pelvis CT 07/01/17 0000 Signed Impressions: Service Date/Time: Saturday, July 01, 2017 16:40 - CONCLUSION: Postoperative changes from previous esophagectomy and gastric pullup. Small pleural-based nodular densities in the lung bases were not clearly seen previously and will need to be followed. No definite acute CT findings in the abdomen or pelvis. Ren Smiley MD Laboratory Tests Test 07/03/17 13:19 07/03/17 16:40 07/03/17 19:01 07/04/17 04:05 White Blood Count 6.5 TH/MM3 Red Blood Count 5.39 MIL/MM3 Hemoglobin 13.4 GM/DL Hematocrit 40.7 % Mean Corpuscular Volume 75.6 FL Mean Corpuscular Hemoglobin 24.9 PG Mean Corpuscular Hemoglobin Concent 32.9 % Red Cell Distribution Width 16.6 % Platelet Count 148 TH/MM3 Mean Platelet Volume 7.5 FL Blood Urea Nitrogen 5 MG/DL 3 MG/DL Creatinine 0.70 MG/DL 0.55 MG/DL Random Glucose 84 MG/DL 83 MG/DL Calcium Level 8.6 MG/DL 8.2 MG/DL Magnesium Level 1.3 MG/DL 1.3 MG/DL Sodium Level 133 MEQ/L 134 MEQ/L Potassium Level 2.8 MEQ/L 3.1 MEQ/L Chloride Level 97 MEQ/L 100 MEQ/L Carbon Dioxide Level 29.2 MEQ/L 27.3 MEQ/L Anion Gap 7 MEQ/L 7 MEQ/L Estimat Glomerular Filtration Rate 115 ML/MIN 152 ML/MIN Iron Level 39 MCG/DL Total Iron Binding Capacity 391 MCG/DL Percent Iron Saturation 10.0 % Ferritin 30 NG/ML Vitamin B12 Level 440 PG/ML Folate 14.7 NG/ML Nasal Screen MRSA (PCR) MRSA DETECTED Activated Partial Thromboplast Time 29.6 SEC 33.6 SEC Test 07/04/17 05:43 White Blood Count 4.9 TH/MM3 Red Blood Count 4.88 MIL/MM3 Hemoglobin 12.0 GM/DL Hematocrit 36.5 % Mean Corpuscular Volume 74.8 FL Mean Corpuscular Hemoglobin 24.6 PG Mean Corpuscular Hemoglobin Concent 32.9 % Red Cell Distribution Width 16.8 % Platelet Count 149 TH/MM3 Mean Platelet Volume 7.6 FL (John Sanchez) Medical Decision Making Impression and Plan A: 1. Thrombosis of the left transverse sinus with associated small tentorial subdural hemorrhage as well as thrombosis of the sigmoid and inferior sagittal sinus. 2. Bilateral multiple pulmonary embolus. 3. History of esophageal cancer. 4. History of hypertension. PLAN 61-year-old gentleman with a small left tentorial hemorrhage likely related to the thrombosis of the left transverse sinus. He also has thrombosis of the sigmoid and inferior sagittal sinus and multiple bilateral pulmonary embolus. Given the cerebral left transverse venous sinus thrombosis, sigmoid and inferior sagittal sinus as well as bilateral pulmonary embolus, he was placed on Heparin drip given the risk of this thrombosis progression with consequent venous infarct as well as pulmonary embolus progression is higher than risk of cerebral rebleeding. Continue with close neuro checks Continue with medical care (John Sanchez) Attending Statement The exam, history, and the medical decision-making described in the above note were completed with the assistance of the mid-level provider. I reviewed and agree with the findings presented. I attest that I had a [id number] encounter with the patient on the same day, and personally performed and documented my assessment and findings in the medical record. Stable neurologic examination and follow-up CT scan head with no rebleed. Continue with anticoagulation and rehabilitation. (Matti Rojas MD) John Sanchez Jul 04, 2017 12:25 Matti Rojas MD Jul 04, 2017 18:01
[2017-07-04] MEDS: ONDANSETRON HCL 4 MG/2 ML VIAL IVP PRN ×2 (15:56→20:08)
--- NOTE | 2017-07-04 17:07 | PD.ONC.PN ---
Subjective Subjective Remarks Afebrile Pt reports his headache is overall improved but today he notices it more on the L side SOB improving. Objective Data Date Time Temp Pulse Resp B/P (MAP) Pulse Ox O2 Delivery O2 Flow Rate FiO2 07/04/17 12:00 98.5 56 14 145/81 (102) 96 07/04/17 08:00 98.5 52 10 142/82 (102) 94 07/04/17 08:00 52 07/04/17 06:00 54 07/04/17 04:00 56 07/04/17 04:00 98.1 56 18 138/79 (98) 92 07/04/17 02:00 62 07/04/17 00:00 97.7 58 18 130/83 (99) 94 07/04/17 00:00 58 07/03/17 22:00 58 07/03/17 20:00 98.7 58 18 138/91 (107) 97 07/03/17 20:00 58 07/04/17 07/04/17 07/04/17 07:00 15:00 23:00 Intake Total 740 ml 354 ml Output Total 1500 ml Balance -760 ml 354 ml Result Diagram: 07/04/17 0543 07/04/17 0405 Laboratory Results Laboratory Tests Test 07/03/17 19:01 07/04/17 04:05 07/04/17 05:43 07/04/17 11:54 Activated Partial Thromboplast Time 29.6 SEC 33.6 SEC 36.3 SEC Blood Urea Nitrogen 3 MG/DL Creatinine 0.55 MG/DL Random Glucose 83 MG/DL Calcium Level 8.2 MG/DL Magnesium Level 1.3 MG/DL Sodium Level 134 MEQ/L Potassium Level 3.1 MEQ/L Chloride Level 100 MEQ/L Carbon Dioxide Level 27.3 MEQ/L Anion Gap 7 MEQ/L Estimat Glomerular Filtration Rate 152 ML/MIN White Blood Count 4.9 TH/MM3 Red Blood Count 4.88 MIL/MM3 Hemoglobin 12.0 GM/DL Hematocrit 36.5 % Mean Corpuscular Volume 74.8 FL Mean Corpuscular Hemoglobin 24.6 PG Mean Corpuscular Hemoglobin Concent 32.9 % Red Cell Distribution Width 16.8 % Platelet Count 149 TH/MM3 Mean Platelet Volume 7.6 FL Administered Medications Medications (Trade) Dose Ordered Sig/[place] Route PRN Reason Start Time Stop Time Status Last Admin Dose Admin Sodium Chloride (NS Flush) 2 ml BID IV FLUSH 07/02/17 09:00 07/04/17 08:10 Ondansetron HCl (Zofran Inj) 4 mg Q6H PRN IVP NAUSEA OR VOMITING 07/01/17 21:30 07/04/17 15:56 Senna/Docusate Sodium (Areli-Colace) 1 tab BID PO 07/02/17 09:00 07/04/17 08:10 Lorazepam (Ativan Inj) 1 mg HS PRN IV PUSH ANXIETY SLEEP 07/01/17 21:30 07/02/17 23:27 Pantoprazole Sodium (Protonix Inj) 40 mg Q24H IV PUSH 07/01/17 22:00 07/03/17 21:32 Heparin Sodium/ Dextrose 250 ml @ 8 mls/hr TITRATE PRN IV Coagulation Management 07/02/17 09:45 07/04/17 08:52 Sodium Chloride 1,000 ml @ 42 mls/hr [id number] IV 07/02/17 11:00 07/03/17 10:49 Oxycodone HCl (Roxicodone) 5 mg Q4H PRN PO PAIN SCALE 1 TO 6 07/02/17 17:45 07/03/17 13:00 Hydromorphone HCl (Dilaudid Pf Inj) 1 mg Q2H PRN IV PUSH PAIN SCALE 7-10 07/03/17 09:00 07/04/17 15:56 Magnesium Sulfate 2 gm/Sodium Chloride 104 ml @ 52 mls/hr UNSCH PRN IV ELECTROLYTE REPLACEMENT 07/03/17 15:15 07/04/17 08:50 Objective Remarks GENERAL: Middle aged male, sitting up in bed in no obvious distress. SKIN: Warm and dry. HEAD: Normocephalic. EYES: No injection or drainage. NECK: Supple, trachea midline. CARDIOVASCULAR: Regular rate and rhythm RESPIRATORY: Breath sounds equal bilaterally. No accessory muscle use. GASTROINTESTINAL: Abdomen soft, non-tender, nondistended. EXTREMITIES: No cyanosis, or edema. MUSCULOSKELETAL: Adequate muscle tone. NEUROLOGICAL: A&Ox3. Normal speech. Facial movements symmetric. Moving all extremities. Assessment/Plan Problem List: (1) Subdural hemorrhage ICD Codes: I62.00 - Nontraumatic subdural hemorrhage, unspecified Status: Acute Plan: --monitor neurologic status -- Tolerating heparin gtt (2) Pulmonary embolism ICD Codes: I26.99 - Other pulmonary embolism without acute cor pulmonale Status: Acute Plan: --started on heparin gtt on 07/03 Assessment 61y/o male with a history of esophageal cancer admitted with subdural hemorrhage and bilateral PE. HPI (brought forward from initial consult for continuity of care) 5 T3 N0 M0 disease, poorly differentiated carcinoma. He completed concurrent chemotherapy and radiation treatment in January of 2017. He received carboplatin and Taxol. He underwent esophagectomy on 03/09/2017. There was no residual tumor noted. He is currently under observation. now presents to the emergency room with three day history of frontal headache along with nausea and vomiting. He was also experiencing dizziness and unsteady gait along with photophobia. In the emergency department a CT scan of the head revealed a hypodensity in the left tentorium. There was a possibility of tentorial bleed and transverse sinus thrombosis. He subsequently had an MRI of the brain which revealed subtle blood products on the tentorium, and some opacification of the left transverse sinus. CT angiogram revealed multiple filling defects in the subsegmental artery to the right upper lobe, basal segments of the right lower lobe, basal segments of the left lower lobe and left upper lobe. The patient was evaluated by neurosurgery and it was thought that since the amount of tentorial bleed was small and the fact that there is an increased risk of expansion of pulmonary embolism compared to the risk of further cerebral bleeding, anticoagulation should strongly be considered. Plan 1. Pt tolerating heparin gtt 2. Headache under much better control 3. CT brain shows stable SDH 4. Monitor CBC, APTT Attending Statement The exam, history, and the medical decision-making described in the above note were completed with the assistance of the mid-level provider. I reviewed and agree with the findings presented. I attest that I had a [id number] encounter with the patient on the same day, and personally performed and documented my assessment and findings in the medical record. Headache improved. Still require dilaudid. No neurologic deficit. CT head showed stable small SDH. Continue heparin gtt. CT did not show progression of esophageal cancer. Problem Qualifiers (1) Pulmonary embolism: Qualified Codes: I26.99 - Other pulmonary embolism without acute cor pulmonale Araceli Martins Jul 04, 2017 17:07 Sylvester Silver MD Jul 04, 2017 19:59
[2017-07-04] MEDS: LACTULOSE SYRUP 20 GM/30 ML CUP PO PRN (18:09)
--- NOTE | 2017-07-04 18:40 | HHI.PR ---
Review/Management Daily Summary 07/04 headaches much less severe alert and normal mentation normal strength throughout on heparin iv will need po anticoagulation risks and benefits discussed with other treating physicians Subjective Subjective Comments No acute events reported Active Medications Current Medications Medications (Trade) Dose Ordered Sig/[place] Route Start Time Stop Time Status Last Admin (NS Flush) 2 ml UNSCH PRN IV FLUSH 07/01/17 21:30 (NS Flush) 2 ml BID IV FLUSH 07/02/17 09:00 07/04/17 08:10 (Zofran Inj) 4 mg Q6H PRN IVP 07/01/17 21:30 07/04/17 15:56 (Narcan Inj) 0.4 mg UNSCH PRN IV PUSH 07/01/17 21:30 (Areli-Colace) 1 tab BID PO 07/02/17 09:00 07/04/17 08:10 (Milk Of Magnesia Liq) 30 ml Q12H PRN PO 07/01/17 21:30 (Senokot) 17.2 mg Q12H PRN PO 07/01/17 21:30 (Dulcolax Supp) 10 mg DAILY PRN RECTAL 07/01/17 21:30 (Lactulose Liq) 30 ml DAILY PRN PO 07/01/17 21:30 07/04/17 18:09 (Ativan Inj) 1 mg HS PRN IV PUSH 07/01/17 21:30 07/02/17 23:27 (Protonix Inj) 40 mg Q24H IV PUSH 07/01/17 22:00 07/03/17 21:32 Miscellaneous Information 1 [id number] XX 07/01/17 21:45 (Chlorhexidine 2% Cloth) 3 pack Taper DAILY@04 TOP 07/02/17 04:00 06/28/18 03:59 (Chlorhexidine 2% Cloth) 3 pack UNSCH PRN TOP 07/01/17 21:45 Heparin Sodium/ Dextrose 250 ml @ 8 mls/hr TITRATE PRN IV 07/02/17 09:45 07/04/17 08:52 Sodium Chloride 1,000 ml @ 42 mls/hr [id number] IV 07/02/17 11:00 07/03/17 10:49 (Roxicodone) 5 mg Q4H PRN PO 07/02/17 17:45 07/03/17 13:00 (Dilaudid Pf Inj) 1 mg Q2H PRN IV PUSH 07/03/17 09:00 07/04/17 15:56 Miscellaneous Information D/C ICU ELECTROLYTE ORDERS... UNSCH PRN .XX 07/03/17 15:15 Miscellaneous Information ICU - CALL ORDERING PHYSIC... UNSCH PRN .XX 07/03/17 15:15 Potassium Chloride 100 ml @ 25 mls/hr UNSCH PRN IV 07/03/17 15:15 (K-Lyte Cl Eff) 50 meq UNSCH PRN PO 07/03/17 15:15 Potassium Chloride 100 ml @ 50 mls/hr UNSCH PRN IV 07/03/17 15:15 Magnesium Sulfate 4 gm/Sodium Chloride 108 ml @ 54 mls/hr UNSCH PRN IV 07/03/17 15:15 Magnesium Sulfate 2 gm/Sodium Chloride 104 ml @ 52 mls/hr UNSCH PRN IV 07/03/17 15:15 07/04/17 08:50 (Mag-Ox) 800 mg UNSCH PRN PO 07/03/17 15:15 Sodium Phosphate 30 mmol/Sodium Chloride 260 ml @ 43.333 mls/ hr UNSCH PRN IV 07/03/17 15:15 (K-Phos) 2,000 mg UNSCH PRN PO 07/03/17 15:15 Potassium Phosphate 30 mmol/ Sodium Chloride 260 ml @ 43.333 mls/ hr UNSCH PRN IV 07/03/17 15:15 (Bactroban Nasal 2% Oint) 1 applic BID EACH NARE 07/04/17 21:00 Allergies Allergies Coded Allergies scallops (Unverified Allergy, Unknown, 03/08/17) Exam I&O / VS 07/04/17 07/04/17 07/05/17 15:00 23:00 07:00 Intake Total 354 ml Balance 354 ml IV Total 354 ml Vital Signs Date Time Temp Pulse Resp B/P (MAP) Pulse Ox O2 Delivery O2 Flow Rate FiO2 07/04/17 16:00 98.7 58 27 158/93 (114) 95 07/04/17 12:00 98.5 56 14 145/81 (102) 96 07/04/17 08:00 98.5 52 10 142/82 (102) 94 07/04/17 08:00 52 2/26/18 06:00 54 07/04/17 04:00 56 07/04/17 04:00 98.1 56 18 138/79 (98) 92 07/04/17 02:00 62 07/04/17 00:00 97.7 58 18 130/83 (99) 94 07/04/17 00:00 58 07/03/17 22:00 58 07/03/17 20:00 98.7 58 18 138/91 (107) 97 07/03/17 20:00 58 Objective Micro and Labs Laboratory Tests Test 07/03/17 19:01 07/04/17 04:05 07/04/17 05:43 07/04/17 11:54 Activated Partial Thromboplast Time 29.6 33.6 36.3 Blood Urea Nitrogen 3 Creatinine 0.55 Random Glucose 83 Calcium Level 8.2 Magnesium Level 1.3 Sodium Level 134 Potassium Level 3.1 Chloride Level 100 Carbon Dioxide Level 27.3 Anion Gap 7 Estimat Glomerular Filtration Rate 152 White Blood Count 4.9 Red Blood Count 4.88 Hemoglobin 12.0 Hematocrit 36.5 Mean Corpuscular Volume 74.8 Mean Corpuscular Hemoglobin 24.6 Mean Corpuscular Hemoglobin Concent 32.9 Red Cell Distribution Width 16.8 Platelet Count 149 Mean Platelet Volume 7.6 Date/Time Source Procedure Growth Status 07/01/17 15:45 Blood Peripheral Aerobic Blood Culture - Preliminary NO GROWTH IN 3 DAYS Resulted 07/01/17 15:45 Blood Peripheral Anaerobic Blood Culture - Preliminary NO GROWTH IN 3 DAYS Resulted 07/01/17 15:41 Nasal Aspirate Influenza Types A,B Antigen (AMBER) - Final NEGATIVE FOR FLU A AND B ANTIGEN.... Complete Diamodn Juares MD Jul 04, 2017 18:40
[2017-07-04] MEDS: MUPIROCIN 2% OINT 1 APPLIC/GM SYR EACH NARE SCH (19:44)
[2017-07-04] MEDS: SODIUM CHLOR 0.9% 1000 ML INJ 1,000 ML IV SCH (19:51)
[2017-07-04] MEDS: PANTOPRAZOLE SODIUM 40 MG VIAL IV PUSH SCH (21:44)
[2017-07-04] MEDS: LORazepam 2 MG/ML VIAL IV PUSH PRN (23:19)
[2017-07-05] VITALS (10 sets, daily range): BP systolic 103–155; BP diastolic 70–87; PULSE 56–114; RESP 16–18; TEMP 97.2–98.5; O2SAT 94–98
[2017-07-05] MEDS: CHLORHEXIDINE GLUCONATE 2 % 1 PACK (2 CLOTHS) TOP SCH (04:00)
[2017-07-05 04:15] LABS: HEMATOCRIT 37.9 % (39.0-51.0); HEMOGLOBIN 12.2 GM/DL (13.0-17.0); MEAN CELL VOLUME 75.3 FL (80.0-100.0); MEAN CORPUSCULAR HEMOGLOBIN 24.3 PG (27.0-34.0); MEAN CORPUSCULAR HGB CONC 32.2 % (32.0-36.0); MEAN PLATELET VOLUME 7.5 FL (7.0-11.0); PLATELET COUNT 160 TH/MM3 (150-450); RED BLOOD COUNT 5.03 MIL/MM3 (4.50-5.90); WHITE BLOOD COUNT 4.8 TH/MM3 (4.0-11.0)
[2017-07-05 04:42] LABS: BICARBONATE 27.3 MEQ/L (21.0-32.0); CALCIUM 8.2 MG/DL (8.5-10.1); CREATININE 0.56 MG/DL (0.60-1.30); MAGNESIUM 1.7 MG/DL (1.5-2.5)
[2017-07-05] MEDS: HEPARIN-D5W 25,000 U/250 ML 250 ML IV PRN (05:06)
[2017-07-05] MEDS: DOCUSATE SODIUM 50 MG/SENNA 8.6 MG TAB PO SCH ×2 (07:55→20:22)
[2017-07-05] MEDS: SODIUM CHLORIDE 0.9% FLUSH 10 ML FLUSH IV FLUSH SCH ×2 (07:56→20:23)
[2017-07-05] MEDS: MUPIROCIN 2% OINT 1 APPLIC/GM SYR EACH NARE SCH ×2 (07:56→20:22)
[2017-07-05] MEDS: HYDROmorphone HCL PF 2 MG/ML VIAL IV PUSH PRN ×5 (07:57→23:30)
[2017-07-05] MEDS: SODIUM CHLOR 0.9% 1000 ML INJ 1,000 ML IV SCH (09:11)
--- NOTE | 2017-07-05 14:04 | PD.ONC.PN ---
Subjective Subjective Remarks Afebrile overnight. Patient states headaches improving. tolerating heparin gtt. No complaints. Objective Data Date Time Temp Pulse Resp B/P (MAP) Pulse Ox O2 Delivery O2 Flow Rate FiO2 07/05/17 13:03 98.1 66 18 155/87 (109) 98 07/05/17 11:45 114 07/05/17 11:34 16 07/05/17 08:28 16 07/05/17 08:26 98.3 59 17 145/84 (104) 95 07/05/17 07:49 59 07/05/17 05:21 98.5 64 18 134/84 (101) 94 07/05/17 04:22 56 07/05/17 00:42 97.6 69 18 143/80 (101) 97 07/04/17 21:19 98.2 58 18 134/83 (100) 96 07/04/17 20:00 97.8 58 20 152/90 (110) 96 07/04/17 16:00 98.7 58 27 158/93 (114) 95 07/05/17 07/05/17 07/05/17 07:00 15:00 23:00 Intake Total 480 ml Output Total 510 ml Balance -30 ml Result Diagram: 07/05/17 0405 07/05/17 0405 Laboratory Results Laboratory Tests Test 07/04/17 20:34 07/05/17 04:05 Activated Partial Thromboplast Time 40.1 SEC 43.8 SEC White Blood Count 4.8 TH/MM3 Red Blood Count 5.03 MIL/MM3 Hemoglobin 12.2 GM/DL Hematocrit 37.9 % Mean Corpuscular Volume 75.3 FL Mean Corpuscular Hemoglobin 24.3 PG Mean Corpuscular Hemoglobin Concent 32.2 % Red Cell Distribution Width 17.0 % Platelet Count 160 TH/MM3 Mean Platelet Volume 7.5 FL Blood Urea Nitrogen 3 MG/DL Creatinine 0.56 MG/DL Random Glucose 87 MG/DL Calcium Level 8.2 MG/DL Magnesium Level 1.7 MG/DL Sodium Level 135 MEQ/L Potassium Level 3.2 MEQ/L Chloride Level 100 MEQ/L Carbon Dioxide Level 27.3 MEQ/L Anion Gap 8 MEQ/L Estimat Glomerular Filtration Rate 149 ML/MIN Administered Medications Medications (Trade) Dose Ordered Sig/[place] Route PRN Reason Start Time Stop Time Status Last Admin Dose Admin Sodium Chloride (NS Flush) 2 ml BID IV FLUSH 07/02/17 09:00 07/05/17 07:56 Ondansetron HCl (Zofran Inj) 4 mg Q6H PRN IVP NAUSEA OR VOMITING 07/01/17 21:30 07/04/17 20:08 Senna/Docusate Sodium (Areli-Colace) 1 tab BID PO 07/02/17 09:00 07/05/17 07:55 Lactulose (Lactulose Liq) 30 ml DAILY PRN PO SEVERE CONSITIPATION 07/01/17 21:30 07/04/17 18:09 Lorazepam (Ativan Inj) 1 mg HS PRN IV PUSH ANXIETY SLEEP 07/01/17 21:30 07/04/17 23:19 Pantoprazole Sodium (Protonix Inj) 40 mg Q24H IV PUSH 07/01/17 22:00 07/04/17 21:44 Heparin Sodium/ Dextrose 250 ml @ 8 mls/hr TITRATE PRN IV Coagulation Management 07/02/17 09:45 07/05/17 05:06 Sodium Chloride 1,000 ml @ 42 mls/hr [id number] IV 07/02/17 11:00 07/05/17 09:11 Oxycodone HCl (Roxicodone) 5 mg Q4H PRN PO PAIN SCALE 1 TO 6 07/02/17 17:45 07/05/17 10:28 Hydromorphone HCl (Dilaudid Pf Inj) 1 mg Q2H PRN IV PUSH PAIN SCALE 7-10 07/03/17 09:00 07/05/17 13:51 Mupirocin (Bactroban Nasal 2% Oint) 1 applic BID EACH NARE 07/04/17 21:00 07/05/17 07:56 Objective Remarks GENERAL: Middle aged male, upright in bed in [facility]. SKIN: Warm and dry. HEAD: Normocephalic. EYES: No injection or drainage. NECK: Supple, trachea midline. CARDIOVASCULAR: Regular rate and rhythm RESPIRATORY: Breath sounds equal bilaterally. No accessory muscle use. GASTROINTESTINAL: Abdomen soft, non-tender, nondistended. EXTREMITIES: No cyanosis, or edema. MUSCULOSKELETAL: Adequate muscle tone. NEUROLOGICAL: awake, alert. moving extremities. no obvious focal deficit. Assessment/Plan Problem List: (1) Subdural hemorrhage ICD Codes: I62.00 - Nontraumatic subdural hemorrhage, unspecified Status: Acute Plan: --monitor neurologic status -- Tolerating heparin gtt (2) Pulmonary embolism ICD Codes: I26.99 - Other pulmonary embolism without acute cor pulmonale Status: Acute Plan: --started on heparin gtt on 07/03 Assessment 61y/o male with a history of esophageal cancer admitted with subdural hemorrhage and bilateral PE. HPI (brought forward from initial consult for continuity of care) 5 T3 N0 M0 disease, poorly differentiated carcinoma. He completed concurrent chemotherapy and radiation treatment in January of 2017. He received carboplatin and Taxol. He underwent esophagectomy on 03/09/2017. There was no residual tumor noted. He is currently under observation. now presents to the emergency room with three day history of frontal headache along with nausea and vomiting. He was also experiencing dizziness and unsteady gait along with photophobia. In the emergency department a CT scan of the head revealed a hypodensity in the left tentorium. There was a possibility of tentorial bleed and transverse sinus thrombosis. He subsequently had an MRI of the brain which revealed subtle blood products on the tentorium, and some opacification of the left transverse sinus. CT angiogram revealed multiple filling defects in the subsegmental artery to the right upper lobe, basal segments of the right lower lobe, basal segments of the left lower lobe and left upper lobe. The patient was evaluated by neurosurgery and it was thought that since the amount of tentorial bleed was small and the fact that there is an increased risk of expansion of pulmonary embolism compared to the risk of further cerebral bleeding, anticoagulation should strongly be considered. Plan 1. Pt tolerating heparin gtt. cleared by neurosurgery to start full anticoagulation (d/w angle Rueda to start oral anticoagulation.) 2. will start either coumadin or Pradaxa 150mg PO BID, depending on patient's insurance (patient prefers pradaxa if possible). discussed the risks and benefits of both drugs to patient. Attending Statement The exam, history, and the medical decision-making described in the above note were completed with the assistance of the mid-level provider. I reviewed and agree with the findings presented. I attest that I had a [id number] encounter with the patient on the same day, and personally performed and documented my assessment and findings in the medical record. Headache continue to improve. tolerating heparin. Discussed different oral anticoagulant agents and their pros and cons. I think the 2 best agents for him are coumadin vs pradaxa which can be reversed. He would like to check with his insurance first to see if pradaxa is covered. If not, he would prefer coumadin. Problem Qualifiers (1) Pulmonary embolism: Qualified Codes: I26.99 - Other pulmonary embolism without acute cor pulmonale Glendy Malcolm Jul 05, 2017 14:04 Sylvester Silver MD Jul 05, 2017 14:35
--- NOTE | 2017-07-05 16:02 | HHI.NSPN ---
(John Sanchez) History Chief Complaint: Headache (John Sanchez) Interval History 61-year-old gentleman with a three-day history of left frontal headaches along with nausea and vomiting. He also complains of dizziness and unsteadiness in his gait along with some photophobia. He relates that around the same time complaints of dyspnea along with generalized body aches. Denies any fevers or chills. He has a history of esophageal cancer diagnosed last summer and underwent radiation and chemo and resection and was told he was in remission. Work-up in the emergency room with a CT of the head reveals a hypodensity in the left tentorium as well as a transverse sign and the possibility of a tentorial bleed and transverse sinus thrombosis. Subsequent MRI scan of the brain was obtained which again reveals subtle blood products on the tentorium and it also appears that the left transverse sinus is opacified. He was also found to have bilateral numerous segmental and subsegmental vessel pulmonary embolus with small pleural nodular densities in the lung bases. 07/02/17: No new complaints. MRA negative but MRV of the brain consistent with left transverse sinus thrombosis. 07/03/17: Patient awake and alert. Complains of left frontal headache radiating to the occipital area. Some nausea present. No muscle weakness or paresthesias in the extremities. Patient states he does not have any chest pain or shortness of breath today. He has been started on a heparin drip this morning. 07/04/17: Pt awake and alert. Complains of left frontal headache radiating to the occipital area. No change in headache. He states some nausea when he is sitting up. No weakness or paresthesias in extremities. Pt on Heparin drip. He has constipation. 07/05/17: Pt awake and alert. States he woke up today without a headache which was the first time in a while. No nausea vomiting, states appetite good. (John Sanchez) Review of Systems General: Negative for: fever, chills, insomnia Respiratory: Negative for: shortness of breath, cough, sputum Cardiovascular: Negative for: chest pain Gastrointestinal: Negative for: nausea, vomitting, diarrhea, constipation ( John Sanchez) Exam Results Vital Signs Date Time Temp Pulse Resp B/P (MAP) Pulse Ox O2 Delivery O2 Flow Rate FiO2 07/05/17 14:59 16 07/05/17 13:03 98.1 66 155/87 (109) 98 07/03/17 07:00 Room Air 07/01/17 21:00 2.00 Intake and Output 07/05/17 07/05/17 07/06/17 08:00 16:00 00:00 Intake Total 480 ml Output Total 510 ml Balance -30 ml (John Sanchez) Physical Examination GENERAL: Well-nourished, well-developed patient. HEAD: Normocephalic and atraumatic. EYES: No scleral icterus. No injection or drainage. Pupils are 3 mm bilaterally reactive bilaterally. ENT: No nasal drainage noted. Mucous membranes pink. Airway patent. NECK: Supple, trachea midline. CARDIOVASCULAR: Regular rate and rhythm without murmurs, gallops, or rubs. RESPIRATORY: Breath sounds equal bilaterally. No accessory muscle use. GASTROINTESTINAL: Abdomen soft, non-tender, nondistended. SKIN: Warm and dry. No cyanosis or edema. MUSCLE: Moves all 4 extremities symmetrically with 5/5 strength. NEUROLOGICAL: Awake and alert. Pupils Equal and reactive. EOMI. Face symmetric. Tongue midline. Cranial nerves II through XII intact. Motor and sensory grossly within normal limits. Five out of 5 muscle strength in all muscle groups. Normal speech. Normal comprehension. (John Sanchez) Lab, Micro, Other Results Last Impressions Head CT 07/04/17 1100 Signed Impressions: Service Date/Time: Tuesday, July 04, 2017 11:16 - CONCLUSION: Stable head CT with a small amount of subdural blood products layering along the left tentorium cerebelli. Ren Hassan MD Lower Extremity Ultrasound 07/03/17 0000 Signed Impressions: Service Date/Time: Monday, July 03, 2017 09:11 - CONCLUSION: No DVT. Ren Mckeon MD Head/Brain Mag Res Venography 07/02/17 0000 Signed Impressions: Service Date/Time: Sunday, July 02, 2017 07:44 - CONCLUSION: No flow demonstrated in the left transverse or sigmoid sinus. This also no flow seen in the inferior sagittal sinus. Ren Mckeon MD Head Magnetic Resonance Angiography 07/02/17 0000 Signed Impressions: Service Date/Time: Sunday, July 02, 2017 07:44 - CONCLUSION: Negative MRA. Ren Mckeon MD Chest X-Ray 07/01/17 1330 Signed Impressions: Service Date/Time: Saturday, July 01, 2017 15:18 - CONCLUSION: No acute disease. Ren Smiley MD CT Angiography 07/01/17 0000 Signed Impressions: Service Date/Time: Saturday, July 01, 2017 16:40 - CONCLUSION: 1. Positive for bilateral pulmonary embolism in numerous segmental and subsegmental vessels involving all segments. 2. Expected postsurgical findings from gastric pull-through. Gilberto Hernandez MD Brain MRI 07/01/17 0000 Signed Impressions: Service Date/Time: Saturday, July 01, 2017 19:04 - CONCLUSION: 1. Abnormality on CT examination corresponds with subtle subdural blood products on MRI examination. Efrain Ivey MD Abdomen/Pelvis CT 07/01/17 0000 Signed Impressions: Service Date/Time: Saturday, July 01, 2017 16:40 - CONCLUSION: Postoperative changes from previous esophagectomy and gastric pullup. Small pleural-based nodular densities in the lung bases were not clearly seen previously and will need to be followed. No definite acute CT findings in the abdomen or pelvis. Ren Smiley MD Laboratory Tests Test 07/04/17 20:34 07/05/17 04:05 Activated Partial Thromboplast Time 40.1 SEC 43.8 SEC White Blood Count 4.8 TH/MM3 Red Blood Count 5.03 MIL/MM3 Hemoglobin 12.2 GM/DL Hematocrit 37.9 % Mean Corpuscular Volume 75.3 FL Mean Corpuscular Hemoglobin 24.3 PG Mean Corpuscular Hemoglobin Concent 32.2 % Red Cell Distribution Width 17.0 % Platelet Count 160 TH/MM3 Mean Platelet Volume 7.5 FL Blood Urea Nitrogen 3 MG/DL Creatinine 0.56 MG/DL Random Glucose 87 MG/DL Calcium Level 8.2 MG/DL Magnesium Level 1.7 MG/DL Sodium Level 135 MEQ/L Potassium Level 3.2 MEQ/L Chloride Level 100 MEQ/L Carbon Dioxide Level 27.3 MEQ/L Anion Gap 8 MEQ/L Estimat Glomerular Filtration Rate 149 ML/MIN 07/05/17 07/05/17 07/06/17 15:00 23:00 07:00 Intake Total 480 ml Output Total 510 ml Balance -30 ml Intake Oral 480 ml Output Urine Total 510 ml (John Sanchez) Medical Decision Making Impression and Plan A: 1. Thrombosis of the left transverse sinus with associated small tentorial subdural hemorrhage as well as thrombosis of the sigmoid and inferior sagittal sinus. 2. Bilateral multiple pulmonary embolus. 3. History of esophageal cancer. 4. History of hypertension. PLAN 61-year-old gentleman with a small left tentorial hemorrhage likely related to the thrombosis of the left transverse sinus. He also has thrombosis of the sigmoid and inferior sagittal sinus and multiple bilateral pulmonary embolus. Given the cerebral left transverse venous sinus thrombosis, sigmoid and inferior sagittal sinus as well as bilateral pulmonary embolus, he was placed on Heparin drip given the risk of this thrombosis progression with consequent venous infarct as well as pulmonary embolus progression is higher than risk of cerebral rebleeding. Pt is going to be switching to PO anticoagulation. We again discussed the risk of bleeding but given his thrombosis risk is higher without medication and again he accepts the risks. Continue with close neuro checks Continue with medical care (John Sanchez) Attending Statement The exam, history, and the medical decision-making described in the above note were completed with the assistance of the mid-level provider. I reviewed and agree with the findings presented. I attest that I had a [id number] encounter with the patient on the same day, and personally performed and documented my assessment and findings in the medical record. (Matti Rojas MD) John Sanchez Jul 05, 2017 16:02 Matti Rojas MD Jul 05, 2017 18:01
--- NOTE | 2017-07-05 16:30 | HHI.PR ---
Subjective Remarks Headache is improved No reported nausea/vomiting and tolerating oral intake Objective Vitals Vital Signs Date Time Temp Pulse Resp B/P (MAP) Pulse Ox O2 Delivery O2 Flow Rate FiO2 07/05/17 14:59 16 07/05/17 13:03 98.1 66 18 155/87 (109) 98 07/05/17 11:45 114 07/05/17 11:34 16 07/05/17 08:26 98.3 59 17 145/84 (104) 95 07/05/17 07:49 59 07/05/17 05:21 98.5 64 18 134/84 (101) 94 07/05/17 04:22 56 07/05/17 00:42 97.6 69 18 143/80 (101) 97 07/04/17 21:19 98.2 58 18 134/83 (100) 96 07/04/17 20:00 97.8 58 20 152/90 (110) 96 07/05/17 07/05/17 07/06/17 15:00 23:00 07:00 Intake Total 480 ml Output Total 510 ml Balance -30 ml Intake Oral 480 ml Output Urine Total 510 ml Result Diagram: 07/05/17 0405 07/05/17 0405 Other Results Laboratory Tests Test 07/03/17 16:40 07/03/17 19:01 07/04/17 04:05 07/04/17 05:43 Nasal Screen MRSA (PCR) MRSA DETECTED Activated Partial Thromboplast Time 29.6 SEC 33.6 SEC Blood Urea Nitrogen 3 MG/DL Creatinine 0.55 MG/DL Random Glucose 83 MG/DL Calcium Level 8.2 MG/DL Magnesium Level 1.3 MG/DL Sodium Level 134 MEQ/L Potassium Level 3.1 MEQ/L Chloride Level 100 MEQ/L Carbon Dioxide Level 27.3 MEQ/L Anion Gap 7 MEQ/L Estimat Glomerular Filtration Rate 152 ML/MIN White Blood Count 4.9 TH/MM3 Red Blood Count 4.88 MIL/MM3 Hemoglobin 12.0 GM/DL Hematocrit 36.5 % Mean Corpuscular Volume 74.8 FL Mean Corpuscular Hemoglobin 24.6 PG Mean Corpuscular Hemoglobin Concent 32.9 % Red Cell Distribution Width 16.8 % Platelet Count 149 TH/MM3 Mean Platelet Volume 7.6 FL Test 07/04/17 11:54 07/04/17 20:34 07/05/17 04:05 Activated Partial Thromboplast Time 36.3 SEC 40.1 SEC 43.8 SEC White Blood Count 4.8 TH/MM3 Red Blood Count 5.03 MIL/MM3 Hemoglobin 12.2 GM/DL Hematocrit 37.9 % Mean Corpuscular Volume 75.3 FL Mean Corpuscular Hemoglobin 24.3 PG Mean Corpuscular Hemoglobin Concent 32.2 % Red Cell Distribution Width 17.0 % Platelet Count 160 TH/MM3 Mean Platelet Volume 7.5 FL Blood Urea Nitrogen 3 MG/DL Creatinine 0.56 MG/DL Random Glucose 87 MG/DL Calcium Level 8.2 MG/DL Magnesium Level 1.7 MG/DL Sodium Level 135 MEQ/L Potassium Level 3.2 MEQ/L Chloride Level 100 MEQ/L Carbon Dioxide Level 27.3 MEQ/L Anion Gap 8 MEQ/L Estimat Glomerular Filtration Rate 149 ML/MIN Imaging Last Impressions Head CT 07/04/17 1100 Signed Impressions: Service Date/Time: Tuesday, July 04, 2017 11:16 - CONCLUSION: Stable head CT with a small amount of subdural blood products layering along the left tentorium cerebelli. Ren Hassan MD Lower Extremity Ultrasound 07/03/17 0000 Signed Impressions: Service Date/Time: Monday, July 03, 2017 09:11 - CONCLUSION: No DVT. Ren Mckeon MD Head/Brain Mag Res Venography 07/02/17 0000 Signed Impressions: Service Date/Time: Sunday, July 02, 2017 07:44 - CONCLUSION: No flow demonstrated in the left transverse or sigmoid sinus. This also no flow seen in the inferior sagittal sinus. Ren Mckeon MD Head Magnetic Resonance Angiography 07/02/17 0000 Signed Impressions: Service Date/Time: Sunday, July 02, 2017 07:44 - CONCLUSION: Negative MRA. Ren Mckeon MD Chest X-Ray 07/01/17 1330 Signed Impressions: Service Date/Time: Saturday, July 01, 2017 15:18 - CONCLUSION: No acute disease. Ren Smiley MD CT Angiography 07/01/17 0000 Signed Impressions: Service Date/Time: Saturday, July 01, 2017 16:40 - CONCLUSION: 1. Positive for bilateral pulmonary embolism in numerous segmental and subsegmental vessels involving all segments. 2. Expected postsurgical findings from gastric pull-through. Gilberto Hernandez MD Brain MRI 07/01/17 0000 Signed Impressions: Service Date/Time: Saturday, July 01, 2017 19:04 - CONCLUSION: 1. Abnormality on CT examination corresponds with subtle subdural blood products on MRI examination. Efrain Ivey MD Abdomen/Pelvis CT 07/01/17 0000 Signed Impressions: Service Date/Time: Saturday, July 01, 2017 16:40 - CONCLUSION: Postoperative changes from previous esophagectomy and gastric pullup. Small pleural-based nodular densities in the lung bases were not clearly seen previously and will need to be followed. No definite acute CT findings in the abdomen or pelvis. Ren Smiley MD Objective Remarks General: NAD, AAOx3 Chest: CTA Cardiac: Regular Abd: +BS, soft ND/NT Ext: No edema A/P Problem List: (1) Subdural hemorrhage ICD Codes: I62.00 - Nontraumatic subdural hemorrhage, unspecified Status: Acute Plan: Thrombosis of the left transverse sinus with associated small tentorial subdural hemorrhage Thrombosis of the sigmoid and inferior sagittal sinus - Pt is a 61 y/o male with a history of esophageal cancer who was admitted on with three day history of frontal headache along with nausea and vomiting. He was also experiencing dizziness, unsteady gait and photophobia. - Head CT (07/01) --> A hypodensity in the left tentorium. There was a possibility of tentorial bleed and transverse sinus thrombosis. - MRI of the brain (07/01) --> subtle blood products on the tentorium, and some opacification of the left transverse sinus. - CT angiogram (07/01) --> Multiple filling defects in the subsegmental artery to the right upper lobe, basal segments of the right lower lobe, basal segments of the left lower lobe and left upper lobe. - The patient was transferred to [facility] to the ICU and evaluated by neurosurgery and it was thought that since the amount of tentorial bleed was small and the fact that there is an increased risk of expansion of pulmonary embolism compared to the risk of further cerebral bleeding, anticoagulation should started and the pt was started on Heparin gtt. - Pt tolerated heparin gtt with improvement in his symptoms - MR Venogram (07/02) --> No flow demonstrated in the left transverse or sigmoid sinus. This also no flow seen in the inferior sagittal sinus. - MRA Head (07/02) --> negative. - Hematology is following. - Per notes from Neurosurgery on 07/05, pt has been cleared by neurosurgery to start full anticoagulation, either Coumadin or Pradaxa 150mg PO BID - Pt to be started on Pradaxa 150mg po BID tomorrow morning 2 hours after Heparin is stopped (2) Pulmonary embolism ICD Codes: I26.99 - Other pulmonary embolism without acute cor pulmonale Status: Acute Plan: - See above. (3) Esophageal cancer ICD Codes: C15.9 - Malignant neoplasm of esophagus, unspecified Status: Chronic Plan: - Pt with hx of esophageal cancer who underwent concurrent chemo and XRT in 2016 followed by esophagectomy in 03/2017 - Pt is felt to currently be in remission with no residual tumor noted and continues to be monitored by his Oncologist. Dr. Silver. Assessment and Plan Patient examined. Assessment and plan formulated with Loida Silva PA-C. I agree with the above. Problem Qualifiers (1) Pulmonary embolism: Qualified Codes: I26.99 - Other pulmonary embolism without acute cor pulmonale Loida Silva Jul 05, 2017 16:30 Mauri Rouse DO Jul 06, 2017 15:34
[2017-07-05] MEDS: LACTULOSE SYRUP 20 GM/30 ML CUP PO PRN (17:58)
[2017-07-05] MEDS: POTASSIUM CHLORIDE 20 MEQ CONTROLLED RELEASE TAB PO SCH ×2 (19:05→20:23)
[2017-07-05] MEDS: PANTOPRAZOLE SODIUM 40 MG VIAL IV PUSH SCH (20:22)
[2017-07-05] MEDS: ONDANSETRON HCL 4 MG/2 ML VIAL IVP PRN (20:26)
[2017-07-06] VITALS (10 sets, daily range): BP systolic 114–146; BP diastolic 77–87; PULSE 53–83; RESP 18–20; TEMP 97.2–98.5; O2SAT 96–100
[2017-07-06] MEDS: LORazepam 2 MG/ML VIAL IV PUSH PRN (00:59)
[2017-07-06] MEDS: HEPARIN-D5W 25,000 U/250 ML 250 ML IV PRN (01:01)
[2017-07-06] MEDS: CHLORHEXIDINE GLUCONATE 2 % 1 PACK (2 CLOTHS) TOP SCH (01:03)
[2017-07-06] MEDS: ONDANSETRON HCL 4 MG/2 ML VIAL IVP PRN ×2 (04:49→14:27)
[2017-07-06] MEDS: HYDROmorphone HCL PF 2 MG/ML VIAL IV PUSH PRN ×4 (04:49→14:27)
[2017-07-06 07:27] LABS: AUTOMATED NEUTROPHIL # 2.8 TH/MM3 (1.8-7.7); BASOPHIL % 0.5 % (0.0-2.0); EOSINOPHIL # 0.1 TH/MM3 (0-0.4); EOSINOPHIL % 1.4 % (0.0-4.0); HEMATOCRIT 37.4 % (39.0-51.0); HEMOGLOBIN 12.3 GM/DL (13.0-17.0); LYMPH % 12.7 % (9.0-44.0); LYMPHOCYTE # 0.5 TH/MM3 (1.0-4.8); MEAN CELL VOLUME 75.5 FL (80.0-100.0); MEAN CORPUSCULAR HEMOGLOBIN 24.9 PG (27.0-34.0); MEAN CORPUSCULAR HGB CONC 32.9 % (32.0-36.0); MEAN PLATELET VOLUME 7.9 FL (7.0-11.0); MONO % 20.2 % (0.0-8.0); MONOCYTE # 0.9 TH/MM3 (0-0.9); NEUT % 65.2 % (16.0-70.0); PLATELET COUNT 173 TH/MM3 (150-450); RED BLOOD COUNT 4.96 MIL/MM3 (4.50-5.90); RED CELL DISTRIBUTION WIDTH 17.1 % (11.6-17.2); WHITE BLOOD COUNT 4.2 TH/MM3 (4.0-11.0)
[2017-07-06 07:44] LABS: BICARBONATE 28.1 MEQ/L (21.0-32.0); CALCIUM 8.5 MG/DL (8.5-10.1); CREATININE 0.68 MG/DL (0.60-1.30); MAGNESIUM 1.5 MG/DL (1.5-2.5)
[2017-07-06] MEDS: SODIUM CHLORIDE 0.9% FLUSH 10 ML FLUSH IV FLUSH SCH ×2 (09:00→20:24)
[2017-07-06] MEDS: DOCUSATE SODIUM 50 MG/SENNA 8.6 MG TAB PO SCH ×2 (09:23→20:23)
[2017-07-06] MEDS: MUPIROCIN 2% OINT 1 APPLIC/GM SYR EACH NARE SCH ×2 (09:23→20:23)
[2017-07-06] MEDS: SODIUM CHLOR 0.9% 1000 ML INJ 1,000 ML IV SCH ×2 (10:16→16:39)
--- NOTE | 2017-07-06 12:08 | PD.ONC.PN ---
Subjective Subjective Remarks Afebrile overnight. Patient states he still gets headaches, but they have improved. he is excited about starting Pradaxa and getting off of the drip. he is eager to be able to go home. Objective Data Date Time Temp Pulse Resp B/P (MAP) Pulse Ox O2 Delivery O2 Flow Rate FiO2 07/06/17 11:42 98.1 77 20 114/80 (91) 97 07/06/17 09:42 53 07/06/17 08:03 98.4 69 20 142/77 (98) 96 07/06/17 05:07 98.5 79 18 137/86 (103) 96 07/06/17 00:36 74 07/05/17 23:32 98.4 58 18 124/80 (95) 95 07/05/17 20:42 98.5 75 18 103/70 (81) 96 07/05/17 18:37 16 07/05/17 16:34 97.2 72 16 133/77 (95) 96 07/05/17 13:03 98.1 66 18 155/87 (109) 98 07/06/17 07/06/17 07/06/17 07:00 15:00 23:00 Intake Total 232 ml 92 ml Output Total 600 ml Balance -368 ml 92 ml Result Diagram: 07/06/1762907/06/17629 Laboratory Results Laboratory Tests Test 07/06/17 06:30 White Blood Count 4.2 TH/MM3 Red Blood Count 4.96 MIL/MM3 Hemoglobin 12.3 GM/DL Hematocrit 37.4 % Mean Corpuscular Volume 75.5 FL Mean Corpuscular Hemoglobin 24.9 PG Mean Corpuscular Hemoglobin Concent 32.9 % Red Cell Distribution Width 17.1 % Platelet Count 173 TH/MM3 Mean Platelet Volume 7.9 FL Neutrophils (%) (Auto) 65.2 % Lymphocytes (%) (Auto) 12.7 % Monocytes (%) (Auto) 20.2 % Eosinophils (%) (Auto) 1.4 % Basophils (%) (Auto) 0.5 % Neutrophils # (Auto) 2.8 TH/MM3 Lymphocytes # (Auto) 0.5 TH/MM3 Monocytes # (Auto) 0.9 TH/MM3 Eosinophils # (Auto) 0.1 TH/MM3 Basophils # (Auto) 0.0 TH/MM3 CBC Comment DIFF FINAL Differential Comment Activated Partial Thromboplast Time 44.6 SEC Blood Urea Nitrogen 3 MG/DL Creatinine 0.68 MG/DL Random Glucose 90 MG/DL Calcium Level 8.5 MG/DL Magnesium Level 1.5 MG/DL Sodium Level 138 MEQ/L Potassium Level 3.9 MEQ/L Chloride Level 103 MEQ/L Carbon Dioxide Level 28.1 MEQ/L Anion Gap 7 MEQ/L Estimat Glomerular Filtration Rate 119 ML/MIN Administered Medications Medications (Trade) Dose Ordered Sig/[place] Route PRN Reason Start Time Stop Time Status Last Admin Dose Admin Sodium Chloride (NS Flush) 2 ml BID IV FLUSH 07/02/17 09:00 07/05/17 20:23 Ondansetron HCl (Zofran Inj) 4 mg Q6H PRN IVP NAUSEA OR VOMITING 07/01/17 21:30 07/06/17 04:49 Senna/Docusate Sodium (Areli-Colace) 1 tab BID PO 07/02/17 09:00 07/06/17 09:23 Magnesium Hydroxide (Milk Of Magnesia Liq) 30 ml Q12H PRN PO Mild constipation 07/01/17 21:30 07/06/17 10:25 Lactulose (Lactulose Liq) 30 ml DAILY PRN PO SEVERE CONSITIPATION 07/01/17 21:30 07/05/17 17:58 Lorazepam (Ativan Inj) 1 mg HS PRN IV PUSH ANXIETY SLEEP 07/01/17 21:30 07/06/17 00:59 Pantoprazole Sodium (Protonix Inj) 40 mg Q24H IV PUSH 07/01/17 22:00 07/05/17 20:22 Sodium Chloride 1,000 ml @ 42 mls/hr [id number] IV 07/02/17 11:00 07/05/17 09:11 Oxycodone HCl (Roxicodone) 5 mg Q4H PRN PO PAIN SCALE 1 TO 6 07/02/17 17:45 07/05/17 10:28 Hydromorphone HCl (Dilaudid Pf Inj) 1 mg Q2H PRN IV PUSH PAIN SCALE 7-10 07/03/17 09:00 07/06/17 09:29 Mupirocin (Bactroban Nasal 2% Oint) 1 applic BID EACH NARE 07/04/17 21:07/06/17 09:23 Objective Remarks GENERAL: Middle aged male, sitting up in bed in nad SKIN: Warm and dry. HEAD: Normocephalic. EYES: No injection or drainage. NECK: Supple, trachea midline. CARDIOVASCULAR: Regular rate and rhythm RESPIRATORY: Breath sounds equal bilaterally. No accessory muscle use. GASTROINTESTINAL: Abdomen soft, non-tender, nondistended. EXTREMITIES: No cyanosis, or edema. MUSCULOSKELETAL: Adequate muscle tone. NEUROLOGICAL: no obvious focal deficit. facial movements symmetric. moving extremities. Assessment/Plan Problem List: (1) Subdural hemorrhage ICD Codes: I62.00 - Nontraumatic subdural hemorrhage, unspecified Status: Acute Plan: --monitor neurologic status --starting Pradaxa today. (2) Pulmonary embolism ICD Codes: I26.99 - Other pulmonary embolism without acute cor pulmonale Status: Acute Plan: --starting Pradaxa 07/06 Assessment 61y/o male with a history of esophageal cancer admitted with subdural hemorrhage and bilateral PE. HPI (brought forward from initial consult for continuity of care) 5 T3 N0 M0 disease, poorly differentiated carcinoma. He completed concurrent chemotherapy and radiation treatment in January of 2017. He received carboplatin and Taxol. He underwent esophagectomy on 03/09/2017. There was no residual tumor noted. He is currently under observation. now presents to the emergency room with three day history of frontal headache along with nausea and vomiting. He was also experiencing dizziness and unsteady gait along with photophobia. In the emergency department a CT scan of the head revealed a hypodensity in the left tentorium. There was a possibility of tentorial bleed and transverse sinus thrombosis. He subsequently had an MRI of the brain which revealed subtle blood products on the tentorium, and some opacification of the left transverse sinus. CT angiogram revealed multiple filling defects in the subsegmental artery to the right upper lobe, basal segments of the right lower lobe, basal segments of the left lower lobe and left upper lobe. The patient was evaluated by neurosurgery and it was thought that since the amount of tentorial bleed was small and the fact that there is an increased risk of expansion of pulmonary embolism compared to the risk of further cerebral bleeding, anticoagulation should strongly be considered. Plan 1. start Pradaxa 2. monitor neuro status 3. if doing well on Pradaxa today, could possibly be discharged tomorrow. Attending Statement The exam, history, and the medical decision-making described in the above note were completed with the assistance of the mid-level provider. I reviewed and agree with the findings presented. I attest that I had a [id number] encounter with the patient on the same day, and personally performed and documented my assessment and findings in the medical record. Mild headache. No bleeding noted. Plan to switch to Pradaxa today. If tolerate well, possible d/c tomorrow if clear by neurosurgery. Problem Qualifiers (1) Pulmonary embolism: Qualified Codes: I26.99 - Other pulmonary embolism without acute cor pulmonale Glendy Malcolm Jul 06, 2017 12:08 Sylvester Silver MD Jul 06, 2017 16:28
[2017-07-06] MEDS: DABIGATRAN ETEXILATE 150 MG CAP PO SCH ×2 (12:11→20:23)
--- NOTE | 2017-07-06 15:36 | HHI.PR ---
Subjective Remarks c/o increased MOJICA this afternoon. Objective Vitals Vital Signs Date Time Temp Pulse Resp B/P (MAP) Pulse Ox O2 Delivery O2 Flow Rate FiO2 07/06/17 13:12 73 07/06/17 11:42 98.1 77 20 114/80 (91) 97 07/06/17 09:42 53 07/06/17 08:03 98.4 69 20 142/77 (98) 96 07/06/17 05:07 98.5 79 18 137/86 (103) 96 07/06/17 00:36 74 07/05/17 23:32 98.4 58 18 124/80 (95) 95 07/05/17 20:42 98.5 75 18 103/70 (81) 96 07/05/17 18:37 16 07/05/17 16:34 97.2 72 16 133/77 (95) 96 07/06/17 07/06/17 07/07/17 15:00 23:00 07:00 Intake Total 92 ml Balance 92 ml IV Total 92 ml # Bowel Movements 1 Result Diagram: 07/06/17 0630 07/06/17 0630 Imaging Last Impressions Head CT 07/04/17 1100 Signed Impressions: Service Date/Time: Tuesday, July 04, 2017 11:16 - CONCLUSION: Stable head CT with a small amount of subdural blood products layering along the left tentorium cerebelli. Ren Hassan MD Lower Extremity Ultrasound 07/03/17 0000 Signed Impressions: Service Date/Time: Monday, July 03, 2017 09:11 - CONCLUSION: No DVT. Ren Mckeon MD Head/Brain Mag Res Venography 07/02/17 0000 Signed Impressions: Service Date/Time: Sunday, July 02, 2017 07:44 - CONCLUSION: No flow demonstrated in the left transverse or sigmoid sinus. This also no flow seen in the inferior sagittal sinus. Ren Mckeon MD Head Magnetic Resonance Angiography 07/02/17 0000 Signed Impressions: Service Date/Time: Sunday, July 02, 2017 07:44 - CONCLUSION: Negative MRA. Ren Mcekon MD Chest X-Ray 07/01/17 1330 Signed Impressions: Service Date/Time: Saturday, July 01, 2017 15:18 - CONCLUSION: No acute disease. Ren Smiley MD CT Angiography 07/01/17 0000 Signed Impressions: Service Date/Time: Saturday, July 01, 2017 16:40 - CONCLUSION: 1. Positive for bilateral pulmonary embolism in numerous segmental and subsegmental vessels involving all segments. 2. Expected postsurgical findings from gastric pull-through. Gilberto Hernandez MD Brain MRI 07/01/17 0000 Signed Impressions: Service Date/Time: Saturday, July 01, 2017 19:04 - CONCLUSION: 1. Abnormality on CT examination corresponds with subtle subdural blood products on MRI examination. Efrain Ivey MD Abdomen/Pelvis CT 07/01/17 0000 Signed Impressions: Service Date/Time: Saturday, July 01, 2017 16:40 - CONCLUSION: Postoperative changes from previous esophagectomy and gastric pullup. Small pleural-based nodular densities in the lung bases were not clearly seen previously and will need to be followed. No definite acute CT findings in the abdomen or pelvis. Ren Smiley MD Objective Remarks General: NAD, AAOx3 Chest: CTA Cardiac: Regular Abd: +BS, soft ND/NT Ext: No edema A/P Problem List: (1) Subdural hemorrhage ICD Codes: I62.00 - Nontraumatic subdural hemorrhage, unspecified Status: Acute Plan: Thrombosis of the left transverse sinus with associated small tentorial subdural hemorrhage Thrombosis of the sigmoid and inferior sagittal sinus - Pt is a 61 y/o male with a history of esophageal cancer who was admitted on with three day history of frontal headache along with nausea and vomiting. He was also experiencing dizziness, unsteady gait and photophobia. - Head CT (07/01) --> A hypodensity in the left tentorium. There was a possibility of tentorial bleed and transverse sinus thrombosis. - MRI of the brain (07/01) --> subtle blood products on the tentorium, and some opacification of the left transverse sinus. - CT angiogram (07/01) --> Multiple filling defects in the subsegmental artery to the right upper lobe, basal segments of the right lower lobe, basal segments of the left lower lobe and left upper lobe. - The patient was transferred to [facility] to the ICU and evaluated by neurosurgery and it was thought that since the amount of tentorial bleed was small and the fact that there is an increased risk of expansion of pulmonary embolism compared to the risk of further cerebral bleeding, anticoagulation should started and the pt was started on Heparin gtt. - Pt tolerated heparin gtt with improvement in his symptoms - MR Venogram (07/02) --> No flow demonstrated in the left transverse or sigmoid sinus. This also no flow seen in the inferior sagittal sinus. - MRA Head (07/02) --> negative. - Hematology is following. - Per notes from Neurosurgery on 07/05, pt has been cleared by neurosurgery to start full anticoagulation, either Coumadin or Pradaxa 150mg PO BID - Start pradaxa 150mg BID - c/o increased MOJ[place]. obtain repeat CT brain. toradol x once - if pt remains stable, then anticipate d/c to home 07/07/17 (2) Pulmonary embolism ICD Codes: I26.99 - Other pulmonary embolism without acute cor pulmonale Status: Acute Plan: - See above. (3) Esophageal cancer ICD Codes: C15.9 - Malignant neoplasm of esophagus, unspecified Status: Chronic Plan: - Pt with hx of esophageal cancer who underwent concurrent chemo and XRT in 2016 followed by esophagectomy in 03/2017 - Pt is felt to currently be in remission with no residual tumor noted and continues to be monitored by his Oncologist. Dr. Silver. Problem Qualifiers (1) Pulmonary embolism: Qualified Codes: I26.99 - Other pulmonary embolism without acute cor pulmonale Mauri Rouse DO Jul 06, 2017 15:36
[2017-07-06] MEDS ORDERED: PROMETHAZINE HCL 25 MG SUPP RECTAL PRN (16:00)
[2017-07-06] MEDS ORDERED: KETOROLAC TROMETHAMINE 30 MG/ML (IVP) VIAL IV PUSH ONE (16:00)
[2017-07-06] MEDS ORDERED: HYDROmorphone HCL PF 2 MG/ML VIAL IV PUSH PRN (16:00)
--- NOTE | 2017-07-06 16:09 | HHI.NSPN ---
(John Sanchez) History Chief Complaint: Headache (John Sanchez) Interval History 61-year-old gentleman with a three-day history of left frontal headaches along with nausea and vomiting. He also complains of dizziness and unsteadiness in his gait along with some photophobia. He relates that around the same time complaints of dyspnea along with generalized body aches. Denies any fevers or chills. He has a history of esophageal cancer diagnosed last summer and underwent radiation and chemo and resection and was told he was in remission. Work-up in the emergency room with a CT of the head reveals a hypodensity in the left tentorium as well as a transverse sign and the possibility of a tentorial bleed and transverse sinus thrombosis. Subsequent MRI scan of the brain was obtained which again reveals subtle blood products on the tentorium and it also appears that the left transverse sinus is opacified. He was also found to have bilateral numerous segmental and subsegmental vessel pulmonary embolus with small pleural nodular densities in the lung bases. 07/02/17: No new complaints. MRA negative but MRV of the brain consistent with left transverse sinus thrombosis. 07/03/17: Patient awake and alert. Complains of left frontal headache radiating to the occipital area. Some nausea present. No muscle weakness or paresthesias in the extremities. Patient states he does not have any chest pain or shortness of breath today. He has been started on a heparin drip this morning. 07/04/17: Pt awake and alert. Complains of left frontal headache radiating to the occipital area. No change in headache. He states some nausea when he is sitting up. No weakness or paresthesias in extremities. Pt on Heparin drip. He has constipation. 07/05/17: Pt awake and alert. States he woke up today without a headache which was the first time in a while. No nausea vomiting, states appetite good. 07/06/17: Pt awake and alert. He complains of left frontal to occipital headache and is not feeling well with nausea. He denies any numbness or tingling or any weakness in extremities. No aphasia. (John Sanchez) Review of Systems General: Negative for: fever, chills, insomnia Respiratory: Negative for: shortness of breath, cough, sputum Cardiovascular: Negative for: chest pain Gastrointestinal: Negative for: nausea, vomitting, diarrhea, constipation ( John Sanchez) Exam Results Vital Signs Date Time Temp Pulse Resp B/P (MAP) Pulse Ox O2 Delivery O2 Flow Rate FiO2 07/06/17 13:12 73 07/06/17 11:42 98.1 20 114/80 (91) 97 07/03/17 07:00 Room Air Intake and Output 07/06/17 07/06/17 07/06/17 07:59 15:59 23:59 Intake Total 232 ml 92 ml Output Total 600 ml Balance -368 ml 92 ml (John Sanchez) Physical Examination GENERAL: Well-nourished, well-developed patient. HEAD: Normocephalic and atraumatic. EYES: No scleral icterus. No injection or drainage. Pupils are 3 mm bilaterally reactive bilaterally. ENT: No nasal drainage noted. Mucous membranes pink. Airway patent. NECK: Supple, trachea midline. CARDIOVASCULAR: Regular rate and rhythm without murmurs, gallops, or rubs. RESPIRATORY: Breath sounds equal bilaterally. No accessory muscle use. GASTROINTESTINAL: Abdomen soft, non-tender, nondistended. SKIN: Warm and dry. No cyanosis or edema. MUSCLE: Moves all 4 extremities symmetrically with 5/5 strength. NEUROLOGICAL: Awake and alert. Pupils Equal and reactive 3mm bilaterally. EOMI. Face symmetric. Tongue midline. Cranial nerves II through XII intact. Motor and sensory grossly within normal limits. Five out of 5 muscle strength in all muscle groups. Normal speech. Normal comprehension. (John Sanchez) Lab, Micro, Other Results Last Impressions Head CT 07/04/17 1100 Signed Impressions: Service Date/Time: Tuesday, July 04, 2017 11:16 - CONCLUSION: Stable head CT with a small amount of subdural blood products layering along the left tentorium cerebelli. Ren Hassan MD Lower Extremity Ultrasound 07/03/17 0000 Signed Impressions: Service Date/Time: Monday, July 03, 2017 09:11 - CONCLUSION: No DVT. Ren Mckeon MD Head/Brain Mag Res Venography 07/02/17 0000 Signed Impressions: Service Date/Time: Sunday, July 02, 2017 07:44 - CONCLUSION: No flow demonstrated in the left transverse or sigmoid sinus. This also no flow seen in the inferior sagittal sinus. Ren Mckeon MD Head Magnetic Resonance Angiography 07/02/17 0000 Signed Impressions: Service Date/Time: Sunday, July 02, 2017 07:44 - CONCLUSION: Negative MRA. Ren Mckeon MD Chest X-Ray 07/01/17 1330 Signed Impressions: Service Date/Time: Saturday, July 01, 2017 15:18 - CONCLUSION: No acute disease. Ren Smiley MD CT Angiography 07/01/17 0000 Signed Impressions: Service Date/Time: Saturday, July 01, 2017 16:40 - CONCLUSION: 1. Positive for bilateral pulmonary embolism in numerous segmental and subsegmental vessels involving all segments. 2. Expected postsurgical findings from gastric pull-through. Gilberto Hernandez MD Brain MRI 07/01/17 0000 Signed Impressions: Service Date/Time: Saturday, July 01, 2017 19:04 - CONCLUSION: 1. Abnormality on CT examination corresponds with subtle subdural blood products on MRI examination. Efrain Ivey MD Abdomen/Pelvis CT 07/01/17 0000 Signed Impressions: Service Date/Time: Saturday, July 01, 2017 16:40 - CONCLUSION: Postoperative changes from previous esophagectomy and gastric pullup. Small pleural-based nodular densities in the lung bases were not clearly seen previously and will need to be followed. No definite acute CT findings in the abdomen or pelvis. Ren Smiley MD Laboratory Tests Test 07/06/17 06:30 White Blood Count 4.2 TH/MM3 Red Blood Count 4.96 MIL/MM3 Hemoglobin 12.3 GM/DL Hematocrit 37.4 % Mean Corpuscular Volume 75.5 FL Mean Corpuscular Hemoglobin 24.9 PG Mean Corpuscular Hemoglobin Concent 32.9 % Red Cell Distribution Width 17.1 % Platelet Count 173 TH/MM3 Mean Platelet Volume 7.9 FL Neutrophils (%) (Auto) 65.2 % Lymphocytes (%) (Auto) 12.7 % Monocytes (%) (Auto) 20.2 % Eosinophils (%) (Auto) 1.4 % Basophils (%) (Auto) 0.5 % Neutrophils # (Auto) 2.8 TH/MM3 Lymphocytes # (Auto) 0.5 TH/MM3 Monocytes # (Auto) 0.9 TH/MM3 Eosinophils # (Auto) 0.1 TH/MM3 Basophils # (Auto) 0.0 TH/MM3 CBC Comment DIFF FINAL Differential Comment Activated Partial Thromboplast Time 44.6 SEC Blood Urea Nitrogen 3 MG/DL Creatinine 0.68 MG/DL Random Glucose 90 MG/DL Calcium Level 8.5 MG/DL Magnesium Level 1.5 MG/DL Sodium Level 138 MEQ/L Potassium Level 3.9 MEQ/L Chloride Level 103 MEQ/L Carbon Dioxide Level 28.1 MEQ/L Anion Gap 7 MEQ/L Estimat Glomerular Filtration Rate 119 ML/MIN 07/06/17 07/06/17 07/07/17 14:59 22:59 06:59 Intake Total 92 ml Balance 92 ml IV Total 92 ml # Bowel Movements 1 (John Sanchez) Medical Decision Making Impression and Plan A: 1. Thrombosis of the left transverse sinus with associated small tentorial subdural hemorrhage as well as thrombosis of the sigmoid and inferior sagittal sinus. 2. Bilateral multiple pulmonary embolus. 3. History of esophageal cancer. 4. History of hypertension. PLAN 61-year-old gentleman with a small left tentorial hemorrhage likely related to the thrombosis of the left transverse sinus. He also has thrombosis of the sigmoid and inferior sagittal sinus and multiple bilateral pulmonary embolus. Given the cerebral left transverse venous sinus thrombosis, sigmoid and inferior sagittal sinus as well as bilateral pulmonary embolus, he was placed on Heparin drip given the risk of this thrombosis progression with consequent venous infarct as well as pulmonary embolus progression is higher than risk of cerebral rebleeding. Continue with close neuro checks Continue with medical care If any neurologic changes pt may need a follow up CT. (John Sanchez) Attending Statement The exam, history, and the medical decision-making described in the above note were completed with the assistance of the mid-level provider. I reviewed and agree with the findings presented. I attest that I had a [id number] encounter with the patient on the same day, and personally performed and documented my assessment and findings in the medical record. (Matti Rojas MD) John Snachez Jul 06, 2017 16:09 Matti Rojas MD Jul 06, 2017 18:17
[2017-07-06] MEDS: PANTOPRAZOLE SODIUM 40 MG VIAL IV PUSH SCH (20:24)
--- NOTE | 2017-07-06 22:10 | RADRPT ---
EXAM DATE/TIME: 07/06/2017 20:00 [facility] COMPARISON: CT BRAIN W/O CONTRAST, July 04, 2017, 11:16. INDICATIONS : Headaches on left orbit region. RADIATION DOSE: 56.35 CTDIvol (mGy) MEDICAL HISTORY : Hypertension. Esophageal cancer. SURGICAL HISTORY : None. ENCOUNTER: Initial ACUITY: 1 week PAIN SCALE: 9/10 LOCATION: Left cranial TECHNIQUE: Multiple contiguous axial images were obtained of the head. Using automated exposure control and adj ustment of the mA and/or kV according to patient size, radiation dose was kept as low as reasonably a chievable to obtain optimal diagnostic quality images. DICOM format image data is available electro nically for review and comparison. FINDINGS: There is a persistent stable acute subdural hematoma along the left tentorium. No midline shift or ac marie intra-axial bleed is noted. The ventricles, sulci and cisterns are stable. CONCLUSION: Persistent stable acute subdural hematoma along the left tentorium. Luisito Norris MD on July 06, 2017 at 22:08 Board Certified Radiologist. This report was verified electronically.
[2017-07-07] VITALS: BP 153/86; PULSE 63; RESP 18; TEMP 98.9; O2SAT 95
[2017-07-07] MEDS: ONDANSETRON HCL 4 MG/2 ML VIAL IVP PRN ×2 (00:44→10:56)
[2017-07-07] MEDS: LORazepam 2 MG/ML VIAL IV PUSH PRN (00:44)
[2017-07-07] MEDS: CHLORHEXIDINE GLUCONATE 2 % 1 PACK (2 CLOTHS) TOP SCH (03:05)
[2017-07-07 04:00] VITALS: BP 141/94; PULSE 68; RESP 18; TEMP 98; O2SAT 96
[2017-07-07 08:23] VITALS: BP 138/85; PULSE 61; RESP 20; TEMP 97.9; O2SAT 95
[2017-07-07] MEDS: DABIGATRAN ETEXILATE 150 MG CAP PO SCH ×2 (09:00→16:58)
--- NOTE | 2017-07-07 09:59 | PD.ONC.PN ---
Subjective Subjective Remarks Afebrile overnight. Patient states he had severe headache last night. the headache is improved today, but remains mildly persistent. he states he also feels nauseated, which is improved with zofran. no loss of feeling or weakness, no slurred speech. Objective Data Date Time Temp Pulse Resp B/P (MAP) Pulse Ox O2 Delivery O2 Flow Rate FiO2 07/07/17 08:23 97.9 61 20 138/85 (102) 95 07/07/17 04:00 98.0 68 18 141/94 (110) 96 07/07/17 00:00 98.9 63 18 153/86 (108) 95 07/07/17 00:00 98.9 63 18 153/86 (108) 95 07/06/17 20:31 79 07/06/17 20:00 97.2 83 18 115/81 (92) 100 07/06/17 17:25 55 07/06/17 16:18 98.5 63 20 146/87 (106) 96 07/06/17 13:12 73 07/06/17 11:42 98.1 77 20 114/80 (91) 97 07/07/17 07/07/17 07/07/17 07:00 15:00 23:00 Output Total 960 ml Balance -960 ml Result Diagram: 07/06/1730 07/06/17 0630 Administered Medications Medications (Trade) Dose Ordered Sig/[place] Route PRN Reason Start Time Stop Time Status Last Admin Dose Admin Sodium Chloride (NS Flush) 2 ml BID IV FLUSH 07/02/17 09:00 07/06/17 20:24 Ondansetron HCl (Zofran Inj) 4 mg Q6H PRN IVP NAUSEA OR VOMITING 07/01/17 21:30 07/07/17 00:44 Senna/Docusate Sodium (Areli-Colace) 1 tab BID PO 07/02/17 09:00 07/06/17 20:23 Magnesium Hydroxide (Milk Of Magnesia Liq) 30 ml Q12H PRN PO Mild constipation 07/01/17 21:30 07/06/17 10:25 Lactulose (Lactulose Liq) 30 ml DAILY PRN PO SEVERE CONSITIPATION 07/01/17 21:30 07/05/17 17:58 Lorazepam (Ativan Inj) 1 mg HS PRN IV PUSH ANXIETY SLEEP 07/01/17 21:30 07/07/17 00:44 Pantoprazole Sodium (Protonix Inj) 40 mg Q24H IV PUSH 07/01/17 22:00 07/06/17 20:24 Sodium Chloride 1,000 ml @ 42 mls/hr [id number] IV 07/02/17 11:00 07/06/17 16:39 Oxycodone HCl (Roxicodone) 5 mg Q4H PRN PO PAIN SCALE 1 TO 6 07/02/17 17:45 07/06/17 20:26 Mupirocin (Bactroban Nasal 2% Oint) 1 applic BID EACH NARE 07/04/17 21:00 07/06/17 20:23 Dabigatran (Pradaxa) 150 mg BID PO 07/06/17 10:00 07/06/17 20:23 Promethazine HCl (Phenergan Supp) 25 mg Q6H PRN RECTAL nausea 07/06/17 16:00 07/06/17 17:47 Objective Remarks GENERAL: Middle aged male, lying in bed in dark room in [facility]. SKIN: Warm and dry. HEAD: Normocephalic. EYES: No injection or drainage. NECK: Supple, trachea midline. CARDIOVASCULAR: Regular rate and rhythm RESPIRATORY: Breath sounds equal bilaterally. No accessory muscle use. GASTROINTESTINAL: Abdomen soft, non-tender, nondistended. EXTREMITIES: No cyanosis, or edema. MUSCULOSKELETAL: Adequate muscle tone. NEUROLOGICAL: awake and alert, normal speech. moving all extremities. Assessment/Plan Problem List: (1) Subdural hemorrhage ICD Codes: I62.00 - Nontraumatic subdural hemorrhage, unspecified Status: Acute Plan: --CT, 07/06 showed persistent stable SDH (2) Pulmonary embolism ICD Codes: I26.99 - Other pulmonary embolism without acute cor pulmonale Status: Acute Plan: --on Pradaxa 150mg PO BID Assessment 61y/o male with a history of esophageal cancer admitted with subdural hemorrhage and bilateral PE. HPI (brought forward from initial consult for continuity of care) 5 T3 N0 M0 disease, poorly differentiated carcinoma. He completed concurrent chemotherapy and radiation treatment in January of 2017. He received carboplatin and Taxol. He underwent esophagectomy on 03/09/2017. There was no residual tumor noted. He is currently under observation. now presents to the emergency room with three day history of frontal headache along with nausea and vomiting. He was also experiencing dizziness and unsteady gait along with photophobia. In the emergency department a CT scan of the head revealed a hypodensity in the left tentorium. There was a possibility of tentorial bleed and transverse sinus thrombosis. He subsequently had an MRI of the brain which revealed subtle blood products on the tentorium, and some opacification of the left transverse sinus. CT angiogram revealed multiple filling defects in the subsegmental artery to the right upper lobe, basal segments of the right lower lobe, basal segments of the left lower lobe and left upper lobe. The patient was evaluated by neurosurgery and it was thought that since the amount of tentorial bleed was small and the fact that there is an increased risk of expansion of pulmonary embolism compared to the risk of further cerebral bleeding, anticoagulation should strongly be considered. Plan 1. continue Pradaxa 2. give one time dose of Oxycodone 10mg PO x1 at patient's request. states the 5mg pills do not help his headache. Attending Statement The exam, history, and the medical decision-making described in the above note were completed with the assistance of the mid-level provider. I reviewed and agree with the findings presented. I attest that I had a [id number] encounter with the patient on the same day, and personally performed and documented my assessment and findings in the medical record. Had more headache yesterday. Repeat CT showed stable SDH. Headache better today. Continue pradaxa and monitor closely. Problem Qualifiers (1) Pulmonary embolism: Qualified Codes: I26.99 - Other pulmonary embolism without acute cor pulmonale Glendy Malcolm Jul 07, 2017 09:59 Sylvester Silver MD Jul 07, 2017 16:46
[2017-07-07] MEDS ORDERED: ZOFR4TAB PO (10:05)
[2017-07-07] MEDS ORDERED: PRAD150C PO (10:05)
--- NOTE | 2017-07-07 10:10 | HHI.DCPOC ---
Discharge Care Plan Diagnosis: (1) Subdural hemorrhage (2) Pulmonary embolism (3) Esophageal cancer Goals to Promote Your Health * To prevent worsening of your condition and complications * To maintain your health at the optimal level Directions to Meet Your Goals Take your medications as prescribed Follow your dietary instruction Follow activity as directed Keep your appointments as scheduled Take your immunizations and boosters as scheduled If your symptoms worsen call your PCP, if no PCP go to Urgent Care Center or Emergency Room Smoking is Dangerous to Your Health. Avoid second hand smoke Call the 24-hour hour crisis hotline for domestic abuse at Marlene Love Jul 07, 2017 10:10 Mauri Rouse DO Jul 11, 2017 11:09
--- NOTE | 2017-07-07 10:15 | HHI.DS ---
Discharge Summary Admission Date Jul 01, 2017 at 18:38 Discharge Date: Jul 07, 2017 Admitting Diagnosis subdural hemorrhage, bilateral PE (1) Subdural hemorrhage Diagnosis: Principal ICD Codes: I62.00 - Nontraumatic subdural hemorrhage, unspecified Status: Acute (2) Pulmonary embolism Diagnosis: Principal ICD Codes: I26.99 - Other pulmonary embolism without acute cor pulmonale Status: Acute (3) Esophageal cancer Diagnosis: Secondary ICD Codes: C15.9 - Malignant neoplasm of esophagus, unspecified Status: Chronic Consultants Dr. Rojas, Neurosurgery Dr. Shaikh, Hematology Dr. Juares, Neurology Dr. Kruse, ICU Procedures none Brief History 61-year-old male presents to the emergency department for evaluation . Patient states that he started to feel sick on Tuesday. He reports body aches, left- sided chest pain, epigastric abdominal pain, headache. Patient believes headache is from vomiting. He reports associated photophobia. Current headache as 10/10. Patient states current chest pain as 5/10, worse with deep breathing. He also reports epigastric abdominal pain, 10/10. Patient denies any fevers. He also reports back pain and body aches. Patient states he has been vomiting since Tuesday and has been unable keep any food or fluids down. Patient denies any diarrhea or constipation. Patient has history of esophageal cancer with previous removal the esophagus and part of the stomach. Patient states he is currently in remission. Patient has completed chemo and RT followed by Dr. Silver. Patient states he has a history of hypertension, but is not currently on any medications for high blood pressure. He is on pain medication, but has been unable to take it due to vomiting. No exacerbating or alleviating factors. Moderate severity. In er had CT scan head and showed subdural hematomas and bilateral PE will be admitted to [facility] ,patient did require several doses of morphine to 12 mg before had any relief of head pain. Neurosurgery was notified and they recommend observation for now and check MRI brain. CBC/BMP: 07/06/17 0630 07/06/17 0630 Significant Findings Laboratory Tests Test 07/04/17 11:54 07/04/17 20:34 07/05/17 04:05 07/06/17 06:30 Activated Partial Thromboplast Time 36.3 SEC (24.3-30.1) 40.1 SEC (24.3-30.1) 43.8 SEC (24.3-30.1) 44.6 SEC (24.3-30.1) Hemoglobin 12.2 GM/DL (13.0-17.0) 12.3 GM/DL (13.0-17.0) Hematocrit 37.9 % (39.0-51.0) 37.4 % (39.0-51.0) Mean Corpuscular Volume 75.3 FL (80.0-100.0) 75.5 FL (80.0-100.0) Mean Corpuscular Hemoglobin 24.3 PG (27.0-34.0) 24.9 PG (27.0-34.0) Blood Urea Nitrogen 3 MG/DL (7-18) 3 MG/DL (7-18) Creatinine 0.56 MG/DL (0.60-1.30) Calcium Level 8.2 MG/DL (8.5-10.1) Sodium Level 135 MEQ/L (136-145) Potassium Level 3.2 MEQ/L (3.5-5.1) Monocytes (%) (Auto) 20.2 % (0.0-8.0) Lymphocytes # (Auto) 0.5 TH/MM3 (1.0-4.8) Imaging Last Impressions Head CT 07/06/17 0000 Signed Impressions: Service Date/Time: Thursday, July 06, 2017 20:00 - CONCLUSION: Persistent stable acute subdural hematoma along the left tentorium. Luisito Norris MD Lower Extremity Ultrasound 07/03/17 0000 Signed Impressions: Service Date/Time: Monday, July 03, 2017 09:11 - CONCLUSION: No DVT. Ren Mckeon MD Head/Brain Mag Res Venography 07/02/17 0000 Signed Impressions: Service Date/Time: Sunday, July 02, 2017 07:44 - CONCLUSION: No flow demonstrated in the left transverse or sigmoid sinus. This also no flow seen in the inferior sagittal sinus. Ren Mckeon MD Head Magnetic Resonance Angiography 07/02/17 0000 Signed Impressions: Service Date/Time: Sunday, July 02, 2017 07:44 - CONCLUSION: Negative MRA. Ren Mckeon MD Chest X-Ray 07/01/17 1330 Signed Impressions: Service Date/Time: Saturday, July 01, 2017 15:18 - CONCLUSION: No acute disease. Ren Smiley MD CT Angiography 07/01/17 0000 Signed Impressions: Service Date/Time: Saturday, July 01, 2017 16:40 - CONCLUSION: 1. Positive for bilateral pulmonary embolism in numerous segmental and subsegmental vessels involving all segments. 2. Expected postsurgical findings from gastric pull-through. Gilberto Hernandez MD Brain MRI 07/01/17 0000 Signed Impressions: Service Date/Time: Saturday, July 01, 2017 19:04 - CONCLUSION: 1. Abnormality on CT examination corresponds with subtle subdural blood products on MRI examination. Efrain Ivey MD Abdomen/Pelvis CT 07/01/17 0000 Signed Impressions: Service Date/Time: Saturday, July 01, 2017 16:40 - CONCLUSION: Postoperative changes from previous esophagectomy and gastric pullup. Small pleural-based nodular densities in the lung bases were not clearly seen previously and will need to be followed. No definite acute CT findings in the abdomen or pelvis. Ren Smiley MD PE at Discharge General: NAD, AAOx3 Chest: CTA Cardiac: Regular Abd: +BS, soft ND/NT Ext: No edema Hospital Course Subdural hemorrhage Thrombosis of the left transverse sinus with associated small tentorial subdural hemorrhage Thrombosis of the sigmoid and inferior sagittal sinus - Pt is a 61 y/o male with a history of esophageal cancer who was admitted on with three day history of frontal headache along with nausea and vomiting. He was also experiencing dizziness, unsteady gait and photophobia. - Head CT (07/01) --> A hypodensity in the left tentorium. There was a possibility of tentorial bleed and transverse sinus thrombosis. - MRI of the brain (07/01) --> subtle blood products on the tentorium, and some opacification of the left transverse sinus. - CT angiogram (07/01) --> Multiple filling defects in the subsegmental artery to the right upper lobe, basal segments of the right lower lobe, basal segments of the left lower lobe and left upper lobe. - The patient was transferred to [facility] to the ICU and evaluated by neurosurgery and it was thought that since the amount of tentorial bleed was small and the fact that there is an increased risk of expansion of pulmonary embolism compared to the risk of further cerebral bleeding, anticoagulation should started and the pt was started on Heparin gtt. - Pt tolerated heparin gtt with improvement in his symptoms - MR Venogram (07/02) --> No flow demonstrated in the left transverse or sigmoid sinus. This also no flow seen in the inferior sagittal sinus. - MRA Head (07/02) --> negative. - Hematology is following. - Per notes from Neurosurgery on 07/05, pt has been cleared by neurosurgery to start full anticoagulation, either Coumadin or Pradaxa 150mg PO BID - Start pradaxa 150mg BID - c/o increased [place]. obtain repeat CT brain. toradol x once - if pt remains stable, then anticipate d/c to home 07/07/17 Pulmonary embolism - See above. Esophageal cancer - Pt with hx of esophageal cancer who underwent concurrent chemo and XRT in 2016 followed by esophagectomy in 03/2017 - Pt is felt to currently be in remission with no residual tumor noted and continues to be monitored by his Oncologist. Dr. Silver. Pt Condition on Discharge: Stable Discharge Disposition: Disch w/ Home Health Serv Discharge Instructions DIET: Follow Instructions for: As Tolerated, No Restrictions Activities you can perform: Regular-No Restrictions Follow up Referrals: Neurosurgery - 3 Weeks with Matti Rojas MD Oncology/Hematology - 1 Week with Sylvester Silver MD PCP Follow-up - [address] Viera New Medications: Ondansetron (Zofran) 4 Mg Tab 4 MG PO Q6HR PRN for NAUSEA OR VOMITING, #10 TAB 0 Refills Dabigatran (Pradaxa) 150 Mg Cap 150 MG PO BID for Blood Clot Prevention, #60 CAP 0 Refills Continued Medications: Diazepam (Valium) 10 Mg Tab 10 MG PO BID PRN for ANXIETY, TAB 0 Refills Oxycodone (Oxycodone) 5 Mg Cap 5 MG PO Q4H PRN for PAIN, CAP 0 Refills Trazodone (Trazodone) Unknown Strength Tab Unknown Dose PO HS for Control Depression, #30 TAB 0 Refills Additional Information Patient examined. Assessment and plan formulated with Marlene Love PA-C. I agree with the above. Marlene Love Jul 07, 2017 10:15 Mauri Rouse DO Jul 11, 2017 11:08
[2017-07-07] MEDS: SODIUM CHLOR 0.9% 1000 ML INJ 1,000 ML IV SCH (10:48)
[2017-07-07] MEDS: DOCUSATE SODIUM 50 MG/SENNA 8.6 MG TAB PO SCH (10:52)
[2017-07-07] MEDS: SODIUM CHLORIDE 0.9% FLUSH 10 ML FLUSH IV FLUSH SCH (10:52)
[2017-07-07] MEDS: MUPIROCIN 2% OINT 1 APPLIC/GM SYR EACH NARE SCH (10:52)
[2017-07-07 12:20] VITALS: BP 117/81; PULSE 76; RESP 20; TEMP 97.8; O2SAT 96
--- NOTE | 2017-07-07 12:32 | HHI.NSPN ---
(John Sanchez) History Chief Complaint: Headache (John Sanchez) Interval History 61-year-old gentleman with a three-day history of left frontal headaches along with nausea and vomiting. He also complains of dizziness and unsteadiness in his gait along with some photophobia. He relates that around the same time complaints of dyspnea along with generalized body aches. Denies any fevers or chills. He has a history of esophageal cancer diagnosed last summer and underwent radiation and chemo and resection and was told he was in remission. Work-up in the emergency room with a CT of the head reveals a hypodensity in the left tentorium as well as a transverse sign and the possibility of a tentorial bleed and transverse sinus thrombosis. Subsequent MRI scan of the brain was obtained which again reveals subtle blood products on the tentorium and it also appears that the left transverse sinus is opacified. He was also found to have bilateral numerous segmental and subsegmental vessel pulmonary embolus with small pleural nodular densities in the lung bases. 07/02/17: No new complaints. MRA negative but MRV of the brain consistent with left transverse sinus thrombosis. 07/03/17: Patient awake and alert. Complains of left frontal headache radiating to the occipital area. Some nausea present. No muscle weakness or paresthesias in the extremities. Patient states he does not have any chest pain or shortness of breath today. He has been started on a heparin drip this morning. 07/04/17: Pt awake and alert. Complains of left frontal headache radiating to the occipital area. No change in headache. He states some nausea when he is sitting up. No weakness or paresthesias in extremities. Pt on Heparin drip. He has constipation. 07/05/17: Pt awake and alert. States he woke up today without a headache which was the first time in a while. No nausea vomiting, states appetite good. 07/06/17: Pt awake and alert. He complains of left frontal to occipital headache and is not feeling well with nausea. He denies any numbness or tingling or any weakness in extremities. No aphasia. 07/07/17: Pt awake and alert. He states his headaches got bad again last night and had a CT head. Headaches this morning are improved since his pain medication was increased. No weakness, aphasia, or paresthesias. (John Sanchez) Review of Systems General: Negative for: fever, chills, insomnia Respiratory: Negative for: shortness of breath, cough, sputum Cardiovascular: Negative for: chest pain Gastrointestinal: Positive for: nausea (Improved with Zofran.), Negative for: vomitting, diarrhea, constipation (John Sanchez) Exam Results Vital Signs Date Time Temp Pulse Resp B/P (MAP) Pulse Ox O2 Delivery O2 Flow Rate FiO2 07/07/17 12:20 97.8 76 20 117/81 (93) 96 07/03/17 07:00 Room Air Intake and Output 07/07/17 07/07/17 07/07/17 07:59 15:59 23:59 Output Total 960 ml Balance -960 ml (John Sanchez) Physical Examination GENERAL: Well-nourished, well-developed patient. HEAD: Normocephalic and atraumatic. EYES: No scleral icterus. No injection or drainage. Pupils are 3 mm bilaterally reactive bilaterally. ENT: No nasal drainage noted. Mucous membranes pink. Airway patent. NECK: Supple, trachea midline. CARDIOVASCULAR: Regular rate and rhythm without murmurs, gallops, or rubs. RESPIRATORY: Breath sounds equal bilaterally. No accessory muscle use. GASTROINTESTINAL: Abdomen soft, non-tender, nondistended. SKIN: Warm and dry. No cyanosis or edema. MUSCLE: Moves all 4 extremities symmetrically with 5/5 strength. NEUROLOGICAL: Awake and alert. Pupils Equal and reactive 3mm bilaterally. EOMI. Face symmetric. Tongue midline. Cranial nerves II through XII intact. Motor and sensory grossly within normal limits. Five out of 5 muscle strength in all muscle groups. Normal speech. Normal comprehension. (John Sanchez) Lab, Micro, Other Results Last Impressions Head CT 07/06/17 0000 Signed Impressions: Service Date/Time: Thursday, July 06, 2017 20:00 - CONCLUSION: Persistent stable acute subdural hematoma along the left tentorium. Luisito Norris MD Lower Extremity Ultrasound 07/03/17 0000 Signed Impressions: Service Date/Time: Monday, July 03, 2017 09:11 - CONCLUSION: No DVT. Ren Mckeon MD Head/Brain Mag Res Venography 07/02/17 0000 Signed Impressions: Service Date/Time: Sunday, July 02, 2017 07:44 - CONCLUSION: No flow demonstrated in the left transverse or sigmoid sinus. This also no flow seen in the inferior sagittal sinus. Ren Mckeon MD Head Magnetic Resonance Angiography 07/02/17 0000 Signed Impressions: Service Date/Time: Sunday, July 02, 2017 07:44 - CONCLUSION: Negative MRA. Ren Mckeon MD Chest X-Ray 07/01/17 1330 Signed Impressions: Service Date/Time: Saturday, July 01, 2017 15:18 - CONCLUSION: No acute disease. Ren Smiley MD CT Angiography 07/01/17 0000 Signed Impressions: Service Date/Time: Saturday, July 01, 2017 16:40 - CONCLUSION: 1. Positive for bilateral pulmonary embolism in numerous segmental and subsegmental vessels involving all segments. 2. Expected postsurgical findings from gastric pull-through. Gilberto Hernadnez MD Brain MRI 07/01/17 0000 Signed Impressions: Service Date/Time: Saturday, July 01, 2017 19:04 - CONCLUSION: 1. Abnormality on CT examination corresponds with subtle subdural blood products on MRI examination. Efrain Ivey MD Abdomen/Pelvis CT 07/01/17 0000 Signed Impressions: Service Date/Time: Saturday, July 01, 2017 16:40 - CONCLUSION: Postoperative changes from previous esophagectomy and gastric pullup. Small pleural-based nodular densities in the lung bases were not clearly seen previously and will need to be followed. No definite acute CT findings in the abdomen or pelvis. Ren Smiley MD (John Sanchez) Medical Decision Making Impression and Plan A: 1. Thrombosis of the left transverse sinus with associated small tentorial subdural hemorrhage as well as thrombosis of the sigmoid and inferior sagittal sinus. 2. Bilateral multiple pulmonary embolus. 3. History of esophageal cancer. 4. History of hypertension. PLAN 61-year-old gentleman with a small left tentorial hemorrhage likely related to the thrombosis of the left transverse sinus. He also has thrombosis of the sigmoid and inferior sagittal sinus and multiple bilateral pulmonary embolus. Given the cerebral left transverse venous sinus thrombosis, sigmoid and inferior sagittal sinus as well as bilateral pulmonary embolus, he was placed on Heparin drip given the risk of this thrombosis progression with consequent venous infarct as well as pulmonary embolus progression is higher than risk of cerebral rebleeding. Continue with close neuro checks-Pt feeling better with increase in medication. Follow up CT head was stable. Continue with medical care/ Pradaxa. (John Sanchez) Attending Statement The exam, history, and the medical decision-making described in the above note were completed with the assistance of the mid-level provider. I reviewed and agree with the findings presented. I attest that I had a [id number] encounter with the patient on the same day, and personally performed and documented my assessment and findings in the medical record. Stable follow-up exam and CT of the head. Continue with current management. (Matti Rojas MD) John Sanchez Jul 07, 2017 12:32 Matti Rojas MD Jul 07, 2017 15:42
--- NOTE | 2017-07-07 15:00 | HHI.FF ---
Face to Face Verification Diagnosis: (1) Subdural hemorrhage (2) Pulmonary embolism (3) Esophageal cancer Home Health Nursing Order: Medical education Signs/symptoms of disease process Medication education-adverse effect Nursing assessment with vital signs I have seen patient Teto Bingham on 07/07/17. My clinical findings support the need for the requested home health care services because: Med compliance is questionable I certify that my clinical findings support that this patient is homebound because: Impaired cognitive ability/safety Marlene Love Jul 07, 2017 15:00 Mauri Rouse DO Jul 08, 2017 11:34
[2017-07-07 15:04] VITALS: PULSE 59
[2017-07-07] MEDS ORDERED: OXYC1CAP PO (15:04)
[2017-07-07 16:45] VITALS: BP 105/71; PULSE 78; RESP 20; TEMP 97.9; O2SAT 94
== END 2017-07-07 17:48 | disposition home health service (06) | DRG 64 ==
LOC: NEPC 13:03 → NEDA 18:38 → N03A 22:45 → N05A 07-04 20:27
PROVIDERS: ADMIT Hospitalist; ATTEND Hospitalist
DX: I62.00 Nontraumatic subdural hemorrhage, unspecified (principal); I26.99 Other pulmonary embolism without acute cor pulmonale; G08 Intracranial and intraspinal phlebitis and thrombophlebitis; E87.2 Acidosis; D68.59 Other primary thrombophilia; G47.30 Sleep apnea, unspecified; Z92.3 Personal history of irradiation; K21.9 Gastro-esophageal reflux disease without esophagitis; K59.00 Constipation, unspecified; I10 Essential (primary) hypertension; Z85.01 Personal history of malignant neoplasm of esophagus; F41.9 Anxiety disorder, unspecified; F32.9 Major depressive disorder, single episode, unspecified; M19.90 Unspecified osteoarthritis, unspecified site; Z92.21 Personal history of antineoplastic chemotherapy; Z87.891 Personal history of nicotine dependence; H53.149 Visual discomfort, unspecified; R06.09 Other forms of dyspnea; Z80.42 Family history of malignant neoplasm of prostate; Z82.5 Family history of asthma and other chronic lower respiratory diseases
CPT/HCPCS: 70450; 70544; 70553; 71046; 71275; 74177; 80048; 80053; 81001; 82550; 82607; 82728; 82746; 83540; 83550; 83605; 83690; 83735; 84484; 85025; 85027; 85610; 85730; 87040; 87641; 87804; 93005; 93970; 96361; 96374; 96375; 96376; A9579; C9113; J1170; J1644; J1885; J2060; J2270; J2405; J2765; J3475; J7030; Q9967